=== PATIENT | female | born 1980 | race Caucasian/White ===

== ENCOUNTER 2017-01-02 17:30 | Emergency (ER) | payer BC, OTHER ==
[2017-01-02] MEDS ORDERED: methylPREDNISolone SOD SUCCI 125 MG/2 ML VIAL IM STA (18:21)
--- NOTE | 2017-01-02 18:23 | ED ---
Skin/Abscess/FB HPI - General Chief complaint: Skin/Abscess/Foreign Body Stated complaint: HANDS PEELING, ITCHING, BLISTERS Time Seen by Provider: 01/02/17 18:09 Source: patient Mode of arrival: ambulatory Limitations: no limitations - History of Present Illness Initial comments: 36-year-old female presents with bilateral skin rash the last 3 weeks on her bilateral hands. Patient states her skin is dry cracked scaly and painful. Patient states it's itchy as well. Patient states is just getting worse she denies any change of products. 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 No discharge. complaint: rash Location: L hand, R hand - Related Data Home Medications Medication Instructions Recorded Confirmed DULoxetine HCL [Cymbalta] 20 mg PO DAILY 12/29/15 12/29/15 Previous Rx's Medication Instructions Recorded Amoxicillin/Potassium Clav 1 each PO Q12HR #20 tab 12/29/15 [Augmentin 875-125 Tablet] Hydrocortisone Cream 1 applic TOPICAL BID #15 cream..g. 01/02/17 [Hydrocortisone 2.5% Cream] methylPREDNISolone [Medrol] 4 mg PO DIRECTED #1 tab.ds.pk 01/02/17 Allergies Allergy/AdvReac Type Severity Reaction Status Date / Time No Known Allergies Allergy Verified 01/02/17 17:43 Review of Systems ROS Statement: Those systems with pertinent positive or pertinent negative responses have been documented in the HPI. ROS Other: All systems not noted in ROS Statement are negative. Constitutional: Denies: fever Skin: Reports: rash (Bilateral hands) Past Medical History Past Medical History: No Reported History History of Any Multi-Drug Resistant Organisms: None Reported Past Surgical History: Orthopedic Surgery Additional Past Surgical History / Comment(s): 4 bilateral knee surgeries Past Psychological History: Anxiety Smoking Status: Current every day smoker Past Alcohol Use History: Occasional Past Drug Use History: None Reported General Exam Limitations: no limitations General appearance: alert, in no apparent distress Neurological exam: Present: alert, oriented X3, CN II-XII intact Psychiatric exam: Present: normal affect, normal mood Skin exam: Present: warm, dry, normal color. Absent: intact (Dry scaly excoriated area to bilateral hands throughout), rash Course Vital Signs 01/02/17 17:41 Temperature 98.1 F Pulse Rate 93 Respiratory 20 Rate Blood Pressure 133/86 O2 Sat by Pulse 99 Oximetry Medical Decision Making - Medical Decision Making Patient to take prescribed medications as directed follow-up with dermatology for further eval and treatment. Disposition Clinical Impression: Contact dermatitis, Eczema Disposition: HOME SELF-CARE Condition: Good Instructions: Contact Dermatitis (ED) Prescriptions: Hydrocortisone Cream [Hydrocortisone 2.5% Cream] 1 applic TOPICAL BID #15 cream..g. methylPREDNISolone [Medrol] 4 mg PO DIRECTED #1 tab.ds.pk Referrals: Valentine Weaver MD [Primary Care Provider] - 1-2 days Time of Disposition: 18:23
[2017-01-02 18:55] VITALS: BP 136/80; PULSE 90; RESP 18; TEMP 98
== END 2017-01-02 18:40 | disposition home or self-care (01) ==
LOC: EC 17:30
DX: L25.9 Unspecified contact dermatitis, unspecified cause (principal); F41.9 Anxiety disorder, unspecified; F17.200 Nicotine dependence, unspecified, uncomplicated; Z79.899 Other long term (current) drug therapy
CPT/HCPCS: 99282; 96372; J2930

== ENCOUNTER → 2017-12-29 | Outpatient (CLI) | payer BC | END | disposition home or self-care (01) | LOC: LABWHC1 14:16 | PROVIDERS: ATTEND Obstetrics & Gynecology | DX: Z34.80 Encounter for supervision of other normal pregnancy, unspecified trimester (principal) | CPT/HCPCS: 36415; 84702 ==

== ENCOUNTER 2018-01-02 20:21 | Emergency (ER) | payer BC ==
--- NOTE | 2018-01-02 22:40 | ED ---
Female Urogenital HPI - General Chief complaint: Urogenital Stated complaint: 4 weeks /bleeding Time Seen by Provider: 01/02/18 22:10 Source: patient Mode of arrival: ambulatory Limitations: no limitations - History of Present Illness Initial comments: This patient is a 37-year-old woman who presents to be evaluated for vaginal spotting. The patient relates that she believes she is approximately 4 weeks based on last period. She did have a positive test. She plans to see Dr. Solorzano but has not yet. The patient states the symptoms started around 3 AM after having sexual intercourse. She states that the spotting has been intermittent but has stopped now. She has not had any abdominal or pelvic pain. She does not have any symptoms suggesting anemia area. Obstetric history is notable for 1 previous with a full-term live births. MD Complaint: vaginal bleeding Onset/Timin -: hour(s) Improves with: none Worsens with: intercourse Patient : Yes Number of weeks : 4 - Related Data Sexually active: Yes : 2 Para: 1 A: 0 Home Medications Medication Instructions Recorded Confirmed No Known Home Medications 01/02/18 01/02/18 Allergies Allergy/AdvReac Type Severity Reaction Status Date / Time No Known Allergies Allergy Verified 01/02/18 22:25 Review of Systems ROS Statement: Those systems with pertinent positive or pertinent negative responses have been documented in the HPI. ROS Other: All systems not noted in ROS Statement are negative. Constitutional: Denies: fever, chills Respiratory: Denies: cough, dyspnea Cardiovascular: Denies: chest pain, palpitations, edema Gastrointestinal: Denies: abdominal pain, vomiting, diarrhea Genitourinary: Reports: as per HPI. Denies: dysuria, frequency, hematuria, discharge Musculoskeletal: Denies: back pain Skin: Denies: rash Neurological: Denies: headache, weakness, numbness Past Medical History Past Medical History: No Reported History History of Any Multi-Drug Resistant Organisms: None Reported Past Surgical History: Orthopedic Surgery Additional Past Surgical History / Comment(s): 4 bilateral knee surgeries Past Psychological History: Anxiety Smoking Status: Current every day smoker Past Alcohol Use History: Occasional Past Drug Use History: None Reported General Exam Limitations: no limitations General appearance: alert, in no apparent distress Head exam: Present: atraumatic, normocephalic Eye exam: Present: normal appearance. Absent: scleral icterus, conjunctival injection ENT exam: Present: normal oropharynx Neck exam: Present: normal inspection Respiratory exam: Present: normal lung sounds bilaterally. Absent: respiratory distress, wheezes, rales, rhonchi, stridor Cardiovascular Exam: Present: regular rate, normal rhythm, normal heart sounds. Absent: systolic murmur, diastolic murmur, rubs, gallop GI/Abdominal exam: Present: soft. Absent: distended, tenderness, guarding, rebound, rigid, mass Extremities exam: Present: normal inspection, normal capillary refill. Absent: pedal edema, calf tenderness Back exam: Present: normal inspection. Absent: CVA tenderness (R), CVA tenderness (L) Neurological exam: Present: alert Skin exam: Present: warm, dry, intact, normal color. Absent: rash Course Vital Signs 01/02/18 01/02/18 20:25 23:39 Temperature 99.2 F Pulse Rate 108 H 67 Respiratory 20 18 Rate Blood Pressure 127/84 112/57 O2 Sat by Pulse 98 98 Oximetry Medical Decision Making - Lab Data Lab Results 01/02/18 01/02/18 01/02/18 Range/Units 22:30 22:30 23:59 HCG, Quant 05579.0 mIU/mL Blood Type O Positive Blood Type Confirm O Positive Blood Type Recheck CABO Indicated Disposition Clinical Impression: First trimester bleeding Disposition: HOME SELF-CARE Condition: Good Instructions: First Trimester Vaginal Bleed (ED) Is patient prescribed a controlled substance at d/c from ED?: No Referrals: Valentine Weaver MD [Primary Care Provider] - 1-2 days Koby Solorzano DO [Doctor of Osteopathic Medicine] - 1-2 days
[2018-01-02 23:40] VITALS: RESP 18
--- NOTE | 2018-01-03 00:23 | US ---
EXAMINATION TYPE: Transabdominal DATE OF EXAM: 08/30/17 COMPARISON: NONE CLINICAL HISTORY: spotting. Spotting EXAM PERFORMED: Transabdominal (TA) EXAM MEASUREMENTS: GESTATIONAL AGE / DATING Physician Established: Not yet established Dates by LMP: LMP unknown Dates by First Scan: No previous this is first scan Dates by Current Scan for: (6 weeks/1 days) EDC: 08/28/2018 MATERNAL ANATOMY Uterus: 10.2 x 3.8 x 4.2 cm Right Ovary: 3.5 x 2.0 x 2.6 cm Post CDS / Adnexa: wnl Presence of free fluid: no Presence of corpus luteal cyst: yes right Presence of subchorionic bleed: no GESTATION / SURVEY CRL: 0.49 cm (6 weeks/1 days) Yolk Sac (normal less than 6mm): 3mm Heart Rate: 115 bpm Rhythm: Normal IUP: Viable IUP Beta HcG (if available): 37753.0 Viable IUP 6w 1d RAJINDER 08/28/2018 HR 115 BPM IMPRESSION: The ultrasound gestational age is 6 weeks 1 day. No complicating process seen.
[2018-01-03 00:44] VITALS: BP 147/85; PULSE 87; TEMP 97.8
== END 2018-01-03 00:54 | disposition home or self-care (01) ==
LOC: EC 20:21
DX: O20.9 Hemorrhage in early pregnancy, unspecified (principal); O99.331 Smoking (tobacco) complicating pregnancy, first trimester; F17.200 Nicotine dependence, unspecified, uncomplicated; Z3A.01 Less than 8 weeks gestation of pregnancy
CPT/HCPCS: 36415; 76801; 84702; 86900; 86901; 99284

== ENCOUNTER 2018-02-10 15:35 | Emergency (ER) | payer BC ==
--- NOTE | 2018-02-10 15:51 | ED ---
Female Urogenital HPI - General Chief complaint: Vaginal Bleeding Stated complaint: & cramping Time Seen by Provider: 02/10/18 15:47 Source: patient Mode of arrival: ambulatory Limitations: no limitations - History of Present Illness Initial comments: This a 37-year-old female who denies past medical history presenting for chief complaint of vaginal bleeding and lower abdominal cramping since 9 AM this morning. Patient is 12 weeks . Patient states that this morning she began vaginal bleeding around 9 AM she states that is light and not heavy, she states she has had mild abdominal cramping that began last night. The abdominal cramping comes and goes and is in the lower pelvis and feels identical to period cramping, its diffuse and not localized to one side, no RLQ pain. Pt states cramping is 6/10 at its worse without radiation. Pt denies fever , diarrhea, constipation, nausea, vomiting, right lower quadrant pain, LE edema , chest pain, palpatations, shortness of breath. Remainder ROS (-). Pt follows Dr. Chaitanya pfeiffer OBGYN, who she has been evaluated within the last week, last appointment was Tuesday. heart tones were present at this appointment. Pt is O+, I confirmed this upon chart review. Upon arrival pt HR elevated at 115bpm remainder of VS within acceptable limits. - Related Data Home Medications Medication Instructions Recorded Confirmed Acetaminophen Tab [Tylenol Tab] 325 - 650 mg PO Q4H PRN 02/10/18 02/10/18 Pedi Multivit No.25/Folic Acid 600 mcg PO DAILY 02/10/18 02/10/18 [Flintstones Multivit Chew Tab] Allergies Allergy/AdvReac Type Severity Reaction Status Date / Time No Known Allergies Allergy Verified 02/10/18 16:11 Review of Systems ROS Statement: Those systems with pertinent positive or pertinent negative responses have been documented in the HPI. ROS Other: All systems not noted in ROS Statement are negative. Past Medical History Past Medical History: No Reported History History of Any Multi-Drug Resistant Organisms: None Reported Past Surgical History: Orthopedic Surgery Additional Past Surgical History / Comment(s): 4 bilateral knee surgeries Past Psychological History: Anxiety Smoking Status: Current some day smoker Past Alcohol Use History: None Reported Past Drug Use History: None Reported General Exam - General Exam Comments Initial Comments: General: The patient is awake and alert, in no distress, and does not appear acutely ill. Eye: Pupils are equal, round and reactive to light, extra-ocular movements are intact. No nystagmus. There is normal conjunctiva bilaterally. No signs of icterus. Ears, nose, mouth and throat: There are moist mucous membranes and no oral lesions. Neck: The neck is supple, there is no tenderness or JVD. Cardiovascular: There is a regular rate and rhythm. No murmur, rub or gallop is appreciated. Respiratory: Lungs are clear to auscultation, respirations are non-labored, breath sounds are equal. No wheezes, stridor, rales, or rhonchi. Gastrointestinal: Soft, non-distended, abdomen without masses or organomegaly noted. There is tenderness to palpation of the lower pelvic region of abdomen to palpation. No quadrant pain. There is no rebound or guarding present. No CVA tenderness. Bowel sounds are unremarkable. Musculoskeletal: Normal ROM, no tenderness. Strength 5/5. Sensation intact. Pulses equal bilaterally 2+. Neurological: A&O x 3. CN II-XII intact, There are no obvious motor or sensory deficits. Coordination appears grossly intact. Speech is normal. Skin: Skin is warm and dry and no rashes or lesions are noted. Psychiatric: Cooperative, appropriate mood & affect, normal judgment. Gynecological: external genitalia- labia, clitoris, urethral orifice & itroitus all WNL with no evidence of lesions, masses rashes, or erythema. Cervical os appears closed. Inspection of the cervix and vagina- no bulging with straining, pink, lubricated vaginal mucosa- no evidence of lacerations. No lesions on cervix or discharge coming from cervical os. Blood without clots in the vaginal vault. No odor present upon examination. Bimanual- the uterus is palpable, midline, without palpable masses, adnexa not palpable, no noted masses nor tender to palpation. No fissures or hemorrhoid upon inspection of anus. Limitations: no limitations Course Vital Signs 02/10/18 15:41 Temperature 98.6 F Pulse Rate 115 H Respiratory 16 Rate Blood Pressure 126/91 O2 Sat by Pulse 98 Oximetry Medical Decision Making - Medical Decision Making VS stable, HgB WNL. Pt O+ upon chart review. U/S revealed 12wk 5d viable IUP HR 175bpm, placenta hetergenous-significance not determined. Adenxa WNL, no free fluid. Labs reviewed. Case discussed with Dr. Mcgarry at this time we feel pt has 1st trimester vaginal bleeding etiology unclear. No ectopic on U/S or laceration on PE. At this time we feel pt is stable for d/c with OBGYN f/u. Pt agrees with plan. Pt denies questions at this time. Pt may take tylenol for cramping as needed. Pt d/c in stable condition. - Lab Data Result diagrams: 02/10/18 16:04 Lab Results 02/10/18 Range/Units 16:04 WBC 13.9 H (3.8-10.6) k/uL RBC 4.67 (3.80-5.40) m/uL Hgb 13.8 (11.4-16.0) gm/dL Hct 41.7 (34.0-46.0) % MCV 89.3 (80.0-100.0) fL MCH 29.6 (25.0-35.0) pg MCHC 33.2 (31.0-37.0) g/dL RDW 13.1 (11.5-15.5) % Plt Count 283 (150-450) k/uL Neutrophils % 83 % Lymphocytes % 13 % Monocytes % 3 % Eosinophils % 1 % Basophils % 0 % Neutrophils # 11.5 H (1.3-7.7) k/uL Lymphocytes # 1.8 (1.0-4.8) k/uL Monocytes # 0.4 (0-1.0) k/uL Eosinophils # 0.1 (0-0.7) k/uL Basophils # 0.0 (0-0.2) k/uL Disposition Clinical Impression: Vaginal bleeding before 22 weeks gestation Disposition: HOME SELF-CARE Condition: Good Instructions: First Trimester Vaginal Bleed (ED) Additional Instructions: Please use tylenol as direct for pain medication as discussed. Please follow- up with Dr. Solorzano in the next week. Please return to emergency room if the symptoms increase or worsen or for any other concerns, as discussed. Is patient prescribed a controlled substance at d/c from ED?: No Referrals: Valentine Weaver MD [Primary Care Provider] - 1-2 days Koby Solorzano DO [Doctor of Osteopathic Medicine] - 1-2 days Time of Disposition: 17:07
[2018-02-10 16:22] LABS: Basophils % (A) 0 %; Eosinophils # (A) 0.1 k/uL (0-0.7); Eosinophils % (A) 1 %; HCT 41.7 % (34.0-46.0); HGB 13.8 gm/dL (11.4-16.0); Lymphocytes # (A) 1.8 k/uL (1.0-4.8); Lymphocytes % (A) 13 %; MCH 29.6 pg (25.0-35.0); MCHC 33.2 g/dL (31.0-37.0); MCV 89.3 fL (80.0-100.0); Mean Platelet Volume 6.7; Monocytes # (A) 0.4 k/uL (0-1.0); Monocytes % (A) 3 %; Neutrophils # (A) 11.5 k/uL (1.3-7.7); Neutrophils % (A) 83 %; Platelet Count 283 k/uL (150-450); RBC 4.67 m/uL (3.80-5.40); RDW 13.1 % (11.5-15.5); WBC 13.9 k/uL (3.8-10.6)
--- NOTE | 2018-02-10 16:47 | US ---
EXAMINATION TYPE: Transabdominal DATE OF EXAM: 08/30/17 COMPARISON: US CLINICAL HISTORY: vaginal bleeding 3 mo . cramping EXAM PERFORMED: Transabdominal (TA) EXAM MEASUREMENTS: GESTATIONAL AGE / DATING Physician Established: (11 weeks/4 days) EDC: 08/28/2018 Dates by LMP: LMP unknown Dates by First Scan: (11 weeks/4 days) EDC: 08/28/2018 Dates by Current Scan for: (12 weeks/5 days) EDC: 08/20/2018 MATERNAL ANATOMY Uterus: 13.2 x 8.4 x 9.9 cm Right Ovary: 4.6 x 2.1 x 2.4 cm Left Ovary: not identified Post CDS / Adnexa: wnl Presence of free fluid: none GESTATION / SURVEY CRL: 6.3 cm (12 weeks/5 days) Yolk Sac (normal less than 6mm): not identified Heart Rate: 175 bpm Rhythm: Normal IUP: Viable IUP Date of LMP: unknown Viable IUP. Abnormal appearance to placenta for early IUP, appears diffusely heterogeneous. IMPRESSION: Ultrasound gestational age is 12 weeks 5 days. Placenta is heterogeneous of uncertain significance.
[2018-02-10 17:12] VITALS: BP 123/63; PULSE 76; RESP 18; TEMP 99.1
[2018-02-10 17:16] LABS: Appearance,Urine Clear (Clear); Bilirubin,Urine Negative (Negative); Blood,Urine Large (Negative); Color,Urine Light Yellow; Glucose,Urine (UA) Negative (Negative); Ketones,Urine Negative (Negative); Leukocyte Esterase,Urine Negative (Negative); Mucus,Urine Rare /hpf; Nitrite,Urine Negative (Negative); Protein,Urine Negative (Negative); RBC,Urine <1 /hpf (0-5); Specific Gravity,Urine 1.007 (1.001-1.035); Squamous Epithelial Cell,Urine <1 /hpf (0-4); Urobilinogen,Urine <2.0 mg/dL (<2.0); WBC,Urine 1 /hpf (0-5)
== END 2018-02-10 17:21 | disposition home or self-care (01) ==
LOC: EC 15:35
DX: O20.9 Hemorrhage in early pregnancy, unspecified (principal); O26.891 Other specified pregnancy related conditions, first trimester; R10.2 Pelvic and perineal pain; O99.331 Smoking (tobacco) complicating pregnancy, first trimester; F17.200 Nicotine dependence, unspecified, uncomplicated; Z3A.12 12 weeks gestation of pregnancy
CPT/HCPCS: 36415; 76801; 81001; 84702; 85025; 99284

== ENCOUNTER 2018-02-18 17:16 | Inpatient (IN) | payer BC ==
[2018-02-18 17:58] LABS: Basophils % (A) 0 %; Eosinophils # (A) 0.1 k/uL (0-0.7); Eosinophils % (A) 1 %; HCT 39.8 % (34.0-46.0); HGB 13.1 gm/dL (11.4-16.0); Lymphocytes # (A) 2.2 k/uL (1.0-4.8); Lymphocytes % (A) 11 %; MCH 29.6 pg (25.0-35.0); MCHC 32.8 g/dL (31.0-37.0); MCV 90.1 fL (80.0-100.0); Mean Platelet Volume 6.9; Monocytes # (A) 0.6 k/uL (0-1.0); Monocytes % (A) 3 %; Neutrophils # (A) 17.3 k/uL (1.3-7.7); Neutrophils % (A) 85 %; Platelet Count 325 k/uL (150-450); RBC 4.42 m/uL (3.80-5.40); RDW 12.7 % (11.5-15.5); WBC 20.4 k/uL (3.8-10.6)
--- NOTE | 2018-02-18 18:35 | US ---
EXAMINATION TYPE: Transabdominal DATE OF EXAM: 08/30/17 COMPARISON: NONE CLINICAL HISTORY: pain. EXAM PERFORMED: Transabdominal (TA) EXAM MEASUREMENTS: Physician Established: (12 weeks/5 days) EDC: 08/28/2018 Dates by LMP: LMP unknown Dates by First Scan: (12 weeks/5 days) EDC: 08/28/2018 Dates by Current Scan for: No IUP seen at this time Uterus: Anteverted; 12.0 x 8.9 x 11.0 cm Endometrium: Heterogeneous with mobile debris; 6.8 cm Right Ovary: Cystic area noted measuring approximately 1.3 x 1.3 x 1.2 cm; 3.0 x 2.2 x 2.3 cm Left Ovary: Wnl; 3.3 x 1.7 x 2.4 cm Post CDS / Adnexa: Traces free fluid seen rt posterior cul de sac Presence of free fluid: Traces free fluid seen rt posterior cul de sac Presence of corpus luteal cyst: ?cystic area in rt ovary measuring approximately 1.3 x 1.3 x 1.2 cm IMPRESSION: No evidence of intrauterine . Large amount of mixed echogenic mobile debris within the endom etrial canal. With reported history of previously normal 12 week gestation, demise and hemorrha ge is favored. Serial ultrasounds and correlation with beta hCG are recommended. Retained products of conception and gestational trophoblastic disease should also be considered
[2018-02-18] MEDS ORDERED: HYDROcodone/APAP 10-325MG 1 EACH TAB PO ONE (19:01)
--- NOTE | 2018-02-18 19:25 | ED ---
Female Urogenital HPI - General Chief complaint: Vaginal Bleeding Stated complaint: Bleeding/Cramping (12wks preg) Time Seen by Provider: 02/18/18 17:24 Source: patient Mode of arrival: ambulatory Limitations: no limitations - History of Present Illness Initial comments: This a 37-year-old female , 12 weeks presenting today for chief complaint of increased vaginal bleeding. Patient states that she has had vaginal bleeding since her last visit of the where she presented to the emergency department for the same complaint. Patient states that she has been spotting since that visit. She did follow up with her [employer] Dr. Solorzano Tuesday weren't ultrasound was obtained revealing an viable intrauterine . However given the length of time of bleeding he stated that with possible unlikely. Patient states that she has spotted since that appointment, denies any heavy bleeding. However today she began to heavily bleeding for about 3 hours soaking through multiple pads. She states that it began to slow down about an hour prior to arrival and she is now mostly spotting. She still experiencing the increasing abdominal cramping similar in characteritis that has been ongoing for the past week, however much stronger today. this is lower pelvic pain. Feels like period cramping, but worse. Patient states she's been taking Tylenol for pain management patient denies any fever, chills, severe abdominal pain, nausea or vomiting. Patient denies passing anything that resembled a fetus, however she states that she has not looked the toilet. Upon arrival patient heart rate elevated at 125. Remainder of vital signs stable. - Related Data Home Medications Medication Instructions Recorded Confirmed Acetaminophen Tab [Tylenol Tab] 325 - 650 mg PO Q4H PRN 02/10/18 02/18/18 Pedi Multivit No.25/Folic Acid 600 mcg PO DAILY 02/10/18 02/18/18 [Flintstones Multivit Chew Tab] Allergies Allergy/AdvReac Type Severity Reaction Status Date / Time No Known Allergies Allergy Verified 02/18/18 17:21 Review of Systems ROS Statement: Those systems with pertinent positive or pertinent negative responses have been documented in the HPI. ROS Other: All systems not noted in ROS Statement are negative. Constitutional: Denies: fever, chills, night sweats ENT: Denies: ear pain, throat pain Respiratory: Denies: cough, dyspnea, wheezes, hemoptysis, stridor Cardiovascular: Denies: chest pain, palpitations, dyspnea on exertion, orthopnea Endocrine: Denies: fatigue, heat or cold intolerance Gastrointestinal: Reports: abdominal pain. Denies: nausea, vomiting, diarrhea, constipation, hematemesis, melena Genitourinary: Reports: as per HPI, other (Vaginal bleeding). Denies: urgency, dysuria Musculoskeletal: Denies: back pain Neurological: Denies: headache, weakness, numbness, paresthesias, confusion, abnormal gait, vertigo Past Medical History Past Medical History: No Reported History History of Any Multi-Drug Resistant Organisms: None Reported Past Surgical History: Orthopedic Surgery Additional Past Surgical History / Comment(s): 4 bilateral knee surgeries Past Psychological History: Anxiety Smoking Status: Current some day smoker Past Alcohol Use History: None Reported Past Drug Use History: None Reported - Past Family History Mother Family Medical History: No Reported History General Exam - General Exam Comments Initial Comments: General: The patient is awake and alert, in no distress, and does not appear acutely ill. Eye: Pupils are equal, round and reactive to light, extra-ocular movements are intact. No nystagmus. There is normal conjunctiva bilaterally. No signs of icterus. Ears, nose, mouth and throat: There are moist mucous membranes and no oral lesions. Neck: The neck is supple, there is no tenderness or JVD. Cardiovascular: There is a regular rate and rhythm. No murmur, rub or gallop is appreciated. Respiratory: Lungs are clear to auscultation, respirations are non-labored, breath sounds are equal. No wheezes, stridor, rales, or rhonchi. Gastrointestinal: Soft, non-distended, non-tender abdomen without masses or organomegaly noted. There is pain to palpation of the lower pelvic region. There is no rebound or guarding present. No CVA tenderness. Bowel sounds are unremarkable. Musculoskeletal: Normal ROM, no tenderness. Strength 5/5. Sensation intact. Pulses equal bilaterally 2+. Neurological: A&O x 3. CN II-XII intact, There are no obvious motor or sensory deficits. Coordination appears grossly intact. Speech is normal. Skin: Skin is warm and dry and no rashes or lesions are noted. Psychiatric: Cooperative, appropriate mood & affect, normal judgment. Limitations: no limitations External exam: Present: normal external exam. Absent: erythema, swelling, lesions Speculum exam: Present: vaginal bleeding (clots in vault, no hemorrhaging/ lacerations), tissue (tissue visualized in open cervical os). Absent: erythema , vaginal discharge, cervical discharge, foreign body By manual exam: Present: normal by manual exam, uterine enlargement (consistent with ), uterine tenderness (mild uterine tenderness). Absent: cervical motion tenderness, adnexal tenderness, adnexal mass Expanded Female exam: Present: tissue present in vagina Speculum exam: Present: cervical OS open, vaginal bleeding Course Vital Signs 02/18/18 02/18/18 02/18/18 17:19 19:53 21:26 Temperature 98.2 F 98.5 F Pulse Rate 120 H 88 88 Respiratory 18 18 18 Rate Blood Pressure 115/70 126/67 145/73 O2 Sat by Pulse 98 97 98 Oximetry Medical Decision Making - Medical Decision Making Pt O+, confirmed with chart review. No Rhogam adminsitered. HgB/Hct WNL. Ultrasound revealed No evidence of intrauterine . There are large amounts of mixed echogenic mobile degrees within the endometrial canal. demise and hemorrhage is favored. Pelvic exam revealed no evidence of hemorrhaging, there is blood in the vaginal vault no evidence of fetus however it there is products in the cervical os that is open. (-) Chandelier signs, no evidence of discharge or foul odor. Dr. Anderson was paged and I spoke with her. There is tenderness to patient over the uterus, however this is not feel rigid or out of proportion. I had concern for retained proximal of conception given with blood cell count of 20 with a left shift. I discussed these findings with Dr Anderson, she states that pt is most likely actively miscarrying and the white count could be reactive, however she would like admission for monitoring with CBC in the morning, prophylactic antibiotics ceftriaxone, and admission to OB floor. No additional order were given at this time. Pt transferred to floor in hemodynamically stable condition after discussion of U/S findings and plan. Pt was agreeable with plan. pt given standing order for morphine 1mg q4h for severe pain. All findings and case discussed with Dr. Sánchez prior to admission. - Lab Data Result diagrams: 02/18/18 17:41 Lab Results 02/18/18 02/18/18 Range/Units 17:41 17:41 WBC 20.4 H (3.8-10.6) k/uL RBC 4.42 (3.80-5.40) m/uL Hgb 13.1 (11.4-16.0) gm/dL Hct 39.8 (34.0-46.0) % MCV 90.1 (80.0-100.0) fL MCH 29.6 (25.0-35.0) pg MCHC 32.8 (31.0-37.0) g/dL RDW 12.7 (11.5-15.5) % Plt Count 325 (150-450) k/uL Neutrophils % 85 % Lymphocytes % 11 % Monocytes % 3 % Eosinophils % 1 % Basophils % 0 % Neutrophils # 17.3 H (1.3-7.7) k/uL Lymphocytes # 2.2 (1.0-4.8) k/uL Monocytes # 0.6 (0-1.0) k/uL Eosinophils # 0.1 (0-0.7) k/uL Basophils # 0.0 (0-0.2) k/uL HCG, Quant 892642.0 mIU/mL Disposition Clinical Impression: Spontaneous , Vaginal bleeding before 22 weeks gestation Disposition: ADMITTED IP TO THIS [facility] Condition: Stable Is patient prescribed a controlled substance at d/c from ED?: No Time of Disposition: 20:21 Decision to Admit Reason: Admit from EC Decision Date: 02/18/18 Decision Time: 20:21
[2018-02-18] MEDS ORDERED: SODIUM CHLORIDE 0.9% 1,000 ML IV SCH (20:15)
[2018-02-18] MEDS ORDERED: NALOXONE 0.4 MG/ML 1 ML VIAL IV PRN (20:15)
[2018-02-18] MEDS ORDERED: ACETAMINOPHEN TAB 325 MG TAB PO PRN (20:15)
[2018-02-18] MEDS ORDERED: ONDANSETRON 4 MG/2 ML VIAL IVP PRN (20:15)
[2018-02-18 22:35] VITALS: BMI 24.7
[2018-02-18] MEDS: IBUPROFEN 400 MG TAB PO PRN (23:23)
--- NOTE | 2018-02-19 01:03 | P.HPOB ---
History of Present Illness H&P Date: 02/19/18 Chief Complaint: Vaginal bleeding This is a 37-year-old female 2 para 1 who was approximately 12 weeks gestation and began bleeding heavily today. She has been bleeding off-and-on for the last week but it became much heavier today with a gush of fluid and a lot of blood clots. She states her bleeding has slowed significantly and she is not sure if she passed the fetus or not. She is still cramping quite significantly. She has been using Tylenol through the day for cramping. On admission to ER, her white count was elevated to 20,000 and therefore she is admitted for observation and antibiotics. Her blood type is O+. Obstetrical history: . History of 1 vaginal delivery that was complicated by a shoulder dystocia. Review of Systems Constitutional: Denies chills, Denies fever Eyes: denies blurred vision, denies pain Ears, nose, mouth and throat: Denies headache, Denies sore throat Cardiovascular: Denies chest pain, Denies shortness of breath Gastrointestinal: Reports abdominal pain Genitourinary: Reports abnormal vaginal bleeding, Reports pelvic pain, Reports Integumentary: Denies pruritus, Denies rash Neurological: Denies numbness, Denies weakness Past Medical History Past Medical History: No Reported History History of Any Multi-Drug Resistant Organisms: None Reported Past Surgical History: Orthopedic Surgery Additional Past Surgical History / Comment(s): 4 bilateral knee surgeries Past Anesthesia/Blood Transfusion Reactions: No Reported Reaction Past Psychological History: Anxiety Smoking Status: Current some day smoker Past Alcohol Use History: None Reported Past Drug Use History: None Reported - Past Family History Mother Family Medical History: No Reported History Medications and Allergies Home Medications Medication Instructions Recorded Confirmed Type Acetaminophen Tab [Tylenol Tab] 325 - 650 mg PO Q4H PRN 02/10/18 02/18/18 History Pedi Multivit No.25/Folic Acid 600 mcg PO DAILY 02/10/18 02/18/18 History [Flintstones Multivit Chew Tab] Allergies Allergy/AdvReac Type Severity Reaction Status Date / Time No Known Allergies Allergy Verified 02/18/18 17:21 Exam Osteopathic Statement: *. No significant issues noted on an osteopathic structural exam other than those noted in the History and Physical/Consult. Vital Signs Temp Pulse Pulse Resp BP BP Pulse Ox 02/18/18 22:17 98.3 F 86 15 121/72 100 02/18/18 21:26 98.5 F 88 18 145/73 98 02/18/18 19:53 88 18 126/67 97 02/18/18 17:19 98.2 F 120 H 18 115/70 98 Intake and Output 02/18/18 02/18/18 02/19/18 14:59 22:59 06:59 Other: Weight 61.235 kg HEENT: Within normal limits Heart: Regular rate and rhythm Lungs: Clear to auscultation bilaterally Abdomen: Soft but tender suprapubically. Speculum exam: There does appear to be slightly open os with a piece of umbilical cord hanging out the os. No active bleeding is noted and a small clot is removed. Pelvic exam: Uterus is slightly enlarged and mildly tender. Os was not open enough to place a finger through the os. Extremities: Negative Homans Results Result Diagrams: 02/18/18 17:41 Abnormal Lab Results - Last 24 Hours (Table) 02/18/18 Range/Units 17:41 WBC 20.4 H (3.8-10.6) k/uL Neutrophils # 17.3 H (1.3-7.7) k/uL Assessment and Plan (1) Incomplete Current Visit: Yes Status: Acute Code(s): O03.4 - INCOMPLETE SPONTANEOUS WITHOUT COMPLICATION SNOMED Code(s): 750283991 Plan: Admission for IV antibiotics. I have discussed dilation and curettage in detail with the patient. We will proceed with dilation and curettage to remove any further placental tissue. I have discussed the risks, benefits, and alternative therapies for the above- mentioned procedure and for both sedation/anesthesia as well as necessary blood products administration, if indicated, as they pertain to this patient. The patient has indicated her understanding and acceptance of the risks and procedures discussed.
[2018-02-19] MEDS ORDERED: KETOROLAC 30 MG/ML 1 ML VIAL ONE (01:21)
[2018-02-19] MEDS ORDERED: LIDOCAINE 1% INJ 10MG/ML (20 ML MDV) ONE (01:21)
[2018-02-19] MEDS ORDERED: DEXAMETHASONE SOD PHOS (MDV) 100 MG/10 ML VIAL ONE (01:21)
[2018-02-19] MEDS ORDERED: PROPOFOL 10 MG/ML 20 ML VIAL IV ONE (01:21)
[2018-02-19] MEDS ORDERED: ONDANSETRON 4 MG/2 ML VIAL ONE (01:21)
[2018-02-19] MEDS ORDERED: fentaNYL (PF) 50 MCG/ML 2 ML AMP ONE (01:21)
[2018-02-19] MEDS ORDERED: MIDAZOLAM 2 MG/2 ML VIAL ONE (01:21)
--- NOTE | 2018-02-19 01:55 | P.OP ---
Date of Procedure: 02/19/18 Preoperative Diagnosis: Incomplete Postoperative Diagnosis: Same Procedure(s) Performed: Suction dilation and curettage Anesthesia: YUDITH Surgeon: Vinita Anderson Estimated Blood Loss (ml): 100 Pathology: other (Products of conception) Condition: stable Disposition: floor Indications for Procedure: This is a 37-year-old female 2 para 1 at approximately 12 week gestation that came in through ER with complaints of heavy bleeding today. In ER, ultrasound was performed that showed no intrauterine but probable debris within the uterus. Her bleeding had slowed down significantly however she was still continuing to cramp. A speculum exam was performed and there was noted to be what appeared to be an umbilical cord hanging from the cervical os. At this point the decision was made to proceed with suction dilation and curettage to remove any further contents. I have discussed the risks, benefits, and alternative therapies for the above- mentioned procedure and for both sedation/anesthesia as well as necessary blood products administration, if indicated, as they pertain to this patient. The patient has indicated her understanding and acceptance of the risks and procedures discussed. Operative Findings: A large amount of products of conception were obtained. Description of Procedure: The patient was taken to the operating room where she was placed in the dorsal lithotomy position after general anesthesia was given. She is prepped and draped in the normal sterile fashion. Her bladder was drained with a catheter. Examination was performed under anesthesia. The cervical os was noted to be open fingertip with some cord noted within the os. Uterus was slightly enlarged at approximately 12 weeks size. A weighted speculum was placed in the patient's vagina and a right angle retractor was used to visualize the anterior lip of the cervix. The anterior lip of the cervix is grasped with a Allis clamp. The cervix is gently dilated with Amc dilators to the maximum dilation. A ring forcep was gently introduced and a large amount of placental type tissue was obtained. Next a 12 mm curved suction curette was placed into the uterine cavity and suction curetting was performed with a very large amount of tissue obtained. Once no further tissue was obtained a large curette was placed one further time with no further tissue obtained. At this point minimal bleeding was noted. The Allis clamp was removed from the anterior lip of the cervix. All instruments are removed from the vagina. Bimanual exam performed and uterus is noted to be firm and much smaller. All sponge counts are correct. The patient is then taken to recovery room in stable condition.
[2018-02-19] MEDS: MORPHINE SULFATE 2 MG/ML SYRINGE IV PRN ×2 (03:27→08:44)
[2018-02-19 04:55] VITALS: RESP 16
[2018-02-19] MEDS: IBUPROFEN 400 MG TAB PO PRN (06:15)
[2018-02-19 08:44] VITALS: TEMP 98.4
[2018-02-19 12:03] LABS: Basophils % (A) 0 %; Eosinophils % (A) 0 %; HCT 33.3 % (34.0-46.0); HGB 10.7 gm/dL (11.4-16.0); Lymphocytes # (A) 0.9 k/uL (1.0-4.8); Lymphocytes % (A) 7 %; MCH 29.4 pg (25.0-35.0); MCHC 32.2 g/dL (31.0-37.0); MCV 91.3 fL (80.0-100.0); Mean Platelet Volume 6.8; Monocytes # (A) 0.2 k/uL (0-1.0); Monocytes % (A) 2 %; Neutrophils # (A) 12.3 k/uL (1.3-7.7); Neutrophils % (A) 91 %; Platelet Count 280 k/uL (150-450); RBC 3.65 m/uL (3.80-5.40); RDW 12.8 % (11.5-15.5); WBC 13.4 k/uL (3.8-10.6)
--- NOTE | 2018-02-19 12:03 | P.DS ---
Providers Date of admission: 02/18/18 20:56 Expected date of discharge: 02/19/18 Attending physician: Vinita Anderson Primary care physician: Valentine Weaver - Discharge Diagnosis(es) (1) Incomplete Current Visit: Yes Status: Acute Hospital Course: This is a 37-year-old female 2 para 1 who presented with heavy vaginal bleeding at approximately 12 weeks gestation. Ultrasound showed no intrauterine but some debris within the endometrium. She did undergo a suction dilation and curettage early this morning. She was also given IV antibiotics secondary to white count of 20,000. Her bleeding is minimal. She is still having some cramping. Her vital signs are stable. She is afebrile. Abdomen is soft with fundus minimally tender. Rosa-pad shows very scant bleeding. Impression is status post dilation and curettage postoperative day # 0. Plan is to discharge home later today after her CBC results are back. She will be given ibuprofen and Keflex. She is advised to follow up with Dr. Solorzano in the office this week. Routine postoperative instructions are given. She is advised to call the office if she has any further questions or concerns prior to her postoperative appointment. Procedures: Suction dilation and curettage on 02/19/2018 Patient Condition at Discharge: Stable Plan - Discharge Summary New Discharge Prescriptions: New Cephalexin [Keflex] 500 mg PO Q6HR #24 cap No Action Acetaminophen Tab [Tylenol Tab] 325 - 650 mg PO Q4H PRN PRN Reason: Pain Or Fever > 100.5 Pedi Multivit No.25/Folic Acid [Flintstones Multivit Chew Tab] 600 mcg PO DAILY Discharge Medication List Acetaminophen Tab [Tylenol Tab] 325 - 650 mg PO Q4H PRN 02/10/18 [History] Pedi Multivit No.25/Folic Acid [Flintstones Multivit Chew Tab] 600 mcg PO DAILY 02/10/18 [History] Cephalexin [Keflex] 500 mg PO Q6HR #24 cap 02/19/18 [Rx] Follow up Appointment(s)/Referral(s): Valentine Weaver MD [Primary Care Provider] - 1-2 days Koby Solorzano DO [Family Provider] - 1 Week Activity/Diet/Wound Care/Special Instructions: Activity as tolerated. Diet as tolerated. May shower, but no tub baths for at least 1 week. No intercourse until seen by Dr. Solorzano. Discharge Disposition: HOME SELF-CARE
[2018-02-19 13:03] VITALS: BP 105/58; PULSE 60
== END 2018-02-19 13:20 | disposition home or self-care (01) | DRG 770 ==
LOC: EC 17:16 → 4FBP 20:56
PROVIDERS: ADMIT Obstetrics & Gynecology; ATTEND Obstetrics & Gynecology
PROC: 10D17ZZ Extraction of Products of Conception, Retained, Via Natural or Artificial Opening (ICD-10-PCS; principal; 2018-02-19 01:53)
DX: O03.4 Incomplete spontaneous abortion without complication (principal); O99.344 Other mental disorders complicating childbirth; F41.9 Anxiety disorder, unspecified; O99.334 Smoking (tobacco) complicating childbirth; F17.210 Nicotine dependence, cigarettes, uncomplicated
CPT/HCPCS: 36415; 76801; 84702; 85025; 87040; 88305; 93975; 96365; 99285

== ENCOUNTER 2022-05-15 11:06 | Emergency (ER) | payer OTHER ==
[2022-05-15] MEDS ORDERED: ASPIRIN 81 MG PO STA (11:08)
[2022-05-15 11:17] VITALS: RESP 16; TEMP 98
[2022-05-15] MEDS ORDERED: SODIUM CHLORIDE 0.9% 1,000 ML IV STA (11:20)
[2022-05-15 11:38] LABS: Basophils # (A) 0.1 k/uL (0-0.2); Basophils % (A) 1 %; Eosinophils % (A) 1 %; HCT 44.5 % (34.0-46.0); HGB 15.6 gm/dL (11.4-16.0); Lymphocytes # (A) 2.3 k/uL (1.0-4.8); Lymphocytes % (A) 25 %; MCH 30.7 pg (25.0-35.0); MCV 87.7 fL (80.0-100.0); Mean Platelet Volume 8.1; Monocytes # (A) 0.5 k/uL (0-1.0); Monocytes % (A) 5 %; Neutrophils % (A) 67 %; Platelet Count 275 k/uL (150-450); RBC 5.07 m/uL (3.80-5.40); RDW 13.5 % (11.5-15.5)
[2022-05-15 11:53] LABS: Partial Thromboplastin Time 26.3 sec (22.0-30.0); Prothrombin Time 10.9 sec (9.0-12.0)
[2022-05-15] MEDS ORDERED: METOCLOPRAMIDE 5 MG/ML 2 ML VIAL IVP STA (11:57)
[2022-05-15] MEDS ORDERED: KETOROLAC 15 MG/ML 1 ML VIAL IVP STA (11:58)
--- NOTE | 2022-05-15 11:58 | ED ---
Chest Pain HPI - General Chief Complaint: Chest Pain Stated Complaint: Chest Pain Time Seen by Provider: 05/15/22 11:07 Source: patient Mode of arrival: EMS Limitations: no limitations - History of Present Illness Initial Comments: Patient is a 42-year-old female who presents to the emergency department with a chief complaint of chest pain. Symptoms started 2 days ago. Describes it as an intermittent sharp pain in the middle of her chest which radiates to her left breast and back. Episodes last a couple seconds to a couple minutes. The episodes are associated with shortness of breath and mild dizziness. Patient also reports intermittent nausea with a couple episodes of vomiting. Patient was diagnosed with Covid one week ago. She does admit to a nonproductive cough. She is currently on paxlovid and prednisone. Patient does not have history of cardiac disease. Family history of cardiac disease includes her mother who of congestive heart failure. Patient is currently a smoker, 10 year pack history. She denies alcohol use. - Related Data Home Medications Medication Instructions Recorded Confirmed Acetaminophen Tab [Tylenol Tab] 325 - 650 mg PO Q4H PRN 02/10/18 02/18/18 Pedi Multivit No.25/Folic Acid 600 mcg PO DAILY 02/10/18 02/18/18 [Flintstones Multivit Chew Tab] Previous Rx's Medication Instructions Recorded Cephalexin [Keflex] 500 mg PO Q6HR #24 cap 02/19/18 Ibuprofen [Motrin] 800 mg PO Q8HR PRN #30 tab 05/15/22 Metoclopramide [Reglan] 10 mg PO TID PRN #15 tab 05/15/22 Allergies Allergy/AdvReac Type Severity Reaction Status Date / Time No Known Allergies Allergy Verified 02/18/18 17:21 Review of Systems ROS Statement: Those systems with pertinent positive or pertinent negative responses have been documented in the HPI. ROS Other: All systems not noted in ROS Statement are negative. EKG Findings - EKG Comments: EKG Findings:: EKG taken at 11:19, interpreted by me. Sinus rhythm, right axis deviation, no ST segment or T-wave abnormality. Ventricular rate 87. W[place] interval 146. QRS duration 82. QTc 427 Past Medical History Past Medical History: No Reported History History of Any Multi-Drug Resistant Organisms: None Reported Past Surgical History: Orthopedic Surgery Additional Past Surgical History / Comment(s): 4 bilateral knee surgeries Past Anesthesia/Blood Transfusion Reactions: No Reported Reaction Past Psychological History: Anxiety Past Alcohol Use History: None Reported Past Drug Use History: None Reported - Past Family History Mother Family Medical History: No Reported History General Exam Limitations: no limitations Head exam: Present: atraumatic, normocephalic, normal inspection Respiratory exam: Present: normal lung sounds bilaterally, chest wall tenderness. Absent: respiratory distress, wheezes, rales, rhonchi, stridor Cardiovascular Exam: Present: regular rate, normal rhythm, normal heart sounds. Absent: systolic murmur, diastolic murmur, rubs, gallop, clicks Back exam: Present: normal inspection. Absent: paraspinal tenderness, vertebral tenderness Neurological exam: Present: alert, oriented X3, CN II-XII intact Psychiatric exam: Present: normal affect, anxious. Absent: normal mood Skin exam: Present: warm, dry, intact, normal color. Absent: rash Course Vital Signs 05/15/22 05/15/22 05/15/22 11:11 11:25 12:19 Temperature 98 F Pulse Rate 92 76 76 Respiratory 16 16 16 Rate Blood Pressure 129/82 129/82 141/80 O2 Sat by Pulse 99 99 98 Oximetry 05/15/22 13:45 Temperature Pulse Rate 75 Respiratory 16 Rate Blood Pressure 130/68 O2 Sat by Pulse 98 Oximetry Chest Pain MDM - MDM This is a 42-year-old female presenting with atypical chest pain. EKG obtained and interpreted by me which shows sinus rhythm with right axis deviation, no ST segment or T-wave abnormalities. Laboratory studies obtained. Troponin and d-dimer are within normal limits. COVID-19 is detected, as ex pected. Chest x-ray obtained and interpreted by me which shows subtle scattered opacities which may represent an atypical pneumonia. Patient given Decadron, Toradol, Reglan. This is a well-appearing patient with atypical chest pain, reproducible with palpation, stable vital signs, and mild pneumonia on chest x-ray. Symptoms are likely related to covid pneumonia. Patient already on Paxlovid and prednisone. She'll be discharged with reglan and motrin. Strict return parameters discussed. Dr. Walker is my attending. Disposition Clinical Impression: COVID-19, Chest pain, Shortness of breath, Pneumonia, Dizziness Disposition: HOME SELF-CARE Condition: Good Instructions (If sedation given, give patient instructions): Coronavirus Disease 2019 (COVID-19), Chest Pain (ED) Additional Instructions: Take medication as directed. Take prednisone and Paxlovid. Return to the emergency department if you experience new, concerning, or worsening symptoms. Prescriptions: Ibuprofen [Motrin] 800 mg PO Q8HR PRN #30 tab PRN Reason: Pain Metoclopramide [Reglan] 10 mg PO TID PRN #15 tab PRN Reason: Nausea Is patient prescribed a controlled substance at d/c from ED?: No Referrals: Valentine Weaver MD [Primary Care Provider] - 1-2 days
[2022-05-15 11:59] LABS: Albumin 4.1 g/dL (3.5-5.0); Calcium 8.6 mg/dL (8.4-10.2); Total Bilirubin 0.3 mg/dL (0.2-1.3); Total Protein 6.7 g/dL (6.3-8.2)
--- NOTE | 2022-05-15 12:39 | XR ---
EXAMINATION TYPE: XR chest 2V DATE OF EXAM: 05/15/2022 12:14 PM COMPARISON: None TECHNIQUE: XR chest 2V Frontal and lateral views of the chest. CLINICAL INDICATION:Female, 42 years old with history of Chest Pain; FINDINGS: Lungs/Pleura: Scattered subtle reticular and hazy opacities. No evidence of pneumothorax, focal conso lidation or pleural effusion. Pulmonary vascularity: Unremarkable. Heart/mediastinum: Cardiomediastinal silhouette is unremarkable. Musculoskeletal: No acute osseous pathology. IMPRESSION: Subtle scattered opacities which may represent an atypical pneumonia.
[2022-05-15] MEDS ORDERED: DEXAMETHASONE SOD PHOSPHATE 10 MG/ML 1 ML VIAL IVP STA (13:04)
[2022-05-15 13:46] VITALS: BP 130/68; PULSE 75
== END 2022-05-15 13:46 | disposition home or self-care (01) ==
LOC: EC 11:06
DX: U09.9 Post COVID-19 condition, unspecified (principal); J18.9 Pneumonia, unspecified organism; F41.9 Anxiety disorder, unspecified
CPT/HCPCS: 36415; 93005; 85379; 80053; 83735; 84484; 85025; 85610; 85730; 87636; 71046; 99285; 96374; 96375 ×2; 96361 ×2; J1100; J2765; J1885

== ENCOUNTER 2022-05-26 13:12 | Inpatient (IN) | payer MEDICAID, OTHER ==
--- NOTE | 2022-05-26 15:11 | ED ---
Psych HPI - General Chief Complaint: Psychiatric Symptoms Stated Complaint: mental health Time Seen by Provider: 05/26/22 14:59 Source: patient Mode of arrival: ambulatory - History of Present Illness Initial Comments: This patient is a 42-year-old woman who presents with complaint that she is having worsening of depressed mood and having recurrent suicidal thoughts. Patient states that she had seen her counselor and also her primary physician. She states that her antidepressant was changed 5 days ago but doesn't seem to be doing too much at the moment. Patient's counselor recommended that she be seen about possibility of inpatient treatment. MD Complaint: suicidal ideation, feels depressed Onset/Timin -: week(s) Associated Psychiatric Symptoms: depression, suicidal ideation History of same: Yes Quality: getting worse Improves With: none Worsens With: none Associated Symptoms: denies other symptoms - Related Data Home Medications Medication Instructions Recorded Confirmed Citalopram Hydrobromide [CeleXA] 10 mg PO DAILY 05/26/22 05/26/22 Levothyroxine Sodium 100 mcg PO DAILY 05/26/22 05/26/22 Liothyronine Sodium [Cytomel] 10 mcg PO DAILY 05/26/22 05/26/22 Metoclopramide [Reglan] 10 mg PO TID PRN 05/26/22 05/26/22 Montelukast [Singulair] 10 mg PO DAILY PRN 05/26/22 05/26/22 clonazePAM [KlonoPIN] 0.5 mg PO BID PRN 05/26/22 05/26/22 Allergies Allergy/AdvReac Type Severity Reaction Status Date / Time desvenlafaxine [From Pristiq] Allergy Rash/Hives Verified 05/27/22 11:46 Review of Systems ROS Statement: Those systems with pertinent positive or pertinent negative responses have been documented in the HPI. ROS Other: All systems not noted in ROS Statement are negative. Constitutional: Denies: fever, chills Respiratory: Denies: cough, dyspnea Cardiovascular: Denies: chest pain, palpitations Gastrointestinal: Denies: abdominal pain, vomiting, diarrhea Musculoskeletal: Denies: back pain Neurological: Denies: headache Psychiatric: Reports: depression, suicidal thoughts. Denies: auditory hallucina tions, visual hallucinations, homicidal thoughts Past Medical History Past Medical History: No Reported History History of Any Multi-Drug Resistant Organisms: None Reported Past Surgical History: Orthopedic Surgery Additional Past Surgical History / Comment(s): 4 bilateral knee surgeries Past Anesthesia/Blood Transfusion Reactions: No Reported Reaction Past Psychological History: Anxiety, Depression Past Alcohol Use History: None Reported Past Drug Use History: None Reported - Past Family History Mother Family Medical History: No Reported History General Exam Limitations: no limitations General appearance: alert, in no apparent distress Head exam: Present: atraumatic, normocephalic Eye exam: Present: normal appearance. Absent: scleral icterus, conjunctival injection Respiratory exam: Present: normal lung sounds bilaterally. Absent: respiratory distress, wheezes, rales, rhonchi, stridor Cardiovascular Exam: Present: regular rate, normal rhythm, normal heart sounds. Absent: systolic murmur, diastolic murmur, rubs, gallop GI/Abdominal exam: Present: soft. Absent: distended, tenderness, guarding, rebound, rigid, mass Extremities exam: Present: normal inspection, normal capillary refill. Absent: pedal edema, calf tenderness Back exam: Present: normal inspection. Absent: CVA tenderness (R), CVA tenderness (L) Neurological exam: Present: alert, oriented X3 Psychiatric exam: Present: depressed, anxious, suicidal ideation. Absent: agitated, flat affect, manic, homicidal ideation Skin exam: Present: warm, dry, intact, normal color. Absent: rash Course Vital Signs 05/26/22 13:39 Temperature 97 F L Pulse Rate 110 H Respiratory 20 Rate Blood Pressure 152/94 O2 Sat by Pulse 98 Oximetry Medical Decision Making - Lab Data Result diagrams: 05/27/22 07:27 05/27/22 07:27 Lab Results 05/26/22 Range/Units 17:00 Coronavirus (PCR) Detected A (Not Detectd) Disposition Clinical Impression: Suicidal ideation, Mood disorder Disposition: ADMITTED IP TO THIS [facility] Condition: Fair Is patient prescribed a controlled substance at d/c from ED?: No
[2022-05-26] MEDS ORDERED: HALOPERIDOL LACTATE 5 MG/ML 1 ML VIAL IM PRN (18:56)
[2022-05-26] MEDS ORDERED: MAGNESIUM HYDROXIDE 2,400 MG/10 ML CUP PO PRN (18:56)
[2022-05-26] MEDS ORDERED: MAG HYDROX/AL HYDROX/SIMETH 30 ML CUP PO PRN (18:56)
[2022-05-26] MEDS ORDERED: haloperidoL 1 MG TAB PO PRN (19:02)
[2022-05-26] MEDS: ACETAMINOPHEN TAB 325 MG TAB PO PRN (22:44)
[2022-05-26] MEDS: clonazePAM 0.5 MG TAB PO PRN (22:46)
[2022-05-26] MEDS ORDERED: ALBUTEROL INHALER 60 PUFF/8 GM INHALER (MHU) INHALATION PRN (23:38)
[2022-05-26] MEDS ORDERED: MONTELUKAST 10 MG TAB PO PRN (23:38)
--- NOTE | 2022-05-26 23:44 | P.MDCNMH ---
History of Present Illness H&P Date: 05/26/22 Chief Complaint: medical evaluation 42 year old female with hypertension, hypothyroid patient coming in for evaluation due to overwhelming anxiety and suicidal ideation . she reports recent pneumonia, about 3 weeks ago or which she was treated with antibiotics, but she has a lingering pleuritic chest pain when takes a deep breath or laying down. she denies any fever, cough, nausea vomiting, or abd pain limited blood work is unremarkable Review of Systems Pertinent positives as noted in HPI. All other systems were reviewed and are negative Past Medical History Past Medical History: No Reported History History of Any Multi-Drug Resistant Organisms: None Reported Past Surgical History: Orthopedic Surgery Additional Past Surgical History / Comment(s): 4 bilateral knee surgeries Past Anesthesia/Blood Transfusion Reactions: No Reported Reaction Past Psychological History: Anxiety, Depression Smoking Status: Current every day smoker Past Alcohol Use History: None Reported Past Drug Use History: None Reported - Past Family History Mother Family Medical History: No Reported History Medications and Allergies Home Medications Medication Instructions Recorded Confirmed Type Citalopram Hydrobromide [CeleXA] 10 mg PO DAILY 05/26/22 05/26/22 History Levothyroxine Sodium 100 mcg PO DAILY 05/26/22 05/26/22 History Liothyronine Sodium [Cytomel] 10 mcg PO DAILY 05/26/22 05/26/22 History Metoclopramide [Reglan] 10 mg PO TID PRN 05/26/22 05/26/22 History Montelukast [Singulair] 10 mg PO DAILY PRN 05/26/22 05/26/22 History clonazePAM [KlonoPIN] 0.5 mg PO BID PRN 05/26/22 05/26/22 History Allergies Allergy/AdvReac Type Severity Reaction Status Date / Time No Known Allergies Allergy Verified 05/26/22 17:39 Physical Exam Vitals: Vital Signs Temp Pulse Pulse Resp BP BP Pulse Ox 05/26/22 19:41 97.8 F 105 H 17 155/84 98 05/26/22 13:39 97 F L 110 H 20 152/94 98 Intake and Output 05/26/22 05/26/22 05/27/22 14:59 22:59 06:59 Other: Weight 68.039 kg 67.67 kg Constitutional: No acute distress, conversant Eyes: Anicteric sclerae, moist conjunctiva, Pupils equal round reactive to light ENMT: NC/AT Oropharynx clear, no erythema, or exudates Neck: Supple, no masses, or JVD No carotid bruits No thyromegaly Lungs: scattered end expiratory rhonchi Clear to percussion Normal respiratory effort, no accessory muscle use Cardiovascular: Heart regular in rate and rhythm, No murmurs, gallops, or rubs No peripheral edema Abdominal: Soft Nontender, no guarding, rebound or rigidity Abdomen moving with respiration Normoactive bowel sounds Skin: Normal temperature, tone, texture, turgor Extremities: No digital cyanosis No clubbing Pedal pulses intact and symmetrical Radial pulses intact and symmetrical No calf tenderness Psychiatric: Alert and oriented to person, place and time Neuro Muscles Strength 5/5 in all 4 extremities Sensation to light touch grossly present throughout Cranial nerves II-XII grossly intact Lymphatics: no palpable cervical or supraclavicular lymph nodes Cranial Nerve Examination - Cranial Nerves Cranial Nerve II- Optic: Intact Cranial Nerve III- Oculomotor: Intact Cranial Nerve IV- Trochlear: Intact Cranial Nerve V- Trigeminal: Intact Cranial Nerve - Abducens: Intact Cranial Nerve VII- Facial: Intact Cranial Nerve VIII- Auditory: Intact Cranial Nerve IX- Glossopharyngeal: Intact Cranial Nerve X- Vagus: Intact Cranial Nerve XI- Accessory: Intact Cranial Nerve XII- Hypoglossal: Intact Results Labs: Abnormal Lab Results - Last 24 Hours (Table) 05/26/22 Range/Units 17:00 Coronavirus (PCR) Detected A (Not Detectd) Assessment and Plan Assessment: pleuritic chest pain check CXR in AM hypertension , untreated initiate on amlodipine 5 mg daily monitor vital signs hypothyroid TSH at goal resume levothyroxine anxiety , suicidal ideation management per psych tobacco smoking counseled to quit smoking nicotine replacement therapy offered thank you for this consultation
[2022-05-27] MEDS ORDERED: LEVOTHYROXINE 100 MCG TAB PO SCH (06:30)
[2022-05-27 08:23] LABS: Basophils # (A) 0.1 k/uL (0-0.2); Basophils % (A) 1 %; Eosinophils # (A) 0.1 k/uL (0-0.7); Eosinophils % (A) 1 %; HCT 42.4 % (34.0-46.0); HGB 14.2 gm/dL (11.4-16.0); Lymphocytes # (A) 2.5 k/uL (1.0-4.8); Lymphocytes % (A) 28 %; MCH 30.1 pg (25.0-35.0); MCHC 33.6 g/dL (31.0-37.0); MCV 89.7 fL (80.0-100.0); Mean Platelet Volume 8.3; Monocytes # (A) 0.5 k/uL (0-1.0); Monocytes % (A) 6 %; Neutrophils # (A) 5.8 k/uL (1.3-7.7); Neutrophils % (A) 64 %; Platelet Count 256 k/uL (150-450); RBC 4.73 m/uL (3.80-5.40); RDW 13.1 % (11.5-15.5); WBC 9.2 k/uL (3.8-10.6)
[2022-05-27] MEDS: LIOTHYRONINE SODIUM 5 MCG TAB PO SCH (08:32)
[2022-05-27] MEDS: NICOTINE 14MG/24HR PATCH TRANSDERM SCH (08:35)
[2022-05-27] MEDS: amLODIPine 5 MG TAB PO SCH (08:36)
[2022-05-27 08:49] LABS: ALT 17 U/L (4-34); AST 16 U/L (14-36); African American GFR (CKD) >90 (>60 ml/min/1.73 sqM); Albumin 4.2 g/dL (3.5-5.0); Alkaline Phosphatase 63 U/L (38-126); Anion Gap 7 mmol/L; Blood Urea Nitrogen 9 mg/dL (7-17); Calcium 8.6 mg/dL (8.4-10.2); Carbon Dioxide 25 mmol/L (22-30); Chloride 106 mmol/L (98-107); Glucose 96 mg/dL (74-99); Non-African American GFR(CKD) 90 (>60 ml/min/1.73 sqM); Potassium 4.1 mmol/L (3.5-5.1); Sodium 138 mmol/L (137-145); Total Bilirubin 0.9 mg/dL (0.2-1.3); Total Protein 6.9 g/dL (6.3-8.2)
--- NOTE | 2022-05-27 09:42 | XR ---
EXAMINATION TYPE: XR chest 1V DATE OF EXAM: 05/27/2022 COMPARISON: 05/15/2022 INDICATION: Pleuritic chest pain TECHNIQUE: Single frontal view of the chest is obtained. FINDINGS: The heart size is normal. The pulmonary vasculature is normal. The lungs are clear. No pneumothorax is evident. Ribs as visualized appear intact. IMPRESSION: 1. No acute pulmonary process.
[2022-05-27] MEDS ORDERED: SERTRALINE 50 MG TAB PO STA (12:08)
[2022-05-27] MEDS ORDERED: QUEtiapine 25 MG TAB PO PRN (12:08)
[2022-05-27] MEDS: ACETAMINOPHEN TAB 325 MG TAB PO PRN (12:34)
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
[2022-05-27] MEDS: clonazePAM 0.5 MG TAB PO PRN (14:44)
[2022-05-27 15:55] LABS: Appearance,Urine Turbid (Clear); Bacteria,Urine Rare /hpf; Bilirubin,Urine Negative (Negative); Blood,Urine Moderate (Negative); Budding Yeast,Urine Occasional /hpf; Color,Urine Yellow; Glucose,Urine (UA) Negative (Negative); Ketones,Urine Trace (Negative); Leukocyte Esterase,Urine Large (Negative); Mucus,Urine Many /hpf; Nitrite,Urine Negative (Negative); PH, Urine 6.5 (5.0-8.0); Protein,Urine 1+ (Negative); RBC,Urine 34 /hpf (0-5); Specific Gravity,Urine 1.032 (1.001-1.035); Squamous Epithelial Cell,Urine 93 /hpf (0-4)
[2022-05-27 16:12] LABS: Amphetamine Screen,Urine Not Detected (NotDetected); Barbiturate Screen,Urine Not Detected (NotDetected); Benzodiazepines Screen,Urine Detected (NotDetected); Cocaine Screen,Urine Not Detected (NotDetected); Methadone Screen, Urine Not Detected (NotDetected); Opiate Screen,Urine Not Detected (NotDetected); Oxycodone Screen, Urine Not Detected (NotDetected); Phencyclidine Screen,Urine Not Detected (NotDetected); Tricyclic Antidepressant,Urine Not Detected (NotDetected); Urn Cannabinoid Scrn Not Detected (NotDetected)
[2022-05-27] MEDS: cloNIDine HCL 0.1 MG TAB PO SCH (21:14)
[2022-05-28] MEDS: LEVOTHYROXINE 112 MCG TAB PO SCH (06:07)
[2022-05-28] MEDS: LIOTHYRONINE SODIUM 5 MCG TAB PO SCH (06:08)
[2022-05-28] MEDS: cloNIDine HCL 0.1 MG TAB PO SCH ×2 (08:38→20:53)
[2022-05-28] MEDS: NICOTINE 14MG/24HR PATCH TRANSDERM SCH (08:38)
[2022-05-28] MEDS: amLODIPine 5 MG TAB PO SCH (08:38)
[2022-05-28] MEDS ORDERED: SERTRALINE 100 MG TAB PO SCH (09:00)
--- NOTE | 2022-05-28 11:52 | P.PN ---
Progress Note - Text Progress Note Date: 05/28/22 Interval History: Patient was seen attending the group and was directable and agreeable to speak with health underwriter in the office. The patient reports she continues to feel hopeless and frustrated she is not feeling better. She continues to endorse suicidal ideation. She reports no homicidal ideation. She reports no paranoia or other delusions. She continues to be dysphoric and tearful. She reports she slept poorly last night. She continues to experience depersonalization/derealization symptoms. She reports they continue to bother her especially during the morning and at bedtime.. At this time patient denies any suicidal or homical ideations, intent or plan. Patient denies any auditory, visual hallucinations and denies any paranoia or delusions. Patient denies any side effects from the medications and has been compliant with meds. Mental Status Exam: General Appearance: Patient appears to be stated age is alert, directable, and cooperative. Behavior: Patient is calmly seated without any agitated behavior. Speech: Patient's speech is fluent and nonpressured. Mood/Affect: Mood is depressed. Affect is tearful and sad. Suicidality/Homicidality: Patient endorses suicidal ideation. She denies homicidal ideation. Perceptions: Patient denies any visual hallucinations and denies any auditory hallucinations Though content/process: No delusional thought content. Dysphoric thought process. Memory and concentration: AOX3, grossly intact for the purposes of this session Judgment and insight: Improving mildly Vital Signs Temp 98.2 F 05/28/22 06:18 Pulse 93 05/28/22 06:18 Resp 14 05/28/22 06:18 BP 108/64 05/28/22 06:18 Pulse Ox 98 05/26/22 19:41 FiO2 Laboratory Results - Last 24 Hours 05/27/22 05/27/22 15:30 15:30 Urine Color Yellow Urine Appearance Turbid H Urine pH 6.5 Ur Specific [place] 1.032 Urine Protein 1+ H Urine Glucose (UA) Negative Urine Ketones Trace H Urine Blood Moderate H Urine Nitrite Negative Urine Bilirubin Negative Urine Urobilinogen 3.0 Ur Leukocyte Esterase Large H Urine RBC 34 H Ur Squamous Epith Cells 93 H Urine Bacteria Rare H Urine Mucus Many H Urine Yeast (Budding) Occasional H Urine HCG, Qual Not Detected Urine Opiates Screen Not Detected Ur Oxycodone Screen Not Detected Urine Methadone Screen Not Detected Ur Propoxyphene Screen Not Detected Ur Barbiturates Screen Not Detected U Tricyclic Antidepress Not Detected Ur Phencyclidine Scrn Not Detected Ur Amphetamines Screen Not Detected U Methamphetamines Scrn Not Detected U Benzodiazepines Scrn Detected H Urine Cocaine Screen Not Detected U Marijuana (THC) Screen Not Detected Assessment Major depressive disorder, severe Posttraumatic stress disorder Depersonalization/derealization Tobacco use disorder Plan: -Patient continues to meet criteria for inpatient psychiatric admission for symptom stabilization and safety. Patient has signed adult voluntary form and medication consent and was placed in patient's chart. -Medications: Clonidine 0.1 mg by mouth twice a day for PTSD Increase zoloft to 125 by mouth daily for PTSD/depression Increase seroquel to 100 mg by mouth at bedtime for mood augmentation/insomnia/severe anxiety -When necessary Ativan and Haldol for agitation/aggression. -NRT - nicotine patch -SW on board for discharge planning. Encouraged the patient to participate in milieu.
[2022-05-28] MEDS: ACETAMINOPHEN TAB 325 MG TAB PO PRN (13:05)
[2022-05-28] MEDS: clonazePAM 0.5 MG TAB PO PRN ×2 (15:02→20:56)
[2022-05-28] MEDS: SULFAMETHOX-TMP 800-160MG 1 EACH TAB PO SCH (20:56)
[2022-05-28] MEDS: QUEtiapine 100 MG TAB PO SCH (20:58)
[2022-05-29] MEDS: LEVOTHYROXINE 112 MCG TAB PO SCH (06:30)
[2022-05-29] MEDS: LIOTHYRONINE SODIUM 5 MCG TAB PO SCH ×2 (06:37→08:27)
[2022-05-29] MEDS: NICOTINE 14MG/24HR PATCH TRANSDERM SCH (08:26)
[2022-05-29] MEDS: SERTRALINE 50 MG TAB PO SCH (08:28)
[2022-05-29] MEDS: SULFAMETHOX-TMP 800-160MG 1 EACH TAB PO SCH ×2 (08:28→20:15)
[2022-05-29] MEDS: cloNIDine HCL 0.1 MG TAB PO SCH ×2 (08:29→20:16)
[2022-05-29] MEDS: amLODIPine 5 MG TAB PO SCH (08:30)
--- NOTE | 2022-05-29 12:02 | P.PN ---
Subjective Progress Note Date: 05/29/22 Principal diagnosis: IMPRESSIONS: Major depressive disorder, severe Posttraumatic stress disorder Depersonalization/derealization Tobacco use disorder The patient was seen lying in her room at noon curled up in a position and a dark room. She refused to get up and come talk to me saying she did not feel well. By which she meant dizzy. She was aware of her medications including Zoloft to being at 120 5 in the morning and that she was on some sort of medicine to help with PTSD at night but did not take last night. She says when she stands up fast she feels dizzy. MENTAL STATUS EXAM: General Appearance: Patient appears to be stated age is alert, directable, and attempts to cooperate. Patient appears to have slightly disheveled hygiene and grooming. Behavior: Patient is seated without any agitated behavior. Patient is tearful throughout the interview. Speech: Patient's speech is fluent and nonpressured. Soft in volume but spontaneous. Mood/Affect: Patient reports their mood is depressed and anxious, affect is congruent and tearful Suicidality/Homicidality: Patient denies having any homicidal ideation intent or plan. Patient does endorse suicidal ideation. Perceptions: Patient denies any visual hallucinations and denies any auditory hallucinations Though content/process: Patient is dysphoric. Thought process is rigid and concrete. Memory and concentration: AOX3, grossly intact for the purposes of this session. Can spell "WORLD" backwards Judgment and insight: Fair Assessment: She definitely is not doing well and needs a supportive environment in which to adjust medications I strongly encouraged her to try to go to some groups despite her dizziness. PLAN: No change in medication at this time I think she has to adjust to the medicines although is hard to tell how many of her, "symptoms" are from the medicine and how many of them are just a way to avoid participating in the program -Patient is admitted under voluntary status to [facility] for stabilization of psychiatric symptoms and safety. Patient signed adult voluntary form and medication consent and is placed in patient's chart. -Medications : Will start patient on Clonidine 0.1 mg by mouth twice a day for PTSD Zoloft 125 mg by mouth daily for PTSD/depression Seroquel 75 mg by mouth at bedtime when necessary for mood augmentati on/insomnia/severe anxiety -Klonopin and Haldol PRN for agitation/aggression -Patient was counselled on substance abuse and desired to cut back on use -Patient was informed of the risks, benefits and side effects of the medication and patient verbally consented to taking the medications. Patient signed med consent form and was placed in chart. -Internal Medicine consult to perform medical evaluation and physical. -NRT - nicotine patch -SW on board for discharge planning. Encourage patient to participate in groups to work on coping skills. 05/27/22 13:38 Objective - Vital Signs Vital signs: Vital Signs Temp 97.6 F 05/29/22 06:31 Pulse 77 05/29/22 06:31 Resp 16 05/29/22 06:31 BP 130/55 05/29/22 06:31 Pulse Ox 98 05/29/22 06:31 FiO2 - Labs CBC & Chem 7: 05/27/22 07:27 05/27/22 07:27
[2022-05-29] MEDS: clonazePAM 0.5 MG TAB PO PRN (13:26)
[2022-05-29] MEDS: QUEtiapine 100 MG TAB PO SCH (20:15)
[2022-05-30] MEDS: LIOTHYRONINE SODIUM 5 MCG TAB PO SCH (06:30)
[2022-05-30] MEDS: LEVOTHYROXINE 112 MCG TAB PO SCH (06:30)
[2022-05-30] MEDS: amLODIPine 5 MG TAB PO SCH (08:31)
[2022-05-30] MEDS: NICOTINE 14MG/24HR PATCH TRANSDERM SCH (08:31)
[2022-05-30] MEDS: cloNIDine HCL 0.1 MG TAB PO SCH ×2 (08:32→20:33)
[2022-05-30] MEDS: SULFAMETHOX-TMP 800-160MG 1 EACH TAB PO SCH ×2 (08:32→20:31)
[2022-05-30] MEDS: SERTRALINE 50 MG TAB PO SCH (08:32)
--- NOTE | 2022-05-30 10:45 | P.PN ---
Subjective Progress Note Date: 05/30/22 Principal diagnosis: IMPRESSIONS: Major depressive disorder, severe Posttraumatic stress disorder Depersonalization/derealization Tobacco use disorder Objective: The patient was up and all and was willing to come and talk to me. She moves slowly has a flat affect decreased eye contact but is oriented to person place time and circumstance and was cooperative her responses were slow and soft MENTAL STATUS EXAM: General Appearance: Patient appears to be stated age is alert, directable, and attempts to cooperate. Patient appears to have slightly disheveled hygiene and grooming. Behavior: Patient is seated without any agitated behavior. Speech: Patient's speech is fluent and nonpressured. Soft in volume but spontaneous. Mood/Affect: Patient reports their mood is depressed and anxious, affect is congruent and tearful she is focused on the dizziness. She was seen by medical doctor looked in her ears and said that her tubes were probably blocked and that she would need to see an ENT doctor. However there does not seem to be in note on the chart. Basically the patient seems to feel that unless the dizziness is taking care of it is hard for her to address any other issues. Suicidality/Homicidality: Patient denies having any homicidal ideation intent or plan. She says she is not feeling suicidal but she is not feeling hopeful either. Perceptions: Patient denies any visual hallucinations and denies any auditory hallucinations Though content/process: Patient is dysphoric. Thought process is rigid and con crete. Memory and concentration: AOX3, grossly intact for the purposes of this session. Can spell "WORLD" backwards Judgment and insight: Fair Subjective: She reviewed that in the past she has tried Cymbalta up to 90 mg and that seemed to work for a long time and then quit working. At that time Lexapro was added to the Cymbalta and that did not go well. She has also been tried on Celexa. She is currently on Zoloft at 125 mg. She has never taken Wellbutrin. She said that she was able to sleep last night still has low energy still feels dizzy decrease appetite. Denies any psychotic symptoms. She said that the Seroquel 100 hit her too hard and she didn't like that. Assessment: She definitely is not doing well and needs a supportive environment in which to adjust medications I strongly encouraged her to try to go to some groups despite her dizziness and she is trying hard at that today. She has very low physical energy and a lot of trouble with concentration. I thinks that the combination serotonin norepinephrine help of the [place] was good but since she did not change the behaviors that burned her out it eventually quit I think that she needs to have help with norepinephrine and dopamine and would do well adding Wellbutrin. However for now she is very anxious and needs to take things specifically for anxiety and when that is doing better consider adding the Wellbutrin. I educated her as to what that contributes to long-term and overall function. She acknowledged that she does have trouble with focus and organization motivation and enjoyment. PLAN: No change in medication at this time I think she has to adjust to the medicines although is hard to tell how many of her, "symptoms" are from the medicine and how many of them are just a way to avoid participating in the program For patient compliance and comfort it would be hartman to follow through on the ENT suggestion and see if something can be done about plugged tubes. -Patient is admitted under voluntary status to [facility] for stabilization of psychiatric symptoms and safety. Patient signed adult voluntary form and medication consent and is placed in patient's chart. -Medications : Clonidine 0.1 mg by mouth twice a day for PTSD Zoloft 125 mg by mouth daily for PTSD/depression Seroquel I'm going to decrease this to 25 mg by mouth at bedtime when necessary for mood augmentation/insomnia/severe anxiety -Klonopin and Haldol PRN for agitation/aggression -Patient was counselled on substance abuse and desired to cut back on use -Patient was informed of the risks, benefits and side effects of the medication and patient verbally consented to taking the medications. Patient signed med consent form and was placed in chart. -Internal Medicine consult to perform medical evaluation and physical. -NRT - nicotine patch -SW on board for discharge planning. Encourage patient to participate in groups to work on coping skills. 05/27/22 13:38 Objective - Vital Signs Vital signs: Vital Signs Temp 97.6 F 05/29/22 06:31 Pulse 101 H 05/30/22 08:31 Resp 16 05/29/22 06:31 BP 127/73 05/30/22 08:31 Pulse Ox 98 05/29/22 06:31 FiO2 - Labs CBC & Chem 7: 05/27/22 07:27 05/27/22 07:27
[2022-05-30] MEDS: clonazePAM 0.5 MG TAB PO PRN (13:22)
[2022-05-30] MEDS ORDERED: QUEtiapine 25 MG TAB PO SCH (21:00)
[2022-05-31] MEDS: LEVOTHYROXINE 112 MCG TAB PO SCH (06:29)
[2022-05-31] MEDS: LIOTHYRONINE SODIUM 5 MCG TAB PO SCH (06:29)
[2022-05-31] MEDS: amLODIPine 5 MG TAB PO SCH (08:40)
[2022-05-31] MEDS: SERTRALINE 50 MG TAB PO SCH (08:40)
[2022-05-31] MEDS: NICOTINE 14MG/24HR PATCH TRANSDERM SCH (08:40)
[2022-05-31] MEDS: SULFAMETHOX-TMP 800-160MG 1 EACH TAB PO SCH ×2 (08:41→21:55)
[2022-05-31] MEDS: cloNIDine HCL 0.1 MG TAB PO SCH ×2 (08:41→21:02)
[2022-05-31] MEDS: clonazePAM 0.5 MG TAB PO PRN ×2 (08:42→13:50)
--- NOTE | 2022-05-31 11:34 | P.PN ---
Progress Note - Text Progress Note Date: 05/31/22 Interval History: Patient was seen attending the group and was directable and agreeable to speak with magazine writer in the office. The patient reports that she continues to feel hopeless, helpeless and suicidal. Over the weekened she reports minimal improvement and intolerance of her seroquel. Her medication was tapered by the covering physician. During the interview, the patient began using her rubber bands around her wrist in order to ground herself after experiencing an episode of depersonalization. The episode subsided in 3-4 minutes. The patient is open to titration and adjustment of medications. She was informed to be aware that drowsiness is a side effect that subsides overtime. She reports no auditory or visual hallucinations. She denies any paranoia or other delusions. She reports difficulty with sleep despite staff noting 7 hours of sleep. She denies issues with appetite. Mental Status Exam: General Appearance: Patient appears to be stated age is alert, directable, and cooperative. Behavior: Patient is calmly seated without any agitated behavior. Speech: Patient's speech is fluent and nonpressured. Mood/Affect: Mood is depressed. Affect is tearful and sad. Suicidality/Homicidality: Patient endorses suicidal ideation. She denies homicidal ideation. Perceptions: Patient denies any visual hallucinations and denies any auditory hallucinations Though content/process: No delusional thought content. Dysphoric thought process. Memory and concentration: AOX3, grossly intact for the purposes of this session Judgment and insight: Improving mildly Vital Signs Temp 98.3 F 05/31/22 06:21 Pulse 88 05/31/22 06:21 Resp 14 05/31/22 06:21 BP 131/71 05/31/22 06:21 Pulse Ox 98 05/29/22 06:31 FiO2 Assessment Major depressive disorder, severe Posttraumatic stress disorder Depersonalization/derealization Tobacco use disorder Plan: -Patient continues to meet criteria for inpatient psychiatric admission for symptom stabilization and safety. Patient has signed adult voluntary form and medication consent and was placed in patient's chart. -Medications: Clonidine 0.1 mg by mouth twice a day for PTSD Discontinue Zoloft. Start Doxepin 50 mg at bedtime for depression/anxiety/PTSD Increase seroquel to 50 mg by mouth at bedtime for mood augmentation/insomnia/severe anxiety Increase Klonopin to 0.25 mg TID PRN for anxiety. -When necessary Ativan and Haldol for agitation/aggression. -NRT - nicotine patch -SW on board for discharge planning. Encouraged the patient to participate in milieu.
[2022-05-31] MEDS: ACETAMINOPHEN TAB 325 MG TAB PO PRN (20:06)
[2022-05-31] MEDS ORDERED: DOXEPIN 25 MG CAP PO SCH (21:00)
[2022-05-31] MEDS: QUEtiapine 50 MG TAB PO SCH (21:04)
[2022-06-01] MEDS: LEVOTHYROXINE 112 MCG TAB PO SCH (06:25)
[2022-06-01] MEDS: amLODIPine 5 MG TAB PO SCH (08:21)
[2022-06-01] MEDS: cloNIDine HCL 0.1 MG TAB PO SCH ×2 (08:21→21:17)
[2022-06-01] MEDS: NICOTINE 14MG/24HR PATCH TRANSDERM SCH (08:21)
[2022-06-01] MEDS: LIOTHYRONINE SODIUM 5 MCG TAB PO SCH (08:22)
--- NOTE | 2022-06-01 11:22 | P.PN ---
Progress Note - Text Progress Note Date: 06/01/22 Interval History: Patient was seen attending the group and was directable and agreeable to speak with group underwriter in the office. Currently, the patient is endorsing mild improvement in regards to her mood and anxiety. She also reports that her symptoms of depersonalization/derealization has decreased in length and severity however continued to appear in the same frequency. She does report an overall improved sleep and appetite. She continues to endorse suicidal ideation however is not endorsing any plan or intention at this time. She reports no homicidal ideation. She denies any auditory or visual hallucinations. She reports no paranoia or other delusions. She has been adherent with her medications and is not endorsing any significant side effects at this time. Mental Status Exam: General Appearance: Patient appears to be stated age is alert, directable, and cooperative. Behavior: Patient is calmly seated without any agitated behavior. Speech: Patient's speech is fluent and nonpressured. Mood/Affect: Mood is "a little better." Affect is less tearful today. Suicidality/Homicidality: Patient endorses suicidal ideation. She denies homicidal ideation. Perceptions: Patient denies any visual hallucinations and denies any auditory hallucinations Though content/process: No delusional thought content. Less dysphoric. More future oriented. Memory and concentration: AOX3, grossly intact for the purposes of this session Judgment and insight: Improving mildly Vital Signs Temp 98.3 F 05/31/22 06:21 Pulse 102 H 06/01/22 08:23 Resp 18 06/01/22 06:50 BP 114/68 06/01/22 08:23 Pulse Ox 96 06/01/22 06:50 FiO2 Assessment Major depressive disorder, severe Posttraumatic stress disorder Depersonalization/derealization Tobacco use disorder Plan: -Patient continues to meet criteria for inpatient psychiatric admission for symptom stabilization and safety. Patient has signed adult voluntary form and medication consent and was placed in patient's chart. -Medications: Clonidine 0.1 mg by mouth twice a day for PTSD Increase Doxepin to 75 mg at bedtime for depression/anxiety/PTSD Continue Seroquel 50 mg by mouth at bedtime for mood augmentation/insomnia/severe anxiety Continue Klonopin 0.25 mg TID PRN for anxiety. -When necessary Ativan and Haldol for agitation/aggression. -NRT - nicotine patch -SW on board for discharge planning. Encouraged the patient to participate in milieu.
[2022-06-01] MEDS: clonazePAM 0.5 MG TAB PO PRN (12:37)
[2022-06-01] MEDS ORDERED: DOXEPIN 25 MG CAP PO SCH (21:00)
[2022-06-01] MEDS: QUEtiapine 50 MG TAB PO SCH (21:17)
[2022-06-02] MEDS: LIOTHYRONINE SODIUM 5 MCG TAB PO SCH (06:39)
[2022-06-02] MEDS: LEVOTHYROXINE 112 MCG TAB PO SCH (06:39)
[2022-06-02] MEDS: NICOTINE 14MG/24HR PATCH TRANSDERM SCH (08:23)
[2022-06-02] MEDS: amLODIPine 5 MG TAB PO SCH (08:24)
[2022-06-02] MEDS: cloNIDine HCL 0.1 MG TAB PO SCH (08:24)
[2022-06-02] MEDS ORDERED: clonazePAM 0.5 MG TAB PO STA (10:35)
--- NOTE | 2022-06-02 11:05 | P.PN ---
Progress Note - Text Progress Note Date: 06/02/22 Interval History: Patient was seen attending the group and was directable and agreeable to speak with insurance underwriter in the office. Currently the patient continues to endorse suicidal ideation with a plan to hang herself. She reports that she does not feel safe to return home out of fear that she would go forward with her plan. She states she cannot continue "feeling like this." She states this morning she has been feeling extremely anxious. She does however acknowledge improved sleep and appetite. She continues to report periods of depersonalization/derealization that are less intense than before. She continues to be tearful throughout the interview. She has been adherent with her medications. She reports the clonidine has made her feel more anxious. It was noted that patient has elevated pulse after clonidine adminstration. Mental Status Exam: General Appearance: Patient appears to be stated age is alert, directable, and cooperative. Behavior: Patient is calmly seated without any agitated behavior. Speech: Patient's speech is fluent and nonpressured. Mood/Affect: Mood is "very anxious today." Affect is teaful and nervous. Suicidality/Homicidality: Patient endorses suicidal ideation with plan. No homicidal ideation. Perceptions: Patient denies any visual hallucinations and denies any auditory hallucinations Though content/process: No delusional thought content. Dysphoric thought process. Memory and concentration: AOX3, grossly intact for the purposes of this session Judgment and insight: Improving mildly Vital Signs Temp 98.2 F 06/02/22 06:40 Pulse 101 H 06/02/22 10:30 Resp 14 06/02/22 06:40 BP 141/67 06/02/22 10:30 Pulse Ox 96 06/01/22 06:50 FiO2 Assessment Major depressive disorder, severe Posttraumatic stress disorder Depersonalization/derealization Tobacco use disorder Plan: -Patient continues to meet criteria for inpatient psychiatric admission for symptom stabilization and safety. Patient has signed adult voluntary form and medication consent and was placed in patient's chart. -Medications: Discontinue clonidine due to tachycardia/hypotension Increase Doxepin to 100 mg at bedtime for depression/anxiety/PTSD Continue Seroquel 50 mg by mouth at bedtime for mood augmentation/ insomnia/severe anxiety Schedule Klonopin 0.25 mg TID for anxiety. -When necessary Ativan and Haldol for agitation/aggression. -NRT - nicotine patch -SW on board for discharge planning. Encouraged the patient to participate in milieu.
[2022-06-02] MEDS: clonazePAM 0.5 MG TAB PO SCH ×2 (16:02→21:11)
[2022-06-02] MEDS: QUEtiapine 50 MG TAB PO SCH (21:11)
[2022-06-02] MEDS: DOXEPIN 25 MG CAP PO SCH (21:11)
[2022-06-03] MEDS: LIOTHYRONINE SODIUM 5 MCG TAB PO SCH (06:47)
[2022-06-03] MEDS: LEVOTHYROXINE 112 MCG TAB PO SCH (06:47)
[2022-06-03] MEDS: NICOTINE 14MG/24HR PATCH TRANSDERM SCH (08:53)
[2022-06-03] MEDS: amLODIPine 5 MG TAB PO SCH (08:53)
[2022-06-03] MEDS: clonazePAM 0.5 MG TAB PO SCH ×3 (08:53→21:29)
--- NOTE | 2022-06-03 12:13 | P.PN ---
Progress Note - Text Progress Note Date: 06/03/22 Interval History: Patient was seen during always talking to another patient. Patient was agreea ble to speak around in the office. Patient is having a depressed affect. She continues to endorse depression and anxiety. She claims that she has been tried on several different antidepressants however was willing to try Trintellix after discussion of multiple different antidepressants. She continues to state that she has a difficult time with sleep and was agreeable to have her Seroquel incre ased. She claims that she is still feeling hopeless. She claims that her appetite is fair at this time. She continues to report periods of depersonalization/derealization that are less intense than before. She was not tearful today. She has been adherent with her medications. Patient was endorsing suicidal thoughts, no plan, no homicidal ideations. Denies any visual or auditory hallucinations. Mental Status Exam: General Appearance: Patient appears to be stated age is alert, directable, and cooperative. Behavior: Patient is calmly seated without any agitated behavior. Speech: Patient's speech is fluent and nonpressured. Soft tone. Mood/Affect: Mood is "anxious today." Affect is not teaful and constricted. Suicidality/Homicidality: Patient endorses suicidal ideation with plan. No homicidal ideation. Perceptions: Patient denies any visual hallucinations and denies any auditory hallucinations Though content/process: No delusional thought content. Dysphoric thought process. Memory and concentration: AOX3, grossly intact for the purposes of this session Judgment and insight: Improving mildly Assessment: Major depressive disorder, severe Posttraumatic stress disorder Depersonalization/derealization Tobacco use disorder Plan: -Patient continues to meet criteria for inpatient psychiatric admission for symptom stabilization and safety. Patient has signed adult voluntary form and medication consent and was placed in patient's chart. -Medications: Doxepin 100 mg at bedtime for depression/anxiety/PTSD, added trintellix 20 mg daily for mood/anxiety, increase Seroquel 75 mg by mouth at bedtime for mood augmentation/insomnia/severe anxiety continue Schedule Klonopin 0.25 mg TID for anxiety. -When necessary Ativan and Haldol for agitation/aggression. -NRT - nicotine patch -SW on board for discharge planning. Encouraged the patient to participate in milieu.
[2022-06-03] MEDS: VORTIOXETINE HYDROBROMIDE 20 MG TABLET PO SCH (12:54)
[2022-06-03] MEDS ORDERED: MINERAL OIL-WHITE PETROLATUM 120 GM JAR TOPICAL PRN (17:34)
[2022-06-03] MEDS ORDERED: HYDROCORTISONE 1% CREAM 30 GM TUBE TOPICAL PRN (17:37)
[2022-06-03] MEDS: DOXEPIN 25 MG CAP PO SCH (21:28)
[2022-06-03] MEDS: QUEtiapine 25 MG TAB PO SCH (21:29)
[2022-06-04] MEDS: LEVOTHYROXINE 112 MCG TAB PO SCH (06:02)
[2022-06-04] MEDS: LIOTHYRONINE SODIUM 5 MCG TAB PO SCH (06:02)
[2022-06-04] MEDS: VORTIOXETINE HYDROBROMIDE 20 MG TABLET PO SCH (08:53)
[2022-06-04] MEDS: NICOTINE 14MG/24HR PATCH TRANSDERM SCH (08:53)
[2022-06-04] MEDS: clonazePAM 0.5 MG TAB PO SCH ×3 (08:54→21:10)
[2022-06-04] MEDS: amLODIPine 5 MG TAB PO SCH (08:55)
--- NOTE | 2022-06-04 17:23 | P.PN ---
Progress Note - Text Progress Note Date: 06/04/22 Interval History: Patient was seen relaxing in the lounge and was directable and agreeable to speak with contract technical writer in the office. She reports her mood is still a "rollercoaster" and feels "grawgy" since the addition of the Trintellix 20 mg daily. She reports her suicidal thoughts are "still there...not completely gone, but definitely less than what they were". She does not feel she is getting the results in her mood with the Trintellix/Doxepin. She denies any homicidal ideation, intent or plan. Patient denies any auditory, visual hallucinations and denies any paranoia or delusions. Patient has been compliant with meds. Mental Status Exam: General Appearance: Patient appears to be stated age, dressed in casual attire, fair hygiene. Behavior: Patient is calmly seated without any agitated behavior, appears withdrawn. Speech: Patient's speech is fluent and non-pressured, soft tone. Mood/Affect: Mood is "like a rollercoaster", affect is depressed and constricted. Suicidality/Homicidality: Patient endorses suicidal ideations, denies homicidal ideation intent or plan. Perceptions: Patient denies any visual hallucinations and denies any auditory hallucinations. Though content/process: There is no evidence of any delusional thought content and thought process is ruminative. Memory and concentration: AOX3, grossly intact for the purposes of this session Judgment and insight: Improving mildly Assessment Major depressive disorder, recurrent, severe Posttraumatic stress disorder Depersonalization/derealization Tobacco use disorder Plan: -Patient continues to meet criteria for inpatient psychiatric admission for symptom stabilization and safety. -Medications: Discontinue Trintellix. Discontinue Doxepin. Start Remeron 15 mg QHS for sleep/depression. Start Effexor XR 75 mg daily in the morning for depression/anxiety/PTSD. Continue Seroquel 75 mg QHS for mood/sleep. -When necessary Ativan and Haldol for agitation/aggression. -NRT - nicotine patch -SW on board for discharge planning. Encouraged the patient to participate in milieu.
[2022-06-04] MEDS: QUEtiapine 25 MG TAB PO SCH (21:12)
[2022-06-04] MEDS: MIRTAZAPINE 15 MG TAB PO SCH (21:12)
[2022-06-05] MEDS: LEVOTHYROXINE 112 MCG TAB PO SCH (05:38)
[2022-06-05] MEDS: LIOTHYRONINE SODIUM 5 MCG TAB PO SCH (05:38)
[2022-06-05] MEDS: VENLAFAXINE HCL ER 75 MG CAP PO SCH (08:29)
[2022-06-05] MEDS: amLODIPine 5 MG TAB PO SCH (08:29)
[2022-06-05] MEDS: NICOTINE 14MG/24HR PATCH TRANSDERM SCH (08:29)
[2022-06-05] MEDS: clonazePAM 0.5 MG TAB PO SCH ×3 (08:33→21:37)
[2022-06-05] MEDS ORDERED: VORTIOXETINE HYDROBROMIDE 20 MG TABLET PO SCH (09:00)
[2022-06-05 14:43] LABS: HCT 41.4 % (34.0-46.0); HGB 13.9 gm/dL (11.4-16.0); MCH 30.8 pg (25.0-35.0); MCHC 33.5 g/dL (31.0-37.0); MCV 91.8 fL (80.0-100.0); Mean Platelet Volume 8.3; Platelet Count 237 k/uL (150-450); RBC 4.51 m/uL (3.80-5.40); RDW 12.8 % (11.5-15.5); WBC 9.3 k/uL (3.8-10.6)
[2022-06-05 15:01] LABS: Albumin 4.3 g/dL (3.5-5.0); Calcium 8.7 mg/dL (8.4-10.2); Potassium 4.1 mmol/L (3.5-5.1); Total Bilirubin 0.3 mg/dL (0.2-1.3)
--- NOTE | 2022-06-05 20:13 | P.PN ---
Progress Note - Text Progress Note Date: 06/05/22 Interval History: Patient was seen isolating to her room. She reports depressed mood and is tearful during assessment. She reports suicidal ideations today with thoughts of slitting her wrists. She reports poor sleep last night due to racing thoughts. She reports a few life stressors including her son moving to [place] and limited contact with him, her mother in 2019, and a miscarriage a couple years ago. She denies any homicidal ideation, intent or plan. Patient denies any auditory, visual hallucinations and denies any paranoia or delusions. Patient has been compliant with meds and denies side effects. Mental Status Exam: General Appearance: Patient appears to be stated age, dressed in casual attire, fair hygiene. Behavior: Patient is calmly seated without any agitated behavior, appears withdrawn. Speech: Patient's speech is fluent and non-pressured, soft tone. Mood/Affect: Mood is depressed, affect is depressed and constricted, tearful. Suicidality/Homicidality: Patient endorses suicidal ideations, denies homicidal ideation intent or plan. Perceptions: Patient denies any visual hallucinations and denies any auditory hallucinations. Though content/process: There is no evidence of any delusional thought content and thought process is ruminative. Memory and concentration: AOX3, grossly intact for the purposes of this session Judgment and insight: Improving mildly Assessment Major depressive disorder, recurrent, severe Posttraumatic stress disorder Depersonalization/derealization Tobacco use disorder Plan: -Patient continues to meet criteria for inpatient psychiatric admission for symptom stabilization and safety. -Medications: Continue Remeron 15 mg QHS for sleep/depression. Continue Effexor XR 75 mg daily in the morning for depression/anxiety/PTSD for today and tomorrow, with plan to increase dose on Tuesday. Increase Seroquel to 100 mg QHS for mood/sleep. -When necessary Ativan and Haldol for agitation/aggression. -NRT - nicotine patch -SW on board for discharge planning. Encouraged the patient to participate in milieu.
[2022-06-05] MEDS: MIRTAZAPINE 15 MG TAB PO SCH (21:37)
[2022-06-05] MEDS: QUEtiapine 100 MG TAB PO SCH (21:37)
[2022-06-06] MEDS: LIOTHYRONINE SODIUM 5 MCG TAB PO SCH (06:45)
[2022-06-06] MEDS: LEVOTHYROXINE 112 MCG TAB PO SCH (06:45)
[2022-06-06] MEDS: VENLAFAXINE HCL ER 75 MG CAP PO SCH (08:33)
[2022-06-06] MEDS: NICOTINE 14MG/24HR PATCH TRANSDERM SCH (08:33)
[2022-06-06] MEDS: clonazePAM 0.5 MG TAB PO SCH ×3 (08:34→21:12)
[2022-06-06] MEDS: amLODIPine 5 MG TAB PO SCH (08:36)
--- NOTE | 2022-06-06 17:14 | P.PN ---
Subjective Progress Note Date: 06/06/22 This is a late note entry. Patient was seen and examined on 06/05/2021. Patient reports abdominal pain has been ongoing for the past few days. Pain is right upper quadrant radiating to the back. She reports no nausea and vomiting. Pain is not aggravated with meals. She denies any fever or chills. Patient states that she was diagnosed with UTI on admission and completed a course of antibiotics. She denies any dysuria or changes in bowel habits. General: non toxic, no distress, appears at stated age Derm: warm, dry Head: atraumatic, normocephalic, symmetric Eyes: EOMI, no lid lag, anicteric sclera Mouth: no lip lesion, mucus membranes moist Cardiovascular: S1S2 reg, no murmur Lungs: CTA bilateral, no rhonchi, no rales , no accessory muscle use Abdominal: soft, tenderness to palpation in the right upper quadrant without rebound, no guarding, no appreciable organomegaly Ext: no gross muscle atrophy, no edema, no contractures Neuro: no focal neuro deficits Psych: Alert, oriented, appropriate affect #Abdominal pain CBC is within normal limits. Liver function is within normal limits. Possible cholelithiasis. Obtain gallbladder ultrasound. #Acute kidney injury Creatinine 1.23. Likely due to dehydration. Patient encourage hydration by mouth. #Elevated TSH Would recommend free T4. #Abnormal urinalysis Patient states that she completed a course of antibiotics but did not notice this in the [facility]. She does not have any symptoms at this time. No indications for antibiotics. Objective - Vital Signs Vital signs: Vital Signs Temp 97.5 F L 06/06/22 08:00 Pulse 92 06/06/22 08:00 Resp 16 06/06/22 08:00 BP 116/53 06/06/22 08:00 Pulse Ox 96 06/06/22 08:00 FiO2 Intake & Output 06/05/22 06/06/22 06/06/22 18:59 06:59 18:59 Weight 70 kg - Labs CBC & Chem 7: 06/05/22 14:22 06/05/22 14:22
[2022-06-06] MEDS: QUEtiapine 100 MG TAB PO SCH (21:12)
[2022-06-06] MEDS: MIRTAZAPINE 15 MG TAB PO SCH (21:12)
--- NOTE | 2022-06-06 23:01 | P.PN ---
Progress Note - Text Progress Note Date: 06/06/22 Interval History: Patient was seen talking on the phone and was agreeable to speaking with this copywriter when call ended. She reports depressed mood and high anxiety today, has depressed affect, however she is not tearful on assessment today. She reports no suicidal ideations so far today however appears withdrawn and isolative. She reports somewhat improved sleep last night. She denies any homicidal ideation, intent or plan. Patient denies any auditory, visual hallucinations and denies any paranoia or delusions. Patient has been compliant with meds and denies side effects. Mental Status Exam: General Appearance: Patient appears to be stated age, dressed in casual attire, fair hygiene. Behavior: Patient is calm, attempts to cooperate, but is withdrawn. Speech: Patient's speech is fluent and non-pressured, soft tone. Mood/Affect: Mood is depressed, affect is depressed and constricted. Suicidality/Homicidality: Patient denies suicidal ideations, denies homicidal ideation intent or plan. Perceptions: Patient denies any visual hallucinations and denies any auditory hallucinations. Though content/process: There is no evidence of any delusional thought content and thought process is ruminative. Memory and concentration: AOX3, grossly intact for the purposes of this session Judgment and insight: Improving mildly Assessment Major depressive disorder, recurrent, severe Posttraumatic stress disorder Depersonalization/derealization Tobacco use disorder Plan: -Patient continues to meet criteria for inpatient psychiatric admission for symptom stabilization and safety. -Medications: Continue Remeron 15 mg QHS for sleep/depression. Increase Effexor XR to 112.5 mg daily in the morning for depression/anxiety/PTSD starting tomorrow morning. Continue Seroquel 100 mg QHS for mood/sleep. -When necessary Ativan and Haldol for agitation/aggression. -NRT - nicotine patch -SW on board for discharge planning. Encouraged the patient to participate in milieu.
[2022-06-07] MEDS: LIOTHYRONINE SODIUM 5 MCG TAB PO SCH (06:20)
[2022-06-07] MEDS: LEVOTHYROXINE 112 MCG TAB PO SCH (06:20)
--- NOTE | 2022-06-07 08:10 | US ---
EXAMINATION TYPE: US gallbladder DATE OF EXAM: 06/07/2022 COMPARISON: NONE CLINICAL HISTORY: RUQ pain. pain TECHNIQUE: Multiple sonographic images of the right upper quadrant are obtained. FINDINGS: EXAM MEASUREMENTS: Liver Length: 15.1 cm Gallbladder Wall: .3 cm CBD: .4 cm Right Kidney: 9.0 x 4.0 x 4.1 cm MAINTENANCE TEAM LEADER NOTES: Pancreas: wnl Liver: wnl Gallbladder: No stones seen Evidence for sonographic Suarez's sign: No CBD: wnl Right Kidney: wnl Visualized pancreas shows no worrisome mass or ductal dilatation. No aneurysm in the abdominal aorta. IVC seen near the hepatic dome. Visualized liver shows no worrisome mass or ductal dilatation. No sh adowing mobile gallstones. No surrounding fluid or wall thickening. No right-sided hydronephrosis. IMPRESSION: No gallstones or ultrasound evidence for acute cholecystitis.
[2022-06-07] MEDS: VENLAFAXINE HCL ER 37.5 MG CAP PO SCH (08:45)
[2022-06-07] MEDS: NICOTINE 14MG/24HR PATCH TRANSDERM SCH (08:45)
[2022-06-07] MEDS: clonazePAM 0.5 MG TAB PO SCH ×3 (08:45→21:11)
[2022-06-07] MEDS: amLODIPine 5 MG TAB PO SCH (08:45)
[2022-06-07] MEDS ORDERED: PROPRANOLOL 10 MG TAB PO PRN (11:40)
[2022-06-07] MEDS ORDERED: PROPRANOLOL 10 MG TAB PO SCH (11:45)
--- NOTE | 2022-06-07 11:45 | P.PN ---
Progress Note - Text Progress Note Date: 06/07/22 Interval History: Patient was seen isolating to her room and laying in bed and was agreeable to speaking with this marine underwriter. She reports depressed mood and high anxiety again today, has depressed affect, becomes tearful on assessment again today, endorses hopelessness. She suicidal ideation with plan to slit wrists. She endorses high anxiety and panic attacks with heart pounding, racing thoughts, shortness of breath, feeling outside of her body. She reports fragmented sleep again last night but also reports feeling tired again this morning. She denies any homicidal ideation, intent or plan. Patient denies any auditory, visual hallucinations and denies any paranoia or delusions. Patient has been compliant with meds and denies side effects. Mental Status Exam: General Appearance: Patient appears to be stated age, dressed in casual attire, fair hygiene, laying in bed with covers on. Behavior: Patient is calm, attempts to cooperate, is withdrawn, isolative, poor eye contact, and tearful. Speech: Patient's speech is fluent and non-pressured, soft tone. Mood/Affect: Mood is depressed and "out of it", affect is depressed and constricted. Suicidality/Homicidality: Patient endorses suicidal ideations with plan to slit wrists, denies homicidal ideation intent or plan. Perceptions: Patient denies any visual hallucinations and denies any auditory hallucinations. Though content/process: There is no evidence of any delusional thought content and thought process is ruminative. Memory and concentration: AOX3, grossly intact for the purposes of this session Judgment and insight: Improving mildly Assessment Major depressive disorder, recurrent, severe Posttraumatic stress disorder Generalized anxiety disorder with panic attacks Depersonalization/derealization Tobacco use disorder Plan: -Patient continues to meet criteria for inpatient psychiatric admission for symptom stabilization and safety. -Medications: Continue Remeron 15 mg QHS for sleep/depression. Continue Effexor XR 112.5 mg daily in the morning for depression/anxiety/PTSD. Decrease Seroquel to 50 mg QHS for mood/sleep to minimize oversedation. Start Propranolol 10 mg TID PRN for anxiety/panic attacks. -When necessary Ativan and Haldol for agitation/aggression. -NRT - nicotine patch -SW on board for discharge planning. Encouraged the patient to participate in milieu.
[2022-06-07 12:06] VITALS: BMI 28.2
[2022-06-07] MEDS: QUEtiapine 50 MG TAB PO SCH (21:11)
[2022-06-07] MEDS: MIRTAZAPINE 15 MG TAB PO SCH (21:11)
[2022-06-08] MEDS: LEVOTHYROXINE 112 MCG TAB PO SCH (06:30)
[2022-06-08] MEDS: LIOTHYRONINE SODIUM 5 MCG TAB PO SCH (06:30)
[2022-06-08] MEDS: NICOTINE 14MG/24HR PATCH TRANSDERM SCH (08:27)
[2022-06-08] MEDS: VENLAFAXINE HCL ER 37.5 MG CAP PO SCH (08:27)
[2022-06-08] MEDS: clonazePAM 0.5 MG TAB PO SCH ×2 (08:28→15:40)
[2022-06-08] MEDS: amLODIPine 5 MG TAB PO SCH (08:30)
--- NOTE | 2022-06-08 10:32 | P.PN ---
Progress Note - Text Progress Note Date: 06/08/22 Interval History: Patient was seen resting in bed and was agreeable to speak with the loan underwriter in her room. Currently, the patient is not reporting any homicidal ideation however she continues to endorse suicidal ideation with no reported intention or plan. Of note, the patient does have a superficial cut on her right wrist I will self-induced by scratching. The patient admits that she was the one to scratch herself on her right wrist. She denies that this was any suicide attem pt. She continues to report that she has episodes of depersonalization/derealization. She states that the Effexor has been causing her worsening anxiety and would like to be back on doxepin. She reports that she has been having difficulty with sleep. She continues to report elevated anxiety and dysphoria. She expresses that nothing seems to be getting better. She denies any auditory or visual hallucinations. She reports no paranoia or delusions. Mental Status Exam: General Appearance: Patient appears to be stated age is alert, directable, and cooperative. Behavior: Patient is calmly seated without any agitated behavior. Speech: Patient's speech is fluent and nonpressured. Mood/Affect: Mood is "not good." Affect is teaful and nervous. Suicidality/Homicidality: Patient endorses suicidal ideation with no plan. No homicidal ideation. Perceptions: Patient denies any visual hallucinations and denies any auditory hallucinations Though content/process: No delusional thought content. Dysphoric thought process. Memory and concentration: AOX3, grossly intact for the purposes of this session Judgment and insight: Improving mildly Vital Signs Temp 97.5 F L 06/08/22 06:59 Pulse 71 06/08/22 06:59 Resp 16 06/08/22 06:59 BP 125/63 06/08/22 06:59 Pulse Ox 95 06/08/22 06:59 FiO2 Intake & Output 06/07/22 06/08/22 06/08/22 18:59 06:59 18:59 Weight 70 kg Assessment Major depressive disorder, severe Posttraumatic stress disorder Depersonalization/derealization Tobacco use disorder Plan: -Patient continues to meet criteria for inpatient psychiatric admission for symptom stabilization and safety. Patient has signed adult voluntary form and medication consent and was placed in patient's chart. -Medications: Restart Doxepin 100 mg at bedtime for depression/anxiety/PTSD Seroquel 50 mg by mouth at bedtime for mood augmentation/insomnia/severe anxiety Remeron 7.5 mg by mouth at bedtime for depression/insomnia. Klonopin 0.25 mg TID for anxiety. Propranolol 10 mg by mouth 3 times a day when necessary for anxiety -When necessary Ativan and Haldol for agitation/aggression. -NRT - nicotine patch -SW on board for discharge planning. Encouraged the patient to participate in milieu.
[2022-06-08] MEDS ORDERED: DOXEPIN 25 MG CAP PO SCH (21:00)
[2022-06-08] MEDS: QUEtiapine 50 MG TAB PO SCH (21:08)
[2022-06-08] MEDS: MIRTAZAPINE 15 MG TAB PO SCH (21:09)
[2022-06-09] MEDS: clonazePAM 0.5 MG TAB PO SCH ×4 (01:32→21:06)
[2022-06-09] MEDS: LIOTHYRONINE SODIUM 5 MCG TAB PO SCH (06:11)
[2022-06-09] MEDS: LEVOTHYROXINE 112 MCG TAB PO SCH (06:11)
[2022-06-09] MEDS: NICOTINE 14MG/24HR PATCH TRANSDERM SCH (08:26)
[2022-06-09] MEDS: amLODIPine 5 MG TAB PO SCH (08:27)
--- NOTE | 2022-06-09 11:33 | P.PN ---
Progress Note - Text Progress Note Date: 06/09/22 Interval History: Patient was seen resting in bed and was agreeable to speak with the specification writer in the office. Currently, the patient reports that she is feeling significantly better. She is currently not endorsing any homicidal ideation. She reports suicidal ideation however is denying any intention or plan. She continues to report elevated anxiety however states that things are slightly better. She reports that she was able to sleep through the night. She does also report an i mproved appetite. Her main issue is feelings of sedation however she was informed that the medication can be sedating and over time, she will be able to tolerate the medication. She is not reporting any auditory or visual hallucinations. She denies any paranoia or other delusions. She does report continued episodes of depersonalization/derealization however states that they only last for approximately 10 minutes. She does note that she has not cried during this interview. Mental Status Exam: General Appearance: Patient appears to be stated age is alert, directable, and cooperative. Behavior: Patient is calmly seated without any agitated behavior. Speech: Patient's speech is fluent and nonpressured. Mood/Affect: Mood is "a little better" Affect is constricted and however more euthymic. Suicidality/Homicidality: Patient endorses suicidal ideation with no plan or intention. No homicidal ideation. Perceptions: Patient denies any visual hallucinations and denies any auditory hallucinations Though content/process: No delusional thought content. More future and goal oriented. Memory and concentration: AOX3, grossly intact for the purposes of this session Judgment and insight: Improving mildly Vital Signs Temp 97.7 F 06/09/22 06:32 Pulse 99 06/09/22 08:29 Resp 14 06/09/22 06:32 BP 126/57 06/09/22 08:29 Pulse Ox 95 06/08/22 06:59 FiO2 Assessment Major depressive disorder, severe Posttraumatic stress disorder Depersonalization/derealization Tobacco use disorder Plan: -Patient continues to meet criteria for inpatient psychiatric admission for symptom stabilization and safety. Patient has signed adult voluntary form and medication consent and was placed in patient's chart. -Medications: Increase doxepin to 125 mg at bedtime for depression/anxiety/PTSD Seroquel 50 mg by mouth at bedtime for mood augmentation/insomnia/severe anxiety Remeron 7.5 mg by mouth at bedtime for depression/insomnia. Klonopin 0.25 mg TID for anxiety. Propranolol 10 mg by mouth 3 times a day when necessary for anxiety -When necessary Ativan and Haldol for agitation/aggression. -NRT - nicotine patch -SW on board for discharge planning. Encouraged the patient to participate in milieu.
[2022-06-09] MEDS: MIRTAZAPINE 15 MG TAB PO SCH (21:06)
[2022-06-09] MEDS: DOXEPIN 25 MG CAP PO SCH (21:07)
[2022-06-09] MEDS: QUEtiapine 50 MG TAB PO SCH (21:18)
[2022-06-10] MEDS: LIOTHYRONINE SODIUM 5 MCG TAB PO SCH (06:31)
[2022-06-10] MEDS: LEVOTHYROXINE 112 MCG TAB PO SCH (06:31)
[2022-06-10] MEDS: clonazePAM 0.5 MG TAB PO SCH ×3 (08:21→21:21)
[2022-06-10] MEDS: amLODIPine 5 MG TAB PO SCH (08:21)
[2022-06-10] MEDS: NICOTINE 14MG/24HR PATCH TRANSDERM SCH (08:21)
--- NOTE | 2022-06-10 14:18 | P.PN ---
Progress Note - Text Progress Note Date: 06/10/22 Interval History: Patient was seen resting in bed and was agreeable to speak with the report writer in the office. Currently, the patient reports that she is feeling "a little off today." However, the patient reports that overall she feels better compared to when she first came into the psychiatric unit. She continues to endorse chronic suicidal ideation however is denying any intention or plan. She does express that she is feeling comfortable in returning home. She is future and goal oriented. She reports that she is sleeping well and eating well. She denies any auditory or visual hallucinations. She denies any paranoia or other delusions. She has been adherent with her medication and is not endorsing any significant side effects. Discharge tomorrow. Mental Status Exam: General Appearance: Patient appears to be stated age is alert, directable, and cooperative. Behavior: Patient is calmly seated without any agitated behavior. Speech: Patient's speech is fluent and nonpressured. Mood/Affect: Mood is "a little off today" Affect is constricted. Suicidality/Homicidality: Patient endorses suicidal ideation with no plan or intention. No homicidal ideation. Perceptions: Patient denies any visual hallucinations and denies any auditory hallucinations Though content/process: No delusional thought content. More future and goal oriented. Memory and concentration: AOX3, grossly intact for the purposes of this session Judgment and insight: Improving mildly Vital Signs Temp 98.1 F 06/10/22 06:28 Pulse 72 06/10/22 06:28 Resp 14 06/10/22 06:28 BP 100/56 06/10/22 06:28 Pulse Ox 98 06/10/22 06:28 FiO2 Assessment Major depressive disorder, severe Posttraumatic stress disorder Depersonalization/derealization Tobacco use disorder Plan: -Patient continues to meet criteria for inpatient psychiatric admission for symptom stabilization and safety. Patient has signed adult voluntary form and medication consent and was placed in patient's chart. -Medications: Continue doxepin 125 mg at bedtime for depression/anxiety/PTSD Seroquel 50 mg by mouth at bedtime for mood augmentation/insomnia/severe anxiety Remeron 7.5 mg by mouth at bedtime for depression/insomnia. Klonopin 0.25 mg TID for anxiety. Propranolol 10 mg by mouth 3 times a day when necessary for anxiety -When necessary Ativan and Haldol for agitation/aggression. -NRT - nicotine patch -SW on board for discharge planning. Encouraged the patient to participate in milieu.
[2022-06-10] MEDS: QUEtiapine 50 MG TAB PO SCH (21:21)
[2022-06-10] MEDS: MIRTAZAPINE 15 MG TAB PO SCH (21:22)
[2022-06-10] MEDS: DOXEPIN 25 MG CAP PO SCH (21:54)
[2022-06-11] MEDS: LEVOTHYROXINE 112 MCG TAB PO SCH (06:35)
[2022-06-11] MEDS: LIOTHYRONINE SODIUM 5 MCG TAB PO SCH (06:35)
[2022-06-11 07:09] VITALS: BP 112/68; PULSE 99; RESP 16; TEMP 97.4
[2022-06-11] MEDS: clonazePAM 0.5 MG TAB PO SCH (08:43)
[2022-06-11] MEDS: NICOTINE 14MG/24HR PATCH TRANSDERM SCH (08:43)
[2022-06-11] MEDS: amLODIPine 5 MG TAB PO SCH (08:44)
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
== END 2022-06-11 12:15 | disposition home or self-care (01) | DRG 885 ==
LOC: EC 13:12 → 3MHU 18:21
PROVIDERS: ADMIT Psychiatry & Neurology Psychiatry; ATTEND Psychiatry & Neurology Psychiatry
DX: F33.2 Major depressive disorder, recurrent severe without psychotic features (principal); N39.0 Urinary tract infection, site not specified; R45.851 Suicidal ideations; F17.210 Nicotine dependence, cigarettes, uncomplicated; F41.0 Panic disorder [episodic paroxysmal anxiety]; F41.1 Generalized anxiety disorder; F43.10 Post-traumatic stress disorder, unspecified; F48.1 Depersonalization-derealization syndrome; G47.00 Insomnia, unspecified; E07.9 Disorder of thyroid, unspecified; E86.0 Dehydration; Z62.810 Personal history of physical and sexual abuse in childhood; Z63.72 Alcoholism and drug addiction in family; Z79.890 Hormone replacement therapy; Z79.899 Other long term (current) drug therapy; Z91.410 Personal history of adult physical and sexual abuse; Z20.822 Contact with and (suspected) exposure to COVID-19
CPT/HCPCS: 71045; 76705; 80053; 80306; 81001; 81025; 82075; 83036; 84443; 85025; 85027; 87635; 99285

== ENCOUNTER 2022-08-06 14:53 | Inpatient (IN) | payer MEDICAID, OTHER ==
--- NOTE | 2022-08-06 15:29 | ED ---
General Adult HPI - General Chief complaint: Psychiatric Symptoms Stated complaint: Mental Health Time Seen by Provider: 08/06/22 15:02 Source: patient Mode of arrival: ambulatory Limitations: no limitations - History of Present Illness Initial comments: Dictation was produced using [employer] dictation software. please excuse any grammatical, word or spelling errors. Chief Complaint: 42-year-old female presents emergency Department with suicidal ideation History of Present Illness: Patient is a 42-year-old female presents emergency department for suicidal ideation. Patient states she wants to slit her wrists. Patient refused to go into detail as to why she feels suicidal. She said it's combination of financial, personal and relationship stressors. Patient has been in the emergency department for similar issues in the past. Denies any visual or auditory hallucinations. Denies any medical complaints The ROS documented in this emergency department record has been reviewed and confirmed by me. Those systems with pertinent positive or negative responses have been documented in the HPI. All other systems are other negative and/or noncontributory. PHYSICAL EXAM: General Impression: Alert and oriented x3, not in acute distress HEENT: Normocephalic atraumatic, extra-ocular movements intact, pupils equal and reactive to light bilaterally, mucous membranes moist. Cardiovascular: Heart regular rate and rhythm Chest: Able to complete full sentences, no retractions, no tachypnea Musculoskeletal: no peripheral edema Motor: no focal deficits noted Neurological: CN II-XII grossly intact, no focal motor or sensory deficits noted Skin: Intact with no visualized rashes Psych: Normal affect and mood ED course: 42-year-old female presents to the emergency department for suicidal ideation. Vital signs upon arrival are within acceptable limits. Physical examination is benign. Patient medically cleared for EPS evaluation. Nursing notes and chart review was performed Was pt. sent in by a medical professional or institution (, PA, TAXATION ACCOUNTANT, urgent care, hospital, or fci...) When possible be specific @ -No Did you speak to anyone other than the patient for history (EMS, parent, family, police, friend...)? What history was obtained from this source @ -No Did you review nursing and triage notes (agree or disagree)? Why? @ -I reviewed and agree with nursing and triage notes Were old charts reviewed (outside hosp., previous admission, EMS record, old EKG, old radiological studies, urgent care reports/EKG's, fci records)? Report findings @ -No old charts were reviewed Differential Diagnosis (chest pain, altered mental status, abdominal pain women, abdominal pain men, vaginal bleeding, musculoskeletal, weakness, fever, dyspnea, syncope, headache, dizziness, GI bleed, back pain, seizure, CVA, palpatations, mental health)? @ -not applicable EKG interpreted by me (3pts min.). @ -None done X-rays interpreted by me (1pt min.). @ -None done CT interpreted by me (1pt min.). @ -None done U/S interpreted by me (1pt. min.). @ -None done What testing was considered but not performed or refused? (CT, X-rays, U/S, labs)? Why? @ -None What meds were considered but not given or refused? Why? @ -None Did you discuss the management of the patient with other professionals (professionals i.e. , PA, TAXATION ACCOUNTANT, lab, RT, psych nurse, foster care social worker, nuclear reactor technician, teacher, assistant chief nursing officer, porter sample case)? Give summary @ -EPS nurse Was smoking cessation discussed for >3mins.? @ -No Was critical care preformed (if so, how long)? @ -No Were there social determinants of health that impacted care today? How? (Homelessness, low income, unemployed, alcoholism, drug addiction, transportation, low edu. Level, literacy, decrease access to med. care, shelter, re hab)? @ -No Was there de-escalation of care discussed even if they declined (Discuss DNR or withdrawal of care, Hospice)? DNR status @ -No What co-morbidities impacted this encounter? (DM, HTN, Smoking, COPD, CAD, Cancer, CVA, ARF, Chemo, Hep., AIDS, mental health diagnosis, sleep apnea, morbid obesity)? @ -None Was patient admitted / discharged? Hospital course, mention meds given and route, prescriptions, significant lab abnormalities, going to OR and other pertinent info. @ -42-year-old female presents for psychiatric complaints. Patient medically cleared. Evaluated By EPS. Patient be admitted to inpatient psychiatric unit. Undiagnosed new problem with uncertain prognosis? @ -No Drug Therapy requiring intensive monitoring for toxicity (Heparin, Nitro, Insulin, Cardizem)? @ -No Were any procedures done? @ -No Diagnosis/symptom? Acute, or Chronic, or Acute on Chronic? Uncomplicated (without systemic symptoms) or Complicated (systemic symptoms)? @ -1. Suicidal ideation Side effects of treatment? @ -No Exacerbation, Progression, or Severe Exacerbation? @ -No Poses a threat to life or bodily function? How? (Chest pain, [place], GA, pneumonia, PE, COPD, DKA, ARF, appy, cholecystitis, CVA, Diverticulitis, Homicidal, Suicidal, threat to staff... and all critical care pts) @ -yes - Related Data Home Medications Medication Instructions Recorded Confirmed Montelukast [Singulair] 10 mg PO DAILY PRN 05/26/22 08/06/22 Doxepin HCl [SINEquan] 100 mg PO HS 08/06/22 08/06/22 Doxepin [SINEquan] 25 mg PO HS 08/06/22 08/06/22 Levothyroxine Sodium [Synthroid] 100 mcg PO DAILY 08/06/22 08/06/22 Liothyronine Sodium [Cytomel] 10 mcg PO DAILY 08/06/22 08/06/22 Previous Rx's Medication Instructions Recorded Mirtazapine [Remeron] 7.5 mg PO HS 30 Days tab 06/11/22 QUEtiapine [SEROquel] 50 mg PO HS 30 Days tab 06/11/22 clonazePAM [KlonoPIN] 0.25 mg PO TID 30 Days tab 06/11/22 Allergies Allergy/AdvReac Type Severity Reaction Status Date / Time desvenlafaxine [From Pristiq] Allergy Rash/Hives Verified 08/06/22 15:54 Review of Systems ROS Statement: Those systems with pertinent positive or pertinent negative responses have been documented in the HPI. ROS Other: All systems not noted in ROS Statement are negative. Past Medical History Past Medical History: No Reported History History of Any Multi-Drug Resistant Organisms: None Reported Past Surgical History: Orthopedic Surgery Additional Past Surgical History / Comment(s): 4 bilateral knee surgeries Past Anesthesia/Blood Transfusion Reactions: No Reported Reaction Past Psychological History: Anxiety, Depression Smoking Status: Current every day smoker Past Alcohol Use History: None Reported Past Drug Use History: None Reported - Past Family History Mother Family Medical History: No Reported History General Exam Limitations: no limitations Course Vital Signs 08/06/22 08/06/22 14:54 18:45 Temperature 97.4 F L Pulse Rate 111 H 80 Respiratory 18 17 Rate Blood Pressure 157/115 126/93 O2 Sat by Pulse 99 99 Oximetry Medical Decision Making - Lab Data Lab Results 08/06/22 Range/Units 18:45 Coronavirus (PCR) Not Detected (Not Detectd) Disposition Clinical Impression: Suicidal ideations Disposition: ADMITTED IP TO THIS HOSP Condition: Fair Referrals: Valentine Weaver MD [Primary Care Provider] - 1-2 days Decision Time: 19:35
[2022-08-06] MEDS ORDERED: clonazePAM 0.5 MG TAB PO STA (19:10)
[2022-08-06] MEDS ORDERED: MAGNESIUM HYDROXIDE 2,400 MG/10 ML CUP PO PRN (19:36)
[2022-08-06] MEDS ORDERED: LORazepam 1 MG TAB PO PRN (19:36)
[2022-08-06] MEDS ORDERED: ACETAMINOPHEN TAB 325 MG TAB PO PRN (19:36)
[2022-08-06] MEDS ORDERED: MAG HYDROX/AL HYDROX/SIMETH 30 ML CUP PO PRN (19:36)
[2022-08-06] MEDS ORDERED: HALOPERIDOL LACTATE 5 MG/ML 1 ML VIAL IM PRN (19:36)
[2022-08-06] MEDS ORDERED: LORazepam 2 MG/ML INJ IM PRN (19:41)
[2022-08-06] MEDS ORDERED: DOXEPIN 25 MG CAP PO SCH ×2 (21:00)
[2022-08-06] MEDS: clonazePAM 0.5 MG TAB PO SCH (21:51)
[2022-08-06] MEDS: QUEtiapine 50 MG TAB PO SCH (21:51)
[2022-08-06] MEDS: MIRTAZAPINE 15 MG TAB PO SCH (21:51)
[2022-08-06] MEDS ORDERED: haloperidoL 5 MG TAB PO SCH (22:00)
--- NOTE | 2022-08-07 00:22 | P.CONS ---
History of Present Illness - Reason for Consult Consult date: 08/07/22 - History of Present Illness The patient is a 42-year-old female with a PMH of Graves' disease status post thyroidectomy, anxiety, depression who presents to the emergency room with complaints of depression and suicidal ideation. The patient reports that she has multiple stressors in her life which are causing her to feel this way. She reports smoking 1 pack of cigarettes daily. She denied alcohol or substance use. Denied any additional physical complaints at the time of interview. She denied experiencing chest discomfort, shortness of breath, fever, chills, cough, nausea, vomiting, abdominal pain, diarrhea. Review of systems: Pertinent positives and negatives as discussed in HPI, a complete review of systems was performed and all other systems are negative. Physical examination: General: non toxic, no distress, appears at stated age, overweight Derm: no unusual rashes/lesions, no unusual ecchymoses, warm, dry Head: atraumatic, normocephalic, symmetric Eyes: EOMI, no lid lag, anicteric sclera ENT: Nose and ears atraumatic, no thrush, no pharyngeal erythema Neck: trachea midline, supple Mouth: no lip lesion, mucus membranes moist Cardiovascular: S1S2 reg, no murmur, no edema Lungs: CTA bilateral, no rhonchi, no rales , no accessory muscle use Abdominal: soft, nontender to palpation, no guarding Ext: no gross muscle atrophy, no contractures, Neuro: No gross focal neuro deficits noted Psych: Alert, oriented, appropriate affect Assessment: Hypothyroidism Depression and suicidal ideation Tobacco abuse Imaging: None performed Data Review: Vital signs shortly prior to evaluation were BP 140/91, pulse 107, respiratory rate 16, and temperature 98.5F. Coronavirus PCR testing in the emergency room was negative. Plan: Continue with home Synthroid 100 g by mouth daily and liothyrronine 10 g by mouth daily Advised patient on importance of tobacco cessation Defer management of depression and suicidal ideation to primary psychiatry service Thank you for allowing us to participate in the care of this patient. We will follow peripherally. Do not hesitate to contact us with questions. Someone can be reached from the [facility] hospitalist group at all hours of the day at [phone]. Past Medical History Past Medical History: No Reported History History of Any Multi-Drug Resistant Organisms: None Reported Past Surgical History: Orthopedic Surgery Additional Past Surgical History / Comment(s): 4 bilateral knee surgeries Past Anesthesia/Blood Transfusion Reactions: No Reported Reaction Past Psychological History: Anxiety, Depression Smoking Status: Current every day smoker Past Alcohol Use History: None Reported Past Drug Use History: None Reported - Past Family History Mother Family Medical History: Hyperlipidemia Medications and Allergies Home Medications Medication Instructions Recorded Confirmed Type Montelukast [Singulair] 10 mg PO DAILY PRN 05/26/22 08/06/22 History Mirtazapine [Remeron] 7.5 mg PO HS 30 Days tab 06/11/22 08/06/22 Rx QUEtiapine [SEROquel] 50 mg PO HS 30 Days tab 06/11/22 08/06/22 Rx clonazePAM [KlonoPIN] 0.25 mg PO TID 30 Days tab 06/11/22 08/06/22 Rx Doxepin HCl [SINEquan] 100 mg PO HS 08/06/22 08/06/22 History Doxepin [SINEquan] 25 mg PO HS 08/06/22 08/06/22 History Levothyroxine Sodium [Synthroid] 100 mcg PO DAILY 08/06/22 08/06/22 History Liothyronine Sodium [Cytomel] 10 mcg PO DAILY 08/06/22 08/06/22 History Allergies Allergy/AdvReac Type Severity Reaction Status Date / Time desvenlafaxine [From Pristiq] Allergy Rash/Hives Verified 08/06/22 20:49 Physical Exam Vitals: Vital Signs Temp Pulse Pulse Resp BP BP Pulse Ox 08/06/22 20:20 98.5 F 107 H 16 140/91 08/06/22 18:45 80 17 126/93 99 08/06/22 14:54 97.4 F L 111 H 18 157/115 99 Intake and Output 08/06/22 08/06/22 08/07/22 14:59 22:59 06:59 Other: Weight 68.039 kg 68.039 kg
[2022-08-07] MEDS: LEVOTHYROXINE 100 MCG TAB PO SCH (06:26)
[2022-08-07] MEDS: LIOTHYRONINE SODIUM 5 MCG TAB PO SCH (06:26)
[2022-08-07 07:03] LABS: Basophils # (A) 0.1 k/uL (0-0.2); Basophils % (A) 1 %; Eosinophils # (A) 0.2 k/uL (0-0.7); Eosinophils % (A) 2 %; HGB 14.7 gm/dL (11.4-16.0); Lymphocytes % (A) 32 %; MCH 29.6 pg (25.0-35.0); MCHC 32.7 g/dL (31.0-37.0); MCV 90.5 fL (80.0-100.0); Mean Platelet Volume 7.4; Monocytes # (A) 0.5 k/uL (0-1.0); Monocytes % (A) 5 %; Neutrophils # (A) 5.4 k/uL (1.3-7.7); Neutrophils % (A) 59 %; Platelet Count 348 k/uL (150-450); RBC 4.97 m/uL (3.80-5.40); RDW 13.3 % (11.5-15.5); WBC 9.2 k/uL (3.8-10.6)
[2022-08-07 07:18] LABS: ALT 19 U/L (4-34); AST 20 U/L (14-36); African American GFR (CKD) 79 (>60 ml/min/1.73 sqM); Albumin 4.4 g/dL (3.5-5.0); Alkaline Phosphatase 75 U/L (38-126); Anion Gap 8 mmol/L; Blood Urea Nitrogen 13 mg/dL (7-17); Calcium 9.3 mg/dL (8.4-10.2); Carbon Dioxide 29 mmol/L (22-30); Chloride 103 mmol/L (98-107); Glucose 95 mg/dL (74-99); Non-African American GFR(CKD) 68 (>60 ml/min/1.73 sqM); Potassium 4.4 mmol/L (3.5-5.1); Sodium 140 mmol/L (137-145); Total Bilirubin 0.5 mg/dL (0.2-1.3); Total Protein 7.2 g/dL (6.3-8.2)
[2022-08-07] MEDS: NICOTINE 14MG/24HR PATCH TRANSDERM SCH (09:11)
[2022-08-07] MEDS: clonazePAM 0.5 MG TAB PO SCH ×3 (09:11→21:58)
[2022-08-07 12:31] LABS: Chol/HDL Ratio 6.51 Ratio; LDL Cholesterol,Calculated 222.8 mg/dL (0.0-131.0)
[2022-08-07] MEDS: MONTELUKAST 10 MG TAB PO PRN (16:33)
[2022-08-07] MEDS: MIRTAZAPINE 15 MG TAB PO SCH (21:59)
[2022-08-07] MEDS: DULoxetine HCL 30 MG CAPSULE.DR PO SCH (21:59)
[2022-08-07] MEDS: QUEtiapine 50 MG TAB PO SCH (21:59)
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
[2022-08-08] MEDS: LIOTHYRONINE SODIUM 5 MCG TAB PO SCH (06:14)
[2022-08-08] MEDS: LEVOTHYROXINE 100 MCG TAB PO SCH (06:14)
[2022-08-08] MEDS: DULoxetine HCL 30 MG CAPSULE.DR PO SCH ×2 (09:07→21:15)
[2022-08-08] MEDS: clonazePAM 0.5 MG TAB PO SCH ×3 (09:07→21:16)
[2022-08-08] MEDS: NICOTINE 14MG/24HR PATCH TRANSDERM SCH ×2 (09:07→14:33)
[2022-08-08] MEDS: MIRTAZAPINE 15 MG TAB PO SCH (21:15)
[2022-08-08] MEDS: QUEtiapine 50 MG TAB PO SCH (21:15)
--- NOTE | 2022-08-09 01:19 | P.PN ---
Progress Note - Text Progress Note Date: 08/08/22 Interval history: Patient was directable and agreeable to speak with process description writer. She reports depressed mood and reports feeling tired today, appears withdrawn, speaks with soft tone. She also reports feeling dizzy which she has had occasionally prior to starting the Cymbalta. At this time patient denies any suicidal or homicidal ideation, intent or plan. Denies any auditory or visual hallucinations. Patient denies any side effects from the medications and has been compliant with meds. Mental status exam: General Appearance: Patient appears to be stated age is alert, directable, and cooperative. Behavior: No agitated behavior. Patient is calm and directable Speech: Patient's speech is fluent and non-pressured. Mood/Affect: Mood is improving mildly, affect is depressed and constricted. Suicidality/Homicidality: Patient denies having any suicidal or homicidal ideat ion intent or plan. Perceptions: Patient denies any auditory or visual hallucinations. Though content/process: There is no evidence of any delusional thought content and thought process is linear and goal-directed. Memory and concentration: AOX3, grossly intact for the purposes of this session Judgment and insight: improving mildly Assessment/Plan: Continue with current diagnosis. Patient continues to meet criteria for inpatient psychiatric admission for symptom stabilization and safety. Cymbalta increased to 30 mg BID today for depression/anxiety. Continue Seroquel 50 mg QHS for mood/sleep. Continue Remeron 15 mg QHS for sleep/depression. Continue klonopin 0.25 mg TID for anxiety. Monitor for medication compliance and for any psychotropic medication side effects. Will continue to monitor ongoing response to treatment. Encouraged participation in milieu.
[2022-08-09] MEDS: LIOTHYRONINE SODIUM 5 MCG TAB PO SCH (06:36)
[2022-08-09] MEDS: LEVOTHYROXINE 100 MCG TAB PO SCH (06:36)
[2022-08-09] MEDS: clonazePAM 0.5 MG TAB PO SCH (08:48)
[2022-08-09] MEDS: DULoxetine HCL 30 MG CAPSULE.DR PO SCH (08:48)
[2022-08-09] MEDS: NICOTINE 14MG/24HR PATCH TRANSDERM SCH (08:48)
[2022-08-09] MEDS: MONTELUKAST 10 MG TAB PO PRN (08:51)
[2022-08-09] MEDS: ARIPiprazole 5 MG TAB PO SCH (14:36)
--- NOTE | 2022-08-09 19:06 | P.PN ---
Progress Note - Text Progress Note Date: 08/09/22 Interval history: Patient was directable and agreeable to speak with global technical writer. She reports depressed mood still today and is tearful on assessment. She reports suicidal ideation today with plan to cut her wrists. Denies any auditory or visual hallucinations. Patient has been compliant with meds. She reports feeling dizzy when moving from laying to sitting to standing, we discussed this is likely from the Seroquel and she agrees to change medications. She does feel like she is making progress since admission. Mental status exam: General Appearance: Patient appears to be stated age is alert, directable, and cooperative. Behavior: No agitated behavior. Patient is calm and directable Speech: Patient's speech is fluent and non-pressured. Mood/Affect: Mood is depressed, affect is depressed and tearful. Suicidality/Homicidality: Patient denies having any suicidal or homicidal ideation intent or plan. Perceptions: Patient denies any auditory or visual hallucinations. Though content/process: There is no evidence of any delusional thought content and thought process is linear and goal-directed. Memory and concentration: AOX3, grossly intact for the purposes of this session Judgment and insight: improving mildly Assessment/Plan: Continue with current diagnosis. Patient continues to meet criteria for inpatient psychiatric admission for symptom stabilization and safety. Increase Cymbalta to 60 mg daily in the morning and 30 mg QHS for depression/anxiety starting tomorrow AM. Discontinue Seroquel 50 mg QHS for mood/sleep in favor of starting Abilify. Start Abilify 2.5 mg daily for antidepressant augmentation. Continue Remeron 7.5 mg QHS for sleep/depression. Decrease Klonopin 0.25 mg BID PRN for anxiety. Monitor for medication compliance and for any psychotropic medication side effects. Will continue to monitor ongoing response to treatment. Encouraged participation in milieu.
[2022-08-09] MEDS: MIRTAZAPINE 15 MG TAB PO SCH (20:42)
[2022-08-09] MEDS: clonazePAM 0.5 MG TAB PO PRN (20:43)
[2022-08-09] MEDS ORDERED: DULoxetine HCL 30 MG CAPSULE.DR PO SCH (21:00)
[2022-08-09] MEDS ORDERED: clonazePAM 0.5 MG TAB PO SCH (21:00)
[2022-08-10] MEDS: LIOTHYRONINE SODIUM 5 MCG TAB PO SCH (06:22)
[2022-08-10] MEDS: LEVOTHYROXINE 100 MCG TAB PO SCH (06:22)
[2022-08-10] MEDS: NICOTINE 14MG/24HR PATCH TRANSDERM SCH (08:24)
[2022-08-10] MEDS: MONTELUKAST 10 MG TAB PO PRN (08:25)
[2022-08-10] MEDS: clonazePAM 0.5 MG TAB PO PRN (08:25)
[2022-08-10] MEDS ORDERED: DULoxetine HCL 30 MG CAPSULE.DR PO SCH (09:00)
--- NOTE | 2022-08-10 10:23 | P.PN ---
Progress Note - Text Progress Note Date: 08/10/22 Interval History: Patient was seen attending group and was directable and agreeable to speak with chart writer in the office. Currently, the patient continues to endorse elevated anxiety and suicidal ideation. She reports that she has had significant difficulty with nighttime panic episodes since transitioning from doxepin and seroquel to abilify and cymbalta. She reports that she has been attending and working on therapy prior to admission but for 1 week she felt that the symptoms were too overwhelming which resulted in her having a plan to cut her wrists which was mitigated by her sister. She also identifies the passing of a family friend as a potential trigger for her recent decline. She reports no auditory or visual hallucinations. She reports no paranoia or other delusions. She continues to endorse episodes of depersonalization but does report this has decreased in severity. She denies any issues regarding her appetite. She reports no medical issues or concerns. Mental Status Exam: General Appearance: Patient appears to be stated age is alert, directable, and cooperative. Behavior: Patient is calmly seated without any agitated behavior. Speech: Patient's speech is fluent and nonpressured. Mood/Affect: Mood is "very anxious," affect is constricted Suicidality/Homicidality: Patient endorses suicidal ideation. She denies any homicidal ideation. Perceptions: Patient denies any visual hallucinations and denies any auditory hallucinations Though content/process: There is no evidence of any delusional thought content and thought process is linear and goal-directed. Memory and concentration: AOX3, grossly intact for the purposes of this session Judgment and insight: Improving mildly Vital Signs Temp 98.0 F 08/10/22 06:00 Pulse 85 08/10/22 06:00 Resp 17 08/10/22 06:00 BP 134/63 08/10/22 06:00 Pulse Ox 96 08/10/22 06:00 FiO2 Laboratory Results WBC 9.2 k/uL (3.8-10.6) 08/07/22 06:21 RBC 4.97 m/uL (3.80-5.40) 08/07/22 06:21 Hgb 14.7 gm/dL (11.4-16.0) 08/07/22 06:21 Hct 45.0 % (34.0-46.0) 08/07/22 06:21 MCV 90.5 fL (80.0-100.0) 08/07/22 06:21 MCH 29.6 pg (25.0-35.0) 08/07/22 06:21 MCHC 32.7 g/dL (31.0-37.0) 08/07/22 06:21 RDW 13.3 % (11.5-15.5) 08/07/22 06:21 Plt Count 348 k/uL (150-450) 08/07/22 06:21 MPV 7.4 08/07/22 06:21 Neutrophils % 59 % 08/07/22 06:21 Lymphocytes % 32 % 08/07/22 06:21 Monocytes % 5 % 08/07/22 06:21 Eosinophils % 2 % 08/07/22 06:21 Basophils % 1 % 08/07/22 06:21 Neutrophils # 5.4 k/uL (1.3-7.7) 08/07/22 06:21 Lymphocytes # 3.0 k/uL (1.0-4.8) 08/07/22 06:21 Monocytes # 0.5 k/uL (0-1.0) 08/07/22 06:21 Eosinophils # 0.2 k/uL (0-0.7) 08/07/22 06:21 Basophils # 0.1 k/uL (0-0.2) 08/07/22 06:21 Sodium 140 mmol/L (137-145) 08/07/22 06:21 Potassium 4.4 mmol/L (3.5-5.1) 08/07/22 06:21 Chloride 103 mmol/L (98-107) 08/07/22 06:21 Carbon Dioxide 29 mmol/L (22-30) 08/07/22 06:21 Anion Gap 8 mmol/L 08/07/22 06:21 BUN 13 mg/dL (7-17) 08/07/22 06:21 Creatinine 1.03 mg/dL (0.52-1.04) 08/07/22 06:21 Est GFR (CKD-EPI)AfAm 79 (>60 ml/min/1.73 sqM) 08/07/22 06:21 Est GFR (CKD-EPI)NonAf 68 (>60 ml/min/1.73 sqM) 08/07/22 06:21 Glucose 95 mg/dL (74-99) 08/07/22 06:[address] Glu mg/dL 109 08/07/22 06:21 Hemoglobin A1c 5.4 % (0.0-6.0) 08/07/22 06:21 Calcium 9.3 mg/dL (8.4-10.2) 08/07/22 06:21 Total Bilirubin 0.5 mg/dL (0.2-1.3) 08/07/22 06:21 AST 20 U/L (14-36) 08/07/22 06:21 ALT 19 U/L (4-34) 08/07/22 06:21 Alkaline Phosphatase 75 U/L (38-126) 08/07/22 06:21 Total Protein 7.2 g/dL (6.3-8.2) 08/07/22 06:21 Albumin 4.4 g/dL (3.5-5.0) 08/07/22 06:21 Triglycerides 147.00 mg/dL (0.00-149.00) 08/07/22 06:21 Cholesterol 298.00 mg/dL (0.00-200.00) H 08/07/22 06:21 LDL Cholesterol, Calc 222.8 mg/dL (0.0-131.0) H 08/07/22 06:21 VLDL Cholesterol, Calc 29.40 mg/dL (5.00-40.00) 08/07/22 06:21 HDL Cholesterol 45.80 mg/dL (40.00-60.00) 08/07/22 06:21 Cholesterol/HDL Ratio 6.51 Ratio 08/07/22 06:21 TSH 5.340 mIU/L (0.465-4.680) H 08/07/22 06:21 Coronavirus (PCR) Not Detected (Not Detectd) 08/06/22 18:45 Assessment Major depressive disorder, recurrent, severe Posttraumatic stress disorder Depersonalization/derealization by history Tobacco use disorder Plan: -Patient continues to meet criteria for inpatient psychiatric admission for symptom stabilization and safety. Patient has signed adult voluntary form and medication consent and was placed in patient's chart. -Medications: Increase Cymbalta to 60 mg twice daily for depression/anxiety Discontinue Abilify and restart Seroquel 50 mg at bedtime for augmentation/insomnia Continue Remeron 7.5 mg QHS for sleep/depression. Continue Klonopin 0.25 mg BID PRN for anxiety. -When necessary Ativan and Haldol for agitation/aggression. -NRT - nicotine patch -SW on board for discharge planning. Encouraged the patient to participate in milieu.
[2022-08-10] MEDS: ARIPiprazole 5 MG TAB PO SCH (11:39)
[2022-08-10] MEDS: QUEtiapine 50 MG TAB PO SCH (21:17)
[2022-08-10] MEDS: DULoxetine HCL 60 MG CAPSULE.DR PO SCH (21:17)
[2022-08-10] MEDS: MIRTAZAPINE 15 MG TAB PO SCH (21:17)
[2022-08-11] MEDS: LIOTHYRONINE SODIUM 5 MCG TAB PO SCH (06:11)
[2022-08-11] MEDS: LEVOTHYROXINE 100 MCG TAB PO SCH (06:11)
[2022-08-11] MEDS: DULoxetine HCL 60 MG CAPSULE.DR PO SCH ×2 (08:18→21:13)
[2022-08-11] MEDS: NICOTINE 14MG/24HR PATCH TRANSDERM SCH (08:18)
[2022-08-11] MEDS: clonazePAM 0.5 MG TAB PO PRN ×2 (08:19→21:13)
--- NOTE | 2022-08-11 11:10 | P.PN ---
Progress Note - Text Progress Note Date: 08/11/22 Interval History: Patient was seen attending group and was directable and agreeable to speak with telegraphic typewriter operator chief in her room. Currently the patient is reporting suicidal ideation. She states that her anxiety is mildly improving but she was experiencing "terrible" derealization symptoms yesterday. She does report depression. She states she feels excessive guilt due to the burden she feels she has been causing her . She reports improved sleep last night and less nighttime panic. She is adherent with her medications and is not reporting any side effects. She denies any auditory or visual hallucinations. She reports no paranoia or other delusions. Mental Status Exam: General Appearance: Patient appears to be stated age is alert, directable, and cooperative. Behavior: Patient is calmly seated without any agitated behavior. Speech: Patient's speech is fluent and nonpressured. Mood/Affect: Mood is "nervous and depressed," affect is constricted Suicidality/Homicidality: Patient endorses suicidal ideation. She denies any homicidal ideation. Perceptions: Patient denies any visual hallucinations and denies any auditory hallucinations Though content/process: Dysphoric. Memory and concentration: AOX3, grossly intact for the purposes of this session Judgment and insight: Improving mildly Vital Signs Temp 98.4 F 08/11/22 06:25 Pulse 80 08/11/22 06:25 Resp 18 08/11/22 06:25 BP 141/66 08/11/22 06:25 Pulse Ox 98 08/11/22 06:25 FiO2 Assessment Major depressive disorder, recurrent, severe Posttraumatic stress disorder Depersonalization/derealization by history Tobacco use disorder Plan: -Patient continues to meet criteria for inpatient psychiatric admission for symptom stabilization and safety. Patient has signed adult voluntary form and medication consent and was placed in patient's chart. -Medications: Continue Cymbalta 60 mg twice daily for depression/anxiety Seroquel 50 mg at bedtime for augmentation/insomnia Increase Remeron to 15 mg QHS for sleep/depression. Continue Klonopin 0.25 mg BID PRN for anxiety. -When necessary Ativan and Haldol for agitation/aggression. -NRT - nicotine patch -SW on board for discharge planning. Encouraged the patient to participate in milieu.
[2022-08-11] MEDS: MONTELUKAST 10 MG TAB PO PRN (13:23)
[2022-08-11] MEDS ORDERED: MIRTAZAPINE 15 MG TAB PO SCH (21:00)
[2022-08-11] MEDS: QUEtiapine 50 MG TAB PO SCH (21:13)
[2022-08-12] MEDS: LEVOTHYROXINE 100 MCG TAB PO SCH (06:38)
[2022-08-12] MEDS: LIOTHYRONINE SODIUM 5 MCG TAB PO SCH (06:38)
[2022-08-12] MEDS: NICOTINE 14MG/24HR PATCH TRANSDERM SCH (08:21)
[2022-08-12] MEDS: MONTELUKAST 10 MG TAB PO PRN (08:21)
[2022-08-12] MEDS: DULoxetine HCL 60 MG CAPSULE.DR PO SCH ×2 (08:21→21:35)
[2022-08-12] MEDS ORDERED: LITHIUM CARBONATE 300 MG CAP PO STA (09:35)
--- NOTE | 2022-08-12 10:26 | P.PN ---
Progress Note - Text Progress Note Date: 08/12/22 Interval History: Patient was seen in the common room and was agreeable to speak with the newspaper writer in the office. The patient continues to endorse suicidal ideation and continues to report concern for her safety if she was to return home. She states she has been thinking about how she is mad at herself for not feeling better yet. She reports continuing to feel like a burden to others, especially her boyfriend. She reports no homicidal ideation. She reports no auditory or visual hallu cinations. She reports no paranoia or other delusions. She continues to report elevated anxiety and episodes of panic and derealization. She has been adherent with her medications and reports no side effects. Mental Status Exam: General Appearance: Patient appears to be stated age is alert, directable, and cooperative. Behavior: Patient is calmly seated without any agitated behavior. Crying. Speech: Patient's speech is fluent and nonpressured. Mood/Affect: Mood is "I don't know why I am not better," affect is tearful Suicidality/Homicidality: Patient endorses suicidal ideation. She denies any homicidal ideation. Perceptions: Patient denies any visual hallucinations and denies any auditory hallucinations Though content/process: Dysphoric. Memory and concentration: AOX3, grossly intact for the purposes of this session Judgment and insight: Fair Vital Signs Temp 97.6 F 08/12/22 06:41 Pulse 78 08/12/22 06:41 Resp 16 08/12/22 06:41 BP 111/62 08/12/22 06:41 Pulse Ox 98 08/12/22 06:41 FiO2 Assessment Major depressive disorder, recurrent, severe Posttraumatic stress disorder Depersonalization/derealization by history Tobacco use disorder Plan: -Patient continues to meet criteria for inpatient psychiatric admission for symptom stabilization and safety. Patient has signed adult voluntary form and medication consent and was placed in patient's chart. -Medications: Continue Cymbalta 60 mg twice daily for depression/anxiety Seroquel 50 mg at bedtime for augmentation/insomnia Discontinue Remeron, Start [place] 300 mg twice daily Continue Klonopin 0.25 mg BID PRN for anxiety. -T3, T4 ordered -When necessary Ativan and Haldol for agitation/aggression. -NRT - nicotine patch -SW on board for discharge planning. Encouraged the patient to participate in milieu.
[2022-08-12 11:58] LABS: Appearance,Urine Clear (Clear); Bilirubin,Urine Negative (Negative); Blood,Urine Trace (Negative); Color,Urine Colorless; Glucose,Urine (UA) Negative (Negative); Ketones,Urine Negative (Negative); Leukocyte Esterase,Urine Negative (Negative); Nitrite,Urine Negative (Negative); Protein,Urine Negative (Negative); RBC,Urine <1 /hpf (0-5); Specific Gravity,Urine 1.002 (1.001-1.035); Squamous Epithelial Cell,Urine 2 /hpf (0-4); Urobilinogen,Urine <2.0 mg/dL (<2.0)
[2022-08-12 12:21] LABS: Amphetamine Screen,Urine Not Detected (NotDetected); Barbiturate Screen,Urine Not Detected (NotDetected); Benzodiazepines Screen,Urine Not Detected (NotDetected); Cocaine Screen,Urine Not Detected (NotDetected); Methadone Screen, Urine Not Detected (NotDetected); Opiate Screen,Urine Not Detected (NotDetected); Oxycodone Screen, Urine Not Detected (NotDetected); Phencyclidine Screen,Urine Not Detected (NotDetected); Tricyclic Antidepressant,Urine Not Detected (NotDetected); Urn Cannabinoid Scrn Not Detected (NotDetected)
[2022-08-12 12:47] LABS: T4, Free (Free Thyroxine) 1.2 ng/dL (0.78-2.19)
[2022-08-12] MEDS: clonazePAM 0.5 MG TAB PO PRN (18:16)
[2022-08-12] MEDS: LITHIUM CARBONATE 300 MG CAP PO SCH (21:35)
[2022-08-12] MEDS: QUEtiapine 50 MG TAB PO SCH (21:35)
[2022-08-13] MEDS: LIOTHYRONINE SODIUM 5 MCG TAB PO SCH (06:32)
[2022-08-13] MEDS: LEVOTHYROXINE 100 MCG TAB PO SCH (06:33)
[2022-08-13] MEDS: NICOTINE 14MG/24HR PATCH TRANSDERM SCH (08:11)
[2022-08-13] MEDS: LITHIUM CARBONATE 300 MG CAP PO SCH ×2 (08:11→21:30)
[2022-08-13] MEDS: DULoxetine HCL 60 MG CAPSULE.DR PO SCH ×2 (08:11→21:30)
[2022-08-13] MEDS: clonazePAM 0.5 MG TAB PO PRN ×2 (08:12→19:08)
--- NOTE | 2022-08-13 11:15 | P.PN ---
Progress Note - Text Progress Note Date: 08/13/22 Interval History: Patient was seen in the common room and was agreeable to speak with the flex o writer operator in the office. The patient continues to endorse suicidal ideation and continues to report concern for her safety if she was to return home. She reports that due to severity of her depersonalization/derealization symptoms, she often has thoughts of wanting to escape these feelings by cutting her wrists. She continues to remain primarily isolative to herself however was encouraged to go to groups. She is not endorsing any homicidal ideation. She reports no auditory or visual hallucinations. She denies any paranoia or other delusions. She reports feeling "groggy" in regards to medication side effects. Mental Status Exam: General Appearance: Patient appears to be stated age is alert, directable, and cooperative. Behavior: Patient is calmly seated without any agitated behavior. Eye contact is appropriate. Speech: Patient's speech is fluent and nonpressured. Mood/Affect: Mood is "just groggy," affect is constricted Suicidality/Homicidality: Patient endorses suicidal ideation. She denies any homicidal ideation. Perceptions: Patient denies any visual hallucinations and denies any auditory hallucinations Though content/process: Dysphoric. Memory and concentration: AOX3, grossly intact for the purposes of this session Judgment and insight: Fair Assessment Major depressive disorder, recurrent, severe Posttraumatic stress disorder Depersonalization/derealization by history Tobacco use disorder Plan: -Patient continues to meet criteria for inpatient psychiatric admission for symptom stabilization and safety. Patient has signed adult voluntary form and medication consent and was placed in patient's chart. -Medications: Continue Cymbalta 60 mg twice daily for depression/anxiety Continue Seroquel 50 mg at bedtime for augmentation/insomnia Continue [place] 300 mg twice daily. Consider titration to 450 at bedtime. Continue Klonopin 0.25 mg BID PRN for anxiety. -T3, T4 within normal limit -When necessary Ativan and Haldol for agitation/aggression. -NRT - nicotine patch -SW on board for discharge planning. Encouraged the patient to participate in milieu.
[2022-08-13] MEDS: MONTELUKAST 10 MG TAB PO PRN (15:01)
[2022-08-13] MEDS: QUEtiapine 50 MG TAB PO SCH (21:30)
[2022-08-14] MEDS: LIOTHYRONINE SODIUM 5 MCG TAB PO SCH (06:33)
[2022-08-14] MEDS: LEVOTHYROXINE 100 MCG TAB PO SCH (06:34)
[2022-08-14] MEDS: NICOTINE 14MG/24HR PATCH TRANSDERM SCH (08:29)
[2022-08-14] MEDS: LITHIUM CARBONATE 300 MG CAP PO SCH ×2 (08:30→21:49)
[2022-08-14] MEDS: DULoxetine HCL 60 MG CAPSULE.DR PO SCH ×2 (08:30→21:49)
--- NOTE | 2022-08-14 13:05 | P.PN ---
Progress Note - Text Progress Note Date: 08/14/22 Interval History: Patient was seen in the bedside this AM. Patient reports increased anxiety to day and asks if it might be related to her thyroid. Discussed the thyroid disease. She says that she has also been feeling more tired and has not been participating in groups. Patient reports feeling depressed but denies suicidal ideation. She continues to remain primarily isolative to herself however was encouraged to go to groups. She is not endorsing any homicidal ideation. She reports no auditory or visual hallucinations. She denies any paranoia or other delusions. She reports feeling "groggy" in regards to medication side effects. Mental Status Exam: General Appearance: Patient appears to be stated age is alert, directable, and cooperative. Behavior: Patient is calmly seated without any agitated behavior. Eye contact is appropriate. No tremor on exam Speech: Patient's speech is fluent and nonpressured. Mood/Affect: Mood is "groggy," affect is constricted Suicidality/Homicidality: Patient endorses suicidal ideation. She denies any homicidal ideation. Perceptions: Patient denies any visual hallucinations and denies any auditory hallucinations Though content/process: Dysphoric. Memory and concentration: AOX3, grossly intact for the purposes of this session Judgment and insight: Fair Assessment Major depressive disorder, recurrent, severe Posttraumatic stress disorder Depersonalization/derealization by history Tobacco use disorder Subclinical hypothyroidism Plan: -Patient continues to meet criteria for inpatient psychiatric admission for symptom stabilization and safety. Patient has signed adult voluntary form and medication consent and was placed in patient's chart. -Medications: Continue Cymbalta 60 mg twice daily for depression/anxiety Continue Seroquel 50 mg at bedtime for augmentation/insomnia Continue [place] 300 mg twice daily. Consider titration to 450 at bedtime. Continue Klonopin 0.25 mg BID PRN for anxiety. -When necessary Ativan and Haldol for agitation/aggression. -NRT - nicotine patch -SW on board for discharge planning. Encouraged the patient to participate in milieu.
[2022-08-14] MEDS: clonazePAM 0.5 MG TAB PO PRN (13:14)
[2022-08-14] MEDS: MONTELUKAST 10 MG TAB PO PRN (13:15)
[2022-08-14] MEDS: QUEtiapine 50 MG TAB PO SCH (21:49)
[2022-08-15] MEDS: LEVOTHYROXINE 100 MCG TAB PO SCH (06:56)
[2022-08-15] MEDS: LIOTHYRONINE SODIUM 5 MCG TAB PO SCH (06:56)
[2022-08-15] MEDS: DULoxetine HCL 60 MG CAPSULE.DR PO SCH ×2 (08:21→21:14)
[2022-08-15] MEDS: LITHIUM CARBONATE 300 MG CAP PO SCH ×2 (08:21→21:14)
[2022-08-15] MEDS: NICOTINE 14MG/24HR PATCH TRANSDERM SCH (08:21)
[2022-08-15] MEDS: clonazePAM 0.5 MG TAB PO PRN ×2 (08:22→18:54)
--- NOTE | 2022-08-15 13:03 | P.PN ---
Progress Note - Text Progress Note Date: 08/15/22 Interval History: Patient was seen in the interview room this morning. She continues to report having high anxiety. She states that she has anxiety attack that wakes her up at night. She endorses racing thoughts during the daytime but especially worse in the mornings. Due to the level of anxiety, patient reports having suicidal ideation with plan to slit her wrist. When asked about the racing thoughts she may be having, patient reports that she is having concerns about "why am I this way ". She also reports having depersonalization episodes over the day yesterday that are triggered by this anxiety. She appears to be interacting more with others on the unit and was encouraged to attend groups. She is not endorsing any homicidal ideation. She reports no auditory or visual hallucinations. She denies any paranoia or other delusions. She reports having "sweaty hands" in regards to medication side effects but denies side effects otherwise. Mental Status Exam: General Appearance: Patient appears to be stated age is alert, directable, and cooperative. Behavior: Patient is calmly seated without any agitated behavior. Eye contact is appropriate. No tremor on exam Speech: Patient's speech is fluent and nonpressured. Mood/Affect: Mood is "anxious," affect is constricted Suicidality/Homicidality: Patient endorses suicidal ideation. She denies any homicidal ideation. Perceptions: Patient denies any visual hallucinations and denies any auditory hallucinations Though content/process: Dysphoric. Memory and concentration: AOX3, grossly intact for the purposes of this session Judgment and insight: Fair Assessment Major depressive disorder, recurrent, severe Posttraumatic stress disorder Depersonalization/derealization by history Tobacco use disorder Subclinical hypothyroidism Plan: -Patient continues to meet criteria for inpatient psychiatric admission for sym ptom stabilization and safety. Patient has signed adult voluntary form and medication consent and was placed in patient's chart. -Medications: Restart Remeron 15 mg qHS with plan to increase as tolerated Continue Cymbalta 60 mg twice daily for depression/anxiety Continue Seroquel 50 mg at bedtime for augmentation/insomnia Continue [place] 300 mg twice daily for suicidality/augmentation. Continue Klonopin 0.25 mg BID PRN for anxiety. -When necessary Ativan and Haldol for agitation/aggression. -NRT - nicotine patch -SW on board for discharge planning. Encouraged the patient to participate in milieu.
[2022-08-15] MEDS ORDERED: MIRTAZAPINE 15 MG TAB PO SCH (21:00)
[2022-08-15] MEDS: QUEtiapine 50 MG TAB PO SCH (21:14)
[2022-08-16] MEDS: LEVOTHYROXINE 100 MCG TAB PO SCH (06:18)
[2022-08-16] MEDS: LIOTHYRONINE SODIUM 5 MCG TAB PO SCH (06:18)
[2022-08-16 06:24] VITALS: BP 119/60; PULSE 77; RESP 16; TEMP 97.7
[2022-08-16] MEDS: NICOTINE 14MG/24HR PATCH TRANSDERM SCH (08:23)
[2022-08-16] MEDS: DULoxetine HCL 60 MG CAPSULE.DR PO SCH (08:23)
[2022-08-16] MEDS: LITHIUM CARBONATE 300 MG CAP PO SCH (08:23)
[2022-08-16] MEDS: clonazePAM 0.5 MG TAB PO PRN (10:30)
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
== END 2022-08-16 13:29 | disposition home or self-care (01) | DRG 751 ==
LOC: EC 14:53 → 3MHU 19:35
PROVIDERS: ADMIT Psychiatry & Neurology Psychiatry; ATTEND Psychiatry & Neurology Psychiatry
DX: F33.2 Major depressive disorder, recurrent severe without psychotic features (principal); E89.0 Postprocedural hypothyroidism; F17.210 Nicotine dependence, cigarettes, uncomplicated; F41.1 Generalized anxiety disorder; F43.10 Post-traumatic stress disorder, unspecified; F48.1 Depersonalization-derealization syndrome; G47.00 Insomnia, unspecified; I25.10 Atherosclerotic heart disease of native coronary artery without angina pectoris; Z71.89 Other specified counseling; Z91.51 Personal history of suicidal behavior; Z28.21 Immunization not carried out because of patient refusal; Z88.7 Allergy status to serum and vaccine; Z62.810 Personal history of physical and sexual abuse in childhood; Z79.890 Hormone replacement therapy; Z79.899 Other long term (current) drug therapy
CPT/HCPCS: 80053; 80061; 80306; 81001; 81025; 82075; 83036; 84439; 84443; 84481; 85025; 87635; 99285

== ENCOUNTER 2023-05-25 02:31 | Inpatient (IN) | payer OTHER ==
[2023-05-25] MEDS ORDERED: MIDAZOLAM 1 MG/ML 5 ML VIAL IV STA (02:38)
[2023-05-25] MEDS ORDERED: ROCURONIUM 10 MG/ML (5 ML VIAL) IV ONE (02:39)
--- NOTE | 2023-05-25 02:49 | ED ---
CPR HPI - General Chief Complaint: Cardiac Arrest/CPR Stated Complaint: Cardiac Arrest Source: patient, EMS Mode of arrival: EMS Limitations: no limitations - History of Present Illness Initial Comments: Mecca is a 43yo female with no known cardiac history was brought to the ER via EMS after CPR. History was provided by EMS. Patient's significant her provided history to EMS. He stated that the patient had been complaining of epigastric pain and nausea as well as some mild chest pain throughout the day. She had no episodes of nonbloody nonbilious emesis. She didn't want to come the hospital he went to bed and around 2:02 AM he woke to her shaking in bed and was unresponsive. 911 was called purchasing and claims supervisor got the page and lived across the street from her so ran over and initiated CPR within 2 minutes of the 911 call. That cash surrender calculator provided compression only CPR for what he estimates was 3-4 minutes before additional team showed up patient was defibrillated once regained pulses. EMS arrived on scene for transport, patient maintained her pulse throughout transport, she was clamped down and they were unable to obtain ET tube but did place an OPA and blow-by oxygen she maintained her oxygen saturations. Patient did become hypotensive in route was given push dose epinephrine 20 mg and immediately prior to arrival patient did have some vomiting. - Related Data Home Medications Medication Instructions Recorded Confirmed Montelukast [Singulair] 10 mg PO DAILY PRN 05/26/22 08/06/22 Levothyroxine Sodium [Synthroid] 100 mcg PO DAILY 08/06/22 08/06/22 Liothyronine Sodium [Cytomel] 10 mcg PO DAILY 08/06/22 08/06/22 Previous Rx's Medication Instructions Recorded DULoxetine HCL [Cymbalta] 60 mg PO BID 15 Days #30 cap 08/16/22 [place] Carbonate 300 mg PO BID 15 Days #30 cap 08/16/22 Mirtazapine [Remeron] 15 mg PO HS 15 Days #15 tab 08/16/22 QUEtiapine [SEROquel] 50 mg PO HS 15 Days #15 tab 08/16/22 clonazePAM [KlonoPIN] 0.5 mg PO BID PRN 15 Days #30 tab 08/16/22 Allergies Allergy/AdvReac Type Severity Reaction Status Date / Time desvenlafaxine [From Pristiq] Allergy Rash/Hives Verified 08/06/22 20:49 Review of Systems ROS Statement: Those systems with pertinent positive or pertinent negative responses have been documented in the HPI. ROS Other: All systems not noted in ROS Statement are negative. Past Medical History Past Medical History: No Reported History History of Any Multi-Drug Resistant Organisms: None Reported Past Surgical History: Orthopedic Surgery Additional Past Surgical History / Comment(s): 4 bilateral knee surgeries Past Anesthesia/Blood Transfusion Reactions: No Reported Reaction Past Psychological History: Anxiety, Depression Smoking Status: Current every day smoker Past Alcohol Use History: None Reported Past Drug Use History: None Reported - Past Family History Mother Family Medical History: Hyperlipidemia General Exam Limitations: no limitations General appearance: obtunded, in distress Head exam: Present: atraumatic, normocephalic Eye exam: Present: PERRL ENT exam: Present: mucous membranes moist Respiratory exam: Present: decreased breath sounds Cardiovascular Exam: Present: tachycardia GI/Abdominal exam: Present: soft, distended, other (Bedside ultrasound reveals no free fluid and no evidence of ) External exam: Present: normal external exam Extremities exam: Present: normal inspection Neurological exam: Present: other (Patient withdraws to pain, has gag reflex and is moaning GCS 7 E(1) V(2) M(4)) Skin exam: Present: warm, dry Course Vital Signs 05/25/23 05/25/23 05/25/23 02:33 02:38 02:50 Temperature 96.7 F L Pulse Rate 133 H Respiratory 20 Rate Blood Pressure 113/85 O2 Sat by Pulse 92 L Oximetry Fraction of 100 100 Inspired Oxygen (FIO2) Procedures - Intubation Sedative: Versed Paralytic: Rocuronium Laryngoscope: Karol Size: 4 Assist Device Used: fiber optic device ET Tube Size: 7.5 ET Tube Uncuffed: No Tube Secured Depth (cm): 23 Tube Secured Location: lips Tube Placement Confirmation: visualized tube passing through cords, no breath sounds over epigastrium Patient Tolerated Procedure: well Intubation Complications: none Medical Decision Making - Medical Decision Making Was pt. sent in by a medical professional or institution (, PA, DISTRIBUTION SUPERVISOR, urgent care, hospital, or retirement...) When possible be specific @ -No Did you speak to anyone other than the patient for history (EMS, parent, family, police, friend...)? What history was obtained from this source @ -EMS Did you review nursing and triage notes (agree or disagree)? Why? @ -I reviewed and agree with nursing and triage notes Were old charts reviewed (outside hosp., previous admission, EMS record, old EKG, old radiological studies, urgent care reports/EKG's, retirement records)? Report findings @ -Previous notes and PMH were reviewed Differential Diagnosis (chest pain, altered mental status, abdominal pain women, abdominal pain men, vaginal bleeding, weakness, fever, dyspnea, syncope, headache, dizziness, GI bleed, back pain, seizure, CVA, palpatations, mental health)? @ -Differential Chest Pain: Stable Angina, Unstable Angina, STEMI, NSTEMI Aortic Dissection, Pneumothorax, Musculoskeletal, Esophageal Spasm GERD, Cholecystitis, Pancreatitis, Zoster, this is not meant to be an all-inclusive list. EKG interpreted by me (3pts min.). @ -As above X-rays interpreted by me (1pt min.). @ -ET tube is deep, no pneumothorax and no widened mediastinum CT interpreted by me (1pt min.). @ No acute process in the brain, no dissection no PE U/S interpreted by me (1pt. min.). @ Ultrasound with no free fluid in the abdomen, no evidence of What testing was considered but not performed or refused? (CT, X-rays, U/S, labs)? Why? @ -None What meds were considered but not given or refused? Why? @ Heparin was held prior to imaging and patient was taken from CT suite to Pipe Straightener Did you discuss the management of the patient with other professionals (caitlin griffin iloraine Alvarez, PA, DISTRIBUTION SUPERVISOR, lab, RT, psych nurse, psychologist social, fruit worker, teacher, probation officer, rn case management)? Give summary @ Dr Fowler mobile equipment servicer Was smoking cessation discussed for >3mins.? @ -No Was critical care preformed (if so, how long)? @ Yes, 43min Were there social determinants of health that impacted care today? How? (Homelessness, low income, unemployed, alcoholism, drug addiction, transportation, low edu. Level, literacy, decrease access to med. care, care home, rehab)? @ -No Was there de-escalation of care discussed even if they declined (Discuss DNR or withdrawal of care, Hospice)? DNR status @ -No What co-morbidities impacted this encounter? (DM, HTN, Smoking, COPD, CAD, Cancer, CVA, ARF, Chemo, Hep., AIDS, mental health diagnosis, sleep apnea, morbid obesity)? @ Smoking, Obesity Was patient admitted / discharged? Hospital course, mention meds given and route, prescriptions, significant lab abnormalities, going to OR and other pertinent info. @ Admit EKG was evaluated and is a STEMI, these results were discussed with mobile equipment servicer however given that the patient is currently unresponsive would like reassessment of the patient before activating blood bank laboratory professional She was seen and evaluated immediately upon arrival to the emergency department, patient is minimally responsive she is moaning she is moving her extremities her pupils are reactive she has a gag reflex Cardiology was updated that the patient is minimally responsive but not unresponsive agrees with plan to activate blood bank laboratory professional patient have a brain CT and CTA prior to Pipe Straightener CXR with ET tube deep - was pulled back 2cm I reviewed the patient's brain CT and CTA in real time I see no acute process in the brain, no large PE and no aortic dissection Patient was taken from CT scanner to Pipe Straightener 3 Undiagnosed new problem with uncertain prognosis? @ -Yes Drug Therapy requiring intensive monitoring for toxicity (Heparin, Nitro, Insulin, Cardizem)? @ -Yes Heparin Were any procedures done? @ -No Diagnosis/symptom? @ STEMI Acute, or Chronic, or Acute on Chronic? @ Acute Uncomplicated (without systemic symptoms) or Complicated (systemic symptoms)? @ -Complicated Side effects of treatment? @ -No Exacerbation, Progression, or Severe Exacerbation? @ -No Poses a threat to life or bodily function? How? (Chest pain, [place], CA, pneumonia, PE, COPD, DKA, ARF, appy, cholecystitis, CVA, Diverticulitis, Homicidal, Suicidal, threat to staff... and all critical care pts) @ Yes - Lab Data Result diagrams: 05/25/23 02:38 05/25/23 02:48 Lab Results 05/25/23 05/25/23 05/25/23 Range/Units 02:38 02:48 02:48 WBC 22.6 H (3.8-10.6) k/uL RBC 4.17 (3.80-5.40) m/uL Hgb 12.2 (11.4-16.0) gm/dL Hct 38.9 (34.0-46.0) % MCV 93.5 (80.0-100.0) fL MCH 29.3 (25.0-35.0) pg MCHC 31.3 (31.0-37.0) g/dL RDW 14.3 (11.5-15.5) % Plt Count 395 (150-450) k/uL MPV 8.2 Neutrophils % 66 % Lymphocytes % 28 % Monocytes % 3 % Eosinophils % 1 % Basophils % 1 % Neutrophils # 15.0 H (1.3-7.7) k/uL Lymphocytes # 6.4 H (1.0-4.8) k/uL Monocytes # 0.6 (0-1.0) k/uL Eosinophils # 0.2 (0-0.7) k/uL Basophils # 0.1 (0-0.2) k/uL Hypochromasia Moderate PT 10.7 (10.0-12.5) sec INR 1.0 (<1.2) APTT 24.9 (22.0-30.0) sec Sodium 137 (137-145) mmol/L Potassium 3.5 (3.5-5.1) mmol/L Chloride 109 H (98-107) mmol/L Carbon Dioxide 10 L (22-30) mmol/L Anion Gap 18 mmol/L BUN 15 (7-17) mg/dL Creatinine 1.35 H (0.52-1.04) mg/dL Est GFR (CKD-EPI)AfAm 57 (>60 ml/min/1.73 sqM) Est GFR (CKD-EPI)NonAf 49 (>60 ml/min/1.73 sqM) Glucose 315 H (74-99) mg/dL Calcium 7.5 L (8.4-10.2) mg/dL Magnesium 2.0 (1.6-2.3) mg/dL Total Bilirubin 0.3 (0.2-1.3) mg/dL AST 136 H (14-36) U/L ALT 75 H (4-34) U/L Alkaline Phosphatase 79 (38-126) U/L Troponin I (0.000-0.034) ng/mL NT-Pro-B Natriuret Pep 315 pg/mL Total Protein 6.0 L (6.3-8.2) g/dL Albumin 3.4 L (3.5-5.0) g/dL 05/25/23 Range/Units 02:48 WBC (3.8-10.6) k/uL RBC (3.80-5.40) m/uL Hgb (11.4-16.0) gm/dL Hct (34.0-46.0) % MCV (80.0-100.0) fL MCH (25.0-35.0) pg MCHC (31.0-37.0) g/dL RDW (11.5-15.5) % Plt Count (150-450) k/uL MPV Neutrophils % % Lymphocytes % % Monocytes % % Eosinophils % % Basophils % % Neutrophils # (1.3-7.7) k/uL Lymphocytes # (1.0-4.8) k/uL Monocytes # (0-1.0) k/uL Eosinophils # (0-0.7) k/uL Basophils # (0-0.2) k/uL Hypochromasia PT (10.0-12.5) sec INR (<1.2) APTT (22.0-30.0) sec Sodium (137-145) mmol/L Potassium (3.5-5.1) mmol/L Chloride (98-107) mmol/L Carbon Dioxide (22-30) mmol/L Anion Gap mmol/L BUN (7-17) mg/dL Creatinine (0.52-1.04) mg/dL Est GFR (CKD-EPI)AfAm (>60 ml/min/1.73 sqM) Est GFR (CKD-EPI)NonAf (>60 ml/min/1.73 sqM) Glucose (74-99) mg/dL Calcium (8.4-10.2) mg/dL Magnesium (1.6-2.3) mg/dL Total Bilirubin (0.2-1.3) mg/dL AST (14-36) U/L ALT (4-34) U/L Alkaline Phosphatase (38-126) U/L Troponin I 0.145 H* (0.000-0.034) ng/mL NT-Pro-B Natriuret Pep pg/mL Total Protein (6.3-8.2) g/dL Albumin (3.5-5.0) g/dL - EKG Data -: EKG Interpreted by Me EKG Comments: Possible EKG interpreted by me, prehospital EKG obtained at 2:18 AM, rate is 129 rhythm is regular, narrow complex with no definitive P waves, there are more acute ST elevations in V2 through V5 concerning for STEMI Critical Care Time Critical Care Time: Yes Total Critical Care Time: 43 Disposition Clinical Impression: STEMI (ST elevation myocardial infarction) Disposition: ADMITTED IP TO THIS HOSP Condition: Critical Is patient prescribed a controlled substance at d/c from ED?: No
[2023-05-25 03:06] LABS: ALT 75 U/L (4-34); African American GFR (CKD) 57 (>60 ml/min/1.73 sqM); Albumin 3.4 g/dL (3.5-5.0); Anion Gap 18 mmol/L; Blood Urea Nitrogen 15 mg/dL (7-17); Calcium 7.5 mg/dL (8.4-10.2); Carbon Dioxide 10 mmol/L (22-30); Chloride 109 mmol/L (98-107); Glucose 315 mg/dL (74-99); Non-African American GFR(CKD) 49 (>60 ml/min/1.73 sqM); Sodium 137 mmol/L (137-145); Total Bilirubin 0.3 mg/dL (0.2-1.3)
[2023-05-25 03:09] LABS: AST 136 U/L (14-36); Alkaline Phosphatase 79 U/L (38-126); Potassium 3.5 mmol/L (3.5-5.1)
[2023-05-25 03:14] LABS: NT-Pro-B-Type Natriuretic Pept 315 pg/mL
[2023-05-25 03:14] LABS: Basophils # (A) 0.1 k/uL (0-0.2); Basophils % (A) 1 %; Eosinophils # (A) 0.2 k/uL (0-0.7); Eosinophils % (A) 1 %; HCT 38.9 % (34.0-46.0); HGB 12.2 gm/dL (11.4-16.0); Hypochromasia Moderate; Lymphocytes # (A) 6.4 k/uL (1.0-4.8); Lymphocytes % (A) 28 %; MCH 29.3 pg (25.0-35.0); MCHC 31.3 g/dL (31.0-37.0); MCV 93.5 fL (80.0-100.0); Mean Platelet Volume 8.2; Monocytes # (A) 0.6 k/uL (0-1.0); Monocytes % (A) 3 %; Neutrophils % (A) 66 %; Platelet Count 395 k/uL (150-450); RBC 4.17 m/uL (3.80-5.40); RDW 14.3 % (11.5-15.5); WBC 22.6 k/uL (3.8-10.6)
--- NOTE | 2023-05-25 03:14 | XR ---
EXAM: XR Chest, 1 View CLINICAL HISTORY: ITS.REASON XR Reason: chest pain intubation TECHNIQUE: Frontal view of the chest. COMPARISON: No relevant prior studies available. FINDINGS: Lungs: Diffuse patchy airspace opacities noted throughout the lungs with coexisting prominent interstitial markings. There is relative sparing of the juxtapleural regions. Pleural space: No pleural effusion or pneumothorax. Heart: The cardiac silhouette is within normal limits. Mediastinum: The mediastinal contours are thought to be unremarkable, accounting for limitations with adjacent airspace disease. Bones/joints: Unremarkable. No acute fracture. Tubes, lines and devices: The endotracheal tube is noted in the proximal right mainstem bronchus. Nasogastric tube tip cannot be seen but is below the diaphragm. IMPRESSION: 1. The endotracheal tube is noted in the proximal right mainstem bronchus. Recommend retraction a proximally 3 cm, if not already performed. 2. Diffuse patchy airspace opacities noted throughout the lungs with coexisting prominent interstitial markings. There is relative sparing of the juxtapleural regions. Differential consideration includes florid pulmonary edema or bilateral pneumonia. <MYCVCSECTION> Communications: 05/25/23 03:35 Verify Receipt Verified receipt with JALYN Tran, given to Dr. Pfeiffer on 05/25 03:35 (-05:00)
[2023-05-25] MEDS ORDERED: VERAPAMIL 2.5 MG/ML 2 ML AMP ONE (03:16)
[2023-05-25] MEDS ORDERED: LIDOCAINE 1% INJ 10MG/ML (20 ML MDV) ONE (03:17)
[2023-05-25 03:20] LABS: Partial Thromboplastin Time 24.9 sec (22.0-30.0); Prothrombin Time 10.7 sec (10.0-12.5)
[2023-05-25] MEDS ORDERED: IV FLUID CONTINUATION 1,000 ML IV ONE (03:20)
--- NOTE | 2023-05-25 03:23 | P.CRDCN ---
History of Present Illness Consult date: 05/25/23 History of present illness: HISTORY OF PRESENTING ILLNESS 43-year-old female with no known past medical history. History is very limited as patient was received in an obtunded state. Apparently patient was having substernal chest heaviness all throughout the day today around 2 AM patient was noticed to have a witnessed cardiac arrest. For this EMS was activated. One of the EMS staff was just a neighbors on the patient and was able to reach the scene in 2 minutes. Patient was immediately started on CPR within 2 minutes and there was a return of spontaneous circulation with about 5 minutes of CPR and ACLS. Patient received 1 round of epi and 1 shock. ECG post shock shows ST elevations in leads V2 to V4 with Q waves in anteroseptal leads. The ECG in the ER shows atrial fibrillation with ST elevations in V2 to V4 with Q waves in anteroseptal leads. A CT head was done which did not show any acute intracranial process or any evidence of ventricular bleeding. A CT chest with contrast was performed there was no evidence of aortic dissection or any evidence of massive/submassive PE. REVIEW OF SYSTEMS Could not be obtained as patient is obtunded. PHYSICAL EXAMINATION Head: Normocephalic. Eyes: Sclerae nonicteric. Pupils are reactive to light Neck: Brisk carotid upstroke, no jugular venous distention. Lungs: Intubated, currently Ambu bag respi support, crackles audible in bilateral lower lung cruz Heart: Irregular pulse, S1-S2, no S3, no murmur or rub. Abdomen: Soft nontender, positive bowel sounds no organomegaly. Extremities: No edema, intact distal pulses. Neuro: Alert, oritented, no focal deficits ASSESSMENT Acute anterior MA Cardio pulmonary arrest, suspect due to ventricular fibrillation. Atrial fibrillation post ROSC PLAN plan for emergent cardiac catheterization. echocardiogram Urine drug screen further recs to follow Past Medical History Past Medical History: No Reported History History of Any Multi-Drug Resistant Organisms: None Reported Past Surgical History: Orthopedic Surgery Additional Past Surgical History / Comment(s): 4 bilateral knee surgeries Past Anesthesia/Blood Transfusion Reactions: No Reported Reaction Past Psychological History: Anxiety, Depression Smoking Status: Current every day smoker Past Alcohol Use History: None Reported Past Drug Use History: None Reported - Past Family History Mother Family Medical History: Hyperlipidemia Medications and Allergies Home Medications Medication Instructions Recorded Confirmed Type Montelukast [Singulair] 10 mg PO DAILY PRN 05/26/22 08/06/22 History Levothyroxine Sodium [Synthroid] 100 mcg PO DAILY 08/06/22 08/06/22 History Liothyronine Sodium [Cytomel] 10 mcg PO DAILY 08/06/22 08/06/22 History DULoxetine HCL [Cymbalta] 60 mg PO BID 15 Days #30 cap 08/16/22 Rx [place] Carbonate 300 mg PO BID 15 Days #30 cap 08/16/22 Rx Mirtazapine [Remeron] 15 mg PO HS 15 Days #15 tab 08/16/22 Rx QUEtiapine [SEROquel] 50 mg PO HS 15 Days #15 tab 08/16/22 Rx clonazePAM [KlonoPIN] 0.5 mg PO BID PRN 15 Days #30 tab 08/16/22 Rx Allergies Allergy/AdvReac Type Severity Reaction Status Date / Time desvenlafaxine [From Pristiq] Allergy Rash/Hives Verified 08/06/22 20:49 Physical Exam Vitals: Vital Signs Temp Pulse Resp BP Pulse Ox FiO2 05/25/23 02:50 100 05/25/23 02:38 100 05/25/23 02:33 96.7 F L 133 H 20 113/85 92 L Intake and Output 05/24/23 05/24/23 05/25/23 14:59 22:59 06:59 Other: Weight 103 kg Results 05/25/23 02:48 Cardiac Enzymes 05/25/23 Range/Units 02:48 AST 136 H (14-36) U/L Comprehensive Metabolic Panel 05/25/23 Range/Units 02:48 Sodium 137 (137-145) mmol/L Potassium 3.5 (3.5-5.1) mmol/L Chloride 109 H (98-107) mmol/L Carbon Dioxide 10 L (22-30) mmol/L BUN 15 (7-17) mg/dL Creatinine 1.35 H (0.52-1.04) mg/dL Glucose 315 H (74-99) mg/dL Calcium 7.5 L (8.4-10.2) mg/dL AST 136 H (14-36) U/L ALT 75 H (4-34) U/L Alkaline Phosphatase 79 (38-126) U/L Total Protein 6.0 L (6.3-8.2) g/dL Albumin 3.4 L (3.5-5.0) g/dL Intake and Output 05/24/23 05/24/23 05/25/23 14:59 22:59 06:59 Other: Weight 103 kg Patient Weight 05/25/23 06:59 Weight 103 kg 05/25/23 02:48
--- NOTE | 2023-05-25 03:23 | CT ---
EXAM: CT Head Without Intravenous Contrast CLINICAL HISTORY: unresponsive TECHNIQUE: Axial computed tomography images of the head/brain without intravenous contrast. CTDI is 49.2 mGy and DLP is 1138.4 mGy-cm. This CT exam was performed using one or more of the following dose reduction techniques: automated exposure control, adjustment of the mA and/or kV according to patient size, and/or use of iterative reconstruction technique. COMPARISON: No relevant prior studies available. FINDINGS: Brain: Unremarkable. No hemorrhage. No significant white matter disease. No edema. Ventricles: Unremarkable. No ventriculomegaly. Bones/joints: Unremarkable. No acute fracture. Soft tissues: Unremarkable. Sinuses: Unremarkable as visualized. No acute sinusitis. Mastoid air cells: Unremarkable as visualized. No mastoid effusion. Tubes, lines and devices: Incidental endotracheal tube in the oropharynx. IMPRESSION: No acute intracranial process identified.
[2023-05-25] MEDS ORDERED: NALOXONE 0.4 MG/ML 1 ML VIAL IV PRN (03:24)
[2023-05-25] MEDS ORDERED: ASPIRIN 325 MG TAB OG-TUBE ONE (03:25)
[2023-05-25] MEDS: HEPARIN SODIUM 1,000 UN/ML (10ML VL) IV ONE ×3 (03:25→05:31)
[2023-05-25] MEDS ORDERED: ASPIRIN 325 MG TAB ONE (03:28)
[2023-05-25] MEDS ORDERED: HEPARIN SODIUM 1,000 UN/ML (10ML VL) ONE (03:28)
[2023-05-25] MEDS ORDERED: LIDOCAINE 1% INJ 10MG/ML (20 ML MDV) SQ ONE (03:30)
[2023-05-25] MEDS ORDERED: PRASUGREL 10 MG TAB ONE (03:53)
[2023-05-25] MEDS ORDERED: PRASUGREL 10 MG TAB OG-TUBE ONE (04:00)
[2023-05-25] MEDS: MIDAZOLAM 2 MG/2 ML VIAL IVP ONE ×2 (04:03→04:13)
--- NOTE | 2023-05-25 04:11 | P.CARDCATH ---
Date of Procedure: 05/25/23 Description of Procedure: DIAGNOSTIC CORONARY ANGIOGRAPHY and LEFT HEART CATH REPORT PROCEDURES PERFORMED: Left heart catheterization Selective coronary angiography Moderate conscious sedation 20 mins Right common femoral access INDICATION: 43-year-old female but a cardiac arrest at 1:45 AM. She was noticed to have ventricular fibrillation. Post-Rosc her ECG showed atrial fibrillation with ST elevations in leads V2 to V4 along with Q waves. CT head negative for any acute intracranial process of intracranial bleed, CT chest with contrast negative for any major aortic dissection on any major pulmonary embolism. Patient arrived to ER at 1:50 AM. Cardiology was notified at 1:44 AM. CONSENT: I have discussed the risks, benefits and alternative therapies for the above-mentioned procedure, sedation/analgesia and necessary blood product administration (if indicated, as they pertain to this patient). The patient has indicated understanding and acceptance of the risks and procedures discussed. Sedation: Patient's ECG, heart rate, blood pressure, pulse oximetry was monitored throughout the duration of procedure under the direct supervision. Patient was sedated with propofol. She was intubated when she arrived to the Visual Basic .Net Developer and was placed o vent support.. Total duration of 20 minutes. PROCEDURE:After the risks, benefits and alternatives of the above mentioned procedure explained in detail with the patient, informed consent was obtained. Patient was taken to the catheterization lab and prepped and draped in usual sterile fashion. Ultrasound was used to identify the right common femoral artery. 1% lidocaine was infiltrated over the right common femoral artery. Using ultrasound arterial access was obtained using micropuncture needle. A 6-Pashto sheath was placed in the right radial artery using modified Seldinger technique. J tipped wire was advanced under fluoroscopic guidance. Over the wire JL4 diagnostic catheter was advanced. Wire was removed, catheter was flushed and manipulated under fluoroscopy to selectively engaged the left coronary ostium. Left coronary angioplasty was performed in different angiographic projections. This catheter was exchanged for a JR4 diagnostic catheter over the wire. The catheter was flushed and manipulated to cross the aortic valve. LV pressures were obtained. Pullback was performed across aortic valve and catheter was manipulated to selectively engage the right coronary ostium under fluoroscopic guidance. Right coronary angiography was performed in different angiographic projections. Catheter was removed over the wire. Femoral sheath was flushed. After careful review of cardiac imaging and it was noticed that mid LAD was 100% occluded and was a culprit lesion. Decision was made to proceed with emergent revascularization. HEMODYNAMICS: Aortic Pressure: 170/98 mmHg. LV pressure: 172/47 mmHg. LVEDP 29 mmHg. SELECTIVE CORONARY ARTERIOGRAPHY: LEFT MAIN: The left main is a large caliber vessel which bifurcates into the LAD and circumflex. Left main appears angiographically normal. LEFT ANTERIOR DESCENDING CORONARY ARTERY: LAD is a large caliber vessel. Proximal LAD appears angiographically normal. It gives rise to small diagonal 1 and diagonal 2 branch. Just after giving diagonal 2 branch that is 100% occlusion at the bifurcation site with LATHA 0 flow. This is the culprit lesion. There are faint collaterals from PDA filling distal LAD retrogradely. LEFT CIRCUMFLEX CORONARY ARTERY: It is nondominant vessel. at 6 his labs caliber vessel. Proximal LCx is angiographically normal. It gives rise to a medium-sized OM 2 branch which appears angiographically normal. After giving OM1 branch, mid LCx appears angiographically normal. Just before bifurcation of OM2, there is 80% stenosis, LATHA 3 flow. OM2 is medium size, long vessel. RIGHT CORONARY ARTERY: Dominant vessel. The right coronary artery is a large caliber vessel. Prox RCA is angiographically normal. Mid RCA has mild luminal irregularities. Distal RCA has mild luminal irregularities. It gives rise to small PL branch and small PDA. Proximal PDA has 60% tubular stenosis, mid PDA has 80% stenosis, LATHA 3 flow. IMPRESSION: 100% mid LAD stenosis, LATHA 0 Flow. Culprit lesion. Faint RCA to LAD collaterals 80% Distal mid LCx stenosis, LATHA 3 flow 80% PDA disease, small vessel PLAN: Intervention of mid LAD. Thank you for letting [facility] cardiology team to get involved in this patient's care. Please feel free to contact our office in case of any specific questions. Malcolm Fowler MD
--- NOTE | 2023-05-25 04:16 | CT ---
EXAM: CT Angiography Chest With Intravenous Contrast CLINICAL HISTORY: Chest pain TECHNIQUE: Axial computed tomographic angiography images of the chest with intravenous contrast. CTDI is 57.78 mGy and DLP is 1611.9 mGy-cm. This CT exam was performed using one or more of the following dose reduction techniques: automated exposure control, adjustment of the mA and/or kV according to patient size, and/or use of iterative reconstruction technique. MIP reconstructed images were created and reviewed. COMPARISON: No relevant prior studies available. FINDINGS: Pulmonary arteries: Accounting for limitations with respiratory artifact, there is no definite evidence for pulmonary embolism. Aorta: No acute findings. No thoracic aortic aneurysm. Lungs: Scattered patchy airspace opacities in the posterior upper lobes and more prominently in the lower lobes with air bronchograms. Pleural space: There is a left pneumothorax noted anteriorly, estimated at 10-15%. No pleural effusions. No right pneumothorax. Heart: Unremarkable. No cardiomegaly. No significant pericardial effusion. Bones/joints: No acute fracture. No dislocation. Soft tissues: Unremarkable. Lymph nodes: Unremarkable. No enlarged lymph nodes. Tubes, lines and devices: The endotracheal tube remains at the proximal right mainstem bronchus. The nasogastric tube traverses the mediastinum and terminates in the mid to distal body of the stomach. IMPRESSION: 1. There is a left pneumothorax noted anteriorly, estimated at 10-15%. 2. Accounting for limitations with respiratory artifact, there is no definite evidence for pulmonary embolism. 3. The endotracheal tube remains at the proximal right mainstem bronchus. Recommend retraction. 4. Scattered patchy airspace opacities in the posterior upper lobes and more prominently in the lower lobes with air bronchograms. Differential consideration includes pneumonia or aspiration. <MYCVCSECTION> Communications: 05/25/23 04:21 Call Doctor Regarding Pneumothorax, called Dr. Pfeiffer on 05/25 04:21 (-05:00)
[2023-05-25] MEDS ORDERED: IOPAMIDOL-370 100ML BTL INJ ONE ×3 (04:22→05:31)
[2023-05-25] MEDS ORDERED: RX INFO: IV CONTRAST WAS GIVEN 1 EACH MISC MISCELLANE PRN (05:37)
[2023-05-25] MEDS ORDERED: ZOLPIDEM 5 MG TAB PO PRN (05:37)
[2023-05-25] MEDS ORDERED: ATROPINE SULFATE 0.1 MG/ML 10ML SYRINGE IV PRN (05:37)
[2023-05-25] MEDS ORDERED: MAG HYDROX/AL HYDROX/SIMETH 30 ML CUP PO PRN (05:37)
--- NOTE | 2023-05-25 06:02 | P.CARDCATH ---
Date of Procedure: 05/25/23 Description of Procedure: PERCUTANEOUS TRANSLUMINAL CORONARY ANGIOPLASTY CLINICAL INFORMATION: The patient is a 43 year old female who presented with a cardiac arrest, is found to have ST elevation anteriorly. She underwent computed tomography scan of the head and the chest that showed no evidence of bleed or dissection. There was evidence of pneumothorax. She underwent cardiac catheterization by Dr Fowler was found to have an occluded proximal LAD at the takeoff of the first septal reconsignment clerk. The patient was intubated and sedated.. Recommendations were made regarding angioplasty and stenting. No family was available at the time of starting the procedure. PROCEDURE: A 6 Guamanian EBU 3.75 guiding catheter was introduced into the system. After cannulating the left main, a 0.014 BMW J-wire was advanced across the lesion and positioned distally with the help of a fine cross microcatheter. The fine cross microcatheter was removed. Following that a 2.5 x 12 mm Treck balloon was advanced and inflated at 8 atmosphere. At that time images showed recanalization of the LAD but there was slow flow in the circumflex and evidence to suggest dissection in the left main. Another 0.014 BMW J-wire was advanced into the left circumflex and the 2.5 x 12 mm balloon was advanced into the left circumflex and inflations at 8 samy were done. Subsequently a 3.0 x 28 mm Xience jasmin point stent was deployed in the mid left circumflex and then another one 3.0 x 28 mm Xience cardiac point was deployed to the proximal segment into the bifurcation. Subsequently the 2.5 x 12 mm balloon was used to inflate into the left main a 12 samy. Subsequently the left circumflex wire was withdrawn and reintroduced into the left circumflex. A 3.0 x 12 mm NC Treck was advanced into the left circumflex and inflations were done at 10 samy at the ostium. Subsequently kissing balloon into the LAD, left main and the left circumflex was done. After removing the balloons a 3.5 x 38 mm Xience jasmin point was positioned into the left main from the ostium to the LAD and deployed at 16 samy. After removing the balloon the left circumflex wire was removed and a 4.0X8 mm NC Treck was positioned in the left main and one inflation at 10 samy was done. Subsequently the wire was reintroduced into the left circumflex. A volcano washoe eye IVUS catheter was advanced and images were obtained. Following that is 3.25 x 15 mm NC Treck balloon was advanced and multiple inflations into the LAD and left circumflex were done. Subsequently kissing balloon inflation was done into the LAD and left circumflex into the left main. After removing the balloon repeat IVUS was performed. Subsequently a 4.5X8 mm NC Treck was pos itioned in the left main and one inflation at 8 samy was done. After the last inflation, after appropriate wait, the balloon and the guidewire were withdrawn back into the guiding catheter. Images were obtained and repeated. Those images reveal stable successful stenting. At that point, the guiding catheter, the balloon, and guidewire were removed. After removing the catheter sheath was up sized to a 12 and subsequently 14- Guamanian sheath. Subsequently a peak to was advanced into the left ventricle. The wire was exchanged to an Impella wire. After removing the pigtail the Impella catheter was advanced into the left ventricle with good position and documentation. The sheath was sutured in place. The patient had an episode of ventricular tachycardia requiring cardioversion. She was hemodynamically stable. The patient was returned to the room in stable condition. Of note, the patient received 9000 units of heparin as well as Effient. His ACT was followed. She was hemodynamically stable with no arrhythmia and good urinary output RESULTS: Successful stenting of the proximal LAD with reduction of stenosis from 100 % to less then 5 % with stenting of the left main and the left circumflex secondary to a dissection into the left main with IVUS imaging and placement of Impella catheter. RECOMMENDATIONS: The patient will continue on aspirin and Effient for 1 year in addition to aggressive coronary risks modifications, attempting to maintain an LDL below 70. An echocardiogram will be performed to evaluate the systolic function and depending on her hemodynamics the mechanical support will be weaned. The prognosis remains guarded. Evaluation of her pneumothorax would be done by the intensive care team The findings and recommendations were discussed with the patient and the family, they are in full understanding and agreement. Duration of sedation: 100 minutes
[2023-05-25 06:20] LABS: Glucose,Whole Blood 299 mg/dL (70-110)
[2023-05-25] MEDS: SODIUM BICARB (1 MEQ/ML) 12.5 ML in DEXTROSE 5% IN WATER 500 ML IV SCH ×4 (06:30→08:48)
[2023-05-25 06:46] LABS: ABG Base Excess -10.4 mmol/L; ABG HCO3 16 mmol/L (21-25); ABG Oxygen Saturation 95.2 % (94-97); ABG PCO2 31 mmHg (35-45); ABG PH 7.32 (7.35-7.45); ABG PO2 79 mmHg (83-108); ABG TCO2 17 mmol/L (19-24); Allen Test Performed? Yes
[2023-05-25] MEDS: HEPARIN SOD,PORK IN 0.45% NACL 25,000 UNIT in 0.45% NACL 1 250ML.BAG IV SCH (06:49)
[2023-05-25] MEDS: SODIUM CHLORIDE 0.9% 1,000 ML in EMPTY BAG 1 BAG IV SCH ×3 (07:08→22:51)
[2023-05-25] MEDS: PIPERACILLIN-TAZOBACTAM 3.375 GM in SODIUM CHLORIDE 0.9% 100 ML IVPB SCH ×3 (07:08→22:46)
--- NOTE | 2023-05-25 07:39 | XR ---
EXAMINATION TYPE: XR chest 1V portable DATE OF EXAM: 05/25/2023 6:19 AM CLINICAL INDICATION:Female, 43 years old with history of LVAD placement. Perform with HOB at 0 degree s.; [facility] COMPARISON: Chest radiographs from same day TECHNIQUE: XR chest 1V portable Frontal view of the chest. FINDINGS: Lungs/Pleura: Multifocal airspace opacities. No evidence of pneumothorax or pleural effusion. Pulmonary vascularity: Unremarkable. Heart/mediastinum: Cardiomediastinal silhouette is unremarkable. Musculoskeletal: No acute osseous pathology. Other findings: None Lines/Tubes: * Endotracheal tube with distal tip 3.8 cm above the alisha. * Nasogastric tube with its distal tip and side-port projecting under the diaphragm. * Left ventricular assist device with bleed terminating near the aortic arch and in the left ventric le. IMPRESSION: 1. Left ventricular assist device with lead terminating projecting over the left ventricle and aorti c arch ascending thoracic aorta. 2. Improved positioning of the right endotracheal tube now in appropriate position. 3. Nasogastric tube in appropriate position. 4. Multifocal airspace opacities.
--- NOTE | 2023-05-25 07:52 | P.CNPUL ---
History of Present Illness Consult date: 05/25/23 Requesting physician: Dena Pfeiffer Reason for consult: other (ICU management) Chief complaint: Out of hospital cardiac arrest History of present illness: I am seeing this patient in new consultation today 05/25/2023 in the intensive care unit following an out of hospital cardiac arrest. Patient is a 43-year-old white female with no known cardiac history. She is on multiple psychiatric medications at home. Patient is currently intubated on mechanical ventilator and unable to provide any information. Apparently, the patient was complaining of epigastric pain and nausea throughout the day yesterday. Earlier this morning the patient's significant other woke up to her shaking in bed and unresponsive. CPR was initiated by a neighbor who is apparently a chinchilla machine operator, and patient was defibrillated once EMS arrived. On arrival to emergency room, patient was intubated by the ER physician. She was unresponsive, she had copious emesis, and likely aspirated. ECG showed ST elevation and Q waves in the anterior-septal leads, and a code STEMI was initiated. Patient was taken to [facility] where she received successful stenting of the proximal LAD, stenting of the left main and left circumflex secondary to dissection in the left main. Patient subsequently had an Impella catheter placed. She was transferred to the intensive care unit in critical condition. Chest CTA done in the emergency room showed a small 10-15% left sided pneumothorax. No large central pulmonary embolism was visualized. The ET tube was within the right mainstem bronchus. There was scattered patchy airspace opacities in the posterior upper lobes and more prominently in the lower lobes with air bronchograms. Likely consistent with aspiration/aspiration pneumonia. Patient currently intubated on mechanical ventilator. Current ventilator settings are assist control, respiratory rate 20, tidal volume 450, FiO2 100%, and PEEP of 8. ABGs done on the settings show a pH of 7.32, pCO2 of 31, pO2 of 79. Repeat chest x-ray does not show any enlargement of the left sided pneumothorax. The endotracheal tube is now approximately 3-4 cm above the alisha. There are diffuse bilateral multifocal infiltrates. CBC demonstrates leukocytosis with a WBC count of 22.6, hemoglobin 12.2, hematocrit 38.9, platelets 395. BMP a sodium of 137, potassium 3.5, chloride 109, serum bicarb 10, BUN 15, creatinine 1.35, glucose 315. Troponins 0.145. NT proBNP 315. Patient is sedated and unresponsive on the mechanical ventilator. She is breathing above set rate. Does not follow commands. She is sedated on propofol at 30 mcg/kg/m. Brain CT on arrival did not show any acute intracranial hemorrha ge or mass effect. Blood pressure is stable. Not requiring vasopressors. She is tachycardic. Urine output is anuric. Impella is inserted through the right groin, set at P9. 3.9 L of flow. Baseline coags are unremarkable. Patient will be started on IV heparin per protocol. Patient's prognosis is guarded, and she is currently in critical condition. Review of Systems ROS unobtainable: due to endotracheal tube Past Medical History Past Medical History: No Reported History History of Any Multi-Drug Resistant Organisms: None Reported Past Surgical History: Orthopedic Surgery Additional Past Surgical History / Comment(s): 4 bilateral knee surgeries Past Anesthesia/Blood Transfusion Reactions: No Reported Reaction Past Psychological History: Anxiety, Depression Smoking Status: Current every day smoker Past Alcohol Use History: None Reported Past Drug Use History: None Reported - Past Family History Mother Family Medical History: Hyperlipidemia Medications and Allergies Home Medications Medication Instructions Recorded Confirmed Type Montelukast [Singulair] 10 mg PO DAILY PRN 05/26/22 08/06/22 History Levothyroxine Sodium [Synthroid] 100 mcg PO DAILY 08/06/22 08/06/22 History Liothyronine Sodium [Cytomel] 10 mcg PO DAILY 08/06/22 08/06/22 History DULoxetine HCL [Cymbalta] 60 mg PO BID 15 Days #30 cap 08/16/22 Rx [place]n Carbonate 300 mg PO BID 15 Days #30 cap 08/16/22 Rx Mirtazapine [Remeron] 15 mg PO HS 15 Days #15 tab 08/16/22 Rx QUEtiapine [SEROquel] 50 mg PO HS 15 Days #15 tab 08/16/22 Rx clonazePAM [KlonoPIN] 0.5 mg PO BID PRN 15 Days #30 tab 08/16/22 Rx Allergies Allergy/AdvReac Type Severity Reaction Status Date / Time desvenlafaxine [From Pristiq] Allergy Rash/Hives Verified 08/06/22 20:49 Physical Exam Vitals: Vital Signs Temp Pulse Resp BP Pulse Ox FiO2 05/25/23 06:16 100 05/25/23 02:53 138 H 112/85 05/25/23 02:50 100 05/25/23 02:48 121 H 102/67 05/25/23 02:38 100 05/25/23 02:33 96.7 F L 133 H 20 113/85 92 L Intake and Output 05/24/23 05/25/23 05/25/23 22:59 06:59 14:59 Intake Total 354.376 Output Total 1100 Balance -745.624 Intake: IV 350 Intake, IV Titration 4.376 Amount propofoL 1,000 mg In 4.376 Empty Bag 1 bag @ 15 MCG/ KG/MIN 9.27 mls/hr IV . [id number] [facility] Rx#:[id number] Output: Urine 1100 Other: Weight 103 kg GENERAL EXAM: Sedated and unresponsive, intubated on mechanical ventilator, breathing above the set rate HEAD: Normocephalic and atraumatic EYES: Normal reaction of pupils, equal size. NOSE: Clear with pink turbinates. THROAT: No erythema or exudates. NECK: No masses, no JVD. CHEST: No chest wall deformity. LUNGS: Equal air entry with diffuse rhonchi heard throughout. Intubated to the mechanical ventilator. Blood-tinged sputum. CVS: S1 and S2 normal with no audible murmur, regular rhythm. No extra heart sounds ABDOMEN: No hepatosplenomegaly, active bowel sounds, no guarding or rigidity. SPINE: No scoliosis or deformity SKIN: No rashes CENTRAL NERVOUS SYSTEM: Sedated and unresponsive, extremities are flaccid EXTREMITIES: There is no peripheral edema, clubbing, or cyanosis. Peripheral pulses are weak but intact. Results - Laboratory Findings CBC and BMP: 05/25/23 02:38 05/25/23 02:48 ABG ABG pH 7.32 (7.35-7.45) L 05/25/23 06:44 ABG pCO2 31 mmHg (35-45) L 05/25/23 06:44 ABG pO2 79 mmHg (83-108) L 05/25/23 06:44 ABG O2 Saturation 95.2 % (94-97) 05/25/23 06:44 PT/INR, D-dimer PT 10.7 sec (10.0-12.5) 12/27/23 02:48 INR 1.0 (<1.2) 05/25/23 02:48 Abnormal lab findings: Abnormal Labs 05/25/23 05/25/23 05/25/23 02:38 02:48 02:48 WBC 22.6 H Neutrophils # 15.0 H Lymphocytes # 6.4 H ABG pH ABG pCO2 ABG pO2 ABG HCO3 ABG Total CO2 Chloride 109 H Carbon Dioxide 10 L Creatinine 1.35 H Glucose 315 H POC Glucose (mg/dL) Calcium 7.5 L AST 136 H ALT 75 H Troponin I 0.145 H* Total Protein 6.0 L Albumin 3.4 L 05/25/23 05/25/23 06:19 06:44 WBC Neutrophils # Lymphocytes # ABG pH 7.32 L ABG pCO2 31 L ABG pO2 79 L ABG HCO3 16 L ABG Total CO2 17 L Chloride Carbon Dioxide Creatinine Glucose POC Glucose (mg/dL) 299 H Calcium AST ALT Troponin I Total Protein Albumin - Diagnostic Findings Chest x-ray: image reviewed CT scan - chest: image reviewed Assessment and Plan Assessment: Out of hospital cardiac arrest, downtime is unknown. ST elevation OK, patient did receive successful stenting of the proximal LAD with stenting of the left main and left circumflex secondary to dissection of the left main. Suspected aspiration pneumonia, patient was intubated for airway protection. Chest x-ray demonstrates diffuse multifocal infiltrates. Small left-sided pneumothorax estimated at 10-15%, likely secondary to CPR, no need for chest tube at this time Metabolic anion gap acidosis, secondary to cardiac arrest and hypoperfusion Acute kidney injury, secondary to hypoperfusion and acute tubular necrosis Mild transaminitis, secondary to hypoperfusion Leukocytosis Hypothyroidism History of depression/anxiety/PTSD Plan: Patient's medications, labs, imaging were reviewed. Endotracheal tube was withdrawn, and now the endotracheal tube is approximately 3-4 cm above the alisha. Continue current ventilator settings. Wean FiO2 as tolerated. Propofol for sedation. On arrival to the emergency room, the patient reportedly had emesis in her mouth. She likely aspirated. Chest x-ray shows diffuse multifocal infiltrates, will cover the patient on Zosyn. Repeat chest x-ray did not show any enlargement of the patient's small left-sided pneumothorax, no need for chest tube at this time. This was discussed with Dr. Abraham. In Impella device was inserted, currently set at P9. Heparin per protocol will be started per cardiology. Echocardiogram is pending. Patient's condition is currently critical, prognosis is guarded. Patient will be monitored in the intensive care unit. I have personally seen and examined the patient, performed the documentation and the assessment and plan as written. Number of minutes spent on the visit:20 Time with Patient: Greater than 30
[2023-05-25] MEDS ORDERED: DEXTROSE 50% SYRINGE 50 ML IVP PRN ×3 (08:18→08:51)
[2023-05-25 08:29] LABS: African American GFR (CKD) 60 (>60 ml/min/1.73 sqM); Anion Gap 19 mmol/L; Blood Urea Nitrogen 16 mg/dL (7-17); Calcium 8.2 mg/dL (8.4-10.2); Carbon Dioxide 12 mmol/L (22-30); Chloride 108 mmol/L (98-107); Glucose 227 mg/dL (74-99); Non-African American GFR(CKD) 52 (>60 ml/min/1.73 sqM); Sodium 139 mmol/L (137-145)
[2023-05-25 08:35] LABS: Basophils # (A) 0.1 k/uL (0-0.2); Basophils % (A) 0 %; Eosinophils % (A) 0 %; HCT 44.3 % (34.0-46.0); HGB 14.3 gm/dL (11.4-16.0); Hypochromasia Slight; Lymphocytes # (A) 1.1 k/uL (1.0-4.8); Lymphocytes % (A) 4 %; MCH 29.8 pg (25.0-35.0); MCHC 32.3 g/dL (31.0-37.0); MCV 92.2 fL (80.0-100.0); Monocytes # (A) 0.7 k/uL (0-1.0); Monocytes % (A) 2 %; Neutrophils % (A) 94 %; Platelet Count 383 k/uL (150-450); RBC 4.81 m/uL (3.80-5.40); RDW 14.4 % (11.5-15.5); WBC 29.9 k/uL (3.8-10.6)
[2023-05-25 08:40] LABS: Magnesium 2.3 mg/dL (1.6-2.3); Potassium 4.6 mmol/L (3.5-5.1)
--- NOTE | 2023-05-25 08:44 | P.CNPUL ---
History of Present Illness Consult date: 05/25/23 History of present illness: *Live* [facility] [address], [place] [address] Pulmonology - Consult Note Patient Name: Mecca Tam Date of : 84 Patient Status: Inpatient Attending Provider: Laure Padgett Date: 05/25/23 07:08 Initialization Date: 05/25/23 07:08 History of Present Illness Consult date: 05/25/23 Requesting physician: Dena Pfeiffer Reason for consult: other (ICU management) Chief complaint: Out of hospital cardiac arrest History of present illness: I am seeing this patient in new consultation today 05/25/2023 in the intensive care unit following an out of hospital cardiac arrest. Patient is a 43-year-old white female with no known cardiac history. She is on multiple psychiatric medications at home. Patient is currently intubated on mechanical ventilator and unable to provide any information. Apparently, the patient was complaining of epigastric pain and nausea throughout the day yesterday. Earlier this morning the patient's significant other woke up to her shaking in bed and unresponsive. CPR was initiated by a neighbor who is apparently a nutrition representative, and patient was defibrillated once EMS arrived. On arrival to emergency room, patient was intubated by the ER physician. She was unresponsive, she had copious emesis, and likely aspirated. ECG showed ST elevation and Q waves in the anterior-septal leads, and a code STEMI was initiated. 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 Patient subsequently had an Impella catheter placed. She was transferred to the intensive care unit in critical condition. Chest CTA done in the emergency room showed a small 10-15% left sided pneumotho rax. No large central pulmonary embolism was visualized. The ET tube was within the right mainstem bronchus. There was scattered patchy airspace opacities in the posterior upper lobes and more prominently in the lower lobes with air bronchograms. Likely consistent with aspiration/aspiration pneumonia. Patient currently intubated on mechanical ventilator. Current ventilator settings are assist control, respiratory rate 20, tidal volume 450, FiO2 100%, and PEEP of 8. ABGs done on the settings show a pH of 7.32, pCO2 of 31, pO2 of 79. Repeat chest x-ray does not show any enlargement of the left sided pneumothorax. The endotracheal tube is now approximately 3-4 cm above the alisha. There are diffuse bilateral multifocal infiltrates. CBC demonstrates leukocytosis with a WBC count of 22.6, hemoglobin 12.2, hematocrit 38.9, platelets 395. BMP a sodium of 137, potassium 3.5, chloride 109, serum bicarb 10, BUN 15, creatinine 1.35, glucose 315. Troponins 0.145. NT proBNP 315. Patient is sedated and unresponsive on the mechanical ventilator. She is breathing above set rate. Does not follow commands. She is sedated on propofol at 30 mcg/kg/m. Brain CT on arrival did not show any acute intracranial hemorrhage or mass effect. Blood pressure is stable. Not requiring vasopres sors. She is tachycardic. Urine output is anuric. Impella is inserted through the right groin, set at P9. 3.9 L of flow. Baseline coags are unremarkable. Patient will be started on IV heparin per protocol. Patient's prognosis is guarded, and she is currently in critical condition. There was a concern for an underlying pneumothorax. I reviewed the chest x-ray the chest x-ray showing diffuse but the pulmonary infiltrates. This is consistent with acute cardiogenic pulmonary edema it underlying aspiration cannot be completely excluded. I reviewed the CAT scan of the chest, there may be a very tiny left anterior pneumothorax not clearly seen on today's chest x- ray. This will be monitored very closely. The patient is currently intubated on a mechanical ventilator. The patient is on propofol which is running at 35 mcg/kg/m. She is adequately sedated and suggest a mechanical ventilator. She is covered with antibiotics and she is currently on IV Zosyn. She is on no pressors at this point in time. Cardiac rhythm is sinus tachycardia. Review of Systems ROS unobtainable: due to endotracheal tube Past Medical History Past Medical History: No Reported History History of Any Multi-Drug Resistant Organisms: None Reported Past Surgical History: Orthopedic Surgery Additional Past Surgical History / Comment(s): 4 bilateral knee surgeries Past Anesthesia/Blood Transfusion Reactions: No Reported Reaction Past Psychological History: Anxiety, Depression Smoking Status: Current every day smoker Past Alcohol Use History: None Reported Past Drug Use History: None Reported - Past Family History Mother Family Medical History: Hyperlipidemia Medications and Allergies Home Medications Medication Instructions Recorded Confirmed Type Montelukast [Singulair] 10 mg PO DAILY PRN 05/26/22 08/06/22 History Levothyroxine Sodium [Synthroid] 100 mcg PO DAILY 08/06/22 08/06/22 History Liothyronine Sodium [Cytomel] 10 mcg PO DAILY 08/06/22 08/06/22 History DULoxetine HCL [Cymbalta] 60 mg PO BID 15 Days #30 cap 08/16/22 Rx [place] Carbonate 300 mg PO BID 15 Days #30 cap 08/16/22 Rx Mirtazapine [Remeron] 15 mg PO HS 15 Days #15 tab 08/16/22 Rx QUEtiapine [SEROquel] 50 mg PO HS 15 Days #15 tab 08/16/22 Rx clonazePAM [KlonoPIN] 0.5 mg PO BID PRN 15 Days #30 tab 08/16/22 Rx Allergies Allergy/AdvReac Type Severity Reaction Status Date / Time desvenlafaxine [From Pristiq] Allergy Rash/Hives Verified 08/06/22 20:49 Physical Exam Vitals: Vital Signs Temp Pulse Resp BP Pulse Ox FiO2 05/25/23 06:16 100 05/25/23 02:53 138 H 112/85 05/25/23 02:50 100 05/25/23 02:48 121 H 102/67 05/25/23 02:38 100 05/25/23 02:33 96.7 F L 133 H 20 113/85 92 L Intake and Output 05/24/23 05/25/23 05/25/23 22:59 06:59 14:59 Intake Total 354.376 Output Total 1100 Balance -745.624 Intake: IV 350 Intake, IV Titration 4.376 Amount propofoL 1,000 mg In 4.376 Empty Bag 1 bag @ 15 MCG/ KG/MIN 9.27 mls/hr IV . [id number] [facility] Rx#:[id number] Output: Urine 1100 Other: Weight 103 kg GENERAL EXAM: Sedated and unresponsive, intubated on mechanical ventilator, breathing above the set rate HEAD: Normocephalic and atraumatic EYES: Normal reaction of pupils, equal size. NOSE: Clear with pink turbinates. THROAT: No erythema or exudates. NECK: No masses, no JVD. CHEST: No chest wall deformity. LUNGS: Equal air entry with diffuse rhonchi heard throughout. Intubated to the mechanical ventilator. Blood-tinged sputum. CVS: S1 and S2 normal with no audible murmur, regular rhythm. No extra heart sounds ABDOMEN: No hepatosplenomegaly, active bowel sounds, no guarding or rigidity. SPINE: No scoliosis or deformity SKIN: No rashes CENTRAL NERVOUS SYSTEM: Sedated and unresponsive, extremities are flaccid, pupils are round 5 mm in size and reactive to light. The patient has spontaneous breathing above the mechanical ventilator. Sensorimotor functions cannot be assessed. No clonus. No Babinski. EXTREMITIES: There is no peripheral edema, clubbing, or cyanosis. Peripheral pulses are weak but intact. Pulses are diminished Results - Laboratory Findings CBC and BMP: 05/25/23 02:38 05/25/23 02:48 ABG ABG pH 7.32 (7.35-7.45) L 05/25/23 06:44 ABG pCO2 31 mmHg (35-45) L 05/25/23 06:44 ABG pO2 79 mmHg (83-108) L 05/25/23 06:44 ABG O2 Saturation 95.2 % (94-97) 05/25/23 06:44 PT/INR, D-dimer PT 10.7 sec (10.0-12.5) 05/25/23 02:48 INR 1.0 (<1.2) 05/25/23 02:48 Abnormal lab findings: Abnormal Labs 05/25/23 05/25/23 05/25/23 02:38 02:48 02:48 WBC 22.6 H Neutrophils # 15.0 H Lymphocytes # 6.4 H ABG pH ABG pCO2 ABG pO2 ABG HCO3 ABG Total CO2 Chloride 109 H Carbon Dioxide 10 L Creatinine 1.35 H Glucose 315 H POC Glucose (mg/dL) Calcium 7.5 L AST 136 H ALT 75 H Troponin I 0.145 H* Total Protein 6.0 L Albumin 3.4 L 05/25/23 05/25/23 06:19 06:44 WBC Neutrophils # Lymphocytes # ABG pH 7.32 L ABG pCO2 31 L ABG pO2 79 L ABG HCO3 16 L ABG Total CO2 17 L Chloride Carbon Dioxide Creatinine Glucose POC Glucose (mg/dL) 299 H Calcium AST ALT Troponin I Total Protein Albumin - Diagnostic Findings Chest x-ray: image reviewed CT scan - chest: image reviewed Assessment and Plan Assessment: Out of hospital cardiac arrest, downtime is unknown. The patient had a likely metastatic atrial fibrillation/tachycardia the patient was defibrillated on the scene, CPR was continued and the patient was intubated in the emergency department. Cardiac arrest secondary to acute ST segment elevation myocardial infarction. The patient underwent emergent cardiac catheterization stenting complicated by a dissection of the left main. And the patient underwent further stenting of the left main and left circumflex secondary to this dissection. Impella was also inserted to maintain hemodynamics, P9 support with a flow of 3.9 L/m. Acute ST elevation [place], patient did receive successful stenting of the proximal LAD with stenting of the left main and left circumflex secondary to dissection of the left main. Diffuse bilateral pulmonary infiltrates, likely pulmonary edema although superimposed pneumonia/aspiration cannot be completely ruled out. Based on the CAT scan findings, the patient has consolidation lung bases and in addition to that there is a component of pulmonary edema. Acute hypoxic respiratory failure, currently intubated on mechanical ventilator secondary to above Small left-sided pneumothorax estimated at 10-15%, likely secondary to CPR, no need for chest tube at this time, this is likely related to CPR. No evidence of any tension or hemodynamic compromise related to the pneumothorax Metabolic anion gap acidosis, secondary to cardiac arrest and hypoperfusion Acute kidney injury, secondary to hypoperfusion and acute tubular necrosis Mild transaminitis, secondary to hypoperfusion Leukocytosis Hypothyroidism History of depression/anxiety/PTSD Plan: Continue ventilator support Continue hemodynamic support and the Impela will be kept in place for today, left ventricle end-diastolic pressure is 24 Keep the patient sedated on propofol Continue empiric antibiotic coverage with IV Zosyn Obtain sputum Gram stain and culture Obtain blood cultures Monitor renal function. The patient is oriented assist in acute kidney injury with a creatinine of 1.3 Chief tighter blood sugar control and the patient will be started on insulin sliding scale coverage Continue aspirin Continue Effient Initiate metoprolol Continue IV heparin Continue bicarb infusion at the rate of 100 mL an hour Monitor electrolytes, LDH Monitor urine output, watch hematuria Monitor mental status, suspect hypoxic encephalopathy post cardiac arrest Monitor left-sided pneumothorax, no need for chest tube insertion at this point in time Condition is critical and we'll continue to follow make further recommendations based on her progress, echocardiogram is also to follow Past Medical History Past Medical History: No Reported History History of Any Multi-Drug Resistant Organisms: None Reported Past Surgical History: Orthopedic Surgery Additional Past Surgical History / Comment(s): 4 bilateral knee surgeries Past Anesthesia/Blood Transfusion Reactions: No Reported Reaction Past Psychological History: Anxiety, Depression Smoking Status: Current every day smoker Past Alcohol Use History: None Reported Past Drug Use History: None Reported - Past Family History Mother Family Medical History: Hyperlipidemia Medications and Allergies Home Medications Medication Instructions Recorded Confirmed Type Montelukast [Singulair] 10 mg PO DAILY PRN 05/26/22 08/06/22 History Levothyroxine Sodium [Synthroid] 100 mcg PO DAILY 08/06/22 08/06/22 History Liothyronine Sodium [Cytomel] 10 mcg PO DAILY 08/06/22 08/06/22 History DULoxetine HCL [Cymbalta] 60 mg PO BID 15 Days #30 cap 08/16/22 Rx [place] Carbonate 300 mg PO BID 15 Days #30 cap 08/16/22 Rx Mirtazapine [Remeron] 15 mg PO HS 15 Days #15 tab 08/16/22 Rx QUEtiapine [SEROquel] 50 mg PO HS 15 Days #15 tab 08/16/22 Rx clonazePAM [KlonoPIN] 0.5 mg PO BID PRN 15 Days #30 tab 08/16/22 Rx Allergies Allergy/AdvReac Type Severity Reaction Status Date / Time desvenlafaxine [From Pristiq] Allergy Rash/Hives Verified 08/06/22 20:49 Physical Exam Vitals: Vital Signs Temp Pulse Resp BP Pulse Ox FiO2 05/25/23 07:58 100 05/25/23 07:00 87 25 H 86/66 100 100 05/25/23 06:16 100 05/25/23 06:10 96.7 F L 102 H 32 H 87 L 100 05/25/23 02:53 138 H 112/85 05/25/23 02:50 100 05/25/23 02:48 121 H 102/67 05/25/23 02:38 100 05/25/23 02:33 96.7 F L 133 H 20 113/85 92 L Intake and Output 05/24/23 05/25/23 05/25/23 22:59 06:59 14:59 Intake Total 530.921 75 Output Total 1525 Balance -994.079 75 Intake: IV 525 75 0.9 @ 75 75 75 Piperacillin-Tazobactam 3 100 .375 gm In Sodium Chloride 0.9% 100 ml @ 25 mls/hr IVPB Q8H [facility] Rx#: [id number] Intake, IV Titration 5.921 Amount propofoL 1,000 mg In 5.921 Empty Bag 1 bag @ 15 MCG/ KG/MIN 9.27 mls/hr IV . [id number] [facility] Rx#:[id number] Output: Gastric Drainage 300 Urine 1225 Other: Voiding Method Indwelling Catheter Weight 103 kg Results - Laboratory Findings CBC and BMP: 05/25/23 07:16 05/25/23 07:16 ABG ABG pH 7.32 (7.35-7.45) L 05/25/23 06:44 ABG pCO2 31 mmHg (35-45) L 05/25/23 06:44 ABG pO2 79 mmHg (83-108) L 05/25/23 06:44 ABG O2 Saturation 95.2 % (94-97) 05/25/23 06:44 PT/INR, D-dimer PT 10.7 sec (10.0-12.5) 05/25/23 02:48 INR 1.0 (<1.2) 05/25/23 02:48 Abnormal lab findings: Abnormal Labs 05/25/23 05/25/23 05/25/23 02:38 02:48 02:48 WBC 22.6 H Neutrophils # 15.0 H Lymphocytes # 6.4 H ABG pH ABG pCO2 ABG pO2 ABG HCO3 ABG Total CO2 Chloride 109 H Carbon Dioxide 10 L Creatinine 1.35 H Glucose 315 H POC Glucose (mg/dL) Calcium 7.5 L AST 136 H ALT 75 H Troponin I 0.145 H* Total Protein 6.0 L Albumin 3.4 L 05/25/23 05/25/23 06:19 06:44 WBC Neutrophils # Lymphocytes # ABG pH 7.32 L ABG pCO2 31 L ABG pO2 79 L ABG HCO3 16 L ABG Total CO2 17 L Chloride Carbon Dioxide Creatinine Glucose POC Glucose (mg/dL) 299 H Calcium AST ALT Troponin I Total Protein Albumin
[2023-05-25] MEDS: CHLORHEXIDINE GLUCONATE 15 ML CUP MUCOUS MEM SCH ×2 (08:48→20:40)
[2023-05-25] MEDS ORDERED: INSULIN REGULAR 100 UNIT in SODIUM CHLORIDE 0.9% 100 ML IV SCH (09:00)
[2023-05-25] MEDS ORDERED: ASPIRIN 81 MG PO SCH (09:00)
[2023-05-25] MEDS ORDERED: METOPROLOL TARTRATE 50 MG TAB PO SCH (09:00)
[2023-05-25 09:44] LABS: Glucose,Whole Blood 177 mg/dL (70-110)
[2023-05-25 09:47] LABS: Partial Thromboplastin Time 67.9 sec (22.0-30.0); Prothrombin Time 11.2 sec (10.0-12.5)
[2023-05-25 10:40] LABS: Glucose,Whole Blood 211 mg/dL (70-110)
[2023-05-25] MEDS: METOPROLOL TARTRATE 25 MG TAB PO SCH ×2 (10:59→20:40)
[2023-05-25 11:00] LABS: Glucose,Whole Blood 210 mg/dL (70-110)
[2023-05-25 11:58] LABS: Glucose,Whole Blood 256 mg/dL (70-110)
[2023-05-25] MEDS: DEXTROSE 5% IN WATER 1,000 ML with SODIUM BICARB (1 MEQ/ML) 150 ML IV SCH ×3 (11:59→21:07)
[2023-05-25] MEDS ORDERED: INSULIN ASPART (NovoLOG) 100 UNIT/ML VIAL SQ SCH (12:00)
[2023-05-25 12:28] LABS: HCT 38.5 % (34.0-46.0); HGB 12.8 gm/dL (11.4-16.0); MCH 30.1 pg (25.0-35.0); MCHC 33.2 g/dL (31.0-37.0); MCV 90.7 fL (80.0-100.0); Mean Platelet Volume 9.1; Platelet Count 292 k/uL (150-450); RBC 4.25 m/uL (3.80-5.40); RDW 14.5 % (11.5-15.5); WBC 28.9 k/uL (3.8-10.6)
--- NOTE | 2023-05-25 12:40 | CA ---
Transthoracic Echo Report Name: Mecca Tam Age: 43 Gender: F : 1980 Exam Date: 05/25/2023 09:05 Exam Location: [facility] Ht (in): 65 Wt (lb): 227 Ordering Physician: Adolfo Davis MD ([id number]) Attending/Referring Phys: Sand Mixer Operator Siddharth Swain Procedure CPT: Indications: Placement of Left Ventricular Assist Device Cardiac Hx: Technical Quality: Fair Contrast 1: Total Dose (mL): Contrast 2: Total Dose (mL): MEASUREMENTS (Male / Female) Normal Values FINDINGS Left Ventricle Right Ventricle Right Atrium Left Atrium Mitral Valve Aortic Valve Tricuspid Valve Pulmonic Valve Pericardium Aorta CONCLUSIONS Impella measures 3.5cm distal the AV. Initial measurments revealed placement at 4.8cm distal the AV at which time Dr. Davis retracted approximately 1.2cm. Limited views however left ventricular ejection fraction appears severely decreased proximally 25% Previewed by: Dr. Herve Gregory DO (Electronically Signed) Final Date: 25 May 2023 12:39
[2023-05-25 13:26] LABS: Glucose,Whole Blood 210 mg/dL (70-110)
[2023-05-25 13:54] LABS: Glucose,Whole Blood 196 mg/dL (70-110)
--- NOTE | 2023-05-25 14:11 | P.HPIM ---
History of Present Illness H&P Date: 05/25/23 Mecca Tam, is a 43-year-old female, who was found unresponsive at home, CPR was initiated by a neighbor who is a ic designer custom, EMS were called and patient was defibrillated and brought into emergency room, she was intubated in the emergency room, EKG revealed ST elevation and Q waves in anterior leads, patient was taken to the slab grinder, she underwent angioplasty and stenting to the proximal LAD, the left main and the left Sears conflicts, she was transferred to intensive care unit, and is currently intubated sedated maintained on mechanical ventilation, cardiology and pulmonary critical care are following. Patient has a known history of depression with anxiety disorder, history of post traumatic stress disorder, history of hypothyroidism and history of tobacco abuse. Past Medical History Past Medical History: No Reported History History of Any Multi-Drug Resistant Organisms: None Reported Past Surgical History: Orthopedic Surgery Additional Past Surgical History / Comment(s): 4 bilateral knee surgeries Past Anesthesia/Blood Transfusion Reactions: No Reported Reaction Past Psychological History: Anxiety, Depression Smoking Status: Current every day smoker Past Alcohol Use History: None Reported Past Drug Use History: None Reported - Past Family History Mother Family Medical History: Hyperlipidemia Medications and Allergies Home Medications Medication Instructions Recorded Confirmed Type Montelukast [Singulair] 10 mg PO DAILY PRN 05/26/22 08/06/22 History Levothyroxine Sodium [Synthroid] 100 mcg PO DAILY 08/06/22 08/06/22 History Liothyronine Sodium [Cytomel] 10 mcg PO DAILY 08/06/22 08/06/22 History DULoxetine HCL [Cymbalta] 60 mg PO BID 15 Days #30 cap 08/16/22 Rx [place] Carbonate 300 mg PO BID 15 Days #30 cap 08/16/22 Rx Mirtazapine [Remeron] 15 mg PO HS 15 Days #15 tab 08/16/22 Rx QUEtiapine [SEROquel] 50 mg PO HS 15 Days #15 tab 08/16/22 Rx clonazePAM [KlonoPIN] 0.5 mg PO BID PRN 15 Days #30 tab 08/16/22 Rx Allergies Allergy/AdvReac Type Severity Reaction Status Date / Time desvenlafaxine [From Pristiq] Allergy Rash/Hives Verified 08/06/22 20:49 Physical Exam Vitals: Vital Signs Temp Pulse Resp BP Pulse Ox FiO2 05/25/23 09:00 92 24 115/93 100 05/25/23 08:45 91 24 109/85 100 05/25/23 08:30 90 22 100/82 100 05/25/23 08:15 89 24 97/73 100 05/25/23 08:00 98.6 F 88 22 86/70 100 100 05/25/23 07:58 100 05/25/23 07:00 87 25 H 86/66 100 100 05/25/23 06:16 100 05/25/23 06:10 96.7 F L 102 H 32 H 87 L 100 05/25/23 02:53 138 H 112/85 05/25/23 02:50 100 05/25/23 02:48 121 H 102/67 05/25/23 02:38 100 05/25/23 02:33 96.7 F L 133 H 20 113/85 92 L Intake and Output 05/24/23 05/25/23 05/25/23 22:59 06:59 14:59 Intake Total 530.921 272.947 Output Total 1525 80 Balance -994.079 192.947 Intake: IV 525 225 0.9 @ 75 75 225 Piperacillin-Tazobactam 3 100 .375 gm In Sodium Chloride 0.9% 100 ml @ 25 mls/hr IVPB Q8H [facility] Rx#: [id number] Intake, IV Titration 5.921 47.947 Amount propofoL 1,000 mg In 5.921 47.947 Empty Bag 1 bag @ 15 MCG/ KG/MIN 9.27 mls/hr IV . [id number] [facility] Rx#:[id number] Output: Gastric Drainage 300 Urine 1225 80 Other: Voiding Method Indwelling Catheter Weight 103 kg In general patient is intubated sedated maintained on mechanical ventilation. HEENT head normocephalic and atraumatic Neck is supple no JVD no goiter no lymphadenopathy no carotid bruit Chest examination is clear to auscultation no crackles no wheezing Cardiac exam reveals regular heart sounds S1 and S2 no gallops no murmurs Abdomen is soft nontender no organomegaly with normal bowel sounds Extremity exam reveals no edema no cyanosis or clubbing Neurological examination reveals no gross focal deficits Results CBC & Chem 7: 05/25/23 07:16 05/25/23 07:16 Labs: Abnormal Lab Results - Last 24 Hours (Table) 05/25/23 05/25/23 05/25/23 Range/Units 02:38 02:48 02:48 WBC 22.6 H (3.8-10.6) k/uL Neutrophils # 15.0 H (1.3-7.7) k/uL Lymphocytes # 6.4 H (1.0-4.8) k/uL ABG pH (7.35-7.45) ABG pCO2 (35-45) mmHg ABG pO2 (83-108) mmHg ABG HCO3 (21-25) mmol/L ABG Total CO2 (19-24) mmol/L Chloride 109 H (98-107) mmol/L Carbon Dioxide 10 L (22-30) mmol/L Creatinine 1.35 H (0.52-1.04) mg/dL Glucose 315 H (74-99) mg/dL POC Glucose (mg/dL) (70-110) mg/dL Calcium 7.5 L (8.4-10.2) mg/dL AST 136 H (14-36) U/L ALT 75 H (4-34) U/L Troponin I 0.145 H* (0.000-0.034) ng/mL Total Protein 6.0 L (6.3-8.2) g/dL Albumin 3.4 L (3.5-5.0) g/dL 05/25/23 05/25/23 05/25/23 Range/Units 06:19 06:44 07:16 WBC (3.8-10.6) k/uL Neutrophils # (1.3-7.7) k/uL Lymphocytes # (1.0-4.8) k/uL ABG pH 7.32 L (7.35-7.45) ABG pCO2 31 L (35-45) mmHg ABG pO2 79 L (83-108) mmHg ABG HCO3 16 L (21-25) mmol/L ABG Total CO2 17 L (19-24) mmol/L Chloride 108 H (98-107) mmol/L Carbon Dioxide 12 L (22-30) mmol/L Creatinine 1.29 H (0.52-1.04) mg/dL Glucose 227 H (74-99) mg/dL POC Glucose (mg/dL) 299 H (70-110) mg/dL Calcium 8.2 L (8.4-10.2) mg/dL AST (14-36) U/L ALT (4-34) U/L Troponin I (0.000-0.034) ng/mL Total Protein (6.3-8.2) g/dL Albumin (3.5-5.0) g/dL 05/25/23 05/25/23 Range/Units 07:16 09:43 WBC 29.9 H (3.8-10.6) k/uL Neutrophils # (1.3-7.7) k/uL Lymphocytes # (1.0-4.8) k/uL ABG pH (7.35-7.45) ABG pCO2 (35-45) mmHg ABG pO2 (83-108) mmHg ABG HCO3 (21-25) mmol/L ABG Total CO2 (19-24) mmol/L Chloride (98-107) mmol/L Carbon Dioxide (22-30) mmol/L Creatinine (0.52-1.04) mg/dL Glucose (74-99) mg/dL POC Glucose (mg/dL) 177 H (70-110) mg/dL Calcium (8.4-10.2) mg/dL AST (14-36) U/L ALT (4-34) U/L Troponin I (0.000-0.034) ng/mL Total Protein (6.3-8.2) g/dL Albumin (3.5-5.0) g/dL Assessment and Plan Plan: Cardiac arrest at home Acute ST elevation myocardial infarction Acute hypoxic respiratory failure requiring intubation and mechanical ventilation Acute metabolic acidosis Acute kidney injury Leukocytosis with bilateral pulmonary infiltrates possible aspiration pneumonia Underlying history of depression with anxiety disorder Underlying history of posttraumatic stress disorder Underlying history of hypothyroidism Underlying history of tobacco abuse At this time patient is admitted to intensive care unit She is maintained on IV heparin She was started on IV Zosyn She is maintained on IV fluid Pulmonary critical care and cardiology consult following Infectious disease consultation requested Will follow closely
[2023-05-25 14:43] LABS: Partial Thromboplastin Time 38.3 sec (22.0-30.0)
[2023-05-25 15:04] LABS: Chol/HDL Ratio 8.11 Ratio; LDL Cholesterol,Calculated 166.3 mg/dL (0.0-131.0)
[2023-05-25] MEDS: HEPARIN SODIUM 1,000 UN/ML (10ML VL) IV PRN (15:14)
[2023-05-25 15:25] LABS: Glucose,Whole Blood 151 mg/dL (70-110)
[2023-05-25 15:58] LABS: Glucose,Whole Blood 133 mg/dL (70-110)
--- NOTE | 2023-05-25 16:27 | XR ---
EXAMINATION TYPE: XR chest 1V DATE OF EXAM: 05/25/2023 3:30 PM CLINICAL INDICATION:Female, 43 years old with history of line placement; [facility] COMPARISON: Chest radiographs from 05/25/2023. TECHNIQUE: XR chest 1V Frontal view of the chest. FINDINGS: Lungs/Pleura: Improved aeration the lungs with persistent multifocal airspace opacities. No evidence of pneumothorax or pleural effusion. Pulmonary vascularity: Unremarkable. Heart/mediastinum: Cardiomediastinal silhouette is unremarkable. Musculoskeletal: No acute osseous pathology. Other findings: None Lines/Tubes: * Endotracheal tube with distal tip 4.9 cm above the alisha. * Nasogastric tube with its distal tip and side-port projecting under the diaphragm. * Left ventricular assist device with bleed terminating near the aortic arch and in the left ventric le. * Left central venous catheter with distal tip at the cavoatrial junction. IMPRESSION: 1. Left central venous catheter in appropriate position. 2. Improved aeration of the lungs..
[2023-05-25 17:30] LABS: Glucose,Whole Blood 155 mg/dL (70-110)
--- NOTE | 2023-05-25 17:31 | P.PCN ---
Date of Procedure: 05/25/23 Preoperative Diagnosis: cariogenic shock Postoperative Diagnosis: cardiogenic shock Procedure(s) Performed: central line , arterial line Anesthesia: local Surgeon: Bella Abraham Estimated Blood Loss (ml): 0 Pathology: none sent Condition: critical Disposition: ICU Operative Findings: Indication: Hemodynamic monitoring/Intravenous access. A time-out was completed verifying correct patient, procedure, site, positioning, and implant(s) or special equipment if applicable. The patient was placed in a dependent position appropriate for central line placement based on the vein to be cannulated. The patients left chest was prepped and draped in sterile fashion. 1% Lidocaine was used to anesthetize the surrounding skin area. A triple lumen 9F Cordis catheter was introduced into the left subclavian vein using Seldinger technique. The catheter was threaded smoothly over the guide wire and appropriate blood return was obtained. Each lumen of the catheter was evacuated of air and flushed with sterile saline. The catheter was then sutured in place to the skin and a sterile dressing applied. Perfusion to the extremity distal to the point of catheter insertion was checked and found to be adequate. The patient tolerated the procedure well and there were no complications. Indication: Hemodynamic monitoring. A time-out was completed verifying correct patient, procedure, site, positioning, and implant(s) or special equipment if applicable. Allens test was performed to ensure adequate perfusion. The patients left radial was prepped and draped in sterile fashion. 1% Lidocaine was used to anesthetize the area. An 18G Arrow arterial line was introduced into the left radial. The catheter was threaded over the guide wire and the needle was removed with appropriate pulsatile blood return. Blood loss was minimal. The catheter was then sutured in place to the skin and a sterile dressing applied. Perfusion to the extremity distal to the point of catheter insertion was checked and found to be adequate. The patient tolerated the procedure well and there were no complications.
[2023-05-25 18:11] LABS: Glucose,Whole Blood 152 mg/dL (70-110)
[2023-05-25 18:47] LABS: Partial Thromboplastin Time 93.7 sec (22.0-30.0)
[2023-05-25 19:03] LABS: Glucose,Whole Blood 169 mg/dL (70-110)
[2023-05-25 20:03] LABS: Glucose,Whole Blood 171 mg/dL (70-110)
[2023-05-25] MEDS: ATORVASTATIN 80 MG TAB PO SCH (20:40)
[2023-05-25 21:04] LABS: Glucose,Whole Blood 153 mg/dL (70-110)
[2023-05-25 21:48] LABS: Glucose,Whole Blood 125 mg/dL (70-110)
--- NOTE | 2023-05-25 22:16 | P.CONS ---
History of Present Illness - Reason for Consult Consult date: 05/25/23 - History of Present Illness Patient is a 43-year-old female with a past medical history Significant for anxiety depression current everyday smoker patient was brought into the ER via EMS, apparently the patient was complaining of of epigastric pain nausea and did have some chest pain along with nonbloody emesis, early in the morning around 2 AM the patient was noticed to be shaking in the bed subsidy become unresponsive 9 1 was called patient was noticed to be in cardiac arrest did receive CPR defibrillation and the patient was brought into the hospital got intubated patient noticed to have acute KS in this patient who is status post cardiac cath with multiple stent placement afterwards the patient has been admitted to the ICU in critical condition patient on presentation to the hospital was afebrile has been running a low-grade fever of 99.6 degrees for night patient was tachycardic on presentation to the hospital she is requiring pressor support and is currently on 90% FiO2 to maintain her sats patient did have a white count of 28.9 with a left shift creatinine 1.29 lactic acid 4.8 liver enzymes mildly elevated patient was started on Zosyn infectious disease was consulted for further management patient did have a CT of the chest abdominal pelvis left pneumothorax no PE scattered patchy airspace opacity in the posterior upper lobes more prominent in the lower lobes with air bronchograms correlate for pneumonia or aspiration, most information has been obtained from the chart of the nursing staff as the patient is currently sedated on the vent and cannot provide any history Past Medical History Past Medical History: No Reported History History of Any Multi-Drug Resistant Organisms: None Reported Past Surgical History: Orthopedic Surgery Additional Past Surgical History / Comment(s): 4 bilateral knee surgeries Past Anesthesia/Blood Transfusion Reactions: No Reported Reaction Past Psychological History: Anxiety, Depression Smoking Status: Current every day smoker Past Alcohol Use History: None Reported Past Drug Use History: None Reported - Past Family History Mother Family Medical History: Hyperlipidemia Medications and Allergies Home Medications Medication Instructions Recorded Confirmed Type Montelukast [Singulair] 10 mg PO DAILY PRN 05/26/22 05/25/23 History Levothyroxine Sodium [Synthroid] 100 mcg PO DAILY 08/06/22 05/25/23 History Liothyronine Sodium [Cytomel] 10 mcg PO DAILY 08/06/22 05/25/23 History DULoxetine HCL [Cymbalta] 60 mg PO BID 15 Days #30 cap 08/16/22 05/25/23 Rx [place] Carbonate 300 mg PO BID 15 Days #30 cap 08/16/22 05/25/23 Rx Mirtazapine [Remeron] 15 mg PO HS 15 Days #15 tab 08/16/22 05/25/23 Rx hydrOXYzine HCL [Atarax] 50 mg PO BID 05/25/23 05/25/23 History Allergies Allergy/AdvReac Type Severity Reaction Status Date / Time desvenlafaxine [From Pristiq] Allergy Rash/Hives Verified 05/25/23 10:43 Physical Exam Vitals: Vital Signs Temp Pulse Resp BP Pulse Ox FiO2 05/25/23 11:33 100 05/25/23 11:16 100 05/25/23 11:00 92 29 H 143/78 99 05/25/23 10:45 93 31 H 99 05/25/23 10:30 93 29 H 99 05/25/23 10:15 92 28 H 128/72 99 05/25/23 10:00 90 27 H 121/89 99 05/25/23 09:45 89 26 H 112/58 99 05/25/23 09:30 89 24 107/89 99 05/25/23 09:15 91 21 112/96 99 05/25/23 09:00 92 24 115/93 100 05/25/23 08:45 91 24 109/85 100 05/25/23 08:30 90 22 100/82 100 05/25/23 08:15 89 24 97/73 100 05/25/23 08:00 98.6 F 88 22 86/70 100 100 05/25/23 07:58 100 05/25/23 07:00 87 25 H 86/66 100 100 05/25/23 06:16 100 05/25/23 06:10 96.7 F L 102 H 32 H 87 L 100 05/25/23 02:53 138 H 112/85 05/25/23 02:50 100 05/25/23 02:48 121 H 102/67 05/25/23 02:38 100 05/25/23 02:33 96.7 F L 133 H 20 113/85 92 L Intake and Output 05/24/23 05/25/23 05/25/23 22:59 06:59 14:59 Intake Total 530.921 422.947 Output Total 1525 140 Balance -994.079 282.947 Intake: IV 525 375 0.9 @ 75 75 375 Piperacillin-Tazobactam 3 100 .375 gm In Sodium Chloride 0.9% 100 ml @ 25 mls/hr IVPB Q8H [facility] Rx#: [id number] Intake, IV Titration 5.921 47.947 Amount propofoL 1,000 mg In 5.921 47.947 Empty Bag 1 bag @ 15 MCG/ KG/MIN 9.27 mls/hr IV . [id number] [facility] Rx#:[id number] Output: Gastric Drainage 300 Urine 1225 140 Other: Voiding Method Indwelling Catheter Weight 103 kg Results CBC & Chem 7: 05/26/23 05:45 05/26/23 11:30 Labs: Abnormal Lab Results - Last 24 Hours (Table) 05/25/23 05/25/23 05/25/23 Range/Units 02:38 02:48 02:48 WBC 22.6 H (3.8-10.6) k/uL Neutrophils # 15.0 H (1.3-7.7) k/uL Lymphocytes # 6.4 H (1.0-4.8) k/uL APTT (22.0-30.0) sec ABG pH (7.35-7.45) ABG pCO2 (35-45) mmHg ABG pO2 (83-108) mmHg ABG HCO3 (21-25) mmol/L ABG Total CO2 (19-24) mmol/L Chloride 109 H (98-107) mmol/L Carbon Dioxide 10 L (22-30) mmol/L Creatinine 1.35 H (0.52-1.04) mg/dL Glucose 315 H (74-99) mg/dL POC Glucose (mg/dL) (70-110) mg/dL Calcium 7.5 L (8.4-10.2) mg/dL AST 136 H (14-36) U/L ALT 75 H (4-34) U/L Troponin I 0.145 H* (0.000-0.034) ng/mL Total Protein 6.0 L (6.3-8.2) g/dL Albumin 3.4 L (3.5-5.0) g/dL 05/25/23 05/25/23 05/25/23 Range/Units 06:19 06:44 07:16 WBC (3.8-10.6) k/uL Neutrophils # (1.3-7.7) k/uL Lymphocytes # (1.0-4.8) k/uL APTT (22.0-30.0) sec ABG pH 7.32 L (7.35-7.45) ABG pCO2 31 L (35-45) mmHg ABG pO2 79 L (83-108) mmHg ABG HCO3 16 L (21-25) mmol/L ABG Total CO2 17 L (19-24) mmol/L Chloride 108 H (98-107) mmol/L Carbon Dioxide 12 L (22-30) mmol/L Creatinine 1.29 H (0.52-1.04) mg/dL Glucose 227 H (74-99) mg/dL POC Glucose (mg/dL) 299 H (70-110) mg/dL Calcium 8.2 L (8.4-10.2) mg/dL AST (14-36) U/L ALT (4-34) U/L Troponin I (0.000-0.034) ng/mL Total Protein (6.3-8.2) g/dL Albumin (3.5-5.0) g/dL 05/25/23 05/25/23 05/25/23 Range/Units 07:16 07:16 09:43 WBC 29.9 H (3.8-10.6) k/uL Neutrophils # 28.0 H (1.3-7.7) k/uL Lymphocytes # (1.0-4.8) k/uL APTT 67.9 H (22.0-30.0) sec ABG pH (7.35-7.45) ABG pCO2 (35-45) mmHg ABG pO2 (83-108) mmHg ABG HCO3 (21-25) mmol/L ABG Total CO2 (19-24) mmol/L Chloride (98-107) mmol/L Carbon Dioxide (22-30) mmol/L Creatinine (0.52-1.04) mg/dL Glucose (74-99) mg/dL POC Glucose (mg/dL) 177 H (70-110) mg/dL Calcium (8.4-10.2) mg/dL AST (14-36) U/L ALT (4-34) U/L Troponin I (0.000-0.034) ng/mL Total Protein (6.3-8.2) g/dL Albumin (3.5-5.0) g/dL 05/25/23 05/25/23 Range/Units 10:38 10:58 WBC (3.8-10.6) k/uL Neutrophils # (1.3-7.7) k/uL Lymphocytes # (1.0-4.8) k/uL APTT (22.0-30.0) sec ABG pH (7.35-7.45) ABG pCO2 (35-45) mmHg ABG pO2 (83-108) mmHg ABG HCO3 (21-25) mmol/L ABG Total CO2 (19-24) mmol/L Chloride (98-107) mmol/L Carbon Dioxide (22-30) mmol/L Creatinine (0.52-1.04) mg/dL Glucose (74-99) mg/dL POC Glucose (mg/dL) 211 H 210 H (70-110) mg/dL Calcium (8.4-10.2) mg/dL AST (14-36) U/L ALT (4-34) U/L Troponin I (0.000-0.034) ng/mL Total Protein (6.3-8.2) g/dL Albumin (3.5-5.0) g/dL Assessment and Plan Plan: 1-patient was in the hospital with outside hospital cardiac arrest requiring resuscitation subsequently brought to the hospital noticed to have KS s/p cardiac cath and for stent placement patient also have left-sided pneumothorax and evidence of pneumonia on the CT, likely secondary to aspiration etiology 2-sputum culture has been requested check a CRP and a procalcitonin 3-Zosyn 3.375 g every 8hr should provide adequate antibiotic coverage for underlying aspiration pneumonia which will be continued We will follow on clinical condition and cultures to further adjust medication if needed Thank you for this consultation we will follow the patient along with you Dictation was produced using [employer] dictation software. please excuse any grammatical, word or spelling errors. Time with Patient: Greater than 30
[2023-05-25 22:51] LABS: Glucose,Whole Blood 128 mg/dL (70-110)
[2023-05-26 00:09] LABS: Glucose,Whole Blood 141 mg/dL (70-110)
[2023-05-26 01:00] LABS: Glucose,Whole Blood 141 mg/dL (70-110)
[2023-05-26 02:09] LABS: Glucose,Whole Blood 122 mg/dL (70-110)
[2023-05-26 03:57] LABS: Glucose,Whole Blood 135 mg/dL (70-110)
[2023-05-26] MEDS: HEPARIN SOD,PORK IN 0.45% NACL 25,000 UNIT in 0.45% NACL 1 250ML.BAG IV SCH (05:27)
[2023-05-26 05:53] LABS: Glucose,Whole Blood 135 mg/dL (70-110)
[2023-05-26] MEDS: LEVOTHYROXINE 100 MCG TAB PO SCH (06:14)
[2023-05-26] MEDS: PIPERACILLIN-TAZOBACTAM 3.375 GM in SODIUM CHLORIDE 0.9% 100 ML IVPB SCH ×3 (06:14→22:41)
[2023-05-26] MEDS: SODIUM BICARB (1 MEQ/ML) 12.5 ML in DEXTROSE 5% IN WATER 500 ML IV SCH ×2 (06:14)
[2023-05-26 06:19] LABS: ABG Base Excess 2.5 mmol/L; ABG HCO3 26 mmol/L (21-25); ABG Oxygen Saturation 97.8 % (94-97); ABG PCO2 35 mmHg (35-45); ABG PH 7.48 (7.35-7.45); ABG PO2 90 mmHg (83-108); ABG TCO2 27 mmol/L (19-24); Allen Test Performed? Yes
[2023-05-26 06:28] LABS: Basophils % (A) 0 %; Eosinophils % (A) 0 %; HCT 26.9 % (34.0-46.0); Lymphocytes # (A) 3.2 k/uL (1.0-4.8); Lymphocytes % (A) 14 %; MCH 29.9 pg (25.0-35.0); MCHC 33.8 g/dL (31.0-37.0); MCV 88.5 fL (80.0-100.0); Mean Platelet Volume 8.3; Monocytes # (A) 0.6 k/uL (0-1.0); Monocytes % (A) 3 %; Neutrophils # (A) 18.9 k/uL (1.3-7.7); Neutrophils % (A) 82 %; Platelet Count 224 k/uL (150-450); RBC 3.04 m/uL (3.80-5.40); RDW 14.9 % (11.5-15.5); WBC 22.9 k/uL (3.8-10.6)
[2023-05-26 06:43] LABS: Partial Thromboplastin Time 40.1 sec (22.0-30.0)
[2023-05-26 06:52] LABS: HGB 9.1 gm/dL (11.4-16.0)
[2023-05-26] MEDS: HEPARIN SODIUM 1,000 UN/ML (10ML VL) IV PRN (06:52)
[2023-05-26 07:07] LABS: ALT 77 U/L (4-34); AST 343 U/L (14-36); African American GFR (CKD) 72 (>60 ml/min/1.73 sqM); Albumin 2.6 g/dL (3.5-5.0); Alkaline Phosphatase 65 U/L (38-126); Anion Gap 5 mmol/L; Blood Urea Nitrogen 18 mg/dL (7-17); C Reactive Protein 8.9 mg/dL (<1.0); Calcium 7.5 mg/dL (8.4-10.2); Carbon Dioxide 24 mmol/L (22-30); Chloride 106 mmol/L (98-107); Glucose 114 mg/dL (74-99); Non-African American GFR(CKD) 63 (>60 ml/min/1.73 sqM); Potassium 3.5 mmol/L (3.5-5.1); Sodium 135 mmol/L (137-145); Total Bilirubin 0.4 mg/dL (0.2-1.3); Total Protein 4.9 g/dL (6.3-8.2)
[2023-05-26 07:16] LABS: LDH 1963 U/L (120-246)
[2023-05-26] MEDS ORDERED: Potassium Replacement Protocol 1 EACH MISC MISCELLANE PRN (07:18)
[2023-05-26] MEDS: DEXTROSE 5% IN WATER 1,000 ML with SODIUM BICARB (1 MEQ/ML) 150 ML IV SCH (08:01)
[2023-05-26] MEDS: POTASSIUM BICARBONATE/CIT AC 20 MEQ TABLET.EFF NG-TUBE SCH ×2 (08:30→08:32)
[2023-05-26] MEDS: DAPAGLIFLOZIN PROPANEDIOL 10 MG TABLET PO SCH (08:30)
[2023-05-26] MEDS: SPIRONOLACTONE 25 MG TAB PO SCH (08:30)
[2023-05-26] MEDS: ASPIRIN 81 MG PO SCH (08:30)
[2023-05-26] MEDS: CHLORHEXIDINE GLUCONATE 15 ML CUP MUCOUS MEM SCH ×2 (08:30→21:00)
[2023-05-26] MEDS: METOPROLOL TARTRATE 25 MG TAB PO SCH ×2 (08:30→21:00)
[2023-05-26] MEDS: PRASUGREL 10 MG TAB PO SCH (08:32)
[2023-05-26 09:25] LABS: Glucose,Whole Blood 130 mg/dL (70-110)
--- NOTE | 2023-05-26 10:27 | P.PN ---
Subjective Progress Note Date: 05/26/23 I am seeing this patient in new consultation today 05/25/2023 in the intensive care unit following an out of hospital cardiac arrest. Patient is a 43-year-old white female with no known cardiac history. She is on multiple psychiatric medications at home. Patient is currently intubated on mechanical ventilator and unable to provide any information. Apparently, the patient was complaining of epigastric pain and nausea throughout the day yesterday. Earlier this morning the patient's significant other woke up to her shaking in bed and unresponsive. CPR was initiated by a neighbor who is apparently a [employer] technician, and patient was defibrillated once EMS arrived. On arrival to emergency room, patient was intubated by the ER physician. She was unresponsive, she had copious emesis, and likely aspirated. ECG showed ST elevation and Q waves in the anterior-septal leads, and a code STEMI was initiated. 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 Patient subsequently had an Impella catheter placed. She was transferred to the intensive care unit in critical condition. Chest CTA done in the emergency room showed a small 10-15% left sided pneumotho rax. No large central pulmonary embolism was visualized. The ET tube was within the right mainstem bronchus. There was scattered patchy airspace opacities in the posterior upper lobes and more prominently in the lower lobes with air bronchograms. Likely consistent with aspiration/aspiration pneumonia. Patient currently intubated on mechanical ventilator. Current ventilator settings are assist control, respiratory rate 20, tidal volume 450, FiO2 100%, and PEEP of 8. ABGs done on the settings show a pH of 7.32, pCO2 of 31, pO2 of 79. Repeat chest x-ray does not show any enlargement of the left sided pneumothorax. The endotracheal tube is now approximately 3-4 cm above the alisha. There are diffuse bilateral multifocal infiltrates. CBC demonstrates leukocytosis with a WBC count of 22.6, hemoglobin 12.2, hematocrit 38.9, platelets 395. BMP a sodium of 137, potassium 3.5, chloride 109, serum bicarb 10, BUN 15, creatinine 1.35, glucose 315. Troponins 0.145. NT proBNP 315. Patient is sedated and unresponsive on the mechanical ventilator. She is breathing above set rate. Does not follow commands. She is sedated on propofol at 30 mcg/kg/m. Brain CT on arrival did not show any acute intracranial hemorrhage or mass effect. Blood pressure is stable. Not requiring vasopres sors. She is tachycardic. Urine output is anuric. Impella is inserted through the right groin, set at P9. 3.9 L of flow. Baseline coags are unremarkable. Patient will be started on IV heparin per protocol. Patient's prognosis is guarded, and she is currently in critical condition. There was a concern for an underlying pneumothorax. I reviewed the chest x-ray the chest x-ray showing diffuse but the pulmonary infiltrates. This is consistent with acute cardiogenic pulmonary edema it underlying aspiration cannot be completely excluded. I reviewed the CAT scan of the chest, there may be a very tiny left anterior pneumothorax not clearly seen on today's chest x- ray. This will be monitored very closely. The patient is currently intubated on a mechanical ventilator. The patient is on propofol which is running at 35 mcg/kg/m. She is adequately sedated and suggest a mechanical ventilator. She is covered with antibiotics and she is currently on IV Zosyn. She is on no pressors at this point in time. Cardiac rhythm is sinus tachycardia. On today's evaluation of 05/26/2023, the patient is being seen for a follow-up. The patient remains intubated on a mechanical ventilator. This morning, she is on propofol running at 35 mcg/kg/m and she is calm and comfortable. She response to stimulation. She was also painful stimulation in all 4 extremities. At the same time, the patient remains on a mechanical ventilator on assist control mode at the rate of 20, tidal volume of 450, FiO2 of 50% and a PEEP of 5. The chest x-ray from this morning is showing evidence of diffuse bilateral pulmonary infiltrates consistent with pulmonary edema. The ET tube is in a good location. The patient also has a left sided subclavian triple-lumen catheter in place. No evidence of any significant pneumothorax. There is interval improvement in the pulmonary edema on today's chest x-ray compared to yesterday. The blood gas showed a pH of 7.48 with a pCO2 of 35 and pO2 of 90. In terms of hemodynamics, the patient is on no pressors. ImPela supports is still ongoing although she has been switched from P9 to PT for and currently she is on P2 support. The flow is at 1.8 L/m. The Augmentin blood pressure is 91/58. She is producing urine output and the fluid balance over the past 24 hours has been +3.4 L. Nevertheless, the patient is producing 100 mL an hour of urine output and she produced approximately 1.2 L of urine output for yesterday. Pulses are present lower extremities bilaterally. The patient is currently on a combination of aspirin and Effient. Aldactone was also added. The patient is receiving and panic antibiotic coverage with IV Zosyn. IV fluids are in the form of bicarb infusion at the rate of 100 mL an hour. This will be discontinued. BUN is at 80 with a creatinine of 1.1. Sodiums of 135, serum bicarb is at 24, the white cell count is 22.9 with a hemoglobin of 9.1 and a platelet count of 224. A limited echocardiogram was done yesterday and the patient was told to have a LV ejection fraction severely impaired estimated to be at around 25. She is also off the insulin drip. Blood sugars under better control for now. Objective - Vital Signs Vital signs: Vital Signs Temp 100 F H 05/26/23 08:00 Pulse 87 05/26/23 10:00 Resp 22 05/26/23 10:00 BP 98/70 05/26/23 10:00 Pulse Ox 97 05/26/23 10:00 FiO2 50 05/26/23 08:00 Intake & Output 05/25/23 05/26/23 05/26/23 18:59 06:59 18:59 Intake Total 2675.095 2006.856 606.112 Output Total 390 890 665 Balance 2285.095 1116.856 -58.888 Weight 103 kg 89.7 kg Intake: IV 2325 1600 525 Dextrose 5% in Water 1, 700 1200 400 000 ml @ 100 mls/hr IV . [id number] [facility] with Sodium Bicarb (1 Meq/ml) 150 ml Rx#:[id number] Piperacillin-Tazobactam 3 100 100 100 .375 gm In Sodium Chloride 0.9% 100 ml @ 25 mls/hr IVPB Q8H [facility] Rx#: [id number] carrier 1525 300 25 Intake, IV Titration 350.095 406.856 81.112 Amount Heparin Sod,Pork in 0.45% 128.057 119.845 NaCl 25,000 unit In 0.45 % NaCl 1 250ml.bag @ 9. 7087 UNITS/KG/HR 10 mls/ hr IV .Q24H [facility] Rx#: [id number] Insulin Regular 100 unit 16.913 12.027 In Sodium Chloride 0.9% 100 ml @ Titrate IV .Q0M [facility] Rx#:[id number] propofoL 1,000 mg In 205.125 274.984 81.112 Empty Bag 1 bag @ 15 MCG/ KG/MIN 9.27 mls/hr IV . [id number] [facility] Rx#:[id number] Output: Urine 390 890 665 Other: Voiding Method Indwelling Catheter Indwelling Catheter Indwelling Catheter ABP, PAP, CO, CI - Last Documented Arterial Blood Pressure 103/30 - Exam GENERAL EXAM: Sedated intubated on mechanical ventilator, orogastric and orotracheal tube are both in place HEAD: Normocephalic and atraumatic EYES: Normal reaction of pupils, equal size. NOSE: Clear with pink turbinates. THROAT: No erythema or exudates. NECK: No masses, no JVD. CHEST: No chest wall deformity. LUNGS: Lungs were clear to auscultation and percussion, and with normal diaphragmatic excursion. No wheezes or rales were noted. CVS: S1 and S2 normal with no audible murmur, regular rhythm. No extra heart sounds ABDOMEN: No hepatosplenomegaly, active bowel sounds, no guarding or rigidity. SPINE: No scoliosis or deformity SKIN: No rashes CENTRAL NERVOUS SYSTEM: Sedated and unresponsive, extremities are flaccid, pupils are round 5 mm in size and reactive to light. The patient has spontaneous breathing above the mechanical ventilator. Sensorimotor functions cannot be assessed. No clonus. No Babinski. The patient withdraws to painful stimulation all 4 extremities. She is quite active. Pupils are equal and reactive to light. Neurologic exam is unchanged. EXTREMITIES: There is no peripheral edema, clubbing, or cyanosis. Peripheral pulses are weak but intact. Pulses are diminished - Labs CBC & Chem 7: 05/26/23 05:45 05/26/23 05:45 Labs: Abnormal Lab Results - Last 24 Hours (Table) 12/27/23 12/27/23 12/27/23 Range/Units 02:48 07:16 07:16 WBC (3.8-10.6) k/uL RBC (3.80-5.40) m/uL Hgb (11.4-16.0) gm/dL Hct (34.0-46.0) % Neutrophils # 28.0 H (1.3-7.7) k/uL APTT (22.0-30.0) sec ABG pH (7.35-7.45) ABG HCO3 (21-25) mmol/L ABG Total CO2 (19-24) mmol/L ABG O2 Saturation (94-97) % Sodium (137-145) mmol/L BUN (7-17) mg/dL Creatinine (0.52-1.04) mg/dL Glucose (74-99) mg/dL POC Glucose (mg/dL) (70-110) mg/dL Plasma Lactic Acid Yoni 4.8 H* (0.7-2.0) mmol/L Calcium (8.4-10.2) mg/dL AST (14-36) U/L ALT (4-34) U/L Lactate Dehydrogenase (120-246) U/L C-Reactive Protein (<1.0) mg/dL Total Protein (6.3-8.2) g/dL Albumin (3.5-5.0) g/dL Triglycerides 225.00 H (0.00-149.00) mg/dL Cholesterol 241.00 H (0.00-200.00) mg/dL LDL Cholesterol, Calc 166.3 H (0.0-131.0) mg/dL VLDL Cholesterol, Calc 45.00 H (5.00-40.00) mg/dL HDL Cholesterol 29.70 L (40.00-60.00) mg/dL 05/25/23 05/25/23 05/25/23 Range/Units 10:38 10:58 11:28 WBC (3.8-10.6) k/uL RBC (3.80-5.40) m/uL Hgb (11.4-16.0) gm/dL Hct (34.0-46.0) % Neutrophils # (1.3-7.7) k/uL APTT (22.0-30.0) sec ABG pH (7.35-7.45) ABG HCO3 (21-25) mmol/L ABG Total CO2 (19-24) mmol/L ABG O2 Saturation (94-97) % Sodium (137-145) mmol/L BUN (7-17) mg/dL Creatinine (0.52-1.04) mg/dL Glucose (74-99) mg/dL POC Glucose (mg/dL) 211 H 210 H (70-110) mg/dL Plasma Lactic Acid Yoni (0.7-2.0) mmol/L Calcium (8.4-10.2) mg/dL AST (14-36) U/L ALT (4-34) U/L Lactate Dehydrogenase 2062 H (120-246) U/L C-Reactive Protein (<1.0) mg/dL Total Protein (6.3-8.2) g/dL Albumin (3.5-5.0) g/dL Triglycerides (0.00-149.00) mg/dL Cholesterol (0.00-200.00) mg/dL LDL Cholesterol, Calc (0.0-131.0) mg/dL VLDL Cholesterol, Calc (5.00-40.00) mg/dL HDL Cholesterol (40.00-60.00) mg/dL 05/25/23 05/25/23 05/25/23 Range/Units 11:46 11:47 11:56 WBC 28.9 H (3.8-10.6) k/uL RBC (3.80-5.40) m/uL Hgb (11.4-16.0) gm/dL Hct (34.0-46.0) % Neutrophils # (1.3-7.7) k/uL APTT 44.8 H (22.0-30.0) sec ABG pH (7.35-7.45) ABG HCO3 (21-25) mmol/L ABG Total CO2 (19-24) mmol/L ABG O2 Saturation (94-97) % Sodium (137-145) mmol/L BUN (7-17) mg/dL Creatinine (0.52-1.04) mg/dL Glucose (74-99) mg/dL POC Glucose (mg/dL) 256 H (70-110) mg/dL Plasma Lactic Acid Yoni (0.7-2.0) mmol/L Calcium (8.4-10.2) mg/dL AST (14-36) U/L ALT (4-34) U/L Lactate Dehydrogenase (120-246) U/L C-Reactive Protein (<1.0) mg/dL Total Protein (6.3-8.2) g/dL Albumin (3.5-5.0) g/dL Triglycerides (0.00-149.00) mg/dL Cholesterol (0.00-200.00) mg/dL LDL Cholesterol, Calc (0.0-131.0) mg/dL VLDL Cholesterol, Calc (5.00-40.00) mg/dL HDL Cholesterol (40.00-60.00) mg/dL 05/25/23 05/25/23 05/25/23 Range/Units 13:13 13:53 14:10 WBC (3.8-10.6) k/uL RBC (3.80-5.40) m/uL Hgb (11.4-16.0) gm/dL Hct (34.0-46.0) % Neutrophils # (1.3-7.7) k/uL APTT 38.3 H (22.0-30.0) sec ABG pH (7.35-7.45) ABG HCO3 (21-25) mmol/L ABG Total CO2 (19-24) mmol/L ABG O2 Saturation (94-97) % Sodium (137-145) mmol/L BUN (7-17) mg/dL Creatinine (0.52-1.04) mg/dL Glucose (74-99) mg/dL POC Glucose (mg/dL) 210 H 196 H (70-110) mg/dL Plasma Lactic Acid Yoni (0.7-2.0) mmol/L Calcium (8.4-10.2) mg/dL AST (14-36) U/L ALT (4-34) U/L Lactate Dehydrogenase (120-246) U/L C-Reactive Protein (<1.0) mg/dL Total Protein (6.3-8.2) g/dL Albumin (3.5-5.0) g/dL Triglycerides (0.00-149.00) mg/dL Cholesterol (0.00-200.00) mg/dL LDL Cholesterol, Calc (0.0-131.0) mg/dL VLDL Cholesterol, Calc (5.00-40.00) mg/dL HDL Cholesterol (40.00-60.00) mg/dL 05/25/23 05/25/23 05/25/23 Range/Units 14:10 15:13 15:57 WBC (3.8-10.6) k/uL RBC (3.80-5.40) m/uL Hgb (11.4-16.0) gm/dL Hct (34.0-46.0) % Neutrophils # (1.3-7.7) k/uL APTT (22.0-30.0) sec ABG pH (7.35-7.45) ABG HCO3 (21-25) mmol/L ABG Total CO2 (19-24) mmol/L ABG O2 Saturation (94-97) % Sodium (137-145) mmol/L BUN (7-17) mg/dL Creatinine (0.52-1.04) mg/dL Glucose (74-99) mg/dL POC Glucose (mg/dL) 151 H 133 H (70-110) mg/dL Plasma Lactic Acid Yoni (0.7-2.0) mmol/L Calcium (8.4-10.2) mg/dL AST (14-36) U/L ALT (4-34) U/L Lactate Dehydrogenase 2317 H (120-246) U/L C-Reactive Protein (<1.0) mg/dL Total Protein (6.3-8.2) g/dL Albumin (3.5-5.0) g/dL Triglycerides (0.00-149.00) mg/dL Cholesterol (0.00-200.00) mg/dL LDL Cholesterol, Calc (0.0-131.0) mg/dL VLDL Cholesterol, Calc (5.00-40.00) mg/dL HDL Cholesterol (40.00-60.00) mg/dL 05/25/23 05/25/23 05/25/23 Range/Units 17:19 17:37 17:37 WBC (3.8-10.6) k/uL RBC (3.80-5.40) m/uL Hgb (11.4-16.0) gm/dL Hct (34.0-46.0) % Neutrophils # (1.3-7.7) k/uL APTT 93.7 H (22.0-30.0) sec ABG pH (7.35-7.45) ABG HCO3 (21-25) mmol/L ABG Total CO2 (19-24) mmol/L ABG O2 Saturation (94-97) % Sodium (137-145) mmol/L BUN (7-17) mg/dL Creatinine (0.52-1.04) mg/dL Glucose (74-99) mg/dL POC Glucose (mg/dL) 155 H (70-110) mg/dL Plasma Lactic Acid Yoni (0.7-2.0) mmol/L Calcium (8.4-10.2) mg/dL AST (14-36) U/L ALT (4-34) U/L Lactate Dehydrogenase 2397 H (120-246) U/L C-Reactive Protein (<1.0) mg/dL Total Protein (6.3-8.2) g/dL Albumin (3.5-5.0) g/dL Triglycerides (0.00-149.00) mg/dL Cholesterol (0.00-200.00) mg/dL LDL Cholesterol, Calc (0.0-131.0) mg/dL VLDL Cholesterol, Calc (5.00-40.00) mg/dL HDL Cholesterol (40.00-60.00) mg/dL 05/25/23 05/25/23 05/25/23 Range/Units 17:37 18:09 19:01 WBC (3.8-10.6) k/uL RBC (3.80-5.40) m/uL Hgb (11.4-16.0) gm/dL Hct (34.0-46.0) % Neutrophils # (1.3-7.7) k/uL APTT (22.0-30.0) sec ABG pH (7.35-7.45) ABG HCO3 (21-25) mmol/L ABG Total CO2 (19-24) mmol/L ABG O2 Saturation (94-97) % Sodium (137-145) mmol/L BUN (7-17) mg/dL Creatinine (0.52-1.04) mg/dL Glucose (74-99) mg/dL POC Glucose (mg/dL) 152 H 169 H (70-110) mg/dL Plasma Lactic Acid Yoni 2.2 H* (0.7-2.0) mmol/L Calcium (8.4-10.2) mg/dL AST (14-36) U/L ALT (4-34) U/L Lactate Dehydrogenase (120-246) U/L C-Reactive Protein (<1.0) mg/dL Total Protein (6.3-8.2) g/dL Albumin (3.5-5.0) g/dL Triglycerides (0.00-149.00) mg/dL Cholesterol (0.00-200.00) mg/dL LDL Cholesterol, Calc (0.0-131.0) mg/dL VLDL Cholesterol, Calc (5.00-40.00) mg/dL HDL Cholesterol (40.00-60.00) mg/dL 05/25/23 05/25/23 05/25/23 Range/Units 20:02 21:02 21:45 WBC (3.8-10.6) k/uL RBC (3.80-5.40) m/uL Hgb (11.4-16.0) gm/dL Hct (34.0-46.0) % Neutrophils # (1.3-7.7) k/uL APTT 48.0 H (22.0-30.0) sec ABG pH (7.35-7.45) ABG HCO3 (21-25) mmol/L ABG Total CO2 (19-24) mmol/L ABG O2 Saturation (94-97) % Sodium (137-145) mmol/L BUN (7-17) mg/dL Creatinine (0.52-1.04) mg/dL Glucose (74-99) mg/dL POC Glucose (mg/dL) 171 H 153 H (70-110) mg/dL Plasma Lactic Acid Yoni (0.7-2.0) mmol/L Calcium (8.4-10.2) mg/dL AST (14-36) U/L ALT (4-34) U/L Lactate Dehydrogenase (120-246) U/L C-Reactive Protein (<1.0) mg/dL Total Protein (6.3-8.2) g/dL Albumin (3.5-5.0) g/dL Triglycerides (0.00-149.00) mg/dL Cholesterol (0.00-200.00) mg/dL LDL Cholesterol, Calc (0.0-131.0) mg/dL VLDL Cholesterol, Calc (5.00-40.00) mg/dL HDL Cholesterol (40.00-60.00) mg/dL 05/25/23 05/25/23 05/25/23 Range/Units 21:45 21:45 21:46 WBC (3.8-10.6) k/uL RBC (3.80-5.40) m/uL Hgb (11.4-16.0) gm/dL Hct (34.0-46.0) % Neutrophils # (1.3-7.7) k/uL APTT (22.0-30.0) sec ABG pH (7.35-7.45) ABG HCO3 (21-25) mmol/L ABG Total CO2 (19-24) mmol/L ABG O2 Saturation (94-97) % Sodium (137-145) mmol/L BUN (7-17) mg/dL Creatinine (0.52-1.04) mg/dL Glucose (74-99) mg/dL POC Glucose (mg/dL) 125 H (70-110) mg/dL Plasma Lactic Acid Yoni 2.3 H* (0.7-2.0) mmol/L Calcium (8.4-10.2) mg/dL AST (14-36) U/L ALT (4-34) U/L Lactate Dehydrogenase 2327 H (120-246) U/L C-Reactive Protein (<1.0) mg/dL Total Protein (6.3-8.2) g/dL Albumin (3.5-5.0) g/dL Triglycerides (0.00-149.00) mg/dL Cholesterol (0.00-200.00) mg/dL LDL Cholesterol, Calc (0.0-131.0) mg/dL VLDL Cholesterol, Calc (5.00-40.00) mg/dL HDL Cholesterol (40.00-60.00) mg/dL 05/25/23 05/26/23 05/26/23 Range/Units 22:50 00:08 00:59 WBC (3.8-10.6) k/uL RBC (3.80-5.40) m/uL Hgb (11.4-16.0) gm/dL Hct (34.0-46.0) % Neutrophils # (1.3-7.7) k/uL APTT (22.0-30.0) sec ABG pH (7.35-7.45) ABG HCO3 (21-25) mmol/L ABG Total CO2 (19-24) mmol/L ABG O2 Saturation (94-97) % Sodium (137-145) mmol/L BUN (7-17) mg/dL Creatinine (0.52-1.04) mg/dL Glucose (74-99) mg/dL POC Glucose (mg/dL) 128 H 141 H 141 H (70-110) mg/dL Plasma Lactic Acid Yoni (0.7-2.0) mmol/L Calcium (8.4-10.2) mg/dL AST (14-36) U/L ALT (4-34) U/L Lactate Dehydrogenase (120-246) U/L C-Reactive Protein (<1.0) mg/dL Total Protein (6.3-8.2) g/dL Albumin (3.5-5.0) g/dL Triglycerides (0.00-149.00) mg/dL Cholesterol (0.00-200.00) mg/dL LDL Cholesterol, Calc (0.0-131.0) mg/dL VLDL Cholesterol, Calc (5.00-40.00) mg/dL HDL Cholesterol (40.00-60.00) mg/dL 05/26/23 05/26/23 05/26/23 Range/Units 02:07 03:55 05:45 WBC 22.9 H (3.8-10.6) k/uL RBC 3.04 L (3.80-5.40) m/uL Hgb 9.1 L D (11.4-16.0) gm/dL Hct 26.9 L (34.0-46.0) % Neutrophils # 18.9 H (1.3-7.7) k/uL APTT (22.0-30.0) sec ABG pH (7.35-7.45) ABG HCO3 (21-25) mmol/L ABG Total CO2 (19-24) mmol/L ABG O2 Saturation (94-97) % Sodium (137-145) mmol/L BUN (7-17) mg/dL Creatinine (0.52-1.04) mg/dL Glucose (74-99) mg/dL POC Glucose (mg/dL) 122 H 135 H (70-110) mg/dL Plasma Lactic Acid Yoni (0.7-2.0) mmol/L Calcium (8.4-10.2) mg/dL AST (14-36) U/L ALT (4-34) U/L Lactate Dehydrogenase (120-246) U/L C-Reactive Protein (<1.0) mg/dL Total Protein (6.3-8.2) g/dL Albumin (3.5-5.0) g/dL Triglycerides (0.00-149.00) mg/dL Cholesterol (0.00-200.00) mg/dL LDL Cholesterol, Calc (0.0-131.0) mg/dL VLDL Cholesterol, Calc (5.00-40.00) mg/dL HDL Cholesterol (40.00-60.00) mg/dL 05/26/23 05/26/23 05/26/23 Range/Units 05:45 05:45 05:51 WBC (3.8-10.6) k/uL RBC (3.80-5.40) m/uL Hgb (11.4-16.0) gm/dL Hct (34.0-46.0) % Neutrophils # (1.3-7.7) k/uL APTT 40.1 H (22.0-30.0) sec ABG pH (7.35-7.45) ABG HCO3 (21-25) mmol/L ABG Total CO2 (19-24) mmol/L ABG O2 Saturation (94-97) % Sodium 135 L (137-145) mmol/L BUN 18 H (7-17) mg/dL Creatinine 1.10 H (0.52-1.04) mg/dL Glucose 114 H (74-99) mg/dL POC Glucose (mg/dL) 135 H (70-110) mg/dL Plasma Lactic Acid Yoni (0.7-2.0) mmol/L Calcium 7.5 L (8.4-10.2) mg/dL AST 343 H (14-36) U/L ALT 77 H (4-34) U/L Lactate Dehydrogenase 1963 H (120-246) U/L C-Reactive Protein 8.9 H (<1.0) mg/dL Total Protein 4.9 L (6.3-8.2) g/dL Albumin 2.6 L (3.5-5.0) g/dL Triglycerides (0.00-149.00) mg/dL Cholesterol (0.00-200.00) mg/dL LDL Cholesterol, Calc (0.0-131.0) mg/dL VLDL Cholesterol, Calc (5.00-40.00) mg/dL HDL Cholesterol (40.00-60.00) mg/dL 05/26/23 05/26/23 Range/Units 06:15 09:24 WBC (3.8-10.6) k/uL RBC (3.80-5.40) m/uL Hgb (11.4-16.0) gm/dL Hct (34.0-46.0) % Neutrophils # (1.3-7.7) k/uL APTT (22.0-30.0) sec ABG pH 7.48 H (7.35-7.45) ABG HCO3 26 H (21-25) mmol/L ABG Total CO2 27 H (19-24) mmol/L ABG O2 Saturation 97.8 H (94-97) % Sodium (137-145) mmol/L BUN (7-17) mg/dL Creatinine (0.52-1.04) mg/dL Glucose (74-99) mg/dL POC Glucose (mg/dL) 130 H (70-110) mg/dL Plasma Lactic Acid Yoni (0.7-2.0) mmol/L Calcium (8.4-10.2) mg/dL AST (14-36) U/L ALT (4-34) U/L Lactate Dehydrogenase (120-246) U/L C-Reactive Protein (<1.0) mg/dL Total Protein (6.3-8.2) g/dL Albumin (3.5-5.0) g/dL Triglycerides (0.00-149.00) mg/dL Cholesterol (0.00-200.00) mg/dL LDL Cholesterol, Calc (0.0-131.0) mg/dL VLDL Cholesterol, Calc (5.00-40.00) mg/dL HDL Cholesterol (40.00-60.00) mg/dL Microbiology - Last 24 Hours (Table) 05/25/23 06:51 Gram Stain - Preliminary Sputum Assessment and Plan Plan: Out of hospital cardiac arrest, downtime is unknown. The patient had a likely metastatic atrial fibrillation/tachycardia the patient was defibrillated on the scene, CPR was continued and the patient was intubated in the emergency depa rtment. Cardiac arrest secondary to acute ST segment elevation myocardial infarction. The patient underwent emergent cardiac catheterization stenting complicated by a dissection of the left main. And the patient underwent further stenting of the left main and left circumflex secondary to this dissection. Impella was also inserted to maintain hemodynamics, P9 support with a flow of 3.9 L/m. subsequently, based on hemodynamics, the patient was placed on P4 and currently she is on PT to support with a flow of 1.9 L/m. She is producing adequate amount of urine output. Acute ST elevation ND, patient did receive successful stenting of the proximal LAD with stenting of the left main and left circumflex secondary to dissection of the left main. Severe cardiomyopathy, likely ischemic with an ejection fraction of 20-25% Acute pulmonary edema with Diffuse bilateral pulmonary infiltrates, improved on today's evaluation and the chest x-ray findings are improved. Oxygenation is stable. Acute hypoxic respiratory failure, currently intubated on mechanical ventilator secondary to above, chest x-ray and blood gases are noted Small left-sided pneumothorax estimated at 10-15%, likely secondary to CPR, no need for chest tube at this time, this is likely related to CPR. No evidence of any tension or hemodynamic compromise related to the pneumothorax. Metabolic anion gap acidosis, recovered Acute kidney injury, secondary to hypoperfusion and acute tubular necrosis, recovered and the patient is producing adequate amount of urine output. Creatinine is improved Mild transaminitis, secondary to hypoperfusion Leukocytosis, improving Hypothyroidism History of depression/anxiety/PTSD Plan: Continue ventilator support The Impella will likely be removed today and this will be done in the cardiac Advertising In[employer] Keep the patient sedated on propofol Continue empiric antibiotic coverage with IV Zosyn Continue the bicarb infusion Discontinue the insulin drip Monitor renal function. The renal function is improving Continue aspirin Continue Effient Continue metoprolol Continue IV heparin Monitor urine output, watch hematuria , hematuria is recovered Monitor mental status, suspect hypoxic encephalopathy post cardiac arrest Monitor left-sided pneumothorax, no need for chest tube insertion at this point in time Condition is critical and we'll continue to follow make further recommendations based on her progress, and is a critical care evaluation that was done in more than 30 minutes
[2023-05-26] MEDS: SODIUM CHLORIDE 0.9% 1,000 ML in EMPTY BAG 1 BAG IV SCH ×2 (11:35→20:57)
[2023-05-26] MEDS: INSULIN ASPART (NovoLOG) 100 UNIT/ML VIAL SQ SCH ×3 (11:35→23:02)
[2023-05-26 11:36] LABS: Glucose,Whole Blood 116 mg/dL (70-110)
--- NOTE | 2023-05-26 12:01 | XR ---
EXAMINATION TYPE: XR chest 1V portable DATE OF EXAM: 05/26/2023 Comparison: 05/25/2023 Clinical History: 43-year-old female Tube placement Findings: ET and NG tubes are satisfactory. A left ventricular assist device is present. Heart size. Mild patch y interstitial densities shows slight improvement. No pleural effusion. Left subclavian CVC tip in th e upper right atrium. Impression: Left ventricular assist device in place. There is improving interstitial pulmonary edema. Some pulmon judi vascular congestion remains.
[2023-05-26 12:14] LABS: Partial Thromboplastin Time 47.2 sec (22.0-30.0)
[2023-05-26 12:26] LABS: Potassium 3.9 mmol/L (3.5-5.1)
[2023-05-26] MEDS ORDERED: LIDOCAINE 1% INJ 10MG/ML (20 ML MDV) ONE (14:22)
[2023-05-26] MEDS ORDERED: IV FLUID CONTINUATION 1,000 ML IV ONE (14:45)
[2023-05-26 15:03] LABS: Glucose,Whole Blood 100 mg/dL (70-110)
--- NOTE | 2023-05-26 17:28 | P.PN ---
Subjective Progress Note Date: 05/26/23 Principal diagnosis: Reason for follow-up is aspiration pneumonia Patient is a 43-year-old female with a past medical history Significant for anxiety depression current everyday smoker patient was brought into the ER via EMS, patient did have a cardiac arrest requiring resuscitation patient did have a evidence of MN s/p cardiac cath and four stent placement. On today's evaluation that is 05/26/2023 patient did have a low-grade fever this morning of 100 F patient is currently intubated on the vent FiO2 is down to 50% no significant purulent secretions through the ET patient noticed to have some abdominal distention however the patient is passing gas per the nursing staff. Patient white count down to 22.9, creatinine is 1.10. Objective - Vital Signs Vital signs: Vital Signs Temp 99.4 F 05/26/23 12:00 Pulse 93 05/26/23 13:00 Resp 20 05/26/23 13:00 BP 97/64 05/26/23 13:00 Pulse Ox 100 05/26/23 13:00 FiO2 50 05/26/23 12:05 Intake & Output 05/25/23 05/26/23 05/26/23 18:59 06:59 18:59 Intake Total 2675.095 2006.856 757.766 Output Total 660 937 5133 Balance 2285.095 1116.856 -347.234 Weight 103 kg 89.7 kg 89.7 kg Intake: IV 2325 1600 555 Dextrose 5% in Water 1, 700 1200 400 000 ml @ 100 mls/hr IV . [id number] [facility] with Sodium Bicarb (1 Meq/ml) 150 ml Rx#:[id number] Piperacillin-Tazobactam 3 100 100 100 .375 gm In Sodium Chloride 0.9% 100 ml @ 25 mls/hr IVPB Q8H [facility] Rx#: [id number] carrier 1525 300 55 Intake, IV Titration 350.095 406.856 202.766 Amount Heparin Sod,Pork in 0.45% 128.057 119.845 55.682 NaCl 25,000 unit In 0.45 % NaCl 1 250ml.bag @ 9. 7087 UNITS/KG/HR 10 mls/ hr IV .Q24H [facility] Rx#: [id number] Insulin Regular 100 unit 16.913 12.027 In Sodium Chloride 0.9% 100 ml @ Titrate IV .Q0M [facility] Rx#:[id number] propofoL 1,000 mg In 205.125 274.984 147.084 Empty Bag 1 bag @ 15 MCG/ KG/MIN 9.27 mls/hr IV . [id number] [facility] Rx#:[id number] Output: Urine 099 058 8047 Other: Voiding Method Indwelling Catheter Indwelling Catheter Indwelling Catheter ABP, PAP, CO, CI - Last Documented Arterial Blood Pressure 107/60 - Exam GENERAL DESCRIPTION: Middle-aged female intubated on the vent RESPIRATORY SYSTEM: Unlabored breathing , decreased breath sounds at bases HEART: S1 S2 regular rate and rhythm , ABDOMEN: Soft did have some distention EXTREMITIES: No edema feet - Labs CBC & Chem 7: 05/26/23 05:45 05/26/23 11:30 Labs: Abnormal Lab Results - Last 24 Hours (Table) 05/25/23 05/25/23 05/25/23 Range/Units 02:48 07:16 13:13 WBC (3.8-10.6) k/uL RBC (3.80-5.40) m/uL Hgb (11.4-16.0) gm/dL Hct (34.0-46.0) % Neutrophils # (1.3-7.7) k/uL APTT (22.0-30.0) sec ABG pH (7.35-7.45) ABG HCO3 (21-25) mmol/L ABG Total CO2 (19-24) mmol/L ABG O2 Saturation (94-97) % Sodium (137-145) mmol/L BUN (7-17) mg/dL Creatinine (0.52-1.04) mg/dL Glucose (74-99) mg/dL POC Glucose (mg/dL) 210 H (70-110) mg/dL Plasma Lactic Acid Yoni 4.8 H* (0.7-2.0) mmol/L Calcium (8.4-10.2) mg/dL AST (14-36) U/L ALT (4-34) U/L Lactate Dehydrogenase (120-246) U/L C-Reactive Protein (<1.0) mg/dL Total Protein (6.3-8.2) g/dL Albumin (3.5-5.0) g/dL Triglycerides 225.00 H (0.00-149.00) mg/dL Cholesterol 241.00 H (0.00-200.00) mg/dL LDL Cholesterol, Calc 166.3 H (0.0-131.0) mg/dL VLDL Cholesterol, Calc 45.00 H (5.00-40.00) mg/dL HDL Cholesterol 29.70 L (40.00-60.00) mg/dL 05/25/23 05/25/23 05/25/23 Range/Units 13:53 14:10 14:10 WBC (3.8-10.6) k/uL RBC (3.80-5.40) m/uL Hgb (11.4-16.0) gm/dL Hct (34.0-46.0) % Neutrophils # (1.3-7.7) k/uL APTT 38.3 H (22.0-30.0) sec ABG pH (7.35-7.45) ABG HCO3 (21-25) mmol/L ABG Total CO2 (19-24) mmol/L ABG O2 Saturation (94-97) % Sodium (137-145) mmol/L BUN (7-17) mg/dL Creatinine (0.52-1.04) mg/dL Glucose (74-99) mg/dL POC Glucose (mg/dL) 196 H (70-110) mg/dL Plasma Lactic Acid Yoni (0.7-2.0) mmol/L Calcium (8.4-10.2) mg/dL AST (14-36) U/L ALT (4-34) U/L Lactate Dehydrogenase 2317 H (120-246) U/L C-Reactive Protein (<1.0) mg/dL Total Protein (6.3-8.2) g/dL Albumin (3.5-5.0) g/dL Triglycerides (0.00-149.00) mg/dL Cholesterol (0.00-200.00) mg/dL LDL Cholesterol, Calc (0.0-131.0) mg/dL VLDL Cholesterol, Calc (5.00-40.00) mg/dL HDL Cholesterol (40.00-60.00) mg/dL 05/25/23 05/25/23 05/25/23 Range/Units 15:13 15:57 17:19 WBC (3.8-10.6) k/uL RBC (3.80-5.40) m/uL Hgb (11.4-16.0) gm/dL Hct (34.0-46.0) % Neutrophils # (1.3-7.7) k/uL APTT (22.0-30.0) sec ABG pH (7.35-7.45) ABG HCO3 (21-25) mmol/L ABG Total CO2 (19-24) mmol/L ABG O2 Saturation (94-97) % Sodium (137-145) mmol/L BUN (7-17) mg/dL Creatinine (0.52-1.04) mg/dL Glucose (74-99) mg/dL POC Glucose (mg/dL) 151 H 133 H 155 H (70-110) mg/dL Plasma Lactic Acid Yoni (0.7-2.0) mmol/L Calcium (8.4-10.2) mg/dL AST (14-36) U/L ALT (4-34) U/L Lactate Dehydrogenase (120-246) U/L C-Reactive Protein (<1.0) mg/dL Total Protein (6.3-8.2) g/dL Albumin (3.5-5.0) g/dL Triglycerides (0.00-149.00) mg/dL Cholesterol (0.00-200.00) mg/dL LDL Cholesterol, Calc (0.0-131.0) mg/dL VLDL Cholesterol, Calc (5.00-40.00) mg/dL HDL Cholesterol (40.00-60.00) mg/dL 05/25/23 05/25/23 05/25/23 Range/Units 17:37 17:37 17:37 WBC (3.8-10.6) k/uL RBC (3.80-5.40) m/uL Hgb (11.4-16.0) gm/dL Hct (34.0-46.0) % Neutrophils # (1.3-7.7) k/uL APTT 93.7 H (22.0-30.0) sec ABG pH (7.35-7.45) ABG HCO3 (21-25) mmol/L ABG Total CO2 (19-24) mmol/L ABG O2 Saturation (94-97) % Sodium (137-145) mmol/L BUN (7-17) mg/dL Creatinine (0.52-1.04) mg/dL Glucose (74-99) mg/dL POC Glucose (mg/dL) (70-110) mg/dL Plasma Lactic Acid Yoni 2.2 H* (0.7-2.0) mmol/L Calcium (8.4-10.2) mg/dL AST (14-36) U/L ALT (4-34) U/L Lactate Dehydrogenase 2397 H (120-246) U/L C-Reactive Protein (<1.0) mg/dL Total Protein (6.3-8.2) g/dL Albumin (3.5-5.0) g/dL Triglycerides (0.00-149.00) mg/dL Cholesterol (0.00-200.00) mg/dL LDL Cholesterol, Calc (0.0-131.0) mg/dL VLDL Cholesterol, Calc (5.00-40.00) mg/dL HDL Cholesterol (40.00-60.00) mg/dL 05/25/23 05/25/23 05/25/23 Range/Units 18:09 19:01 20:02 WBC (3.8-10.6) k/uL RBC (3.80-5.40) m/uL Hgb (11.4-16.0) gm/dL Hct (34.0-46.0) % Neutrophils # (1.3-7.7) k/uL APTT (22.0-30.0) sec ABG pH (7.35-7.45) ABG HCO3 (21-25) mmol/L ABG Total CO2 (19-24) mmol/L ABG O2 Saturation (94-97) % Sodium (137-145) mmol/L BUN (7-17) mg/dL Creatinine (0.52-1.04) mg/dL Glucose (74-99) mg/dL POC Glucose (mg/dL) 152 H 169 H 171 H (70-110) mg/dL Plasma Lactic Acid Yoni (0.7-2.0) mmol/L Calcium (8.4-10.2) mg/dL AST (14-36) U/L ALT (4-34) U/L Lactate Dehydrogenase (120-246) U/L C-Reactive Protein (<1.0) mg/dL Total Protein (6.3-8.2) g/dL Albumin (3.5-5.0) g/dL Triglycerides (0.00-149.00) mg/dL Cholesterol (0.00-200.00) mg/dL LDL Cholesterol, Calc (0.0-131.0) mg/dL VLDL Cholesterol, Calc (5.00-40.00) mg/dL HDL Cholesterol (40.00-60.00) mg/dL 05/25/23 05/25/23 05/25/23 Range/Units 21:02 21:45 21:45 WBC (3.8-10.6) k/uL RBC (3.80-5.40) m/uL Hgb (11.4-16.0) gm/dL Hct (34.0-46.0) % Neutrophils # (1.3-7.7) k/uL APTT 48.0 H (22.0-30.0) sec ABG pH (7.35-7.45) ABG HCO3 (21-25) mmol/L ABG Total CO2 (19-24) mmol/L ABG O2 Saturation (94-97) % Sodium (137-145) mmol/L BUN (7-17) mg/dL Creatinine (0.52-1.04) mg/dL Glucose (74-99) mg/dL POC Glucose (mg/dL) 153 H (70-110) mg/dL Plasma Lactic Acid Yoni (0.7-2.0) mmol/L Calcium (8.4-10.2) mg/dL AST (14-36) U/L ALT (4-34) U/L Lactate Dehydrogenase 2327 H (120-246) U/L C-Reactive Protein (<1.0) mg/dL Total Protein (6.3-8.2) g/dL Albumin (3.5-5.0) g/dL Triglycerides (0.00-149.00) mg/dL Cholesterol (0.00-200.00) mg/dL LDL Cholesterol, Calc (0.0-131.0) mg/dL VLDL Cholesterol, Calc (5.00-40.00) mg/dL HDL Cholesterol (40.00-60.00) mg/dL 05/25/23 05/25/23 05/25/23 Range/Units 21:45 21:46 22:50 WBC (3.8-10.6) k/uL RBC (3.80-5.40) m/uL Hgb (11.4-16.0) gm/dL Hct (34.0-46.0) % Neutrophils # (1.3-7.7) k/uL APTT (22.0-30.0) sec ABG pH (7.35-7.45) ABG HCO3 (21-25) mmol/L ABG Total CO2 (19-24) mmol/L ABG O2 Saturation (94-97) % Sodium (137-145) mmol/L BUN (7-17) mg/dL Creatinine (0.52-1.04) mg/dL Glucose (74-99) mg/dL POC Glucose (mg/dL) 125 H 128 H (70-110) mg/dL Plasma Lactic Acid Yoni 2.3 H* (0.7-2.0) mmol/L Calcium (8.4-10.2) mg/dL AST (14-36) U/L ALT (4-34) U/L Lactate Dehydrogenase (120-246) U/L C-Reactive Protein (<1.0) mg/dL Total Protein (6.3-8.2) g/dL Albumin (3.5-5.0) g/dL Triglycerides (0.00-149.00) mg/dL Cholesterol (0.00-200.00) mg/dL LDL Cholesterol, Calc (0.0-131.0) mg/dL VLDL Cholesterol, Calc (5.00-40.00) mg/dL HDL Cholesterol (40.00-60.00) mg/dL 05/26/23 05/26/23 05/26/23 Range/Units 00:08 00:59 02:07 WBC (3.8-10.6) k/uL RBC (3.80-5.40) m/uL Hgb (11.4-16.0) gm/dL Hct (34.0-46.0) % Neutrophils # (1.3-7.7) k/uL APTT (22.0-30.0) sec ABG pH (7.35-7.45) ABG HCO3 (21-25) mmol/L ABG Total CO2 (19-24) mmol/L ABG O2 Saturation (94-97) % Sodium (137-145) mmol/L BUN (7-17) mg/dL Creatinine (0.52-1.04) mg/dL Glucose (74-99) mg/dL POC Glucose (mg/dL) 141 H 141 H 122 H (70-110) mg/dL Plasma Lactic Acid Yoni (0.7-2.0) mmol/L Calcium (8.4-10.2) mg/dL AST (14-36) U/L ALT (4-34) U/L Lactate Dehydrogenase (120-246) U/L C-Reactive Protein (<1.0) mg/dL Total Protein (6.3-8.2) g/dL Albumin (3.5-5.0) g/dL Triglycerides (0.00-149.00) mg/dL Cholesterol (0.00-200.00) mg/dL LDL Cholesterol, Calc (0.0-131.0) mg/dL VLDL Cholesterol, Calc (5.00-40.00) mg/dL HDL Cholesterol (40.00-60.00) mg/dL 05/26/23 05/26/23 05/26/23 Range/Units 03:55 05:45 05:45 WBC 22.9 H (3.8-10.6) k/uL RBC 3.04 L (3.80-5.40) m/uL Hgb 9.1 L D (11.4-16.0) gm/dL Hct 26.9 L (34.0-46.0) % Neutrophils # 18.9 H (1.3-7.7) k/uL APTT (22.0-30.0) sec ABG pH (7.35-7.45) ABG HCO3 (21-25) mmol/L ABG Total CO2 (19-24) mmol/L ABG O2 Saturation (94-97) % Sodium 135 L (137-145) mmol/L BUN 18 H (7-17) mg/dL Creatinine 1.10 H (0.52-1.04) mg/dL Glucose 114 H (74-99) mg/dL POC Glucose (mg/dL) 135 H (70-110) mg/dL Plasma Lactic Acid Yoni (0.7-2.0) mmol/L Calcium 7.5 L (8.4-10.2) mg/dL AST 343 H (14-36) U/L ALT 77 H (4-34) U/L Lactate Dehydrogenase 1963 H (120-246) U/L C-Reactive Protein 8.9 H (<1.0) mg/dL Total Protein 4.9 L (6.3-8.2) g/dL Albumin 2.6 L (3.5-5.0) g/dL Triglycerides (0.00-149.00) mg/dL Cholesterol (0.00-200.00) mg/dL LDL Cholesterol, Calc (0.0-131.0) mg/dL VLDL Cholesterol, Calc (5.00-40.00) mg/dL HDL Cholesterol (40.00-60.00) mg/dL 05/26/23 05/26/23 05/26/23 Range/Units 05:45 05:51 06:15 WBC (3.8-10.6) k/uL RBC (3.80-5.40) m/uL Hgb (11.4-16.0) gm/dL Hct (34.0-46.0) % Neutrophils # (1.3-7.7) k/uL APTT 40.1 H (22.0-30.0) sec ABG pH 7.48 H (7.35-7.45) ABG HCO3 26 H (21-25) mmol/L ABG Total CO2 27 H (19-24) mmol/L ABG O2 Saturation 97.8 H (94-97) % Sodium (137-145) mmol/L BUN (7-17) mg/dL Creatinine (0.52-1.04) mg/dL Glucose (74-99) mg/dL POC Glucose (mg/dL) 135 H (70-110) mg/dL Plasma Lactic Acid Yoni (0.7-2.0) mmol/L Calcium (8.4-10.2) mg/dL AST (14-36) U/L ALT (4-34) U/L Lactate Dehydrogenase (120-246) U/L C-Reactive Protein (<1.0) mg/dL Total Protein (6.3-8.2) g/dL Albumin (3.5-5.0) g/dL Triglycerides (0.00-149.00) mg/dL Cholesterol (0.00-200.00) mg/dL LDL Cholesterol, Calc (0.0-131.0) mg/dL VLDL Cholesterol, Calc (5.00-40.00) mg/dL HDL Cholesterol (40.00-60.00) mg/dL 05/26/23 05/26/23 05/26/23 Range/Units 09:24 11:30 11:30 WBC (3.8-10.6) k/uL RBC (3.80-5.40) m/uL Hgb (11.4-16.0) gm/dL Hct (34.0-46.0) % Neutrophils # (1.3-7.7) k/uL APTT 47.2 H (22.0-30.0) sec ABG pH (7.35-7.45) ABG HCO3 (21-25) mmol/L ABG Total CO2 (19-24) mmol/L ABG O2 Saturation (94-97) % Sodium (137-145) mmol/L BUN (7-17) mg/dL Creatinine (0.52-1.04) mg/dL Glucose (74-99) mg/dL POC Glucose (mg/dL) 130 H (70-110) mg/dL Plasma Lactic Acid Yoni (0.7-2.0) mmol/L Calcium (8.4-10.2) mg/dL AST (14-36) U/L ALT (4-34) U/L Lactate Dehydrogenase 1820 H (120-246) U/L C-Reactive Protein (<1.0) mg/dL Total Protein (6.3-8.2) g/dL Albumin (3.5-5.0) g/dL Triglycerides (0.00-149.00) mg/dL Cholesterol (0.00-200.00) mg/dL LDL Cholesterol, Calc (0.0-131.0) mg/dL VLDL Cholesterol, Calc (5.00-40.00) mg/dL HDL Cholesterol (40.00-60.00) mg/dL 05/26/23 Range/Units 11:34 WBC (3.8-10.6) k/uL RBC (3.80-5.40) m/uL Hgb (11.4-16.0) gm/dL Hct (34.0-46.0) % Neutrophils # (1.3-7.7) k/uL APTT (22.0-30.0) sec ABG pH (7.35-7.45) ABG HCO3 (21-25) mmol/L ABG Total CO2 (19-24) mmol/L ABG O2 Saturation (94-97) % Sodium (137-145) mmol/L BUN (7-17) mg/dL Creatinine (0.52-1.04) mg/dL Glucose (74-99) mg/dL POC Glucose (mg/dL) 116 H (70-110) mg/dL Plasma Lactic Acid Yoni (0.7-2.0) mmol/L Calcium (8.4-10.2) mg/dL AST (14-36) U/L ALT (4-34) U/L Lactate Dehydrogenase (120-246) U/L C-Reactive Protein (<1.0) mg/dL Total Protein (6.3-8.2) g/dL Albumin (3.5-5.0) g/dL Triglycerides (0.00-149.00) mg/dL Cholesterol (0.00-200.00) mg/dL LDL Cholesterol, Calc (0.0-131.0) mg/dL VLDL Cholesterol, Calc (5.00-40.00) mg/dL HDL Cholesterol (40.00-60.00) mg/dL Microbiology - Last 24 Hours (Table) 05/25/23 06:51 Gram Stain - Preliminary Sputum Assessment and Plan (1) Aspiration pneumonia Current Visit: Yes Status: Acute Code(s): J69.0 - PNEUMONITIS DUE TO INHALATION OF FOOD AND VOMIT SNOMED Code(s): 147055145 (2) Leukocytosis Current Visit: Yes Status: Acute Code(s): D72.829 - ELEVATED WHITE BLOOD CELL COUNT, UNSPECIFIED SNOMED Code(s): 743905343 Plan: 1-patient was in the hospital with outside hospital cardiac arrest requiring resuscitation subsequently brought to the hospital noticed to have MN s/p cardiac cath and for stent placement patient also have left-sided pneumothorax and evidence of pneumonia on the CT, likely secondary to aspiration etiology 2sputum cultures currently pending waiting for inflammatory markers. 3patient to continue with the Zosyn while waiting for the culture to finalize and monitor clinical course closely Dictation was produced using [employer] dictation software. please excuse any grammatical, word or spelling errors.
[2023-05-26 18:08] LABS: Glucose,Whole Blood 117 mg/dL (70-110)
[2023-05-26] MEDS: ATORVASTATIN 80 MG TAB PO SCH (21:00)
[2023-05-26] MEDS: LITHIUM CARBONATE 300 MG CAP PO SCH (21:00)
[2023-05-26] MEDS: HYDROmorphone 0.5 MG/0.5 ML SYRINGE IVP PRN (21:30)
--- NOTE | 2023-05-26 22:01 | P.PN ---
Subjective Progress Note Date: 05/26/23 Mecca Tam, is a 43-year-old female, who was found unresponsive at home, CPR was initiated by a neighbor who is a technical internship, EMS were called and patient was defibrillated and brought into emergency room, she was intubated in the emergency room, EKG revealed ST elevation and Q waves in anterior leads, patient was taken to the labor contractor, she underwent angioplasty and stenting to the proximal LAD, the left main and the left [place] conflicts, she was transferred to intensive care unit, and is currently intubated sedated maintained on mechanical ventilation, cardiology and pulmonary critical care are following. Patient has a known history of depression with anxiety disorder, history of post traumatic stress disorder, history of hypothyroidism and history of tobacco abuse. 05/26/2023 Picked up coverage today from Dr. Padgett. Patient remains in the intensive care unit. Currently sedated with propofol and on the mechanical ventilator with FiO2 of 50% and PEEP of 5. Status post cardiac catheterization with stent placed to the proximal LAD, left circ, and placement of impella device with plans for removal of the impella today. Chest xray today shows left ventricular assist device in place, with improvement of interstitial pulmonary edema. Some pulmonary vascular congestion remains. Echocardiogram reveals an EF of 25%. Patient remains on dual antiplatelet therapy with aspirin and effient, lipitor, farxiga, lopressor, aldactone. [place] has been removed and lithium level pendi ng. Patient on empiric antibiotic coverage with IV zosyn. White blood cell count 22.9. BUN 18, creatinine 1.10. Lactic acid normalized to 2.0. LFTS stable, LDH improving 1820. Procalcitonin level elevated at 0.65. Influenza, covid, RSV are all negative. Has been taken off the insulin gtt with improvement in blood glucose. A1C was normal range of 5.5. Review of Systems Unable to complete review of systems patient is currently intubated and sedated in the ICU. All inpatient medications were reviewed and appropriate changes in these medications as dictated in the interval history and assessment and plan. PHYSICAL EXAMINATION: GENERAL: The patient is sedated, not in any acute distress. Well developed, well nourished. HEENT: Pupils are round and equally reacting to light. EOMI. No scleral icterus. No conjunctival pallor. Normocephalic, atraumatic. No pharyngeal erythema. No thyromegaly. CARDIOVASCULAR: S1 and S2 present. No murmurs, rubs, or gallops. PULMONARY: Chest is clear to auscultation, no wheezing or crackles. ABDOMEN: Soft, nontender, nondistended, normoactive bowel sounds. No palpable organomegaly. MUSCULOSKELETAL: No joint swelling or deformity. EXTREMITIES: No cyanosis, clubbing, or pedal edema. NEUROLOGICAL: Sedated SKIN: No rashes. Assessment and Plan -Cardiac arrest at home with unkown downtime patient was defibrillated by EMS on scene. -Acute ST elevation myocardial infarction status post stenting to the proximal LAD, left circ with dissection of the left main, stenting of the left main and placement of impella device patient continues on dual antiplatelet therapy at this time with aspirin and effient. Patient is continue on IV heparin. -Acute hypoxic respiratory failure requiring intubation and mechanical ventilation -Left sided pneumothorax likely from CPR which appears resolved on follow up chest xray -Acute metabolic acidosis improved -Acute kidney injury secondary to ATN/hypotension improved -Hyperglycemia off the insulin gtt with improvement in blood glucose. HgbA1C wnl at 5.5. -Leukocytosis with bilateral pulmonary infiltrates possible aspiration pneumonia remains on empiric antibiotic coverage with IV zosyn, procalcitonin level elevated at 0.65. ID following. -Underlying history of depression with anxiety disorder resumed on lithium with lithium levels pending. -Underlying history of posttraumatic stress disorder -Underlying history of hypothyroidism -Underlying history of tobacco abuse GI prophylaxis DVT prophylaxis Full Code The impression and plan of care has been dictated by Nalini Diaz, Nurse Practitioner as directed. Dr. Bianca MD I have performed a history and physical examination and medical decision making of this patient, discussed the same with the dictator, and agree with the dictators assessment and plan as written, documented as a scribe. Based on total visit time, I have performed more than 50% of this visit. Objective - Vital Signs Vital signs: Vital Signs Temp 100 F H 05/26/23 08:00 Pulse 91 05/26/23 09:00 Resp 20 05/26/23 09:00 BP 103/76 05/26/23 09:00 Pulse Ox 98 05/26/23 09:00 FiO2 50 05/26/23 08:00 Intake & Output 05/25/23 05/26/23 05/26/23 18:59 06:59 18:59 Intake Total 2675.095 2006.856 606.112 Output Total 390 890 440 Balance 2285.095 1116.856 166.112 Weight 103 kg 89.7 kg Intake: IV 2325 1600 525 Dextrose 5% in Water 1, 700 1200 300 000 ml @ 100 mls/hr IV . [id number] CONCEPCION with Sodium Bicarb (1 Meq/ml) 150 ml Rx#:[id number] Piperacillin-Tazobactam 3 100 100 200 .375 gm In Sodium Chloride 0.9% 100 ml @ 25 mls/hr IVPB Q8H [facility] Rx#: [id number] carrier 1525 300 25 Intake, IV Titration 350.095 406.856 81.112 Amount Heparin Sod,Pork in 0.45% 128.057 119.845 NaCl 25,000 unit In 0.45 % NaCl 1 250ml.bag @ 9. 7087 UNITS/KG/HR 10 mls/ hr IV .Q24H [facility] Rx#: [id number] Insulin Regular 100 unit 16.913 12.027 In Sodium Chloride 0.9% 100 ml @ Titrate IV .Q0M [facility] Rx#:[id number] propofoL 1,000 mg In 205.125 274.984 81.112 Empty Bag 1 bag @ 15 MCG/ KG/MIN 9.27 mls/hr IV . [id number] [facility] Rx#:[id number] Output: Urine 390 890 440 Other: Voiding Method Indwelling Catheter Indwelling Catheter Indwelling Catheter ABP, PAP, CO, CI - Last Documented Arterial Blood Pressure 109/57 - Labs CBC & Chem 7: 05/26/23 05:45 05/26/23 11:30 Labs: Abnormal Lab Results - Last 24 Hours (Table) 05/25/23 05/25/23 05/25/23 Range/Units 02:48 07:16 07:16 WBC (3.8-10.6) k/uL RBC (3.80-5.40) m/uL Hgb (11.4-16.0) gm/dL Hct (34.0-46.0) % Neutrophils # 28.0 H (1.3-7.7) k/uL APTT 67.9 H (22.0-30.0) sec ABG pH (7.35-7.45) ABG HCO3 (21-25) mmol/L ABG Total CO2 (19-24) mmol/L ABG O2 Saturation (94-97) % Sodium (137-145) mmol/L BUN (7-17) mg/dL Creatinine (0.52-1.04) mg/dL Glucose (74-99) mg/dL POC Glucose (mg/dL) (70-110) mg/dL Plasma Lactic Acid Yoni (0.7-2.0) mmol/L Calcium (8.4-10.2) mg/dL AST (14-36) U/L ALT (4-34) U/L Lactate Dehydrogenase (120-246) U/L C-Reactive Protein (<1.0) mg/dL Total Protein (6.3-8.2) g/dL Albumin (3.5-5.0) g/dL Triglycerides 225.00 H (0.00-149.00) mg/dL Cholesterol 241.00 H (0.00-200.00) mg/dL LDL Cholesterol, Calc 166.3 H (0.0-131.0) mg/dL VLDL Cholesterol, Calc 45.00 H (5.00-40.00) mg/dL HDL Cholesterol 29.70 L (40.00-60.00) mg/dL 05/25/23 05/25/23 05/25/23 Range/Units 07:16 09:43 10:38 WBC (3.8-10.6) k/uL RBC (3.80-5.40) m/uL Hgb (11.4-16.0) gm/dL Hct (34.0-46.0) % Neutrophils # (1.3-7.7) k/uL APTT (22.0-30.0) sec ABG pH (7.35-7.45) ABG HCO3 (21-25) mmol/L ABG Total CO2 (19-24) mmol/L ABG O2 Saturation (94-97) % Sodium (137-145) mmol/L BUN (7-17) mg/dL Creatinine (0.52-1.04) mg/dL Glucose (74-99) mg/dL POC Glucose (mg/dL) 177 H 211 H (70-110) mg/dL Plasma Lactic Acid Yoni 4.8 H* (0.7-2.0) mmol/L Calcium (8.4-10.2) mg/dL AST (14-36) U/L ALT (4-34) U/L Lactate Dehydrogenase (120-246) U/L C-Reactive Protein (<1.0) mg/dL Total Protein (6.3-8.2) g/dL Albumin (3.5-5.0) g/dL Triglycerides (0.00-149.00) mg/dL Cholesterol (0.00-200.00) mg/dL LDL Cholesterol, Calc (0.0-131.0) mg/dL VLDL Cholesterol, Calc (5.00-40.00) mg/dL HDL Cholesterol (40.00-60.00) mg/dL 05/25/23 05/25/23 05/25/23 Range/Units 10:58 11:28 11:46 WBC 28.9 H (3.8-10.6) k/uL RBC (3.80-5.40) m/uL Hgb (11.4-16.0) gm/dL Hct (34.0-46.0) % Neutrophils # (1.3-7.7) k/uL APTT (22.0-30.0) sec ABG pH (7.35-7.45) ABG HCO3 (21-25) mmol/L ABG Total CO2 (19-24) mmol/L ABG O2 Saturation (94-97) % Sodium (137-145) mmol/L BUN (7-17) mg/dL Creatinine (0.52-1.04) mg/dL Glucose (74-99) mg/dL POC Glucose (mg/dL) 210 H (70-110) mg/dL Plasma Lactic Acid Yoni (0.7-2.0) mmol/L Calcium (8.4-10.2) mg/dL AST (14-36) U/L ALT (4-34) U/L Lactate Dehydrogenase 2062 H (120-246) U/L C-Reactive Protein (<1.0) mg/dL Total Protein (6.3-8.2) g/dL Albumin (3.5-5.0) g/dL Triglycerides (0.00-149.00) mg/dL Cholesterol (0.00-200.00) mg/dL LDL Cholesterol, Calc (0.0-131.0) mg/dL VLDL Cholesterol, Calc (5.00-40.00) mg/dL HDL Cholesterol (40.00-60.00) mg/dL 05/25/23 05/25/23 05/25/23 Range/Units 11:47 11:56 13:13 WBC (3.8-10.6) k/uL RBC (3.80-5.40) m/uL Hgb (11.4-16.0) gm/dL Hct (34.0-46.0) % Neutrophils # (1.3-7.7) k/uL APTT 44.8 H (22.0-30.0) sec ABG pH (7.35-7.45) ABG HCO3 (21-25) mmol/L ABG Total CO2 (19-24) mmol/L ABG O2 Saturation (94-97) % Sodium (137-145) mmol/L BUN (7-17) mg/dL Creatinine (0.52-1.04) mg/dL Glucose (74-99) mg/dL POC Glucose (mg/dL) 256 H 210 H (70-110) mg/dL Plasma Lactic Acid Yoni (0.7-2.0) mmol/L Calcium (8.4-10.2) mg/dL AST (14-36) U/L ALT (4-34) U/L Lactate Dehydrogenase (120-246) U/L C-Reactive Protein (<1.0) mg/dL Total Protein (6.3-8.2) g/dL Albumin (3.5-5.0) g/dL Triglycerides (0.00-149.00) mg/dL Cholesterol (0.00-200.00) mg/dL LDL Cholesterol, Calc (0.0-131.0) mg/dL VLDL Cholesterol, Calc (5.00-40.00) mg/dL HDL Cholesterol (40.00-60.00) mg/dL 05/25/23 05/25/23 05/25/23 Range/Units 13:53 14:10 14:10 WBC (3.8-10.6) k/uL RBC (3.80-5.40) m/uL Hgb (11.4-16.0) gm/dL Hct (34.0-46.0) % Neutrophils # (1.3-7.7) k/uL APTT 38.3 H (22.0-30.0) sec ABG pH (7.35-7.45) ABG HCO3 (21-25) mmol/L ABG Total CO2 (19-24) mmol/L ABG O2 Saturation (94-97) % Sodium (137-145) mmol/L BUN (7-17) mg/dL Creatinine (0.52-1.04) mg/dL Glucose (74-99) mg/dL POC Glucose (mg/dL) 196 H (70-110) mg/dL Plasma Lactic Acid Yoni (0.7-2.0) mmol/L Calcium (8.4-10.2) mg/dL AST (14-36) U/L ALT (4-34) U/L Lactate Dehydrogenase 2317 H (120-246) U/L C-Reactive Protein (<1.0) mg/dL Total Protein (6.3-8.2) g/dL Albumin (3.5-5.0) g/dL Triglycerides (0.00-149.00) mg/dL Cholesterol (0.00-200.00) mg/dL LDL Cholesterol, Calc (0.0-131.0) mg/dL VLDL Cholesterol, Calc (5.00-40.00) mg/dL HDL Cholesterol (40.00-60.00) mg/dL 05/25/23 05/25/23 05/25/23 Range/Units 15:13 15:57 17:19 WBC (3.8-10.6) k/uL RBC (3.80-5.40) m/uL Hgb (11.4-16.0) gm/dL Hct (34.0-46.0) % Neutrophils # (1.3-7.7) k/uL APTT (22.0-30.0) sec ABG pH (7.35-7.45) ABG HCO3 (21-25) mmol/L ABG Total CO2 (19-24) mmol/L ABG O2 Saturation (94-97) % Sodium (137-145) mmol/L BUN (7-17) mg/dL Creatinine (0.52-1.04) mg/dL Glucose (74-99) mg/dL POC Glucose (mg/dL) 151 H 133 H 155 H (70-110) mg/dL Plasma Lactic Acid Yoni (0.7-2.0) mmol/L Calcium (8.4-10.2) mg/dL AST (14-36) U/L ALT (4-34) U/L Lactate Dehydrogenase (120-246) U/L C-Reactive Protein (<1.0) mg/dL Total Protein (6.3-8.2) g/dL Albumin (3.5-5.0) g/dL Triglycerides (0.00-149.00) mg/dL Cholesterol (0.00-200.00) mg/dL LDL Cholesterol, Calc (0.0-131.0) mg/dL VLDL Cholesterol, Calc (5.00-40.00) mg/dL HDL Cholesterol (40.00-60.00) mg/dL 05/25/23 05/25/23 05/25/23 Range/Units 17:37 17:37 17:37 WBC (3.8-10.6) k/uL RBC (3.80-5.40) m/uL Hgb (11.4-16.0) gm/dL Hct (34.0-46.0) % Neutrophils # (1.3-7.7) k/uL APTT 93.7 H (22.0-30.0) sec ABG pH (7.35-7.45) ABG HCO3 (21-25) mmol/L ABG Total CO2 (19-24) mmol/L ABG O2 Saturation (94-97) % Sodium (137-145) mmol/L BUN (7-17) mg/dL Creatinine (0.52-1.04) mg/dL Glucose (74-99) mg/dL POC Glucose (mg/dL) (70-110) mg/dL Plasma Lactic Acid Yoni 2.2 H* (0.7-2.0) mmol/L Calcium (8.4-10.2) mg/dL AST (14-36) U/L ALT (4-34) U/L Lactate Dehydrogenase 2397 H (120-246) U/L C-Reactive Protein (<1.0) mg/dL Total Protein (6.3-8.2) g/dL Albumin (3.5-5.0) g/dL Triglycerides (0.00-149.00) mg/dL Cholesterol (0.00-200.00) mg/dL LDL Cholesterol, Calc (0.0-131.0) mg/dL VLDL Cholesterol, Calc (5.00-40.00) mg/dL HDL Cholesterol (40.00-60.00) mg/dL 05/25/23 05/25/23 05/25/23 Range/Units 18:09 19:01 20:02 WBC (3.8-10.6) k/uL RBC (3.80-5.40) m/uL Hgb (11.4-16.0) gm/dL Hct (34.0-46.0) % Neutrophils # (1.3-7.7) k/uL APTT (22.0-30.0) sec ABG pH (7.35-7.45) ABG HCO3 (21-25) mmol/L ABG Total CO2 (19-24) mmol/L ABG O2 Saturation (94-97) % Sodium (137-145) mmol/L BUN (7-17) mg/dL Creatinine (0.52-1.04) mg/dL Glucose (74-99) mg/dL POC Glucose (mg/dL) 152 H 169 H 171 H (70-110) mg/dL Plasma Lactic Acid Yoni (0.7-2.0) mmol/L Calcium (8.4-10.2) mg/dL AST (14-36) U/L ALT (4-34) U/L Lactate Dehydrogenase (120-246) U/L C-Reactive Protein (<1.0) mg/dL Total Protein (6.3-8.2) g/dL Albumin (3.5-5.0) g/dL Triglycerides (0.00-149.00) mg/dL Cholesterol (0.00-200.00) mg/dL LDL Cholesterol, Calc (0.0-131.0) mg/dL VLDL Cholesterol, Calc (5.00-40.00) mg/dL HDL Cholesterol (40.00-60.00) mg/dL 05/25/23 05/25/23 05/25/23 Range/Units 21:02 21:45 21:45 WBC (3.8-10.6) k/uL RBC (3.80-5.40) m/uL Hgb (11.4-16.0) gm/dL Hct (34.0-46.0) % Neutrophils # (1.3-7.7) k/uL APTT 48.0 H (22.0-30.0) sec ABG pH (7.35-7.45) ABG HCO3 (21-25) mmol/L ABG Total CO2 (19-24) mmol/L ABG O2 Saturation (94-97) % Sodium (137-145) mmol/L BUN (7-17) mg/dL Creatinine (0.52-1.04) mg/dL Glucose (74-99) mg/dL POC Glucose (mg/dL) 153 H (70-110) mg/dL Plasma Lactic Acid Yoni (0.7-2.0) mmol/L Calcium (8.4-10.2) mg/dL AST (14-36) U/L ALT (4-34) U/L Lactate Dehydrogenase 2327 H (120-246) U/L C-Reactive Protein (<1.0) mg/dL Total Protein (6.3-8.2) g/dL Albumin (3.5-5.0) g/dL Triglycerides (0.00-149.00) mg/dL Cholesterol (0.00-200.00) mg/dL LDL Cholesterol, Calc (0.0-131.0) mg/dL VLDL Cholesterol, Calc (5.00-40.00) mg/dL HDL Cholesterol (40.00-60.00) mg/dL 05/25/23 05/25/23 05/25/23 Range/Units 21:45 21:46 22:50 WBC (3.8-10.6) k/uL RBC (3.80-5.40) m/uL Hgb (11.4-16.0) gm/dL Hct (34.0-46.0) % Neutrophils # (1.3-7.7) k/uL APTT (22.0-30.0) sec ABG pH (7.35-7.45) ABG HCO3 (21-25) mmol/L ABG Total CO2 (19-24) mmol/L ABG O2 Saturation (94-97) % Sodium (137-145) mmol/L BUN (7-17) mg/dL Creatinine (0.52-1.04) mg/dL Glucose (74-99) mg/dL POC Glucose (mg/dL) 125 H 128 H (70-110) mg/dL Plasma Lactic Acid Yoni 2.3 H* (0.7-2.0) mmol/L Calcium (8.4-10.2) mg/dL AST (14-36) U/L ALT (4-34) U/L Lactate Dehydrogenase (120-246) U/L C-Reactive Protein (<1.0) mg/dL Total Protein (6.3-8.2) g/dL Albumin (3.5-5.0) g/dL Triglycerides (0.00-149.00) mg/dL Cholesterol (0.00-200.00) mg/dL LDL Cholesterol, Calc (0.0-131.0) mg/dL VLDL Cholesterol, Calc (5.00-40.00) mg/dL HDL Cholesterol (40.00-60.00) mg/dL 05/26/23 05/26/23 05/26/23 Range/Units 00:08 00:59 02:07 WBC (3.8-10.6) k/uL RBC (3.80-5.40) m/uL Hgb (11.4-16.0) gm/dL Hct (34.0-46.0) % Neutrophils # (1.3-7.7) k/uL APTT (22.0-30.0) sec ABG pH (7.35-7.45) ABG HCO3 (21-25) mmol/L ABG Total CO2 (19-24) mmol/L ABG O2 Saturation (94-97) % Sodium (137-145) mmol/L BUN (7-17) mg/dL Creatinine (0.52-1.04) mg/dL Glucose (74-99) mg/dL POC Glucose (mg/dL) 141 H 141 H 122 H (70-110) mg/dL Plasma Lactic Acid Yoni (0.7-2.0) mmol/L Calcium (8.4-10.2) mg/dL AST (14-36) U/L ALT (4-34) U/L Lactate Dehydrogenase (120-246) U/L C-Reactive Protein (<1.0) mg/dL Total Protein (6.3-8.2) g/dL Albumin (3.5-5.0) g/dL Triglycerides (0.00-149.00) mg/dL Cholesterol (0.00-200.00) mg/dL LDL Cholesterol, Calc (0.0-131.0) mg/dL VLDL Cholesterol, Calc (5.00-40.00) mg/dL HDL Cholesterol (40.00-60.00) mg/dL 05/26/23 05/26/23 05/26/23 Range/Units 03:55 05:45 05:45 WBC 22.9 H (3.8-10.6) k/uL RBC 3.04 L (3.80-5.40) m/uL Hgb 9.1 L D (11.4-16.0) gm/dL Hct 26.9 L (34.0-46.0) % Neutrophils # 18.9 H (1.3-7.7) k/uL APTT (22.0-30.0) sec ABG pH (7.35-7.45) ABG HCO3 (21-25) mmol/L ABG Total CO2 (19-24) mmol/L ABG O2 Saturation (94-97) % Sodium 135 L (137-145) mmol/L BUN 18 H (7-17) mg/dL Creatinine 1.10 H (0.52-1.04) mg/dL Glucose 114 H (74-99) mg/dL POC Glucose (mg/dL) 135 H (70-110) mg/dL Plasma Lactic Acid Yoni (0.7-2.0) mmol/L Calcium 7.5 L (8.4-10.2) mg/dL AST 343 H (14-36) U/L ALT 77 H (4-34) U/L Lactate Dehydrogenase 1963 H (120-246) U/L C-Reactive Protein 8.9 H (<1.0) mg/dL Total Protein 4.9 L (6.3-8.2) g/dL Albumin 2.6 L (3.5-5.0) g/dL Triglycerides (0.00-149.00) mg/dL Cholesterol (0.00-200.00) mg/dL LDL Cholesterol, Calc (0.0-131.0) mg/dL VLDL Cholesterol, Calc (5.00-40.00) mg/dL HDL Cholesterol (40.00-60.00) mg/dL 05/26/23 05/26/23 05/26/23 Range/Units 05:45 05:51 06:15 WBC (3.8-10.6) k/uL RBC (3.80-5.40) m/uL Hgb (11.4-16.0) gm/dL Hct (34.0-46.0) % Neutrophils # (1.3-7.7) k/uL APTT 40.1 H (22.0-30.0) sec ABG pH 7.48 H (7.35-7.45) ABG HCO3 26 H (21-25) mmol/L ABG Total CO2 27 H (19-24) mmol/L ABG O2 Saturation 97.8 H (94-97) % Sodium (137-145) mmol/L BUN (7-17) mg/dL Creatinine (0.52-1.04) mg/dL Glucose (74-99) mg/dL POC Glucose (mg/dL) 135 H (70-110) mg/dL Plasma Lactic Acid Yoni (0.7-2.0) mmol/L Calcium (8.4-10.2) mg/dL AST (14-36) U/L ALT (4-34) U/L Lactate Dehydrogenase (120-246) U/L C-Reactive Protein (<1.0) mg/dL Total Protein (6.3-8.2) g/dL Albumin (3.5-5.0) g/dL Triglycerides (0.00-149.00) mg/dL Cholesterol (0.00-200.00) mg/dL LDL Cholesterol, Calc (0.0-131.0) mg/dL VLDL Cholesterol, Calc (5.00-40.00) mg/dL HDL Cholesterol (40.00-60.00) mg/dL 05/26/23 Range/Units 09:24 WBC (3.8-10.6) k/uL RBC (3.80-5.40) m/uL Hgb (11.4-16.0) gm/dL Hct (34.0-46.0) % Neutrophils # (1.3-7.7) k/uL APTT (22.0-30.0) sec ABG pH (7.35-7.45) ABG HCO3 (21-25) mmol/L ABG Total CO2 (19-24) mmol/L ABG O2 Saturation (94-97) % Sodium (137-145) mmol/L BUN (7-17) mg/dL Creatinine (0.52-1.04) mg/dL Glucose (74-99) mg/dL POC Glucose (mg/dL) 130 H (70-110) mg/dL Plasma Lactic Acid Yoni (0.7-2.0) mmol/L Calcium (8.4-10.2) mg/dL AST (14-36) U/L ALT (4-34) U/L Lactate Dehydrogenase (120-246) U/L C-Reactive Protein (<1.0) mg/dL Total Protein (6.3-8.2) g/dL Albumin (3.5-5.0) g/dL Triglycerides (0.00-149.00) mg/dL Cholesterol (0.00-200.00) mg/dL LDL Cholesterol, Calc (0.0-131.0) mg/dL VLDL Cholesterol, Calc (5.00-40.00) mg/dL HDL Cholesterol (40.00-60.00) mg/dL Microbiology - Last 24 Hours (Table) 05/25/23 06:51 Gram Stain - Preliminary Sputum Assessment and Plan Time with Patient: Less than 30
--- NOTE | 2023-05-26 22:13 | PN ---
PROGRESS NOTE HISTORY OF PRESENT ILLNESS: Mecca is a 43-year-old lady, who was admitted to hospital with cardiac arrest and anterior wall myocardial infarction. The cardiac catheterization revealed an occluded proximal LAD, for which she was stented. The patient is currently intubated on vent and has Impella device. This is going to be removed today. She is stable hemodynamically. PHYSICAL EXAMINATION: VITAL SIGNS: Heart rate is 80 beats per minute. Blood pressure is 106/57. Respiratory rate is 18. CHEST: Reveals good air entry bilaterally without any crackles or rhonchi. HEART: Reveals first and second heart sounds. No gallop. EXTREMITIES: Did not reveal any edema. LABORATORY DATA: Echocardiogram shows severe LV systolic dysfunction. Labs show a hemoglobin of 9.1, potassium is 3.5, creatinine is 1.1. ASSESSMENT: Acute anterior wall myocardial infarction, status post cath and angioplasty of left anterior descending, ischemic cardiomyopathy with severe LV dysfunction. PLAN: Impella device will be removed today. She will continue rest of her medications. MMODL / IJN: [id number] /
--- NOTE | 2023-05-26 22:24 | P.PCN ---
Description of Procedure: PROCEDURES PERFORMED: Removal of Impella INDICATION: Cardiogenic shock with previous Impella placement PROCEDURE: After the risks, benefits and alternatives of the above mentioned procedure explained in detail, informed consent was obtained. Patient was taken to the catheterization lab and prepped and draped in usual fashion. The Impella CP had the sheath removed previously. The Impella was turned down to P2 and taken out of the LV and then truned off. The side wire port was used to exchange the Impella for a 14Fr sheath. There was no preclose and therefore 2 0.035 wires were placed. A 8Fr sheath was placed in one wire and then a Perclose was placed on the other wire to allow for better shipyard painter of arteriotomy. Next, the 8Fr sheath was placed on the other wire and again a 2nd Perclose was placed on the other 0.035 wire. One of the Perclose sutures did not shipyard painter however with tightening the other suture, there was hemostasis achieved. A femstop was placed. The patient tolerated the procedure well. Patient was transported back to the post catheterization holding area in stable condition. FINAL IMPRESSION: 1. S/p removal of Impella from right femoral site PLAN: 1. Monitor femoral arteriotomy site closely
[2023-05-26 23:05] LABS: Glucose,Whole Blood 122 mg/dL (70-110)
[2023-05-27] MEDS: HYDROmorphone 0.5 MG/0.5 ML SYRINGE IVP PRN ×5 (03:09→23:04)
[2023-05-27 05:33] LABS: Glucose,Whole Blood 120 mg/dL (70-110)
[2023-05-27] MEDS: INSULIN ASPART (NovoLOG) 100 UNIT/ML VIAL SQ SCH ×4 (05:33→23:54)
[2023-05-27] MEDS: SODIUM CHLORIDE 0.9% 1,000 ML in EMPTY BAG 1 BAG IV SCH ×2 (05:33→18:48)
[2023-05-27 05:48] LABS: Basophils % (A) 0 %; Eosinophils # (A) 0.2 k/uL (0-0.7); Eosinophils % (A) 1 %; HCT 22.9 % (34.0-46.0); HGB 7.7 gm/dL (11.4-16.0); Lymphocytes # (A) 2.4 k/uL (1.0-4.8); Lymphocytes % (A) 15 %; MCH 30.1 pg (25.0-35.0); MCHC 33.8 g/dL (31.0-37.0); Mean Platelet Volume 8.5; Monocytes # (A) 0.5 k/uL (0-1.0); Monocytes % (A) 3 %; Neutrophils # (A) 13.1 k/uL (1.3-7.7); Neutrophils % (A) 81 %; Platelet Count 176 k/uL (150-450); RBC 2.57 m/uL (3.80-5.40); RDW 14.9 % (11.5-15.5); WBC 16.3 k/uL (3.8-10.6)
[2023-05-27 06:05] LABS: ALT 54 U/L (4-34); AST 122 U/L (14-36); African American GFR (CKD) 72 (>60 ml/min/1.73 sqM); Albumin 2.7 g/dL (3.5-5.0); Alkaline Phosphatase 67 U/L (38-126); Anion Gap 3 mmol/L; Blood Urea Nitrogen 15 mg/dL (7-17); Calcium 7.7 mg/dL (8.4-10.2); Carbon Dioxide 27 mmol/L (22-30); Chloride 108 mmol/L (98-107); Glucose 99 mg/dL (74-99); Non-African American GFR(CKD) 62 (>60 ml/min/1.73 sqM); Potassium 3.8 mmol/L (3.5-5.1); Sodium 138 mmol/L (137-145); Total Bilirubin 0.6 mg/dL (0.2-1.3); Total Protein 5.1 g/dL (6.3-8.2)
[2023-05-27] MEDS: PIPERACILLIN-TAZOBACTAM 3.375 GM in SODIUM CHLORIDE 0.9% 100 ML IVPB SCH ×3 (06:05→23:05)
[2023-05-27] MEDS: LEVOTHYROXINE 100 MCG TAB PO SCH (06:05)
[2023-05-27 06:26] LABS: ABG Base Excess 1.7 mmol/L; ABG HCO3 25 mmol/L (21-25); ABG Oxygen Saturation 99.2 % (94-97); ABG PCO2 32 mmHg (35-45); ABG PO2 116 mmHg (83-108); Allen Test Performed? Yes
[2023-05-27] MEDS ORDERED: POTASSIUM BICARBONATE/CIT AC 20 MEQ TABLET.EFF NG-TUBE SCH (08:00)
[2023-05-27] MEDS: ASPIRIN 81 MG PO SCH (08:04)
[2023-05-27] MEDS: SPIRONOLACTONE 25 MG TAB PO SCH (08:04)
[2023-05-27] MEDS: CHLORHEXIDINE GLUCONATE 15 ML CUP MUCOUS MEM SCH ×2 (08:15→22:42)
[2023-05-27] MEDS: LITHIUM CARBONATE 300 MG CAP PO SCH ×2 (08:16→21:55)
[2023-05-27] MEDS: DAPAGLIFLOZIN PROPANEDIOL 10 MG TABLET PO SCH (08:16)
[2023-05-27] MEDS: PRASUGREL 10 MG TAB PO SCH (08:17)
--- NOTE | 2023-05-27 09:31 | XR ---
EXAMINATION TYPE: XR chest 1V portable DATE OF EXAM: 05/27/2023 Comparison: 05/26/2023 Clinical History: 43-year-old female Tube placement Findings: ET tube tip at the medial clavicular heads. Left subclavian CVC tip upper right atrium. Heart borderl ine in size. Interstitial density shows slight improvement. Patchy opacity at the inferior lingula. R emoval of left ventricular assist device. NG tube courses below the diaphragm. No pleural effusion. Impression: Interval removal of left ventricular assist device. There is residual mild pulmonary vascular congest ion with some improvement in the previous interstitial edema. Some patchy opacity, probably patchy ed bear remains at the inferior lingular.
--- NOTE | 2023-05-27 11:08 | P.PN ---
Subjective Progress Note Date: 05/27/23 I am seeing this patient in new consultation today 05/25/2023 in the intensive care unit following an out of hospital cardiac arrest. Patient is a 43-year-old white female with no known cardiac history. She is on multiple psychiatric medications at home. Patient is currently intubated on mechanical ventilator and unable to provide any information. Apparently, the patient was complaining of epigastric pain and nausea throughout the day yesterday. Earlier this morning the patient's significant other woke up to her shaking in bed and unresponsive. CPR was initiated by a neighbor who is apparently a fruit rancher, and patient was defibrillated once EMS arrived. On arrival to emergency room, patient was intubated by the ER physician. She was unresponsive, she had copious emesis, and likely aspirated. ECG showed ST elevation and Q waves in the anterior-septal leads, and a code STEMI was initiated. Patient was taken to [facility] where she received successful stenting of the proximal LAD, stenting of the left main and left circumflex secondary to dissection in the left main. Patient subsequently had an Impella catheter placed. She was transferred to the intensive care unit in critical condition. Chest CTA done in the emergency room showed a small 10-15% left sided pneumotho rax. No large central pulmonary embolism was visualized. The ET tube was within the right mainstem bronchus. There was scattered patchy airspace opacities in the posterior upper lobes and more prominently in the lower lobes with air bronchograms. Likely consistent with aspiration/aspiration pneumonia. Patient currently intubated on mechanical ventilator. Current ventilator settings are assist control, respiratory rate 20, tidal volume 450, FiO2 100%, and PEEP of 8. ABGs done on the settings show a pH of 7.32, pCO2 of 31, pO2 of 79. Repeat chest x-ray does not show any enlargement of the left sided pneumothorax. The endotracheal tube is now approximately 3-4 cm above the alisha. There are diffuse bilateral multifocal infiltrates. CBC demonstrates leukocytosis with a WBC count of 22.6, hemoglobin 12.2, hematocrit 38.9, platelets 395. BMP a sodium of 137, potassium 3.5, chloride 109, serum bicarb 10, BUN 15, creatinine 1.35, glucose 315. Troponins 0.145. NT proBNP 315. Patient is sedated and unresponsive on the mechanical ventilator. She is breathing above set rate. Does not follow commands. She is sedated on propofol at 30 mcg/kg/m. Brain CT on arrival did not show any acute intracranial hemorrhage or mass effect. Blood pressure is stable. Not requiring vasopres sors. She is tachycardic. Urine output is anuric. Impella is inserted through the right groin, set at P9. 3.9 L of flow. Baseline coags are unremarkable. Patient will be started on IV heparin per protocol. Patient's prognosis is guarded, and she is currently in critical condition. There was a concern for an underlying pneumothorax. I reviewed the chest x-ray the chest x-ray showing diffuse but the pulmonary infiltrates. This is consistent with acute cardiogenic pulmonary edema it underlying aspiration cannot be completely excluded. I reviewed the CAT scan of the chest, there may be a very tiny left anterior pneumothorax not clearly seen on today's chest x- ray. This will be monitored very closely. The patient is currently intubated on a mechanical ventilator. The patient is on propofol which is running at 35 mcg/kg/m. She is adequately sedated and suggest a mechanical ventilator. She is covered with antibiotics and she is currently on IV Zosyn. She is on no pressors at this point in time. Cardiac rhythm is sinus tachycardia. On today's evaluation of 05/26/2023, the patient is being seen for a follow-up. The patient remains intubated on a mechanical ventilator. This morning, she is on propofol running at 35 mcg/kg/m and she is calm and comfortable. She response to stimulation. She was also painful stimulation in all 4 extremities. At the same time, the patient remains on a mechanical ventilator on assist control mode at the rate of 20, tidal volume of 450, FiO2 of 50% and a PEEP of 5. The chest x-ray from this morning is showing evidence of diffuse bilateral pulmonary infiltrates consistent with pulmonary edema. The ET tube is in a good location. The patient also has a left sided subclavian triple-lumen catheter in place. No evidence of any significant pneumothorax. There is interval improvement in the pulmonary edema on today's chest x-ray compared to yesterday. The blood gas showed a pH of 7.48 with a pCO2 of 35 and pO2 of 90. In terms of hemodynamics, the patient is on no pressors. ImPela supports is still ongoing although she has been switched from P9 to PT for and currently she is on P2 support. The flow is at 1.8 L/m. The Augmentin blood pressure is 91/58. She is producing urine output and the fluid balance over the past 24 hours has been +3.4 L. Nevertheless, the patient is producing 100 mL an hour of urine output and she produced approximately 1.2 L of urine output for yesterday. Pulses are present lower extremities bilaterally. The patient is currently on a combination of aspirin and Effient. Aldactone was also added. The patient is receiving and panic antibiotic coverage with IV Zosyn. IV fluids are in the form of bicarb infusion at the rate of 100 mL an hour. This will be discontinued. BUN is at 80 with a creatinine of 1.1. Sodiums of 135, serum bicarb is at 24, the white cell count is 22.9 with a hemoglobin of 9.1 and a platelet count of 224. A limited echocardiogram was done yesterday and the patient was told to have a LV ejection fraction severely impaired estimated to be at around 25. She is also off the insulin drip. Blood sugars under better control for now. On today's evaluation of 05/27/2023 pounds in the patient for a follow-up. The patient is doing well. The Impella was removed yesterday without any major difficulties. No evidence of any bleeding at the insertion site. The patient has such is hemodynamically stable. No pressors at this point in time. She is producing adequate amount of urine output. This morning, she is on propofol running at 30 microvascular kilogram per minute. She is on assist-control mode at a rate of 20, tidal volume of 450, FiO2 of 50% with a PEEP of 8. Blood gas show a pH of 7.5 with a pCO2 of 32 and pO2 of 116. The chest x-ray shows improvement of the previously described pulmonary edema. ET tube is in a good location. The patient is producing adequate amount of urine output. Her urine output was up to 100 mL an hour. The fluid Balance over the past 24 hours is - 1.1 L. The patient's echoes at 16.3, hemoglobin is at 7.7 which is essentially dropped since admission. No evidence of any acute bleeding at this point in time. BUN is at 15 with a creatinine of 1.1 and a sodium level is at 138. The patient is currently receiving a sedation holiday. Propofol discontinued and her readiness to wean will be evaluated. She remains on IV Zosyn. She remains on a combination of aspirin and Effient. She was also started on metoprolol 25 mg by mouth twice a day. She is not receiving any enteral feeding at this point in time. Objective - Vital Signs Vital signs: Vital Signs Temp 99.6 F 05/27/23 08:00 Pulse 91 05/27/23 10:30 Resp 20 05/27/23 10:30 BP 94/62 05/27/23 10:30 Pulse Ox 99 05/27/23 10:30 FiO2 50 05/27/23 10:10 Intake & Output 05/26/23 05/27/23 05/27/23 18:59 06:59 18:59 Intake Total 997.316 582.689 216.876 Output Total 1695 990 305 Balance -697.684 -407.311 -88.124 Weight 89.7 kg 91.2 kg Intake: IV 695 220 140 Dextrose 5% in Water 1, 400 000 ml @ 100 mls/hr IV . [id number] [facility] with Sodium Bicarb (1 Meq/ml) 150 ml Rx#:[id number] Piperacillin-Tazobactam 3 200 100 100 .375 gm In Sodium Chloride 0.9% 100 ml @ 25 mls/hr IVPB Q8H [facility] Rx#: [id number] carrier 85 120 40 Intake, IV Titration 302.316 362.689 76.876 Amount Heparin Sod,Pork in 0.45% 55.682 NaCl 25,000 unit In 0.45 % NaCl 1 250ml.bag @ 9. 7087 UNITS/KG/HR 10 mls/ hr IV .Q24H [facility] Rx#: [id number] propofoL 1,000 mg In 246.634 362.689 76.876 Empty Bag 1 bag @ 15 MCG/ KG/MIN 9.27 mls/hr IV . [id number] [facility] Rx#:[id number] Output: Urine 1695 990 305 Other: Voiding Method Indwelling Catheter Indwelling Catheter Indwelling Catheter ABP, PAP, CO, CI - Last Documented Arterial Blood Pressure 87/54 - Exam GENERAL EXAM: Sedated intubated on mechanical ventilator, orogastric and orotracheal tube are both in place HEAD: Normocephalic and atraumatic EYES: Normal reaction of pupils, equal size. NOSE: Clear with pink turbinates. THROAT: No erythema or exudates. NECK: No masses, no JVD. CHEST: No chest wall deformity. LUNGS: Lungs were clear to auscultation and percussion, and with normal diaphragmatic excursion. No wheezes or rales were noted. CVS: S1 and S2 normal with no audible murmur, regular rhythm. No extra heart sounds ABDOMEN: No hepatosplenomegaly, active bowel sounds, no guarding or rigidity. SPINE: No scoliosis or deformity SKIN: No rashes CENTRAL NERVOUS SYSTEM: Sedated and unresponsive, extremities are flaccid, pupils are round 5 mm in size and reactive to light. The patient has spontaneous breathing above the mechanical ventilator. Sensorimotor functions cannot be assessed. No clonus. No Babinski. The patient withdraws to painful stimulation all 4 extremities. She is quite active. Pupils are equal and reactive to light. Neurologic exam is unchanged. EXTREMITIES: There is no peripheral edema, clubbing, or cyanosis. Peripheral pulses are weak but intact. Pulses are diminished - Labs CBC & Chem 7: 05/27/23 05:23 05/27/23 05:23 Labs: Abnormal Lab Results - Last 24 Hours (Table) 05/26/23 05/26/23 05/26/23 Range/Units 05:45 11:30 11:30 WBC (3.8-10.6) k/uL RBC (3.80-5.40) m/uL Hgb (11.4-16.0) gm/dL Hct (34.0-46.0) % Neutrophils # (1.3-7.7) k/uL APTT 47.2 H (22.0-30.0) sec ABG pH (7.35-7.45) ABG pCO2 (35-45) mmHg ABG pO2 (83-108) mmHg ABG O2 Saturation (94-97) % Chloride (98-107) mmol/L Creatinine (0.52-1.04) mg/dL POC Glucose (mg/dL) (70-110) mg/dL Calcium (8.4-10.2) mg/dL AST (14-36) U/L ALT (4-34) U/L Lactate Dehydrogenase 1820 H (120-246) U/L Total Protein (6.3-8.2) g/dL Albumin (3.5-5.0) g/dL Procalcitonin 0.65 H (0.02-0.09) ng/mL 05/26/23 05/26/23 05/26/23 Range/Units 11:34 18:07 23:01 WBC (3.8-10.6) k/uL RBC (3.80-5.40) m/uL Hgb (11.4-16.0) gm/dL Hct (34.0-46.0) % Neutrophils # (1.3-7.7) k/uL APTT (22.0-30.0) sec ABG pH (7.35-7.45) ABG pCO2 (35-45) mmHg ABG pO2 (83-108) mmHg ABG O2 Saturation (94-97) % Chloride (98-107) mmol/L Creatinine (0.52-1.04) mg/dL POC Glucose (mg/dL) 116 H 117 H 122 H (70-110) mg/dL Calcium (8.4-10.2) mg/dL AST (14-36) U/L ALT (4-34) U/L Lactate Dehydrogenase (120-246) U/L Total Protein (6.3-8.2) g/dL Albumin (3.5-5.0) g/dL Procalcitonin (0.02-0.09) ng/mL 05/27/23 05/27/23 05/27/23 Range/Units 05:23 05:23 05:32 WBC 16.3 H (3.8-10.6) k/uL RBC 2.57 L (3.80-5.40) m/uL Hgb 7.7 L (11.4-16.0) gm/dL Hct 22.9 L (34.0-46.0) % Neutrophils # 13.1 H (1.3-7.7) k/uL APTT (22.0-30.0) sec ABG pH (7.35-7.45) ABG pCO2 (35-45) mmHg ABG pO2 (83-108) mmHg ABG O2 Saturation (94-97) % Chloride 108 H (98-107) mmol/L Creatinine 1.11 H (0.52-1.04) mg/dL POC Glucose (mg/dL) 120 H (70-110) mg/dL Calcium 7.7 L (8.4-10.2) mg/dL AST 122 H (14-36) U/L ALT 54 H (4-34) U/L Lactate Dehydrogenase (120-246) U/L Total Protein 5.1 L (6.3-8.2) g/dL Albumin 2.7 L (3.5-5.0) g/dL Procalcitonin (0.02-0.09) ng/mL 05/27/23 Range/Units 06:19 WBC (3.8-10.6) k/uL RBC (3.80-5.40) m/uL Hgb (11.4-16.0) gm/dL Hct (34.0-46.0) % Neutrophils # (1.3-7.7) k/uL APTT (22.0-30.0) sec ABG pH 7.50 H (7.35-7.45) ABG pCO2 32 L (35-45) mmHg ABG pO2 116 H (83-108) mmHg ABG O2 Saturation 99.2 H (94-97) % Chloride (98-107) mmol/L Creatinine (0.52-1.04) mg/dL POC Glucose (mg/dL) (70-110) mg/dL Calcium (8.4-10.2) mg/dL AST (14-36) U/L ALT (4-34) U/L Lactate Dehydrogenase (120-246) U/L Total Protein (6.3-8.2) g/dL Albumin (3.5-5.0) g/dL Procalcitonin (0.02-0.09) ng/mL Microbiology - Last 24 Hours (Table) 05/25/23 06:51 Gram Stain - Final Sputum Sputum Culture - Final 05/25/23 07:16 Blood Culture - Preliminary Blood 05/25/23 11:28 Blood Culture - Preliminary Blood Assessment and Plan Plan: Out of hospital cardiac arrest, downtime is unknown. The patient had a likely metastatic atrial fibrillation/tachycardia the patient was defibrillated on the scene, CPR was continued and the patient was intubated in the emergency department. Cardiac arrest secondary to acute ST segment elevation myocardial infarction. The patient underwent emergent cardiac catheterization stenting complicated by a dissection of the left main. And the patient underwent further stenting of the left main and left circumflex secondary to this dissection. Impella was also inserted and was subsequently removed on 05/26/2023 without any complication and the patient remains hemodynamically stable Acute ST elevation AR, patient did receive successful stenting of the proximal LAD with stenting of the left main and left circumflex secondary to dissection of the left main. Severe cardiomyopathy, likely ischemic with an ejection fraction of 20-25% Acute pulmonary edema with Diffuse bilateral pulmonary infiltrates, improved on today's evaluation and the chest x-ray findings are improved. Oxygenation is stable. The blood gas from today is showing a component of respiratory alkalosis Acute hypoxic respiratory failure, currently intubated on mechanical ventilator secondary to above, chest x-ray and blood gases are noted Small left-sided pneumothorax estimated at 10-15%, likely secondary to CPR, no need for chest tube at this time, this is likely related to CPR. No evidence of any tension or hemodynamic compromise related to the pneumothorax. Metabolic anion gap acidosis, recovered Acute anemia, likely blood loss anemia and this could be also related to intravascular hemolysis due to Impella. No evidence of any bleed in her right groin area. Acute kidney injury, secondary to hypoperfusion and acute tubular necrosis, recovered and the patient is producing adequate amount of urine output. C reatinine is improved Mild transaminitis, secondary to hypoperfusion Leukocytosis, improving Hypothyroidism History of depression/anxiety/PTSD Plan: Continue ventilator support Sedation holiday Assessment and status and the concern of possible anoxic encephalopathy. We'll check weaning parameters We'll give the patient spontaneous breathing trial if the mentation is adequate and the weaning parameters are adequate The Impella was removed yesterday No need for diuretics and the patient is producing adequate amount of urine output Continue empiric antibiotic coverage with IV Zosyn IV fluids at KVO Monitor the hemoglobin knowing that there was a hemoglobin drop down to 7.7. No evidence of any bleeding Monitor renal function. The renal function is improving Continue aspirin Continue Effient Continue metoprolol Continue IV heparin Monitor urine output, watch hematuria , hematuria is recovered Monitor mental status, suspect hypoxic encephalopathy post cardiac arrest Monitor left-sided pneumothorax, no need for chest tube insertion at this point in time Condition is critical and we'll continue to follow make further recommendations based on her progress, and is a critical care evaluation that was done in more than 30 minutes Time with Patient: Greater than 30
[2023-05-27] MEDS: METOPROLOL TARTRATE 25 MG TAB PO SCH ×2 (11:26→22:42)
[2023-05-27 12:01] LABS: Glucose,Whole Blood 128 mg/dL (70-110)
[2023-05-27 13:10] LABS: Glucose,Whole Blood 114 mg/dL (70-110)
[2023-05-27] MEDS ORDERED: ACETAMINOPHEN IV (For NPO) 1,000 MG in EMPTY BAG 1 BAG IVPB STA (13:42)
--- NOTE | 2023-05-27 13:53 | PN ---
PROGRESS NOTE SUBJECTIVE: This 43-year-old lady was admitted to hospital with acute myocardial infarction and cardiogenic shock, underwent cardiac catheterization, angioplasty of the LAD and had an Impella device placed. This was taken out yesterday. She is still intubated on vent and currently plans are to extubate her. MEDICATIONS: She is on, 1. Aspirin. 2. Lipitor. 3. Lopressor 25 b.i.d. 4. Effient. OBJECTIVE: GENERAL: The patient is intubated, sedated. VITAL SIGNS: Heart rate is 100 beats per minute, blood pressure is 103/65, respiratory rate 18. CHEST: Reveals diminished air entry at the bases. HEART: Reveals first and second heart sounds, no gallop. EXTREMITIES: Did not reveal any edema. LABORATORY DATA: Labs show a creatinine of 1.1, hemoglobin is 7.7. ASSESSMENT: 1. Status post cardiac arrest secondary to myocardial infarction. The patient is status post catheterization and angioplasty. 2. Ischemic cardiomyopathy with severe LV dysfunction. 3. Vent-requiring respiratory failure. PLAN: The patient will be weaned and extubated hopefully later today. Continue current medications. MMODL / IJN: [id number] /
[2023-05-27] MEDS: DEXMEDETOMIDINE/0.9% NACL(PMX) 400 MCG in EMPTY BAG 1 BAG IV SCH (13:55)
[2023-05-27] MEDS ORDERED: MONTELUKAST 10 MG TAB PO PRN (17:35)
--- NOTE | 2023-05-27 17:43 | P.PN ---
Subjective Progress Note Date: 05/27/23 Mecca Tam, is a 43-year-old female, who was found unresponsive at home, CPR was initiated by a neighbor who is a medical technician assistant, EMS were called and patient was defibrillated and brought into emergency room, she was intubated in the emergency room, EKG revealed ST elevation and Q waves in anterior leads, patient was taken to the lab director, she underwent angioplasty and stenting to the proximal LAD, the left main and the left Sears conflicts, she was transferred to intensive care unit, and is currently intubated sedated maintained on mechanical ventilation, cardiology and pulmonary critical care are following. Patient has a known history of depression with anxiety disorder, history of post traumatic stress disorder, history of hypothyroidism and history of tobacco abuse. 05/26/2023 Picked up coverage today from Dr. Padgett. Patient remains in the intensive care unit. Currently sedated with propofol and on the mechanical ventilator with FiO2 of 50% and PEEP of 5. Status post cardiac catheterization with stent placed to the proximal LAD, left circ, and placement of impella device with plans for removal of the impella today. Chest xray today shows left ventricular assist device in place, with improvement of interstitial pulmonary edema. Some pulmonary vascular congestion remains. Echocardiogram reveals an EF of 25%. Patient remains on dual antiplatelet therapy with aspirin and effient, lipitor, farxiga, lopressor, aldactone. Satilla has been removed and lithium level pendi ng. Patient on empiric antibiotic coverage with IV zosyn. White blood cell count 22.9. BUN 18, creatinine 1.10. Lactic acid normalized to 2.0. LFTS stable, LDH improving 1820. Procalcitonin level elevated at 0.65. Influenza, covid, RSV are all negative. Has been taken off the insulin gtt with improvement in blood glucose. A1C was normal range of 5.5. 05/27/2023 Patient is evaluated today in the intensive care unit. Patient had impella device removed last night. Has been extubated today and did require increased oxygen support currently evaluated on BiPAP. She is complaining of significant left sided chest pain. Receiving IV tylenol and has prn IV dilaudid. Remains on aspirin effient combination. Has been resumed on cymbalta and mirtazipine. Continues on IV zosyn empirically. Propofol off and patient now on IV precedex. Patients sputum culture is negative and blood culture remains negative at this time. Labs today showing white count 16.3, hemoglobin 7.7., sodium 138, potassium 3.8, BUN 15, creatinine 1.11, LFTs improving. chest xray today showing residual mild pulmonary vascular congestion with some improvement in the previous interstitial edema. Some patchy opacity probably patchy edema remains at the inferior lingular. Review of Systems Unable to complete review of systems currently on BiPAP support is complaining of left sided chest pain. All inpatient medications were reviewed and appropriate changes in these medications as dictated in the interval history and assessment and plan. PHYSICAL EXAMINATION: GENERAL: The patient is sedated, not in any acute distress. Extubated on BiPAP. Well developed, well nourished. HEENT: Pupils are round and equally reacting to light. EOMI. No scleral icterus. No conjunctival pallor. Normocephalic, atraumatic. No pharyngeal erythema. No thyromegaly. CARDIOVASCULAR: S1 and S2 present. No murmurs, rubs, or gallops. PULMONARY: Chest is clear to auscultation, no wheezing or crackles. ABDOMEN: Soft, nontender, nondistended, normoactive bowel sounds. No palpable organomegaly. MUSCULOSKELETAL: No joint swelling or deformity. EXTREMITIES: No cyanosis, clubbing, or pedal edema. NEUROLOGICAL: Awake alert no focal neurological deficits. SKIN: No rashes. Assessment and Plan -Cardiac arrest at home with unkown downtime patient was defibrillated by EMS on scene. -Acute ST elevation myocardial infarction status post stenting to the proximal LAD, left circ with dissection of the left main, stenting of the left main and placement of impella device patient continues on dual antiplatelet therapy at this time with aspirin and effient. IV heparin is discontinued and the impella device has been removed. -Acute hypoxic respiratory failure requiring intubation and mechanical ventilation s/p extubation 05/27/2023 requiring BiPAP currently. -Left sided pneumothorax likely from CPR which appears resolved on follow up chest xray -Acute metabolic acidosis improved -Acute kidney injury secondary to ATN/hypotension improved -Hyperglycemia off the insulin gtt with improvement in blood glucose. HgbA1C wnl at 5.5. -Leukocytosis with bilateral pulmonary infiltrates possible aspiration pneumonia remains on empiric antibiotic coverage with IV zosyn, procalcitonin level elevated at 0.65. ID following. -Underlying history of depression with anxiety disorder resumed on psychiatric mediations. -Underlying history of posttraumatic stress disorder -Underlying history of hypothyroidism Resumed on home medications will check TSH. -Underlying history of tobacco abuse GI prophylaxis DVT prophylaxis Full Code Patient remains in the intensive care unit post extubation. Continue current medications and supportive care. Repeat labs in the AM. PT/OT have been consulted. The impression and plan of care has been dictated by Nalini Diaz, Nurse Practitioner as directed. Dr. Bianca MD I have performed a history and physical examination and medical decision making of this patient, discussed the same with the dictator, and agree with the dictators assessment and plan as written, documented as a scribe. Based on total visit time, I have performed more than 50% of this visit. Objective - Vital Signs Vital signs: Vital Signs Temp 99.6 F 05/27/23 08:00 Pulse 92 05/27/23 08:00 Resp 20 05/27/23 08:00 BP 84/53 05/27/23 08:00 Pulse Ox 98 05/27/23 08:00 FiO2 50 05/27/23 08:00 Intake & Output 05/26/23 05/27/23 05/27/23 18:59 06:59 18:59 Intake Total 997.316 582.689 110 Output Total 1695 990 150 Balance -697.684 -407.311 -40 Weight 89.7 kg 91.2 kg Intake: IV 695 220 110 Dextrose 5% in Water 1, 400 000 ml @ 100 mls/hr IV . [id number] [facility] with Sodium Bicarb (1 Meq/ml) 150 ml Rx#:[id number] Piperacillin-Tazobactam 3 200 100 100 .375 gm In Sodium Chloride 0.9% 100 ml @ 25 mls/hr IVPB Q8H [facility] Rx#: [id number] carrier 85 120 10 Intake, IV Titration 302.316 362.689 Amount Heparin Sod,Pork in 0.45% 55.682 NaCl 25,000 unit In 0.45 % NaCl 1 250ml.bag @ 9. 7087 UNITS/KG/HR 10 mls/ hr IV .Q24H [facility] Rx#: [id number] propofoL 1,000 mg In 246.634 362.689 Empty Bag 1 bag @ 15 MCG/ KG/MIN 9.27 mls/hr IV . [id number] [facility] Rx#:[id number] Output: Urine 1695 990 150 Other: Voiding Method Indwelling Catheter Indwelling Catheter ABP, PAP, CO, CI - Last Documented Arterial Blood Pressure 87/54 - Labs CBC & Chem 7: 05/27/23 05:23 05/27/23 05:23 Labs: Abnormal Lab Results - Last 24 Hours (Table) 05/26/23 05/26/23 05/26/23 Range/Units 05:45 11:30 11:30 WBC (3.8-10.6) k/uL RBC (3.80-5.40) m/uL Hgb (11.4-16.0) gm/dL Hct (34.0-46.0) % Neutrophils # (1.3-7.7) k/uL APTT 47.2 H (22.0-30.0) sec ABG pH (7.35-7.45) ABG pCO2 (35-45) mmHg ABG pO2 (83-108) mmHg ABG O2 Saturation (94-97) % Chloride (98-107) mmol/L Creatinine (0.52-1.04) mg/dL POC Glucose (mg/dL) (70-110) mg/dL Calcium (8.4-10.2) mg/dL AST (14-36) U/L ALT (4-34) U/L Lactate Dehydrogenase 1820 H (120-246) U/L Total Protein (6.3-8.2) g/dL Albumin (3.5-5.0) g/dL Procalcitonin 0.65 H (0.02-0.09) ng/mL 05/26/23 05/26/23 05/26/23 Range/Units 11:34 18:07 23:01 WBC (3.8-10.6) k/uL RBC (3.80-5.40) m/uL Hgb (11.4-16.0) gm/dL Hct (34.0-46.0) % Neutrophils # (1.3-7.7) k/uL APTT (22.0-30.0) sec ABG pH (7.35-7.45) ABG pCO2 (35-45) mmHg ABG pO2 (83-108) mmHg ABG O2 Saturation (94-97) % Chloride (98-107) mmol/L Creatinine (0.52-1.04) mg/dL POC Glucose (mg/dL) 116 H 117 H 122 H (70-110) mg/dL Calcium (8.4-10.2) mg/dL AST (14-36) U/L ALT (4-34) U/L Lactate Dehydrogenase (120-246) U/L Total Protein (6.3-8.2) g/dL Albumin (3.5-5.0) g/dL Procalcitonin (0.02-0.09) ng/mL 05/27/23 05/27/23 05/27/23 Range/Units 05:23 05:23 05:32 WBC 16.3 H (3.8-10.6) k/uL RBC 2.57 L (3.80-5.40) m/uL Hgb 7.7 L (11.4-16.0) gm/dL Hct 22.9 L (34.0-46.0) % Neutrophils # 13.1 H (1.3-7.7) k/uL APTT (22.0-30.0) sec ABG pH (7.35-7.45) ABG pCO2 (35-45) mmHg ABG pO2 (83-108) mmHg ABG O2 Saturation (94-97) % Chloride 108 H (98-107) mmol/L Creatinine 1.11 H (0.52-1.04) mg/dL POC Glucose (mg/dL) 120 H (70-110) mg/dL Calcium 7.7 L (8.4-10.2) mg/dL AST 122 H (14-36) U/L ALT 54 H (4-34) U/L Lactate Dehydrogenase (120-246) U/L Total Protein 5.1 L (6.3-8.2) g/dL Albumin 2.7 L (3.5-5.0) g/dL Procalcitonin (0.02-0.09) ng/mL 05/27/23 Range/Units 06:19 WBC (3.8-10.6) k/uL RBC (3.80-5.40) m/uL Hgb (11.4-16.0) gm/dL Hct (34.0-46.0) % Neutrophils # (1.3-7.7) k/uL APTT (22.0-30.0) sec ABG pH 7.50 H (7.35-7.45) ABG pCO2 32 L (35-45) mmHg ABG pO2 116 H (83-108) mmHg ABG O2 Saturation 99.2 H (94-97) % Chloride (98-107) mmol/L Creatinine (0.52-1.04) mg/dL POC Glucose (mg/dL) (70-110) mg/dL Calcium (8.4-10.2) mg/dL AST (14-36) U/L ALT (4-34) U/L Lactate Dehydrogenase (120-246) U/L Total Protein (6.3-8.2) g/dL Albumin (3.5-5.0) g/dL Procalcitonin (0.02-0.09) ng/mL Microbiology - Last 24 Hours (Table) 05/25/23 06:51 Gram Stain - Final Sputum Sputum Culture - Final 05/25/23 07:16 Blood Culture - Preliminary Blood 05/25/23 11:28 Blood Culture - Preliminary Blood Assessment and Plan Time with Patient: Less than 30
[2023-05-27 18:19] LABS: Glucose,Whole Blood 114 mg/dL (70-110)
[2023-05-27 19:26] LABS: T4, Free (Free Thyroxine) 0.85 ng/dL (0.78-2.19)
[2023-05-27] MEDS: DULoxetine HCL 60 MG CAPSULE.DR PO SCH (21:13)
[2023-05-27] MEDS: MIRTAZAPINE 15 MG TAB PO SCH (21:13)
[2023-05-27] MEDS: ATORVASTATIN 80 MG TAB PO SCH (21:13)
[2023-05-27 23:53] LABS: Glucose,Whole Blood 102 mg/dL (70-110)
[2023-05-28] MEDS: HYDROmorphone 0.5 MG/0.5 ML SYRINGE IVP PRN ×6 (02:13→23:09)
[2023-05-28] MEDS: DEXMEDETOMIDINE/0.9% NACL(PMX) 400 MCG in EMPTY BAG 1 BAG IV SCH (05:15)
[2023-05-28 06:12] LABS: Glucose,Whole Blood 100 mg/dL (70-110)
[2023-05-28 06:16] LABS: Basophils % (A) 0 %; Eosinophils # (A) 0.2 k/uL (0-0.7); Eosinophils % (A) 1 %; HCT 22.8 % (34.0-46.0); HGB 7.4 gm/dL (11.4-16.0); Hypochromasia Slight; Lymphocytes # (A) 2.2 k/uL (1.0-4.8); Lymphocytes % (A) 16 %; MCH 29.5 pg (25.0-35.0); MCHC 32.3 g/dL (31.0-37.0); MCV 91.3 fL (80.0-100.0); Mean Platelet Volume 8.8; Monocytes # (A) 0.4 k/uL (0-1.0); Monocytes % (A) 3 %; Neutrophils # (A) 11.1 k/uL (1.3-7.7); Neutrophils % (A) 79 %; Platelet Count 194 k/uL (150-450); RBC 2.49 m/uL (3.80-5.40); RDW 14.9 % (11.5-15.5)
[2023-05-28] MEDS: INSULIN ASPART (NovoLOG) 100 UNIT/ML VIAL SQ SCH ×3 (06:16→18:03)
[2023-05-28] MEDS: PIPERACILLIN-TAZOBACTAM 3.375 GM in SODIUM CHLORIDE 0.9% 100 ML IVPB SCH ×2 (06:28→15:04)
[2023-05-28] MEDS: LEVOTHYROXINE 100 MCG TAB PO SCH (06:28)
[2023-05-28 06:32] LABS: ALT 47 U/L (4-34); AST 78 U/L (14-36); African American GFR (CKD) 75 (>60 ml/min/1.73 sqM); Albumin 3.2 g/dL (3.5-5.0); Alkaline Phosphatase 90 U/L (38-126); Anion Gap 11 mmol/L; Blood Urea Nitrogen 14 mg/dL (7-17); Calcium 8.2 mg/dL (8.4-10.2); Carbon Dioxide 19 mmol/L (22-30); Chloride 110 mmol/L (98-107); Glucose 90 mg/dL (74-99); Magnesium 2.3 mg/dL (1.6-2.3); Non-African American GFR(CKD) 65 (>60 ml/min/1.73 sqM); Sodium 140 mmol/L (137-145); Total Bilirubin 0.7 mg/dL (0.2-1.3); Total Protein 5.8 g/dL (6.3-8.2)
[2023-05-28 06:33] LABS: Potassium 3.8 mmol/L (3.5-5.1)
[2023-05-28] MEDS: SODIUM CHLORIDE 0.9% 1,000 ML in EMPTY BAG 1 BAG IV SCH ×3 (07:04→11:42)
--- NOTE | 2023-05-28 07:25 | XR ---
EXAM: XR chest 1V portable CLINICAL INDICATION:Female, 43 years old with history of assess lungs; [facility] COMPARISON: 05/27/2023 and before TECHNIQUE: Chest single view. FINDINGS: Lines/tubes/devices: EKG leads over the chest. Left subclavian central venous line with its tip over the upper right atrium. The ET tube and NG tube have been removed. Cardiomediastinum: Cardiac silhouette appears normal in size. Unremarkable mediastinal silhouette. Vasculature: Mild central congestion. Lungs/pleura: Lung volumes are slightly diminished. Interstitial opacities appear slightly increased. Slightly incr eased lingular opacity. Otherwise no confluent consolidation, sizable effusion, or pneumothorax. Bones/soft tissues: Bony thorax appears grossly intact as seen. Regional soft tissues appear unremarkable. IMPRESSION: Left subclavian central venous line in place. Mild central congestion. Slightly increased interstitial opacities likely edema. Slightly increased lingular opacity likely edema and atelectasis.
[2023-05-28] MEDS: SPIRONOLACTONE 25 MG TAB PO SCH (08:01)
[2023-05-28] MEDS: METOPROLOL TARTRATE 25 MG TAB PO SCH ×2 (08:01→20:05)
[2023-05-28] MEDS: LITHIUM CARBONATE 300 MG CAP PO SCH ×2 (08:01→20:05)
[2023-05-28] MEDS: DULoxetine HCL 60 MG CAPSULE.DR PO SCH ×2 (08:01→20:05)
[2023-05-28] MEDS: CHLORHEXIDINE GLUCONATE 15 ML CUP MUCOUS MEM SCH (08:01)
[2023-05-28] MEDS: ASPIRIN 81 MG PO SCH (08:01)
[2023-05-28] MEDS: PRASUGREL 10 MG TAB PO SCH (08:04)
[2023-05-28] MEDS: DAPAGLIFLOZIN PROPANEDIOL 10 MG TABLET PO SCH (08:04)
[2023-05-28] MEDS: LIOTHYRONINE SODIUM 5 MCG TAB PO SCH (08:05)
--- NOTE | 2023-05-28 09:44 | P.PN ---
Subjective Progress Note Date: 05/28/23 I am seeing this patient in new consultation today 05/25/2023 in the intensive care unit following an out of hospital cardiac arrest. Patient is a 43-year-old white female with no known cardiac history. She is on multiple psychiatric medications at home. Patient is currently intubated on mechanical ventilator and unable to provide any information. Apparently, the patient was complaining of epigastric pain and nausea throughout the day yesterday. Earlier this morning the patient's significant other woke up to her shaking in bed and unresponsive. CPR was initiated by a neighbor who is apparently a lead machinist, and patient was defibrillated once EMS arrived. On arrival to emergency room, patient was intubated by the ER physician. She was unresponsive, she had copious emesis, and likely aspirated. ECG showed ST elevation and Q waves in the anterior-septal leads, and a code STEMI was initiated. Patient was taken to [facility] where she received successful stenting of the proximal LAD, stenting of the left main and left circumflex secondary to dissection in the left main. Patient subsequently had an Impella catheter placed. She was transferred to the intensive care unit in critical condition. Chest CTA done in the emergency room showed a small 10-15% left sided pneumotho rax. No large central pulmonary embolism was visualized. The ET tube was within the right mainstem bronchus. There was scattered patchy airspace opacities in the posterior upper lobes and more prominently in the lower lobes with air bronchograms. Likely consistent with aspiration/aspiration pneumonia. Patient currently intubated on mechanical ventilator. Current ventilator settings are assist control, respiratory rate 20, tidal volume 450, FiO2 100%, and PEEP of 8. ABGs done on the settings show a pH of 7.32, pCO2 of 31, pO2 of 79. Repeat chest x-ray does not show any enlargement of the left sided pneumothorax. The endotracheal tube is now approximately 3-4 cm above the alisha. There are diffuse bilateral multifocal infiltrates. CBC demonstrates leukocytosis with a WBC count of 22.6, hemoglobin 12.2, hematocrit 38.9, platelets 395. BMP a sodium of 137, potassium 3.5, chloride 109, serum bicarb 10, BUN 15, creatinine 1.35, glucose 315. Troponins 0.145. NT proBNP 315. Patient is sedated and unresponsive on the mechanical ventilator. She is breathing above set rate. Does not follow commands. She is sedated on propofol at 30 mcg/kg/m. Brain CT on arrival did not show any acute intracranial hemorrhage or mass effect. Blood pressure is stable. Not requiring vasopres sors. She is tachycardic. Urine output is anuric. Impella is inserted through the right groin, set at P9. 3.9 L of flow. Baseline coags are unremarkable. Patient will be started on IV heparin per protocol. Patient's prognosis is guarded, and she is currently in critical condition. There was a concern for an underlying pneumothorax. I reviewed the chest x-ray the chest x-ray showing diffuse but the pulmonary infiltrates. This is consistent with acute cardiogenic pulmonary edema it underlying aspiration cannot be completely excluded. I reviewed the CAT scan of the chest, there may be a very tiny left anterior pneumothorax not clearly seen on today's chest x- ray. This will be monitored very closely. The patient is currently intubated on a mechanical ventilator. The patient is on propofol which is running at 35 mcg/kg/m. She is adequately sedated and suggest a mechanical ventilator. She is covered with antibiotics and she is currently on IV Zosyn. She is on no pressors at this point in time. Cardiac rhythm is sinus tachycardia. On today's evaluation of 05/26/2023, the patient is being seen for a follow-up. The patient remains intubated on a mechanical ventilator. This morning, she is on propofol running at 35 mcg/kg/m and she is calm and comfortable. She response to stimulation. She was also painful stimulation in all 4 extremities. At the same time, the patient remains on a mechanical ventilator on assist control mode at the rate of 20, tidal volume of 450, FiO2 of 50% and a PEEP of 5. The chest x-ray from this morning is showing evidence of diffuse bilateral pulmonary infiltrates consistent with pulmonary edema. The ET tube is in a good location. The patient also has a left sided subclavian triple-lumen catheter in place. No evidence of any significant pneumothorax. There is interval improvement in the pulmonary edema on today's chest x-ray compared to yesterday. The blood gas showed a pH of 7.48 with a pCO2 of 35 and pO2 of 90. In terms of hemodynamics, the patient is on no pressors. ImPela supports is still ongoing although she has been switched from P9 to PT for and currently she is on P2 support. The flow is at 1.8 L/m. The Augmentin blood pressure is 91/58. She is producing urine output and the fluid balance over the past 24 hours has been +3.4 L. Nevertheless, the patient is producing 100 mL an hour of urine output and she produced approximately 1.2 L of urine output for yesterday. Pulses are present lower extremities bilaterally. The patient is currently on a combination of aspirin and Effient. Aldactone was also added. The patient is receiving and panic antibiotic coverage with IV Zosyn. IV fluids are in the form of bicarb infusion at the rate of 100 mL an hour. This will be discontinued. BUN is at 80 with a creatinine of 1.1. Sodiums of 135, serum bicarb is at 24, the white cell count is 22.9 with a hemoglobin of 9.1 and a platelet count of 224. A limited echocardiogram was done yesterday and the patient was told to have a LV ejection fraction severely impaired estimated to be at around 25. She is also off the insulin drip. Blood sugars under better control for now. On today's evaluation of 05/27/2023 pounds in the patient for a follow-up. The patient is doing well. The Impella was removed yesterday without any major difficulties. No evidence of any bleeding at the insertion site. The patient has such is hemodynamically stable. No pressors at this point in time. She is producing adequate amount of urine output. This morning, she is on propofol running at 30 microvascular kilogram per minute. She is on assist-control mode at a rate of 20, tidal volume of 450, FiO2 of 50% with a PEEP of 8. Blood gas show a pH of 7.5 with a pCO2 of 32 and pO2 of 116. The chest x-ray shows improvement of the previously described pulmonary edema. ET tube is in a good location. The patient is producing adequate amount of urine output. Her urine output was up to 100 mL an hour. The fluid Balance over the past 24 hours is - 1.1 L. The patient's echoes at 16.3, hemoglobin is at 7.7 which is essentially dropped since admission. No evidence of any acute bleeding at this point in time. BUN is at 15 with a creatinine of 1.1 and a sodium level is at 138. The patient is currently receiving a sedation holiday. Propofol discontinued and her readiness to wean will be evaluated. She remains on IV Zosyn. She remains on a combination of aspirin and Effient. She was also started on metoprolol 25 mg by mouth twice a day. She is not receiving any enteral feeding at this point in time. On 05/28/2023, the patient is extubated. Note that the patient was able to wean off the mechanical ventilator and the patient was extubated to nasal cannula initially. Subsequently, she started having hypoxemia and she had to be placed on BiPAP throughout the day and she was also kept on BiPAP overnight. Also, we added Precedex to improve her anxiety level of agitation and Precedex is still running at 0.2 mcg/kg/h. This morning, she is calm and comfortable. She is communicating. She is alert and oriented 3. She has profound weakness in all 4 extremities. She is complaining of soreness in her chest which is probably related to CPR. No signs of any bleeding. Hemoglobin is at 7.4 and it has drifted slowly during the current hospitalization. The patient is currently on oxygen at 3 L. The chest x-ray showing some mild pulmonary congestion. She remains on IV Zosyn as a broad-spectrum antibiotic coverage for any potential aspiration pneumonia. Nevertheless, her acute pulmonary edema has improved considerably. Cardiac rhythm is sinus. She is on metoprolol 25 mg twice a day. She is also on aspirin. She is on Effient. She is also on Farxiga The puncture site in her right groin shows no evidence of any bleeding. She was also started on Aldactone at a dose of 25 mg by mouth daily. She is on high- dose statins. She is on thyroid hormone replacement. Objective - Vital Signs Vital signs: Vital Signs Temp 99.3 F 05/28/23 08:00 Pulse 99 05/28/23 09:00 Resp 24 05/28/23 09:00 BP 108/72 05/28/23 09:00 Pulse Ox 97 05/28/23 09:13 FiO2 40 05/28/23 04:00 Intake & Output 05/27/23 05/28/23 05/28/23 18:59 06:59 18:59 Intake Total 533.132 289.92 110 Output Total 1205 715 225 Balance -671.868 -425.08 -115 Weight 91.6 kg Intake: IV 320 220 110 Piperacillin-Tazobactam 3 200 100 100 .375 gm In Sodium Chloride 0.9% 100 ml @ 25 mls/hr IVPB Q8H [facility] Rx#: [id number] carrier 120 120 10 Intake, IV Titration 213.132 69.92 Amount ACETAMINOPHEN IV (For NPO 100 ) 1,000 mg In Empty Bag 1 bag @ 400 mls/hr IVPB ONCE [facility] Rx#:[id number] Dexmedetomidine/0.9% NaCl 69.92 (Pmx) 400 mcg In Empty Bag 1 bag @ 0.2 MCG/KG/HR 4.56 mls/hr IV .[id number] [facility] Rx#:[id number] propofoL 1,000 mg In 113.132 Empty Bag 1 bag @ 15 MCG/ KG/MIN 9.27 mls/hr IV . [id number] [facility] Rx#:[id number] Output: Urine 1205 715 225 Other: Voiding Method Indwelling Catheter Indwelling Catheter Indwelling Catheter ABP, PAP, CO, CI - Last Documented Arterial Blood Pressure 169/169 - Exam GENERAL EXAM: The patient is currently on oxygen at 3 L nasal cannula. Awake and alert and communicating, on low-dose Precedex HEAD: Normocephalic and atraumatic EYES: Normal reaction of pupils, equal size. NOSE: Clear with pink turbinates. THROAT: No erythema or exudates. NECK: No masses, no JVD. The patient has a left subclavian triple-lumen catheter in place CHEST: No chest wall deformity. LUNGS: Lungs were clear to auscultation and percussion, and with normal diaphragmatic excursion. No wheezes or rales were noted. CVS: S1 and S2 normal with no audible murmur, regular rhythm. No extra heart sounds ABDOMEN: No hepatosplenomegaly, active bowel sounds, no guarding or rigidity. SPINE: No scoliosis or deformity SKIN: No rashes CENTRAL NERVOUS SYSTEM: Profound motor weakness, alert and awake, no focal neurological deficits. EXTREMITIES: There is no peripheral edema, clubbing, or cyanosis. Peripheral pulses are weak but intact. Pulses are diminished - Labs CBC & Chem 7: 05/28/23 05:53 05/28/23 05:53 Labs: Abnormal Lab Results - Last 24 Hours (Table) 05/27/23 05/27/23 05/27/23 Range/Units 05:23 11:59 13:08 WBC (3.8-10.6) k/uL RBC (3.80-5.40) m/uL Hgb (11.4-16.0) gm/dL Hct (34.0-46.0) % Neutrophils # (1.3-7.7) k/uL Chloride (98-107) mmol/L Carbon Dioxide (22-30) mmol/L Creatinine (0.52-1.04) mg/dL POC Glucose (mg/dL) 128 H 114 H (70-110) mg/dL Calcium (8.4-10.2) mg/dL AST (14-36) U/L ALT (4-34) U/L Total Protein (6.3-8.2) g/dL Albumin (3.5-5.0) g/dL TSH 26.900 H (0.465-4.680) mIU/L 05/27/23 05/28/23 05/28/23 Range/Units 18:17 05:53 05:53 WBC 14.0 H (3.8-10.6) k/uL RBC 2.49 L (3.80-5.40) m/uL Hgb 7.4 L (11.4-16.0) gm/dL Hct 22.8 L (34.0-46.0) % Neutrophils # 11.1 H (1.3-7.7) k/uL Chloride 110 H (98-107) mmol/L Carbon Dioxide 19 L (22-30) mmol/L Creatinine 1.07 H (0.52-1.04) mg/dL POC Glucose (mg/dL) 114 H (70-110) mg/dL Calcium 8.2 L (8.4-10.2) mg/dL AST 78 H (14-36) U/L ALT 47 H (4-34) U/L Total Protein 5.8 L (6.3-8.2) g/dL Albumin 3.2 L (3.5-5.0) g/dL TSH (0.465-4.680) mIU/L Microbiology - Last 24 Hours (Table) 05/25/23 07:16 Blood Culture - Preliminary Blood 05/25/23 11:28 Blood Culture - Preliminary Blood 05/25/23 06:51 Gram Stain - Final Sputum Sputum Culture - Final Assessment and Plan Plan: Out of hospital cardiac arrest, downtime is unknown. The patient had a likely metastatic atrial fibrillation/tachycardia the patient was defibrillated on the scene, CPR was continued and the patient was intubated in the emergency department. Cardiac arrest secondary to acute ST segment elevation myocardial infarction. The patient underwent emergent cardiac catheterization stenting complicated by a dissection of the left main. And the patient underwent further stenting of the left main and left circumflex secondary to this dissection. Impella was also inserted and was subsequently removed on 05/26/2023 without any complication and the patient remains hemodynamically stable. The patient is awake and alert and communicating and she is having generalized motor weakness in all 4 extremities. Nevertheless, and neurologic exam is nonfocal Acute ST elevation [place], patient did receive successful stenting of the proximal LAD with stenting of the left main and left circumflex secondary to dissection of the left main. The Impella was removed without any complications Severe cardiomyopathy, likely ischemic with an ejection fraction of 20-25% Acute pulmonary edema with Diffuse bilateral pulmonary infiltrates, improved on today's evaluation and the chest x-ray findings are improved. Oxygenation is stable. Acute hypoxic respiratory failure, extubated to a BiPAP and currently she is on 3 L of oxygen by nasal cannula. Small left-sided pneumothorax estimated at 10-15%, likely secondary to CPR, no need for chest tube at this time, this is likely related to CPR. No evidence of any tension or hemodynamic compromise related to the pneumothorax. Metabolic anion gap acidosis, recovered Acute anemia, likely blood loss anemia and this could be also related to intravascular hemolysis due to Impella. No evidence of any bleed in her right groin area. Hemoglobin today is at 7.4 Acute kidney injury, secondary to hypoperfusion and acute tubular necrosis, recovered and the patient is producing adequate amount of urine output. Creatinine is improved Mild transaminitis, secondary to hypoperfusion Leukocytosis, improving, the white cell count is currently at 14 Hypothyroidism History of depression/anxiety/PTSD Plan: Wean off Precedex and discontinue Patient was taken off the BiPAP and the patient is currently on 3 L O2 nasal cannula The Impella was removed without any complications N producing adequate amount of urine output Continue empiric antibiotic coverage with IV Zosyn IV fluids at KVO Monitor the hemoglobin knowing that there was a hemoglobin drop down to 7.4. No evidence of any bleeding Monitor renal function. The renal function is improving Continue aspirin Continue Effient Continue metoprolol monitor blood pressure closely and the patient's blood pressure is soft. A nticipating improvement in the blood pressure once she is off the Precedex Continue Aldactone Increase mobility Provide diet Incentive spirometer Physical therapy Monitor left-sided pneumothorax, no need for chest tube insertion at this point in time Condition is critical and we'll continue to follow make further recommendations based on her progress, and is a critical care evaluation that was done in more than 30 minutes Time with Patient: Greater than 30
--- NOTE | 2023-05-28 09:59 | CA ---
Transthoracic Echo Report Name: Mecca Tam Age: 43 Gender: F : 1980 Exam Date: 05/28/2023 07:48 Exam Location: [facility] Ht (in): 65 Wt (lb): 201 Ordering Physician: Adolfo Davis MD ([id number]) Attending/Referring Phys: [facility] Architect Joann Rico RDCS Procedure CPT: Indications: EF Cardiac Hx: limited study Technical Quality: Fair Contrast 1: Definity Total Dose (mL): 2 Contrast 2: Total Dose (mL): MEASUREMENTS (Male / Female) Normal Values 2D ECHO RV Internal Dim ED PLAX 3.0 cm LV Diastolic Volume MOD BP 92.8 cm??? 67 - 155 / 56 - 104 cm??? LV Systolic Volume MOD BP 39.8 cm??? 22 - 58 / 19 - 49 cm??? LV Ejection Fraction MOD BP 57.1 % >= 55 % LV Cardiac Index MOD BP 2265.8 cm???/min???m??? LV Diastolic Volume MOD 4C 91.5 cm??? LV Systolic Volume MOD 4C 39.2 cm??? LV Ejection Fraction MOD 4C 57.2 % LV Cardiac Index MOD 4C 2238.7 cm???/min???m??? LV Diastolic Length 4C 7.4 cm LV Systolic Length 4C 7.1 cm LV Diastolic Volume MOD 2C 81.2 cm??? LV Systolic Volume MOD 2C 39.7 cm??? LV Ejection Fraction MOD 2C 51.2 % LV Cardiac Index MOD 2C 1778.8 cm???/min???m??? LV Diastolic Length 2C 8.6 cm LV Systolic Length 2C 7.8 cm DOPPLER AV Peak Velocity 157.3 cm/s AV Peak Gradient 9.9 mmHg AI Peak Velocity 388.0 cm/s AI Peak Gradient 60.2 mmHg AI Pressure Half Time 418.7 ms TR Peak Velocity 239.0 cm/s TR Peak Gradient 22.9 mmHg Right Ventricular Systolic Press 27.3 mmHg FINDINGS Left Ventricle Left ventricular ejection fraction is estimated at 50 %. Apical anterior hypokinesis, apical lateral hypokinesis, apical septum hypokinesis Right Ventricle Right ventricular systolic pressure within normal limits. Right Atrium Left Atrium Mitral Valve Structurally normal mitral valve. Trace to mild mitral regurgitation. Aortic Valve Trileaflet aortic valve. Mild aortic regurgitation. Tricuspid Valve Structurally normal tricuspid valve. Mild tricuspid regurgitation. Pulmonic Valve Pericardium No pericardial effusion. Aorta CONCLUSIONS Left ventricular ejection fraction 50% with apical hypokinesis RVSP 27 Mild aortic regurgitation Previewed by: Dr. Herve Gregory DO (Electronically Signed) Final Date: 28 May 2023 09:58
[2023-05-28] MEDS ORDERED: Potassium Replacement Protocol 1 EACH MISC MISCELLANE PRN (10:57)
[2023-05-28] MEDS ORDERED: POTASSIUM CHLORIDE ER 20 MEQ TAB.ER PO SCH (12:00)
--- NOTE | 2023-05-28 14:40 | P.PN ---
Subjective Progress Note Date: 05/27/23 Principal diagnosis: Reason for follow-up is aspiration pneumonia Patient is a 43-year-old female with a past medical history Significant for anxiety depression current everyday smoker patient was brought into the ER via EMS, patient did have a cardiac arrest requiring resuscitation patient did have a evidence of IN s/p cardiac cath and four stent placement. On today's evaluation that is 05/27/2023, patient did have resolution of her fever and is afebrile this morning, patient is on the vent with an FiO2 of 40% no significant purulent secretions through the ET vomiting diarrhea or any other changes reported by nursing staff. Patient white count is down to 16.3 creatinine is 1.11 blood and sputum cultures currently pending Objective - Vital Signs Vital signs: Vital Signs Temp 99.6 F 05/27/23 08:00 Pulse 105 H 05/27/23 13:00 Resp 21 05/27/23 13:00 BP 103/65 05/27/23 13:00 Pulse Ox 98 05/27/23 13:00 FiO2 80 05/27/23 12:21 Intake & Output 05/26/23 05/27/23 05/27/23 18:59 06:59 18:59 Intake Total 997.316 582.689 273.132 Output Total 1695 990 505 Balance -697.684 -407.311 -231.868 Weight 89.7 kg 91.2 kg Intake: IV 695 220 160 Dextrose 5% in Water 1, 400 000 ml @ 100 mls/hr IV . [id number] [facility] with Sodium Bicarb (1 Meq/ml) 150 ml Rx#:[id number] Piperacillin-Tazobactam 3 200 100 100 .375 gm In Sodium Chloride 0.9% 100 ml @ 25 mls/hr IVPB Q8H [facility] Rx#: [id number] carrier 85 120 60 Intake, IV Titration 302.316 362.689 113.132 Amount Heparin Sod,Pork in 0.45% 55.682 NaCl 25,000 unit In 0.45 % NaCl 1 250ml.bag @ 9. 7087 UNITS/KG/HR 10 mls/ hr IV .Q24H [facility] Rx#: [id number] propofoL 1,000 mg In 246.634 362.689 113.132 Empty Bag 1 bag @ 15 MCG/ KG/MIN 9.27 mls/hr IV . [id number] [facility] Rx#:[id number] Output: Urine 1695 990 505 Other: Voiding Method Indwelling Catheter Indwelling Catheter Indwelling Catheter ABP, PAP, CO, CI - Last Documented Arterial Blood Pressure 169/169 - Labs CBC & Chem 7: 05/28/23 05:53 05/28/23 05:53 Labs: Abnormal Lab Results - Last 24 Hours (Table) 05/26/23 05/26/23 05/26/23 Range/Units 05:45 18:07 23:01 WBC (3.8-10.6) k/uL RBC (3.80-5.40) m/uL Hgb (11.4-16.0) gm/dL Hct (34.0-46.0) % Neutrophils # (1.3-7.7) k/uL ABG pH (7.35-7.45) ABG pCO2 (35-45) mmHg ABG pO2 (83-108) mmHg ABG O2 Saturation (94-97) % Chloride (98-107) mmol/L Creatinine (0.52-1.04) mg/dL POC Glucose (mg/dL) 117 H 122 H (70-110) mg/dL Calcium (8.4-10.2) mg/dL AST (14-36) U/L ALT (4-34) U/L Total Protein (6.3-8.2) g/dL Albumin (3.5-5.0) g/dL Procalcitonin 0.65 H (0.02-0.09) ng/mL 05/27/23 05/27/23 05/27/23 Range/Units 05:23 05:23 05:32 WBC 16.3 H (3.8-10.6) k/uL RBC 2.57 L (3.80-5.40) m/uL Hgb 7.7 L (11.4-16.0) gm/dL Hct 22.9 L (34.0-46.0) % Neutrophils # 13.1 H (1.3-7.7) k/uL ABG pH (7.35-7.45) ABG pCO2 (35-45) mmHg ABG pO2 (83-108) mmHg ABG O2 Saturation (94-97) % Chloride 108 H (98-107) mmol/L Creatinine 1.11 H (0.52-1.04) mg/dL POC Glucose (mg/dL) 120 H (70-110) mg/dL Calcium 7.7 L (8.4-10.2) mg/dL AST 122 H (14-36) U/L ALT 54 H (4-34) U/L Total Protein 5.1 L (6.3-8.2) g/dL Albumin 2.7 L (3.5-5.0) g/dL Procalcitonin (0.02-0.09) ng/mL 05/27/23 05/27/23 Range/Units 06:19 11:59 WBC (3.8-10.6) k/uL RBC (3.80-5.40) m/uL Hgb (11.4-16.0) gm/dL Hct (34.0-46.0) % Neutrophils # (1.3-7.7) k/uL ABG pH 7.50 H (7.35-7.45) ABG pCO2 32 L (35-45) mmHg ABG pO2 116 H (83-108) mmHg ABG O2 Saturation 99.2 H (94-97) % Chloride (98-107) mmol/L Creatinine (0.52-1.04) mg/dL POC Glucose (mg/dL) 128 H (70-110) mg/dL Calcium (8.4-10.2) mg/dL AST (14-36) U/L ALT (4-34) U/L Total Protein (6.3-8.2) g/dL Albumin (3.5-5.0) g/dL Procalcitonin (0.02-0.09) ng/mL Microbiology - Last 24 Hours (Table) 05/25/23 06:51 Gram Stain - Final Sputum Sputum Culture - Final 05/25/23 07:16 Blood Culture - Preliminary Blood 05/25/23 11:28 Blood Culture - Preliminary Blood Assessment and Plan (1) Aspiration pneumonia Current Visit: Yes Status: Acute Code(s): J69.0 - PNEUMONITIS DUE TO INHALATION OF FOOD AND VOMIT SNOMED Code(s): 200766803 (2) Leukocytosis Current Visit: Yes Status: Acute Code(s): D72.829 - ELEVATED WHITE BLOOD CELL COUNT, UNSPECIFIED SNOMED Code(s): 459142341 Plan: 1-patient was in the hospital with outside hospital cardiac arrest requiring resuscitation subsequently brought to the hospital noticed to have IN s/p cardiac cath and for stent placement patient also have left-sided pneumothorax and evidence of pneumonia on the CT, likely secondary to aspiration etiology 2blood and sputum cultures are currently pending. 3patient did have resolution of the fever and white count is trending down continue with the Zosyn while waiting for the culture to finalize Dictation was produced using [employer] dictation software. please excuse any grammatical, word or spelling errors.
--- NOTE | 2023-05-28 14:43 | P.PN ---
Subjective Progress Note Date: 05/28/23 Principal diagnosis: Reason for follow-up is aspiration pneumonia Patient is a 43-year-old female with a past medical history Significant for anxiety depression current everyday smoker patient was brought into the ER via EMS, patient did have a cardiac arrest requiring resuscitation patient did have a evidence of HI s/p cardiac cath and four stent placement. Patient was extubated on 05/27/2023. On today's evaluation that is 05/28/2023, patient remains to be afebrile, the patient is breathing comfortably on 3 L nasal cannula oxygen has been complaining of chest pain did have a congested cough no vomiting or diarrhea has been reported by the nursing staff Patient white count is down to 14,000 creatinine is 1.11 blood and sputum cultures currently pending Objective - Vital Signs Vital signs: Vital Signs Temp 99.3 F 05/28/23 08:00 Pulse 98 05/28/23 11:00 Resp 20 05/28/23 11:00 BP 95/64 05/28/23 11:00 Pulse Ox 94 L 05/28/23 11:00 FiO2 40 05/28/23 04:00 Intake & Output 05/27/23 05/28/23 05/28/23 18:59 06:59 18:59 Intake Total 533.132 289.92 132.686 Output Total 1205 715 365 Balance -671.868 -425.08 -232.314 Weight 91.6 kg Intake: IV 320 220 110 Piperacillin-Tazobactam 3 200 100 100 .375 gm In Sodium Chloride 0.9% 100 ml @ 25 mls/hr IVPB Q8H [facility] Rx#: [id number] carrier 120 120 10 Intake, IV Titration 213.132 69.92 22.686 Amount ACETAMINOPHEN IV (For NPO 100 ) 1,000 mg In Empty Bag 1 bag @ 400 mls/hr IVPB ONCE [facility] Rx#:[id number] Dexmedetomidine/0.9% NaCl 69.92 22.686 (Pmx) 400 mcg In Empty Bag 1 bag @ 0.2 MCG/KG/HR 4.56 mls/hr IV .[id number] [facility] Rx#:[id number] propofoL 1,000 mg In 113.132 Empty Bag 1 bag @ 15 MCG/ KG/MIN 9.27 mls/hr IV . [id number] [facility] Rx#:[id number] Output: Urine 1205 715 365 Other: Voiding Method Indwelling Catheter Indwelling Catheter Indwelling Catheter ABP, PAP, CO, CI - Last Documented Arterial Blood Pressure 169/169 - Exam GENERAL DESCRIPTION: Middle-aged female Lying in bed in no distress RESPIRATORY SYSTEM: Unlabored breathing , decreased breath sounds at bases HEART: S1 S2 regular rate and rhythm , ABDOMEN: Soft did have some distention EXTREMITIES: No edema feet - Labs CBC & Chem 7: 05/28/23 05:53 05/28/23 05:53 Labs: Abnormal Lab Results - Last 24 Hours (Table) 05/27/23 05/27/23 05/27/23 Range/Units 05:23 11:59 13:08 WBC (3.8-10.6) k/uL RBC (3.80-5.40) m/uL Hgb (11.4-16.0) gm/dL Hct (34.0-46.0) % Neutrophils # (1.3-7.7) k/uL Chloride (98-107) mmol/L Carbon Dioxide (22-30) mmol/L Creatinine (0.52-1.04) mg/dL POC Glucose (mg/dL) 128 H 114 H (70-110) mg/dL Calcium (8.4-10.2) mg/dL AST (14-36) U/L ALT (4-34) U/L Total Protein (6.3-8.2) g/dL Albumin (3.5-5.0) g/dL TSH 26.900 H (0.465-4.680) mIU/L 05/27/23 05/28/23 05/28/23 Range/Units 18:17 05:53 05:53 WBC 14.0 H (3.8-10.6) k/uL RBC 2.49 L (3.80-5.40) m/uL Hgb 7.4 L (11.4-16.0) gm/dL Hct 22.8 L (34.0-46.0) % Neutrophils # 11.1 H (1.3-7.7) k/uL Chloride 110 H (98-107) mmol/L Carbon Dioxide 19 L (22-30) mmol/L Creatinine 1.07 H (0.52-1.04) mg/dL POC Glucose (mg/dL) 114 H (70-110) mg/dL Calcium 8.2 L (8.4-10.2) mg/dL AST 78 H (14-36) U/L ALT 47 H (4-34) U/L Total Protein 5.8 L (6.3-8.2) g/dL Albumin 3.2 L (3.5-5.0) g/dL TSH (0.465-4.680) mIU/L Microbiology - Last 24 Hours (Table) 05/25/23 07:16 Blood Culture - Preliminary Blood 05/25/23 11:28 Blood Culture - Preliminary Blood 05/25/23 06:51 Gram Stain - Final Sputum Sputum Culture - Final Assessment and Plan (1) Aspiration pneumonia Current Visit: Yes Status: Acute Code(s): J69.0 - PNEUMONITIS DUE TO INHALATION OF FOOD AND VOMIT SNOMED Code(s): 191756333 (2) Leukocytosis Current Visit: Yes Status: Acute Code(s): D72.829 - ELEVATED WHITE BLOOD CELL COUNT, UNSPECIFIED SNOMED Code(s): 644716693 Plan: 1-patient was in the hospital with outside hospital cardiac arrest requiring resuscitation subsequently brought to the hospital noticed to have HI s/p cardiac cath and for stent placement patient also have left-sided pneumothorax and evidence of pneumonia on the CT, likely secondary to aspiration etiology 2blood and sputum cultures are so far negative 3patient did have resolution of the fever and white count is trending down, the patient has been extubated, we will be able continue with the Zosyn while waiting for the culture to finalize Dictation was produced using [employer] dictation software. please excuse any grammatical, word or spelling errors.
[2023-05-28] MEDS: SODIUM CHLORIDE 0.9% 500 ML 500 ML IV SCH (16:02)
[2023-05-28] MEDS ORDERED: SENNOSIDES 8.6 MG TAB PO STA (17:00)
[2023-05-28] MEDS: HYDROcodone/APAP 5-325MG 1 EACH TAB PO PRN ×2 (17:09→21:46)
[2023-05-28] MEDS: ONDANSETRON 4 MG/2 ML VIAL IVP PRN (17:50)
--- NOTE | 2023-05-28 19:24 | P.PN ---
Subjective Progress Note Date: 05/28/23 Progress Note 05/28/23 Patient was extubated yesterday and has been doing well since. She compared to significant chest pain from her chest compressions she received prior to coming to the hospital. No swelling in the right femoral groin site. HISTORY OF PRESENTING ILLNESS 43-year-old female with no known past medical history. History is very limited as patient was received in an obtunded state. Apparently patient was having substernal chest heaviness all throughout the day today around 2 AM patient was noticed to have a witnessed cardiac arrest. For this EMS was activated. One of the EMS staff was just a neighbors on the patient and was able to reach the scene in 2 minutes. Patient was immediately started on CPR within 2 minutes and there was a return of spontaneous circulation with about 5 minutes of CPR and ACLS. Patient received 1 round of epi and 1 shock. ECG post shock shows ST elevations in leads V2 to V4 with Q waves in anteroseptal leads. The ECG in the ER shows atrial fibrillation with ST elevations in V2 to V4 with Q waves in anteroseptal leads. A CT head was done which did not show any acute intracranial process or any evidence of ventricular bleeding. A CT chest with contrast was performed there was no evidence of aortic dissection or any evidence of massive/submassive PE. PHYSICAL EXAMINATION Cardiac: S1 and S2 audible, no murmurs appreciated Respiratory: Mild crackles and rhonchi audible in bilateral lower lung cruz GI: Bowel sounds are present Lower extremity no significant swelling ASSESSMENT Acute anterior SD. Complicated cardiac catheterization. Spontaneous dissection involving the left main, requiring stenting on the left main and bifurcation stenting of LAD and LCx. Total stents received 4 Cardio pulmonary arrest, suspect due to ventricular fibrillation. Atrial fibrillation post ROSC. 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 Continue for now. Reevaluate the need for Aldactone his kidney function worsens Objective - Vital Signs Vital signs: Vital Signs Temp 98.4 F 05/28/23 16:00 Pulse 106 H 05/28/23 19:00 Resp 23 05/28/23 19:00 BP 112/78 05/28/23 19:00 Pulse Ox 95 05/28/23 19:00 FiO2 35 05/28/23 15:56 Intake & Output 05/28/23 05/28/23 05/29/23 06:59 18:59 06:59 Intake Total 289.92 132.686 Output Total 715 935 65 Balance -425.08 -802.314 -65 Weight 91.6 kg Intake: IV 220 110 Piperacillin-Tazobactam 3 100 100 .375 gm In Sodium Chloride 0.9% 100 ml @ 25 mls/hr IVPB Q8H [facility] Rx#: [id number] carrier 120 10 Intake, IV Titration 69.92 22.686 Amount Dexmedetomidine/0.9% NaCl 69.92 22.686 (Pmx) 400 mcg In Empty Bag 1 bag @ 0.2 MCG/KG/HR 4.56 mls/hr IV .[id number] [facility] Rx#:[id number] Output: Urine 715 935 65 Other: Voiding Method Indwelling Catheter Indwelling Catheter ABP, PAP, CO, CI - Last Documented Arterial Blood Pressure 169/169 - Labs CBC & Chem 7: 05/28/23 05:53 05/28/23 05:53 Labs: Abnormal Lab Results - Last 24 Hours (Table) 05/28/23 05/28/23 Range/Units 05:53 05:53 WBC 14.0 H (3.8-10.6) k/uL RBC 2.49 L (3.80-5.40) m/uL Hgb 7.4 L (11.4-16.0) gm/dL Hct 22.8 L (34.0-46.0) % Neutrophils # 11.1 H (1.3-7.7) k/uL Chloride 110 H (98-107) mmol/L Carbon Dioxide 19 L (22-30) mmol/L Creatinine 1.07 H (0.52-1.04) mg/dL Calcium 8.2 L (8.4-10.2) mg/dL AST 78 H (14-36) U/L ALT 47 H (4-34) U/L Total Protein 5.8 L (6.3-8.2) g/dL Albumin 3.2 L (3.5-5.0) g/dL Microbiology - Last 24 Hours (Table) 05/25/23 07:16 Blood Culture - Preliminary Blood 05/25/23 11:28 Blood Culture - Preliminary Blood
[2023-05-28] MEDS: ATORVASTATIN 80 MG TAB PO SCH (20:05)
[2023-05-28] MEDS: MIRTAZAPINE 15 MG TAB PO SCH (20:05)
--- NOTE | 2023-05-28 23:24 | P.PN ---
Subjective Progress Note Date: 05/28/23 Mecca Tam, is a 43-year-old female, who was found unresponsive at home, CPR was initiated by a neighbor who is a promotion specialist, EMS were called and patient was defibrillated and brought into emergency room, she was intubated in the emergency room, EKG revealed ST elevation and Q waves in anterior leads, patient was taken to the construction laborer, she underwent angioplasty and stenting to the proximal LAD, the left main and the left Sears conflicts, she was transferred to intensive care unit, and is currently intubated sedated maintained on mechanical ventilation, cardiology and pulmonary critical care are following. Patient has a known history of depression with anxiety disorder, history of post traumatic stress disorder, history of hypothyroidism and history of tobacco abuse. 05/26/2023 Picked up coverage today from Dr. Padgett. Patient remains in the intensive care unit. Currently sedated with propofol and on the mechanical ventilator with FiO2 of 50% and PEEP of 5. Status post cardiac catheterization with stent placed to the proximal LAD, left circ, and placement of impella device with plans for removal of the impella today. Chest xray today shows left ventricular assist device in place, with improvement of interstitial pulmonary edema. Some pulmonary vascular congestion remains. Echocardiogram reveals an EF of 25%. Patient remains on dual antiplatelet therapy with aspirin and effient, lipitor, farxiga, lopressor, aldactone. [place] has been removed and lithium level pend ing. Patient on empiric antibiotic coverage with IV zosyn. White blood cell count 22.9. BUN 18, creatinine 1.10. Lactic acid normalized to 2.0. LFTS stable, LDH improving 1820. Procalcitonin level elevated at 0.65. Influenza, covid, RSV are all negative. Has been taken off the insulin gtt with improvement in blood glucose. A1C was normal range of 5.5. 05/27/2023 Patient is evaluated today in the intensive care unit. Patient had impella device removed last night. Has been extubated today and did require increased oxygen support currently evaluated on BiPAP. She is complaining of significant l eft sided chest pain. Receiving IV tylenol and has prn IV dilaudid. Remains on aspirin effient combination. Has been resumed on cymbalta and mirtazipine. Continues on IV zosyn empirically. Propofol off and patient now on IV precedex. Patients sputum culture is negative and blood culture remains negative at this time. Labs today showing white count 16.3, hemoglobin 7.7., sodium 138, potassium 3.8, BUN 15, creatinine 1.11, LFTs improving. chest xray today showing residual mild pulmonary vascular congestion with some improvement in the previous interstitial edema. Some patchy opacity probably patchy edema remains at the inferior lingular. 05/28/2023 Patient is in the MICU. Awake alert and oriented. On room air saturating 96%. Still complains of chest soreness/pain and pressure likely due to chest compressions prior to coming to the hospital. No complaints of shortness of breath. No nausea vomiting abdominal pain or diarrhea. Laboratory showed WBC 14.0 hemoglobin 7.4 and platelets 194 Sodium 140 potassium 3.8 chloride 110 bicarb is 19 BUN 5 and creatinine 1.07 AST 78 ALT 47 alk phos 90 albumin 3.2. Patient is being continued on aspirin, statin, metoprolol, dapagliflozin, insulin sliding scale and levothyroxine and antibiotics, Zosyn. Patient is also on Aldactone 25 mg p.o. daily All inpatient medications were reviewed and appropriate changes in these medications as dictated in the interval history and assessment and plan. PHYSICAL EXAMINATION: GENERAL: The patient is sedated, not in any acute distress. Well developed, well nourished. HEENT: Pupils are round and equally reacting to light. EOMI. No scleral icterus. No conjunctival pallor. Normocephalic, atraumatic. No pharyngeal erythema. No thyromegaly. CARDIOVASCULAR: S1 and S2 present. No murmurs, rubs, or gallops. PULMONARY: Chest is clear to auscultation, no wheezing or crackles. ABDOMEN: Soft, nontender, nondistended, normoactive bowel sounds. No palpable organomegaly. MUSCULOSKELETAL: No joint swelling or deformity. EXTREMITIES: No cyanosis, clubbing, or pedal edema. NEUROLOGICAL: Awake alert no focal neurological deficits. SKIN: No rashes. Assessment and Plan -Cardiac arrest at home with unkown downtime patient was defibrillated by EMS on scene. -Acute ST elevation myocardial infarction status post stenting to the proximal LAD, left circ with dissection of the left main, stenting of the left main and placement of impella device patient continues on dual antiplatelet therapy at this time with aspirin and effient. IV heparin is discontinued and the impella device has been removed. -Acute hypoxic respiratory failure requiring intubation and mechanical ventilation s/p extubation 05/27/2023 requiring BiPAP. on RA currently. -Left sided pneumothorax likely from CPR which appears resolved on follow up chest xray -Acute metabolic acidosis improved -Acute kidney injury secondary to ATN/hypotension improved -Hyperglycemia off the insulin gtt with improvement in blood glucose. HgbA1C wnl at 5.5. -Leukocytosis with bilateral pulmonary infiltrates possible aspiration pneumonia remains on empiric antibiotic coverage with IV zosyn, procalcitonin level elevated at 0.65. ID following. -Underlying history of depression with anxiety disorder resumed on psychiatric mediations. -Underlying history of posttraumatic stress disorder -Underlying history of hypothyroidism Resumed on home medications will check TSH. -Underlying history of tobacco abuse GI prophylaxis DVT prophylaxis Full Code Objective - Vital Signs Vital signs: Vital Signs Temp 98.4 F 05/28/23 16:00 Pulse 110 H 05/28/23 16:00 Resp 20 05/28/23 16:00 BP 114/74 05/28/23 16:00 Pulse Ox 96 05/28/23 16:00 FiO2 35 05/28/23 15:56 Intake & Output 05/27/23 05/28/23 05/28/23 18:59 06:59 18:59 Intake Total 533.132 289.92 132.686 Output Total 1205 715 770 Balance -671.868 -425.08 -637.314 Weight 91.6 kg Intake: IV 320 220 110 Piperacillin-Tazobactam 3 200 100 100 .375 gm In Sodium Chloride 0.9% 100 ml @ 25 mls/hr IVPB Q8H [facility] Rx#: [id number] carrier 120 120 10 Intake, IV Titration 213.132 69.92 22.686 Amount ACETAMINOPHEN IV (For NPO 100 ) 1,000 mg In Empty Bag 1 bag @ 400 mls/hr IVPB ONCE [facility] Rx#:[id number] Dexmedetomidine/0.9% NaCl 69.92 22.686 (Pmx) 400 mcg In Empty Bag 1 bag @ 0.2 MCG/KG/HR 4.56 mls/hr IV .[id number] [facility] Rx#:[id number] propofoL 1,000 mg In 113.132 Empty Bag 1 bag @ 15 MCG/ KG/MIN 9.27 mls/hr IV . [id number] [facility] Rx#:[id number] Output: Urine 1205 715 770 Other: Voiding Method Indwelling Catheter Indwelling Catheter Indwelling Catheter ABP, PAP, CO, CI - Last Documented Arterial Blood Pressure 169/169 - Labs CBC & Chem 7: 05/28/23 05:53 05/28/23 05:53 Labs: Abnormal Lab Results - Last 24 Hours (Table) 05/27/23 05/27/23 05/28/23 Range/Units 05:23 18:17 05:53 WBC 14.0 H (3.8-10.6) k/uL RBC 2.49 L (3.80-5.40) m/uL Hgb 7.4 L (11.4-16.0) gm/dL Hct 22.8 L (34.0-46.0) % Neutrophils # 11.1 H (1.3-7.7) k/uL Chloride (98-107) mmol/L Carbon Dioxide (22-30) mmol/L Creatinine (0.52-1.04) mg/dL POC Glucose (mg/dL) 114 H (70-110) mg/dL Calcium (8.4-10.2) mg/dL AST (14-36) U/L ALT (4-34) U/L Total Protein (6.3-8.2) g/dL Albumin (3.5-5.0) g/dL TSH 26.900 H (0.465-4.680) mIU/L 05/28/23 Range/Units 05:53 WBC (3.8-10.6) k/uL RBC (3.80-5.40) m/uL Hgb (11.4-16.0) gm/dL Hct (34.0-46.0) % Neutrophils # (1.3-7.7) k/uL Chloride 110 H (98-107) mmol/L Carbon Dioxide 19 L (22-30) mmol/L Creatinine 1.07 H (0.52-1.04) mg/dL POC Glucose (mg/dL) (70-110) mg/dL Calcium 8.2 L (8.4-10.2) mg/dL AST 78 H (14-36) U/L ALT 47 H (4-34) U/L Total Protein 5.8 L (6.3-8.2) g/dL Albumin 3.2 L (3.5-5.0) g/dL TSH (0.465-4.680) mIU/L Microbiology - Last 24 Hours (Table) 05/25/23 07:16 Blood Culture - Preliminary Blood 05/25/23 11:28 Blood Culture - Preliminary Blood
[2023-05-29] MEDS: INSULIN ASPART (NovoLOG) 100 UNIT/ML VIAL SQ SCH ×4 (00:35→18:18)
[2023-05-29 00:36] LABS: Glucose,Whole Blood 101 mg/dL (70-110)
[2023-05-29] MEDS: PIPERACILLIN-TAZOBACTAM 3.375 GM in SODIUM CHLORIDE 0.9% 100 ML IVPB SCH ×4 (00:37→23:54)
[2023-05-29] MEDS: HYDROcodone/APAP 5-325MG 1 EACH TAB PO PRN ×4 (03:19→19:52)
[2023-05-29] MEDS: ONDANSETRON 4 MG/2 ML VIAL IVP PRN ×3 (04:06→14:47)
[2023-05-29 05:21] LABS: HCT 24.4 % (34.0-46.0); HGB 7.9 gm/dL (11.4-16.0); MCH 29.1 pg (25.0-35.0); MCHC 32.2 g/dL (31.0-37.0); MCV 90.2 fL (80.0-100.0); Mean Platelet Volume 8.7; Platelet Count 269 k/uL (150-450); RBC 2.71 m/uL (3.80-5.40); RDW 14.7 % (11.5-15.5); WBC 14.4 k/uL (3.8-10.6)
[2023-05-29 05:32] LABS: African American GFR (CKD) 87 (>60 ml/min/1.73 sqM); Blood Urea Nitrogen 13 mg/dL (7-17); Carbon Dioxide 20 mmol/L (22-30); Chloride 105 mmol/L (98-107); Non-African American GFR(CKD) 76 (>60 ml/min/1.73 sqM)
[2023-05-29 05:33] LABS: Anion Gap 10 mmol/L; Calcium 8.5 mg/dL (8.4-10.2); Glucose 91 mg/dL (74-99); Potassium 3.9 mmol/L (3.5-5.1); Sodium 135 mmol/L (137-145)
[2023-05-29 05:50] LABS: Glucose,Whole Blood 97 mg/dL (70-110)
[2023-05-29] MEDS: HYDROmorphone 0.5 MG/0.5 ML SYRINGE IVP PRN ×7 (05:50→23:54)
[2023-05-29] MEDS: LEVOTHYROXINE 100 MCG TAB PO SCH (06:08)
[2023-05-29] MEDS ORDERED: POTASSIUM CHLORIDE ER 20 MEQ TAB.ER PO SCH (07:00)
--- NOTE | 2023-05-29 09:06 | P.PN ---
Subjective Progress Note Date: 05/29/23 I am seeing this patient in new consultation today 05/25/2023 in the intensive care unit following an out of hospital cardiac arrest. Patient is a 43-year-old white female with no known cardiac history. She is on multiple psychiatric medications at home. Patient is currently intubated on mechanical ventilator and unable to provide any information. Apparently, the patient was complaining of epigastric pain and nausea throughout the day yesterday. Earlier this morning the patient's significant other woke up to her shaking in bed and unresponsive. CPR was initiated by a neighbor who is apparently a inspector balance bridge, and patient was defibrillated once EMS arrived. On arrival to emergency room, patient was intubated by the ER physician. She was unresponsive, she had copious emesis, and likely aspirated. ECG showed ST elevation and Q waves in the anterior-septal leads, and a code STEMI was initiated. 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 Patient subsequently had an Impella catheter placed. She was transferred to the intensive care unit in critical condition. Chest CTA done in the emergency room showed a small 10-15% left sided pneumotho rax. No large central pulmonary embolism was visualized. The ET tube was within the right mainstem bronchus. There was scattered patchy airspace opacities in the posterior upper lobes and more prominently in the lower lobes with air bronchograms. Likely consistent with aspiration/aspiration pneumonia. Patient currently intubated on mechanical ventilator. Current ventilator settings are assist control, respiratory rate 20, tidal volume 450, FiO2 100%, and PEEP of 8. ABGs done on the settings show a pH of 7.32, pCO2 of 31, pO2 of 79. Repeat chest x-ray does not show any enlargement of the left sided pneumothorax. The endotracheal tube is now approximately 3-4 cm above the alisha. There are diffuse bilateral multifocal infiltrates. CBC demonstrates leukocytosis with a WBC count of 22.6, hemoglobin 12.2, hematocrit 38.9, platelets 395. BMP a sodium of 137, potassium 3.5, chloride 109, serum bicarb 10, BUN 15, creatinine 1.35, glucose 315. Troponins 0.145. NT proBNP 315. Patient is sedated and unresponsive on the mechanical ventilator. She is breathing above set rate. Does not follow commands. She is sedated on propofol at 30 mcg/kg/m. Brain CT on arrival did not show any acute intracranial hemorrhage or mass effect. Blood pressure is stable. Not requiring vasopres sors. She is tachycardic. Urine output is anuric. Impella is inserted through the right groin, set at P9. 3.9 L of flow. Baseline coags are unremarkable. Patient will be started on IV heparin per protocol. Patient's prognosis is guarded, and she is currently in critical condition. There was a concern for an underlying pneumothorax. I reviewed the chest x-ray the chest x-ray showing diffuse but the pulmonary infiltrates. This is consistent with acute cardiogenic pulmonary edema it underlying aspiration cannot be completely excluded. I reviewed the CAT scan of the chest, there may be a very tiny left anterior pneumothorax not clearly seen on today's chest x- ray. This will be monitored very closely. The patient is currently intubated on a mechanical ventilator. The patient is on propofol which is running at 35 mcg/kg/m. She is adequately sedated and suggest a mechanical ventilator. She is covered with antibiotics and she is currently on IV Zosyn. She is on no pressors at this point in time. Cardiac rhythm is sinus tachycardia. On today's evaluation of 05/26/2023, the patient is being seen for a follow-up. The patient remains intubated on a mechanical ventilator. This morning, she is on propofol running at 35 mcg/kg/m and she is calm and comfortable. She response to stimulation. She was also painful stimulation in all 4 extremities. At the same time, the patient remains on a mechanical ventilator on assist control mode at the rate of 20, tidal volume of 450, FiO2 of 50% and a PEEP of 5. The chest x-ray from this morning is showing evidence of diffuse bilateral pulmonary infiltrates consistent with pulmonary edema. The ET tube is in a good location. The patient also has a left sided subclavian triple-lumen catheter in place. No evidence of any significant pneumothorax. There is interval improvement in the pulmonary edema on today's chest x-ray compared to yesterday. The blood gas showed a pH of 7.48 with a pCO2 of 35 and pO2 of 90. In terms of hemodynamics, the patient is on no pressors. ImPela supports is still ongoing although she has been switched from P9 to PT for and currently she is on P2 support. The flow is at 1.8 L/m. The Augmentin blood pressure is 91/58. She is producing urine output and the fluid balance over the past 24 hours has been +3.4 L. Nevertheless, the patient is producing 100 mL an hour of urine output and she produced approximately 1.2 L of urine output for yesterday. Pulses are present lower extremities bilaterally. The patient is currently on a combination of aspirin and Effient. Aldactone was also added. The patient is receiving and panic antibiotic coverage with IV Zosyn. IV fluids are in the form of bicarb infusion at the rate of 100 mL an hour. This will be discontinued. BUN is at 80 with a creatinine of 1.1. Sodiums of 135, serum bicarb is at 24, the white cell count is 22.9 with a hemoglobin of 9.1 and a platelet count of 224. A limited echocardiogram was done yesterday and the patient was told to have a LV ejection fraction severely impaired estimated to be at around 25. She is also off the insulin drip. Blood sugars under better control for now. On today's evaluation of 05/27/2023 pounds in the patient for a follow-up. The patient is doing well. The Impella was removed yesterday without any major difficulties. No evidence of any bleeding at the insertion site. The patient has such is hemodynamically stable. No pressors at this point in time. She is producing adequate amount of urine output. This morning, she is on propofol running at 30 microvascular kilogram per minute. She is on assist-control mode at a rate of 20, tidal volume of 450, FiO2 of 50% with a PEEP of 8. Blood gas show a pH of 7.5 with a pCO2 of 32 and pO2 of 116. The chest x-ray shows improvement of the previously described pulmonary edema. ET tube is in a good location. The patient is producing adequate amount of urine output. Her urine output was up to 100 mL an hour. The fluid Balance over the past 24 hours is - 1.1 L. The patient's echoes at 16.3, hemoglobin is at 7.7 which is essentially dropped since admission. No evidence of any acute bleeding at this point in time. BUN is at 15 with a creatinine of 1.1 and a sodium level is at 138. The patient is currently receiving a sedation holiday. Propofol discontinued and her readiness to wean will be evaluated. She remains on IV Zosyn. She remains on a combination of aspirin and Effient. She was also started on metoprolol 25 mg by mouth twice a day. She is not receiving any enteral feeding at this point in time. On 05/28/2023, the patient is extubated. Note that the patient was able to wean off the mechanical ventilator and the patient was extubated to nasal cannula initially. Subsequently, she started having hypoxemia and she had to be placed on BiPAP throughout the day and she was also kept on BiPAP overnight. Also, we added Precedex to improve her anxiety level of agitation and Precedex is still running at 0.2 mcg/kg/h. This morning, she is calm and comfortable. She is communicating. She is alert and oriented 3. She has profound weakness in all 4 extremities. She is complaining of soreness in her chest which is probably related to CPR. No signs of any bleeding. Hemoglobin is at 7.4 and it has drifted slowly during the current hospitalization. The patient is currently on oxygen at 3 L. The chest x-ray showing some mild pulmonary congestion. She remains on IV Zosyn as a broad-spectrum antibiotic coverage for any potential aspiration pneumonia. Nevertheless, her acute pulmonary edema has improved considerably. Cardiac rhythm is sinus. She is on metoprolol 25 mg twice a day. She is also on aspirin. She is on Effient. She is also on Farxiga The puncture site in her right groin shows no evidence of any bleeding. She was also started on Aldactone at a dose of 25 mg by mouth daily. She is on high- dose statins. She is on thyroid hormone replacement. On 05/29/2023, the patient remains extubated and she is currently on oxygen at 8 liters and the patient's pulse ox is currently at 96%. She encountered a coughing fit overnight and this was associated with some oxygen desaturation and for that reason she was recently placed on a BiPAP that was subsequently taken off. The patient is off Precedex and she is, comfortable and communicating. She continues to have soreness across her anterior chest related to CPR and the patient is receiving Hughes 5 every 4 hours and Dilaudid 0.5 every 3. Clinically stable. Hemodynamically stable. No pressors for now. Cardiac rhythm is sinus. The chest x-ray from today showing recurrent pulmonary edema with interval worsening and this goes along with her worsening in her oxygenation. Note that the patient has not been receiving any diuretics for the time being. She does have cardiomyopathy postcardiac arrest and post acute myocardial infarction. Meanwhile, she is producing urine output which is adequate and the patient has produced approximately 1.5 L for yesterday and overall fluid balance is -1.3 L over the past 24 hours. Her hemoglobin stable at 7.9. The white cycles of 14.4, BUN is at 30 with a creatinine of 0.9 and his sodium level is at 135. Her blood pressure was soft and this is improved and the most recent BP is 121/87. In terms of her cardiomyopathy, the patient is on metoprolol 25 mg twice a day, Farxiga 10 mg by mouth daily, Aldactone 25 mg by mouth daily. IV fluids are currently at KVO. She is on aspirin and Effient. Objective - Vital Signs Vital signs: Vital Signs Temp 98.6 F 05/29/23 04:00 Pulse 89 05/29/23 08:00 Resp 16 05/29/23 08:00 BP 121/87 05/29/23 08:00 Pulse Ox 98 05/29/23 08:15 FiO2 50 05/29/23 08:15 Intake & Output 05/28/23 05/29/23 05/29/23 18:59 06:59 18:59 Intake Total 132.686 110 10 Output Total 935 680 75 Balance -802.314 -570 -65 Weight 90.6 kg Intake: IV 110 110 10 Piperacillin-Tazobactam 3 100 .375 gm In Sodium Chloride 0.9% 100 ml @ 25 mls/hr IVPB Q8H [facility] Rx#: [id number] carrier 10 110 10 Intake, IV Titration 22.686 Amount Dexmedetomidine/0.9% NaCl 22.686 (Pmx) 400 mcg In Empty Bag 1 bag @ 0.2 MCG/KG/HR 4.56 mls/hr IV .[id number] [facility] Rx#:[id number] Output: Urine 935 680 75 Other: Voiding Method Indwelling Catheter Indwelling Catheter ABP, PAP, CO, CI - Last Documented Arterial Blood Pressure 169/169 - Exam GENERAL EXAM: The patient is currently on oxygen at 8 L nasal cannula. Awake and alert and communicating, , currently off Precedex HEAD: Normocephalic and atraumatic EYES: Normal reaction of pupils, equal size. NOSE: Clear with pink turbinates. THROAT: No erythema or exudates. NECK: No masses, no JVD. The patient has a left subclavian triple-lumen catheter in place CHEST: No chest wall deformity. LUNGS: Lungs were clear to auscultation and percussion, and with normal diaphragmatic excursion. No wheezes or rales were noted. CVS: S1 and S2 normal with no audible murmur, regular rhythm. No extra heart sounds ABDOMEN: No hepatosplenomegaly, active bowel sounds, no guarding or rigidity. SPINE: No scoliosis or deformity SKIN: No rashes CENTRAL NERVOUS SYSTEM: Profound motor weakness, alert and awake, no focal neurological deficits. EXTREMITIES: There is no peripheral edema, clubbing, or cyanosis. Peripheral pulses are weak but intact. Pulses are diminished - Labs CBC & Chem 7: 05/29/23 04:38 05/29/23 04:38 Labs: Abnormal Lab Results - Last 24 Hours (Table) 05/29/23 05/29/23 Range/Units 04:38 04:38 WBC 14.4 H (3.8-10.6) k/uL RBC 2.71 L (3.80-5.40) m/uL Hgb 7.9 L (11.4-16.0) gm/dL Hct 24.4 L (34.0-46.0) % Sodium 135 L (137-145) mmol/L Carbon Dioxide 20 L (22-30) mmol/L Microbiology - Last 24 Hours (Table) 05/25/23 07:16 Blood Culture - Preliminary Blood 05/25/23 11:28 Blood Culture - Preliminary Blood Assessment and Plan Plan: Out of hospital cardiac arrest, downtime is unknown. The patient had a likely metastatic atrial fibrillation/tachycardia the patient was defibrillated on the scene, CPR was continued and the patient was intubated in the emergency department. Cardiac arrest secondary to acute ST segment elevation myocardial infarction. The patient underwent emergent cardiac catheterization stenting complicated by a dissection of the left main. And the patient underwent further stenting of the left main and left circumflex secondary to this dissection. Impella was also inserted and was subsequently removed on 05/26/2023 without any complication and the patient remains hemodynamically stable. The patient is awake and alert and communicating and she is having generalized motor weakness in all 4 extremities. Nevertheless, and neurologic exam is nonfocal Acute ST elevation [place], patient did receive successful stenting of the proximal LAD with stenting of the left main and left circumflex secondary to dissection of the left main. The Impella was removed without any complications Severe cardiomyopathy, likely ischemic with an ejection fraction of 20-25% Acute pulmonary edema with development of recurrent pulmonary infiltrates and the patient is currently on 8 L of oxygen by nasal cannula and there is interval worsening of the respiratory status and oxygenation. Acute hypoxic respiratory failure, extubated to a BiPAP and currently she is on 8 L of oxygen by nasal cannula. Small left-sided pneumothorax estimated at 10-15%, likely secondary to CPR, no need for chest tube at this time, this is likely related to CPR. No evidence of any tension or hemodynamic compromise related to the pneumothorax. Metabolic anion gap acidosis, recovered Acute anemia, likely blood loss anemia and this could be also related to intravascular hemolysis due to Impella. No evidence of any bleed in her right groin area. Hemoglobin today is at 7.9 Acute kidney injury, secondary to hypoperfusion and acute tubular necrosis, recovered and the patient is producing adequate amount of urine output. Creatinine is improved Mild transaminitis, secondary to hypoperfusion Leukocytosis, improved Hypothyroidism History of depression/anxiety/PTSD Plan: Start The patient on Lasix 40 mg IV every 12 hours May need to utilize BiPAP on and off during the day based on oxygenation rest or status Keep the IV fluids at KVO Continue empiric antibiotic coverage with IV Zosyn Monitor the hemoglobin knowing that there was a hemoglobin drop down to 7.9. No evidence of any bleeding Monitor renal function. The renal function is improving Continue aspirin Continue Effient Continue metoprolol, and Farxiga Continue Aldactone Increase mobility Provide diet Incentive spirometer Physical therapy Continue Dilaudid and Hughes for pain control Condition is critical and we'll continue to follow make further recommendations based on her progress, and is a critical care evaluation that was done in more than 30 minutes
[2023-05-29] MEDS: ASPIRIN 81 MG PO SCH (09:23)
[2023-05-29] MEDS: SPIRONOLACTONE 25 MG TAB PO SCH (09:24)
[2023-05-29] MEDS: DAPAGLIFLOZIN PROPANEDIOL 10 MG TABLET PO SCH (09:24)
[2023-05-29] MEDS: SENNOSIDES 8.6 MG TAB PO SCH (09:24)
[2023-05-29] MEDS: DULoxetine HCL 60 MG CAPSULE.DR PO SCH ×2 (09:24→20:01)
[2023-05-29] MEDS: METOPROLOL TARTRATE 25 MG TAB PO SCH ×3 (09:24→20:01)
[2023-05-29] MEDS: PRASUGREL 10 MG TAB PO SCH (09:25)
[2023-05-29] MEDS: LIOTHYRONINE SODIUM 5 MCG TAB PO SCH (09:25)
[2023-05-29] MEDS: LIDOCAINE 4% PATCH TOPICAL SCH (09:26)
[2023-05-29] MEDS: FUROSEMIDE 10 MG/ML 4 ML VIAL IV SCH ×2 (09:50→20:01)
--- NOTE | 2023-05-29 10:10 | XR ---
EXAM: XR chest 1V portable CLINICAL INDICATION:Female, 43 years old with history of pneumonia; [facility] COMPARISON: 05/28/2023 and before TECHNIQUE: Chest single view. FINDINGS: Lines/tubes/devices: Stable left subclavian central venous line with tip over the upper right atrium. EKG leads and other extrinsic densities over the chest. Radiodense BB-like structure again projects over the right mediastinum, changes in position between studies and must be in the soft tissues. Cardiomediastinum: CM silhouette appears now mostly obscured by the lung opacities. Cardiac silhouette likely normal in size. Vasculature: Increased central vascular congestion. Lungs/pleura: Development of extensive patchy opacities suggesting airspace disease throughout the bilateral lungs, greatest in the mid to lower aspects. Costophrenic angles are partially obscured, there may be small pleural effusions. No visualized pneumothorax. Bones/soft tissues: Bony thorax appears grossly unchanged as seen. Regional soft tissues appear unremarkable. IMPRESSION: 1. Interval development of extensive patchy airspace opacities bilaterally, most likely related to p ulmonary edema with infectious/inflammatory process also possible in the proper setting. 2. Left subclavian central venous line in place.
[2023-05-29] MEDS: DEXMEDETOMIDINE/0.9% NACL(PMX) 400 MCG in EMPTY BAG 1 BAG IV SCH (10:47)
[2023-05-29] MEDS: LITHIUM CARBONATE 300 MG CAP PO SCH ×2 (10:47→21:08)
[2023-05-29 11:47] LABS: Glucose,Whole Blood 120 mg/dL (70-110)
--- NOTE | 2023-05-29 14:50 | P.PN ---
Subjective Progress Note Date: 05/29/23 Principal diagnosis: Reason for follow-up is aspiration pneumonia Patient is a 43-year-old female with a past medical history Significant for anxiety depression current everyday smoker patient was brought into the ER via EMS, patient did have a cardiac arrest requiring resuscitation patient did have a evidence of [place] s/p cardiac cath and four stent placement. Patient was extubated on 05/27/2023. On today's evaluation that is 05/29/2023 the patient remains to be afebrile, the patient noticed to have slight worsening of her respiratory status requiring more supplemental oxygen has received a dose of Lasix patient denies having any chest pain or worsening cough some nausea but no vomiting did have some abdominal distention but the nursing staff mention patient is having bowel movements. Patient white count is 14.4 creatinine 0.94 blood culture negative sputum was negative for resistant pathogen Objective - Vital Signs Vital signs: Vital Signs Temp 98.4 F 05/29/23 12:00 Pulse 85 05/29/23 14:00 Resp 15 05/29/23 14:00 BP 117/86 05/29/23 14:00 Pulse Ox 95 05/29/23 14:00 FiO2 50 05/29/23 08:15 Intake & Output 05/28/23 05/29/23 05/29/23 18:59 06:59 18:59 Intake Total 132.686 110 80 Output Total 875 861 5638 Balance -802.314 -570 -1994 Weight 90.6 kg Intake: IV 110 110 80 Piperacillin-Tazobactam 3 100 .375 gm In Sodium Chloride 0.9% 100 ml @ 25 mls/hr IVPB Q8H [facility] Rx#: [id number] carrier 10 110 80 Intake, IV Titration 22.686 Amount Dexmedetomidine/0.9% NaCl 22.686 (Pmx) 400 mcg In Empty Bag 1 bag @ 0.2 MCG/KG/HR 4.56 mls/hr IV .[id number] [facility] Rx#:[id number] Output: Urine 138 179 4131 Other: Voiding Method Indwelling Catheter Indwelling Catheter ABP, PAP, CO, CI - Last Documented Arterial Blood Pressure 169/169 - Exam GENERAL DESCRIPTION: Middle-aged female Lying in bed in no distress RESPIRATORY SYSTEM: Unlabored breathing , decreased breath sounds at bases HEART: S1 S2 regular rate and rhythm , ABDOMEN: Soft did have some distention EXTREMITIES: No edema feet - Labs CBC & Chem 7: 05/29/23 04:38 05/29/23 04:38 Labs: Abnormal Lab Results - Last 24 Hours (Table) 05/29/23 05/29/23 05/29/23 Range/Units 04:38 04:38 11:45 WBC 14.4 H (3.8-10.6) k/uL RBC 2.71 L (3.80-5.40) m/uL Hgb 7.9 L (11.4-16.0) gm/dL Hct 24.4 L (34.0-46.0) % Sodium 135 L (137-145) mmol/L Carbon Dioxide 20 L (22-30) mmol/L POC Glucose (mg/dL) 120 H (70-110) mg/dL Microbiology - Last 24 Hours (Table) 05/25/23 07:16 Blood Culture - Preliminary Blood 05/25/23 11:28 Blood Culture - Preliminary Blood Assessment and Plan (1) Aspiration pneumonia Current Visit: Yes Status: Acute Code(s): J69.0 - PNEUMONITIS DUE TO INHALATION OF FOOD AND VOMIT SNOMED Code(s): 998137478 (2) Leukocytosis Current Visit: Yes Status: Acute Code(s): D72.829 - ELEVATED WHITE BLOOD CELL COUNT, UNSPECIFIED SNOMED Code(s): 631162184 Plan: 1-patient was in the hospital with outside hospital cardiac arrest requiring resuscitation subsequently brought to the hospital noticed to have [place] s/p cardiac cath and for stent placement patient also have left-sided pneumothorax and evidence of pneumonia on the CT, likely secondary to aspiration etiology 2blood and sputum cultures are so far negative 3the patient remains to be afebrile and the patient white count is trending down patient is covered with the Zosyn to continue and monitor clinical course closely Dictation was produced using [employer] dictation software. please excuse any grammatical, word or spelling errors. Time with Patient: Less than 30
--- NOTE | 2023-05-29 15:57 | P.PN ---
Subjective Progress Note Date: 05/29/23 Progress Note 05/29/23 Patient is to compare is a significant chest pain from the chest compression she received during the cardiac arrest. She otherwise has borderline low blood pr essure. Last night she had significant hypoxia which is most likely related to atelectasis from her inability to take deep breaths from chest pains. She was placed on BiPAP last night and received 2 doses of Lasix. 05/28/23 Patient was extubated yesterday and has been doing well since. She compared to significant chest pain from her chest compressions she received prior to coming to the hospital. No swelling in the right femoral groin site. HISTORY OF PRESENTING ILLNESS 43-year-old female with no known past medical history. History is very limited as patient was received in an obtunded state. Apparently patient was having substernal chest heaviness all throughout the day today around 2 AM patient was noticed to have a witnessed cardiac arrest. For this EMS was activated. One of the EMS staff was just a neighbors on the patient and was able to reach the scene in 2 minutes. Patient was immediately started on CPR within 2 minutes and there was a return of spontaneous circulation with about 5 minutes of CPR and ACLS. Patient received 1 round of epi and 1 shock. ECG post shock shows ST elevations in leads V2 to V4 with Q waves in anteroseptal leads. The ECG in the ER shows atrial fibrillation with ST elevations in V2 to V4 with Q waves in anteroseptal leads. A CT head was done which did not show any acute intracranial process or any evidence of ventricular bleeding. A CT chest with contrast was performed there was no evidence of aortic dissection or any evidence of massive/submassive PE. PHYSICAL EXAMINATION Cardiac: S1 and S2 audible, no murmurs appreciated Respiratory: Mild crackles and rhonchi audible in bilateral lower lung cruz GI: Bowel sounds are present Lower extremity no significant swelling ASSESSMENT Acute anterior OH. Complicated cardiac catheterization. Spontaneous dissection involving the left main, requiring stenting on the left main and bifurcation stenting of LAD and LCx. Total stents received 4 Aspiration Pneumonia Cardio pulmonary arrest, suspect due to ventricular fibrillation. Atrial fibrillation post ROSC. 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 Does not appear clinically volume overloaded. May get IV Lasix today. Reevaluate the need for Lasix tomorrow. Continue dual antiplatelet therapy continue statins Continue metoprolol 25 mg twice a day Currently on Jardiance and Aldactone 25 mg daily. Continue for now. Reevaluate the need for Aldactone if kidney function worsens Objective - Vital Signs Vital signs: Vital Signs Temp 98.4 F 05/29/23 12:00 Pulse 93 05/29/23 15:00 Resp 14 05/29/23 15:00 BP 100/79 05/29/23 15:00 Pulse Ox 97 05/29/23 15:08 FiO2 50 05/29/23 08:15 Intake & Output 05/28/23 05/29/23 05/29/23 18:59 06:59 18:59 Intake Total 132.686 110 80 Output Total 010 743 2705 [facility] -[phone] Weight 90.6 kg Intake: IV 110 110 80 Piperacillin-Tazobactam 3 100 .375 gm In Sodium Chloride 0.9% 100 ml @ 25 mls/hr IVPB Q8H [facility] Rx#: [id number] carrier 10 110 80 Intake, IV Titration 22.686 Amount Dexmedetomidine/0.9% NaCl 22.686 (Pmx) 400 mcg In Empty Bag 1 bag @ 0.2 MCG/KG/HR 4.56 mls/hr IV .[id number] [facility] Rx#:[id number] Output: Urine 917 [id number] Other: Voiding Method Indwelling Catheter Indwelling Catheter ABP, PAP, CO, CI - Last Documented Arterial Blood Pressure 169/169 - Labs CBC & Chem 7: 05/29/23 04:38 05/29/23 04:38 Labs: Abnormal Lab Results - Last 24 Hours (Table) 05/29/23 05/29/23 05/29/23 Range/Units 04:38 04:38 11:45 WBC 14.4 H (3.8-10.6) k/uL RBC 2.71 L (3.80-5.40) m/uL Hgb 7.9 L (11.4-16.0) gm/dL Hct 24.4 L (34.0-46.0) % Sodium 135 L (137-145) mmol/L Carbon Dioxide 20 L (22-30) mmol/L POC Glucose (mg/dL) 120 H (70-110) mg/dL Microbiology - Last 24 Hours (Table) 05/25/23 07:16 Blood Culture - Preliminary Blood 05/25/23 11:28 Blood Culture - Preliminary Blood
[2023-05-29] MEDS: PANTOPRAZOLE 40 MG/10 ML VIAL IVP SCH (16:00)
[2023-05-29] MEDS ORDERED: LACTULOSE 20 GM/30 ML CUP PO ONE (16:00)
--- NOTE | 2023-05-29 16:12 | XR ---
EXAMINATION TYPE: XR abdomen 1V DATE OF EXAM: 05/29/2023 4:03 PM CLINICAL INDICATION:Female, 43 years old with history of left sided abd pain; COMPARISON: None. TECHNIQUE: One radiographic view of the abdomen was obtained. FINDINGS: The bowel gas pattern is nonspecific without dilated loops of small or large bowel. There i s no evidence for organomegaly or pneumoperitoneum. The osseous structures are intact. No abnormal calcifications are present. Fecal material and gas are demonstrated throughout the colon and rectum. IMPRESSION: Nonspecific bowel gas pattern without radiographic evidence for acute process.
[2023-05-29 16:33] LABS: Glucose,Whole Blood 115 mg/dL (70-110)
[2023-05-29] MEDS: SODIUM CHLORIDE 0.9% 500 ML 500 ML IV SCH (18:19)
[2023-05-29] MEDS: ATORVASTATIN 80 MG TAB PO SCH (20:00)
[2023-05-29 20:41] LABS: Glucose,Whole Blood 114 mg/dL (70-110)
[2023-05-29] MEDS: MIRTAZAPINE 15 MG TAB PO SCH (21:08)
[2023-05-30 00:07] LABS: Glucose,Whole Blood 113 mg/dL (70-110)
[2023-05-30] MEDS: INSULIN ASPART (NovoLOG) 100 UNIT/ML VIAL SQ SCH ×4 (00:07→17:29)
[2023-05-30] MEDS: HYDROcodone/APAP 5-325MG 1 EACH TAB PO PRN (00:54)
[2023-05-30] MEDS ORDERED: hydrOXYzine HCL 25 MG TAB PO STA (01:23)
[2023-05-30] MEDS: NITROGLYCERIN SL TABS 0.4 MG TAB SUBLINGUAL PRN ×2 (01:28→21:07)
[2023-05-30] MEDS: HYDROmorphone 0.5 MG/0.5 ML SYRINGE IVP PRN ×6 (02:39→22:30)
[2023-05-30] MEDS: LEVOTHYROXINE 100 MCG TAB PO SCH (05:40)
[2023-05-30 05:50] LABS: Glucose,Whole Blood 115 mg/dL (70-110)
[2023-05-30] MEDS: DEXMEDETOMIDINE/0.9% NACL(PMX) 400 MCG in EMPTY BAG 1 BAG IV SCH ×2 (05:51→23:44)
[2023-05-30] MEDS: PIPERACILLIN-TAZOBACTAM 3.375 GM in SODIUM CHLORIDE 0.9% 100 ML IVPB SCH (06:01)
[2023-05-30 06:17] LABS: Basophils % (A) 0 %; Eosinophils # (A) 0.3 k/uL (0-0.7); Eosinophils % (A) 3 %; HCT 26.9 % (34.0-46.0); HGB 8.8 gm/dL (11.4-16.0); Lymphocytes # (A) 1.7 k/uL (1.0-4.8); Lymphocytes % (A) 14 %; MCHC 32.9 g/dL (31.0-37.0); MCV 88.4 fL (80.0-100.0); Mean Platelet Volume 8.3; Monocytes # (A) 0.5 k/uL (0-1.0); Monocytes % (A) 4 %; Neutrophils # (A) 9.3 k/uL (1.3-7.7); Neutrophils % (A) 77 %; Platelet Count 406 k/uL (150-450); RBC 3.04 m/uL (3.80-5.40); RDW 14.3 % (11.5-15.5)
[2023-05-30 06:31] LABS: African American GFR (CKD) 68 (>60 ml/min/1.73 sqM); Anion Gap 14 mmol/L; Blood Urea Nitrogen 17 mg/dL (7-17); Calcium 8.5 mg/dL (8.4-10.2); Carbon Dioxide 27 mmol/L (22-30); Chloride 97 mmol/L (98-107); Glucose 108 mg/dL (74-99); Non-African American GFR(CKD) 59 (>60 ml/min/1.73 sqM); Potassium 3.8 mmol/L (3.5-5.1); Sodium 138 mmol/L (137-145)
[2023-05-30] MEDS ORDERED: POTASSIUM CHLORIDE ER 20 MEQ TAB.ER PO SCH (07:30)
[2023-05-30] MEDS: PANTOPRAZOLE 40 MG/10 ML VIAL IVP SCH (08:45)
[2023-05-30] MEDS: FUROSEMIDE 10 MG/ML 4 ML VIAL IV SCH (08:45)
[2023-05-30] MEDS: ASPIRIN 81 MG PO SCH (08:46)
[2023-05-30] MEDS: SPIRONOLACTONE 25 MG TAB PO SCH (08:46)
[2023-05-30] MEDS: LITHIUM CARBONATE 300 MG CAP PO SCH ×2 (08:46→20:10)
[2023-05-30] MEDS: LIDOCAINE 4% PATCH TOPICAL SCH (08:46)
[2023-05-30] MEDS: METOPROLOL TARTRATE 25 MG TAB PO SCH ×2 (08:46→20:10)
[2023-05-30] MEDS: DULoxetine HCL 60 MG CAPSULE.DR PO SCH ×2 (08:46→20:10)
[2023-05-30] MEDS: SENNOSIDES 8.6 MG TAB PO SCH (08:46)
[2023-05-30] MEDS: DAPAGLIFLOZIN PROPANEDIOL 10 MG TABLET PO SCH (08:47)
[2023-05-30] MEDS: LIOTHYRONINE SODIUM 5 MCG TAB PO SCH (08:47)
[2023-05-30] MEDS: PRASUGREL 10 MG TAB PO SCH (09:17)
--- NOTE | 2023-05-30 10:15 | P.PN ---
Subjective Progress Note Date: 05/30/23 I am seeing this patient in new consultation today 05/25/2023 in the intensive care unit following an out of hospital cardiac arrest. Patient is a 43-year-old white female with no known cardiac history. She is on multiple psychiatric medications at home. Patient is currently intubated on mechanical ventilator and unable to provide any information. Apparently, the patient was complaining of epigastric pain and nausea throughout the day yesterday. Earlier this morning the patient's significant other woke up to her shaking in bed and unresponsive. CPR was initiated by a neighbor who is apparently a analytical lab analyst, and patient was defibrillated once EMS arrived. On arrival to emergency room, patient was intubated by the ER physician. She was unresponsive, she had copious emesis, and likely aspirated. ECG showed ST elevation and Q waves in the anterior-septal leads, and a code STEMI was initiated. Patient was taken to [facility] where she received successful stenting of the proximal LAD, stenting of the left main and left circumflex secondary to dissection in the left main. Patient subsequently had an Impella catheter placed. She was transferred to the intensive care unit in critical condition. Chest CTA done in the emergency room showed a small 10-15% left sided pneumotho rax. No large central pulmonary embolism was visualized. The ET tube was within the right mainstem bronchus. There was scattered patchy airspace opacities in the posterior upper lobes and more prominently in the lower lobes with air bronchograms. Likely consistent with aspiration/aspiration pneumonia. Patient currently intubated on mechanical ventilator. Current ventilator settings are assist control, respiratory rate 20, tidal volume 450, FiO2 100%, and PEEP of 8. ABGs done on the settings show a pH of 7.32, pCO2 of 31, pO2 of 79. Repeat chest x-ray does not show any enlargement of the left sided pneumothorax. The endotracheal tube is now approximately 3-4 cm above the alisha. There are diffuse bilateral multifocal infiltrates. CBC demonstrates leukocytosis with a WBC count of 22.6, hemoglobin 12.2, hematocrit 38.9, platelets 395. BMP a sodium of 137, potassium 3.5, chloride 109, serum bicarb 10, BUN 15, creatinine 1.35, glucose 315. Troponins 0.145. NT proBNP 315. Patient is sedated and unresponsive on the mechanical ventilator. She is breathing above set rate. Does not follow commands. She is sedated on propofol at 30 mcg/kg/m. Brain CT on arrival did not show any acute intracranial hemorrhage or mass effect. Blood pressure is stable. Not requiring vasopres sors. She is tachycardic. Urine output is anuric. Impella is inserted through the right groin, set at P9. 3.9 L of flow. Baseline coags are unremarkable. Patient will be started on IV heparin per protocol. Patient's prognosis is guarded, and she is currently in critical condition. There was a concern for an underlying pneumothorax. I reviewed the chest x-ray the chest x-ray showing diffuse but the pulmonary infiltrates. This is consistent with acute cardiogenic pulmonary edema it underlying aspiration cannot be completely excluded. I reviewed the CAT scan of the chest, there may be a very tiny left anterior pneumothorax not clearly seen on today's chest x- ray. This will be monitored very closely. The patient is currently intubated on a mechanical ventilator. The patient is on propofol which is running at 35 mcg/kg/m. She is adequately sedated and suggest a mechanical ventilator. She is covered with antibiotics and she is currently on IV Zosyn. She is on no pressors at this point in time. Cardiac rhythm is sinus tachycardia. On today's evaluation of 05/26/2023, the patient is being seen for a follow-up. The patient remains intubated on a mechanical ventilator. This morning, she is on propofol running at 35 mcg/kg/m and she is calm and comfortable. She response to stimulation. She was also painful stimulation in all 4 extremities. At the same time, the patient remains on a mechanical ventilator on assist control mode at the rate of 20, tidal volume of 450, FiO2 of 50% and a PEEP of 5. The chest x-ray from this morning is showing evidence of diffuse bilateral pulmonary infiltrates consistent with pulmonary edema. The ET tube is in a good location. The patient also has a left sided subclavian triple-lumen catheter in place. No evidence of any significant pneumothorax. There is interval improvement in the pulmonary edema on today's chest x-ray compared to yesterday. The blood gas showed a pH of 7.48 with a pCO2 of 35 and pO2 of 90. In terms of hemodynamics, the patient is on no pressors. ImPela supports is still ongoing although she has been switched from P9 to PT for and currently she is on P2 support. The flow is at 1.8 L/m. The Augmentin blood pressure is 91/58. She is producing urine output and the fluid balance over the past 24 hours has been +3.4 L. Nevertheless, the patient is producing 100 mL an hour of urine output and she produced approximately 1.2 L of urine output for yesterday. Pulses are present lower extremities bilaterally. The patient is currently on a combination of aspirin and Effient. Aldactone was also added. The patient is receiving and panic antibiotic coverage with IV Zosyn. IV fluids are in the form of bicarb infusion at the rate of 100 mL an hour. This will be discontinued. BUN is at 80 with a creatinine of 1.1. Sodiums of 135, serum bicarb is at 24, the white cell count is 22.9 with a hemoglobin of 9.1 and a platelet count of 224. A limited echocardiogram was done yesterday and the patient was told to have a LV ejection fraction severely impaired estimated to be at around 25. She is also off the insulin drip. Blood sugars under better control for now. On today's evaluation of 05/27/2023 pounds in the patient for a follow-up. The patient is doing well. The Impella was removed yesterday without any major difficulties. No evidence of any bleeding at the insertion site. The patient has such is hemodynamically stable. No pressors at this point in time. She is producing adequate amount of urine output. This morning, she is on propofol running at 30 microvascular kilogram per minute. She is on assist-control mode at a rate of 20, tidal volume of 450, FiO2 of 50% with a PEEP of 8. Blood gas show a pH of 7.5 with a pCO2 of 32 and pO2 of 116. The chest x-ray shows improvement of the previously described pulmonary edema. ET tube is in a good location. The patient is producing adequate amount of urine output. Her urine output was up to 100 mL an hour. The fluid Balance over the past 24 hours is - 1.1 L. The patient's echoes at 16.3, hemoglobin is at 7.7 which is essentially dropped since admission. No evidence of any acute bleeding at this point in time. BUN is at 15 with a creatinine of 1.1 and a sodium level is at 138. The patient is currently receiving a sedation holiday. Propofol discontinued and her readiness to wean will be evaluated. She remains on IV Zosyn. She remains on a combination of aspirin and Effient. She was also started on metoprolol 25 mg by mouth twice a day. She is not receiving any enteral feeding at this point in time. On 05/28/2023, the patient is extubated. Note that the patient was able to wean off the mechanical ventilator and the patient was extubated to nasal cannula initially. Subsequently, she started having hypoxemia and she had to be placed on BiPAP throughout the day and she was also kept on BiPAP overnight. Also, we added Precedex to improve her anxiety level of agitation and Precedex is still running at 0.2 mcg/kg/h. This morning, she is calm and comfortable. She is communicating. She is alert and oriented 3. She has profound weakness in all 4 extremities. She is complaining of soreness in her chest which is probably related to CPR. No signs of any bleeding. Hemoglobin is at 7.4 and it has drifted slowly during the current hospitalization. The patient is currently on oxygen at 3 L. The chest x-ray showing some mild pulmonary congestion. She remains on IV Zosyn as a broad-spectrum antibiotic coverage for any potential aspiration pneumonia. Nevertheless, her acute pulmonary edema has improved considerably. Cardiac rhythm is sinus. She is on metoprolol 25 mg twice a day. She is also on aspirin. She is on Effient. She is also on Farxiga The puncture site in her right groin shows no evidence of any bleeding. She was also started on Aldactone at a dose of 25 mg by mouth daily. She is on high- dose statins. She is on thyroid hormone replacement. On 05/29/2023, the patient remains extubated and she is currently on oxygen at 8 liters and the patient's pulse ox is currently at 96%. She encountered a coughing fit overnight and this was associated with some oxygen desaturation and for that reason she was recently placed on a BiPAP that was subsequently taken off. The patient is off Precedex and she is, comfortable and communicating. She continues to have soreness across her anterior chest related to CPR and the patient is receiving Rapidan 5 every 4 hours and Dilaudid 0.5 every 3. Clinically stable. Hemodynamically stable. No pressors for now. Cardiac rhythm is sinus. The chest x-ray from today showing recurrent pulmonary edema with interval worsening and this goes along with her worsening in her oxygenation. Note that the patient has not been receiving any diuretics for the time being. She does have cardiomyopathy postcardiac arrest and post acute myocardial infarction. Meanwhile, she is producing urine output which is adequate and the patient has produced approximately 1.5 L for yesterday and overall fluid balance is -1.3 L over the past 24 hours. Her hemoglobin stable at 7.9. The white cycles of 14.4, BUN is at 30 with a creatinine of 0.9 and his sodium level is at 135. Her blood pressure was soft and this is improved and the most recent BP is 121/87. In terms of her cardiomyopathy, the patient is on metoprolol 25 mg twice a day, Farxiga 10 mg by mouth daily, Aldactone 25 mg by mouth daily. IV fluids are currently at KVO. She is on aspirin and Effient. On 05/30/2023, the patient is on 6 L of oxygen by nasal cannula. She is post cardiac arrest, shock, emergent cardiac catheterization, stenting, insertion and removal of a impella or cardiac support. She was extubated. Postextubation, she had a component of pulmonary edema and she was restarted back on diuretics yesterday 40 mg every 12 hours. Fluid balance is -1.3 L since yesterday. Oxygen patient is slightly improved. She has had it for another 3 L of negative fluid balance for today. The patient's chest x-ray still showing some residual interstitial/pulmonary edema along with some cardiomegaly. Gastric bubble is slightly dilated. Her main complaint is chest wall pain related to CPR. We are treating this with a combination of Rapidan and Dilaudid. She is trying to use incentive spirometer. She is weak. She is a bit frustrated of her condition. Nevertheless, I tried to convince her that this is something good as she has survived a major cardiac catastrophe. The white cell count is at 12, hemoglobin is at 8.8 and a platelet count is 406. BUN is at 70 with a creatinine of 1.1. Her left TM level came back at 0.2. Her cardiac medications are also noted. The patient is on aspirin and Effient. The patient is on metoprolol 25 mg twice a day. The patient is on Farxiga. She is on high-dose statins. IV Zosyn was also started as a broad-spectrum antibiotic coverage. No clear indication for an aspiration pneumonia. This was started only on an empiric basis. Oral intake is quite diminished. Cardiac rhythm is sinus. She is afebrile. Pulse ox is 98% on 6 L which obviously will be further weaned Objective - Vital Signs Vital signs: Vital Signs Temp 98.2 F 05/30/23 04:00 Pulse 92 05/30/23 07:00 Resp 18 05/30/23 07:00 BP 115/91 05/30/23 07:00 Pulse Ox 96 05/30/23 07:59 FiO2 6 05/29/23 19:00 Intake & Output 05/29/23 05/30/23 05/30/23 18:59 06:59 18:59 Intake Total 175 220 Output Total 2485 1390 Balance -2310 -1170 Weight 88.2 kg Intake: IV 175 220 Piperacillin-Tazobactam 3 75 150 .375 gm In Sodium Chloride 0.9% 100 ml @ 25 mls/hr IVPB Q8H [facility] Rx#: [id number] carrier 100 70 Output: Urine 2485 1390 Other: Voiding Method Indwelling Catheter Indwelling Catheter ABP, PAP, CO, CI - Last Documented Arterial Blood Pressure 169/169 - Exam GENERAL EXAM: The patient is currently on oxygen at 6 L nasal cannula. Awake and alert and communicating, HEAD: Normocephalic and atraumatic EYES: Normal reaction of pupils, equal size. NOSE: Clear with pink turbinates. THROAT: No erythema or exudates. NECK: No masses, no JVD. The patient has a left subclavian triple-lumen catheter in place CHEST: No chest wall deformity. LUNGS: Lungs were clear to auscultation and percussion, and with normal diaphragmatic excursion. No wheezes or rales were noted. CVS: S1 and S2 normal with no audible murmur, regular rhythm. No extra heart sounds ABDOMEN: No hepatosplenomegaly, active bowel sounds, no guarding or rigidity. SPINE: No scoliosis or deformity SKIN: No rashes CENTRAL NERVOUS SYSTEM: Profound motor weakness, alert and awake, no focal neurological deficits. EXTREMITIES: There is no peripheral edema, clubbing, or cyanosis. Peripheral pulses are weak but intact. Pulses are diminished - Labs CBC & Chem 7: 05/30/23 05:48 05/30/23 05:48 Labs: Abnormal Lab Results - Last 24 Hours (Table) 05/29/23 05/29/23 05/29/23 Range/Units 11:45 16:31 20:39 WBC (3.8-10.6) k/uL RBC (3.80-5.40) m/uL Hgb (11.4-16.0) gm/dL Hct (34.0-46.0) % Neutrophils # (1.3-7.7) k/uL Chloride (98-107) mmol/L Creatinine (0.52-1.04) mg/dL Glucose (74-99) mg/dL POC Glucose (mg/dL) 120 H 115 H 114 H (70-110) mg/dL 05/30/23 05/30/23 05/30/23 Range/Units 00:06 05:48 05:48 WBC 12.0 H (3.8-10.6) k/uL RBC 3.04 L (3.80-5.40) m/uL Hgb 8.8 L (11.4-16.0) gm/dL Hct 26.9 L (34.0-46.0) % Neutrophils # 9.3 H (1.3-7.7) k/uL Chloride 97 L (98-107) mmol/L Creatinine 1.15 H (0.52-1.04) mg/dL Glucose 108 H (74-99) mg/dL POC Glucose (mg/dL) 113 H (70-110) mg/dL 05/30/23 Range/Units 05:48 WBC (3.8-10.6) k/uL RBC (3.80-5.40) m/uL Hgb (11.4-16.0) gm/dL Hct (34.0-46.0) % Neutrophils # (1.3-7.7) k/uL Chloride (98-107) mmol/L Creatinine (0.52-1.04) mg/dL Glucose (74-99) mg/dL POC Glucose (mg/dL) 115 H (70-110) mg/dL Assessment and Plan Plan: Out of hospital cardiac arrest, downtime is unknown. The patient had a likely metastatic atrial fibrillation/tachycardia the patient was defibrillated on the scene, CPR was continued and the patient was intubated in the emergency de partment. Cardiac arrest secondary to acute ST segment elevation myocardial infarction. The patient underwent emergent cardiac catheterization stenting complicated by a dissection of the left main. And the patient underwent further stenting of the left main and left circumflex secondary to this dissection. Impella was also inserted and was subsequently removed on 05/26/2023 without any complication and the patient remains hemodynamically stable. The patient is awake and alert and communicating and she is having generalized motor weakness in all 4 extremities. Nevertheless, and neurologic exam is nonfocal Acute ST elevation NC, patient did receive successful stenting of the proximal LAD with stenting of the left main and left circumflex secondary to dissection of the left main. The Impella was removed without any complications Chest pain, essentially skeletal in nature related to CPR Severe cardiomyopathy, likely ischemic with an ejection fraction of 20-25% Acute pulmonary edema with development of recurrent pulmonary infiltrates and the patient is improving and the patient is currently on 6 L of oxygen nasal cannula that can be further weaned down. Excellent urine output since yesterday. Currently on IV Lasix. Acute hypoxic respiratory failure, extubated to a BiPAP and currently she is on 6 L of oxygen by nasal cannula. Small left-sided pneumothorax estimated at 10-15%, likely secondary to CPR, no need for chest tube at this time, this is likely related to CPR. No evidence of any tension or hemodynamic compromise related to the pneumothorax. Metabolic anion gap acidosis, recovered Acute anemia, likely blood loss anemia and this could be also related to intravascular hemolysis due to Impella. No evidence of any bleed in her right groin area. Hemoglobin today is at 7.9 Acute kidney injury, secondary to hypoperfusion and acute tubular necrosis, candido sukhdev and the patient is producing adequate amount of urine output. Creatinine is improved Mild transaminitis, secondary to hypoperfusion Leukocytosis, improved Hypothyroidism History of depression/anxiety/PTSD Plan: Continue Lasix 40 mg IV every 12 hours May need to utilize BiPAP on and off during the day based on oxygenation rest or status Keep the IV fluids at KVO Wean off FiO2 further to maintain a saturation above 90% Stop Zosyn and give the patient Augmentin to complete a total of seven-day course of antibiotics Monitor the hemoglobin knowing that there was a hemoglobin is at 8.8 Monitor renal function. The renal function is improving Continue aspirin Continue Effient Continue metoprolol, and Farxiga Continue Aldactone Increase mobility Provide diet Incentive spirometer Physical therapy Continue Dilaudid and Kaye for pain control Condition is critical and we'll continue to follow make further recommendations based on her progress, and is a critical care evaluation that was done in more than 30 minutes Encourage the use of incentive spirometer. Increase mobility. Will continue to follow.
--- NOTE | 2023-05-30 11:30 | XR ---
EXAMINATION TYPE: XR chest 1V portable DATE OF EXAM: 05/30/2023 COMPARISON: 05/29/2023 INDICATION: Assess lungs, previous abnormal TECHNIQUE: Single frontal view of the chest is obtained. FINDINGS: The heart size is highly prominent. The pulmonary vasculature is prominent. Diffuse increased lung markings are present bilaterally. Findings are improved from comparison. A central venous catheter is present with the tip in the proximal right atrium. IMPRESSION: 1. Clinical correlation recommended for congestive heart failure, improved from comparison
[2023-05-30 12:27] LABS: Glucose,Whole Blood 115 mg/dL (70-110)
--- NOTE | 2023-05-30 13:35 | P.PN ---
Subjective Progress Note Date: 05/30/23 Progress Note 05/30/23 BP 107/73, heart rate 93 beats a minute, Hemoglobin 8.8, creatinine 1.15 Creatinine is slightly trending up. Day before yesterday she was started on IV Lasix. Patient still uncomfortable because of chest pain. She has a lidocaine patch on. She still has shortness of breath. Poor inspiratory effort. 05/29/23 Patient is to compare is a significant chest pain from the chest compression she received during the cardiac arrest. She otherwise has borderline low blood pressure. Last night she had significant hypoxia which is most likely related to atelectasis from her inability to take deep breaths from chest pains. She was placed on BiPAP last night and received 2 doses of Lasix. 05/28/23 Patient was extubated yesterday and has been doing well since. She compared to significant chest pain from her chest compressions she received prior to coming to the hospital. No swelling in the right femoral groin site. HISTORY OF PRESENTING ILLNESS 43-year-old female with no known past medical history. History is very limited as patient was received in an obtunded state. Apparently patient was having substernal chest heaviness all throughout the day today around 2 AM patient was noticed to have a witnessed cardiac arrest. For this EMS was activated. One of the EMS staff was just a neighbors on the patient and was able to reach the scene in 2 minutes. Patient was immediately started on CPR within 2 minutes and there was a return of spontaneous circulation with about 5 minutes of CPR and A CLS. Patient received 1 round of epi and 1 shock. ECG post shock shows ST elevations in leads V2 to V4 with Q waves in anteroseptal leads. The ECG in the ER shows atrial fibrillation with ST elevations in V2 to V4 with Q waves in anteroseptal leads. A CT head was done which did not show any acute intracranial process or any evidence of ventricular bleeding. A CT chest with contrast was performed there was no evidence of aortic dissection or any evidence of massive/submassive PE. PHYSICAL EXAMINATION Cardiac: S1 and S2 audible, no murmurs appreciated Respiratory: Mild crackles and rhonchi audible in bilateral lower lung cruz GI: Bowel sounds are present Lower extremity no significant swelling ASSESSMENT Acute anterior NE. Complicated cardiac catheterization. Spontaneous dissection involving the left main, requiring stenting on the left main and bifurcation stenting of LAD and LCx. Total stents received 4 Aspiration Pneumonia Cardio pulmonary arrest, suspect due to ventricular fibrillation. Atrial fibrillation post ROSC. 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 Stop Lasix Start ferrous sulfate Continue dual antiplatelet therapy continue statins Continue metoprolol 25 mg twice a day Currently on Jardiance and Aldactone 25 mg daily. Continue for now. Reevaluate the need for Aldactone if kidney function worsens Objective - Vital Signs Vital signs: Vital Signs Temp 98.0 F 05/30/23 12:00 Pulse 93 05/30/23 13:00 Resp 25 H 05/30/23 13:00 BP 107/73 05/30/23 13:00 Pulse Ox 95 05/30/23 13:00 FiO2 6 05/29/23 19:00 Intake & Output 05/29/23 05/30/23 05/30/23 18:59 06:59 18:59 Intake Total 175 220 60 Output Total 2485 1390 830 Balance -2310 -1170 -770 Weight 88.2 kg Intake: IV 175 220 60 Piperacillin-Tazobactam 3 75 150 .375 gm In Sodium Chloride 0.9% 100 ml @ 25 mls/hr IVPB Q8H [facility] Rx#: [id number] carrier 100 70 60 Output: Urine 2485 1390 830 Other: Voiding Method Indwelling Catheter Indwelling Catheter Indwelling Catheter ABP, PAP, CO, CI - Last Documented Arterial Blood Pressure 169/169 - Labs CBC & Chem 7: 05/30/23 05:48 05/30/23 05:48 Labs: Abnormal Lab Results - Last 24 Hours (Table) 05/29/23 05/29/23 05/30/23 Range/Units 16:31 20:39 00:06 WBC (3.8-10.6) k/uL RBC (3.80-5.40) m/uL Hgb (11.4-16.0) gm/dL Hct (34.0-46.0) % Neutrophils # (1.3-7.7) k/uL Chloride (98-107) mmol/L Creatinine (0.52-1.04) mg/dL Glucose (74-99) mg/dL POC Glucose (mg/dL) 115 H 114 H 113 H (70-110) mg/dL 05/30/23 05/30/23 05/30/23 Range/Units 05:48 05:48 05:48 WBC 12.0 H (3.8-10.6) k/uL RBC 3.04 L (3.80-5.40) m/uL Hgb 8.8 L (11.4-16.0) gm/dL Hct 26.9 L (34.0-46.0) % Neutrophils # 9.3 H (1.3-7.7) k/uL Chloride 97 L (98-107) mmol/L Creatinine 1.15 H (0.52-1.04) mg/dL Glucose 108 H (74-99) mg/dL POC Glucose (mg/dL) 115 H (70-110) mg/dL 05/30/23 Range/Units 12:25 WBC (3.8-10.6) k/uL RBC (3.80-5.40) m/uL Hgb (11.4-16.0) gm/dL Hct (34.0-46.0) % Neutrophils # (1.3-7.7) k/uL Chloride (98-107) mmol/L Creatinine (0.52-1.04) mg/dL Glucose (74-99) mg/dL POC Glucose (mg/dL) 115 H (70-110) mg/dL
--- NOTE | 2023-05-30 15:16 | P.PN ---
Subjective Progress Note Date: 05/30/23 Principal diagnosis: Reason for follow-up is aspiration pneumonia Patient is a 43-year-old female with a past medical history Significant for anxiety depression current everyday smoker patient was brought into the ER via EMS, patient did have a cardiac arrest requiring resuscitation patient did have a evidence of [place] s/p cardiac cath and four stent placement. Patient was extubated on 05/27/2023. On today's evaluation that is 05/30/2023 the patient continues to be afebrile, the patient is breathing comfortably on 4 L nasal cannula supplemental oxygen patient has been complaining of some chest discomfort but no shortness of breath or cough, the patient denies having any nausea no vomiting no abdominal patricia and no diarrhea Patient white count is 12.0, creatinine is 1.15 blood and sputum culture has been negative Objective - Vital Signs Vital signs: Vital Signs Temp 98.0 F 05/30/23 12:00 Pulse 93 05/30/23 13:00 Resp 25 H 05/30/23 13:00 BP 107/73 05/30/23 13:00 Pulse Ox 95 05/30/23 13:00 FiO2 6 05/29/23 19:00 Intake & Output 05/29/23 05/30/23 05/30/23 18:59 06:59 18:59 Intake Total 175 220 60 Output Total 2485 1390 830 Balance -2310 1170 -770 Weight 88.2 kg Intake: IV 175 220 60 Piperacillin-Tazobactam 3 75 150 .375 gm In Sodium Chloride 0.9% 100 ml @ 25 mls/hr IVPB Q8H [facility] Rx#: [id number] carrier 100 70 60 Output: Urine 2485 1390 830 Other: Voiding Method Indwelling Catheter Indwelling Catheter Indwelling Catheter ABP, PAP, CO, CI - Last Documented Arterial Blood Pressure 169/169 - Exam GENERAL DESCRIPTION: Middle-aged female Lying in bed in no distress RESPIRATORY SYSTEM: Unlabored breathing , decreased breath sounds at bases HEART: S1 S2 regular rate and rhythm , ABDOMEN: Soft did have some distention EXTREMITIES: No edema feet - Labs CBC & Chem 7: 05/30/23 05:48 05/30/23 05:48 Labs: Abnormal Lab Results - Last 24 Hours (Table) 05/29/23 05/29/23 05/30/23 Range/Units 16:31 20:39 00:06 WBC (3.8-10.6) k/uL RBC (3.80-5.40) m/uL Hgb (11.4-16.0) gm/dL Hct (34.0-46.0) % Neutrophils # (1.3-7.7) k/uL Chloride (98-107) mmol/L Creatinine (0.52-1.04) mg/dL Glucose (74-99) mg/dL POC Glucose (mg/dL) 115 H 114 H 113 H (70-110) mg/dL 05/30/23 05/30/23 05/30/23 Range/Units 05:48 05:48 05:48 WBC 12.0 H (3.8-10.6) k/uL RBC 3.04 L (3.80-5.40) m/uL Hgb 8.8 L (11.4-16.0) gm/dL Hct 26.9 L (34.0-46.0) % Neutrophils # 9.3 H (1.3-7.7) k/uL Chloride 97 L (98-107) mmol/L Creatinine 1.15 H (0.52-1.04) mg/dL Glucose 108 H (74-99) mg/dL POC Glucose (mg/dL) 115 H (70-110) mg/dL 05/30/23 Range/Units 12:25 WBC (3.8-10.6) k/uL RBC (3.80-5.40) m/uL Hgb (11.4-16.0) gm/dL Hct (34.0-46.0) % Neutrophils # (1.3-7.7) k/uL Chloride (98-107) mmol/L Creatinine (0.52-1.04) mg/dL Glucose (74-99) mg/dL POC Glucose (mg/dL) 115 H (70-110) mg/dL Assessment and Plan (1) Aspiration pneumonia Current Visit: Yes Status: Acute Code(s): J69.0 - PNEUMONITIS DUE TO INHALATION OF FOOD AND VOMIT SNOMED Code(s): 051862602 (2) Leukocytosis Current Visit: Yes Status: Acute Code(s): D72.829 - ELEVATED WHITE BLOOD CELL COUNT, UNSPECIFIED SNOMED Code(s): 150918724 Plan: 1-patient was in the hospital with outside hospital cardiac arrest requiring resuscitation subsequently brought to the hospital noticed to have OH s/p cardiac cath and for stent placement patient also have left-sided pneumothorax and evidence of pneumonia on the CT, likely secondary to aspiration etiology 2blood and sputum cultures are so far negative 3the patient remains to be afebrile white count is trending down culture was negative for resistant pathogen we will quite discontinue Zosyn and start the patient on Augmentin and monitor clinical course closely. Family at the bedside questions were answered Dictation was produced using [employer] dictation software. please excuse any grammatical, word or spelling errors. Time with Patient: Less than 30
[2023-05-30 16:15] LABS: Glucose,Whole Blood 108 mg/dL (70-110)
[2023-05-30] MEDS: SODIUM CHLORIDE 0.9% 500 ML 500 ML IV SCH (17:29)
[2023-05-30] MEDS: FERROUS SULFATE 325 MG TAB PO SCH (17:36)
[2023-05-30] MEDS: ATORVASTATIN 80 MG TAB PO SCH (20:10)
[2023-05-30] MEDS: AMOXIC-POT CLAV 875-125MG 1 EACH TAB PO SCH (20:10)
[2023-05-30] MEDS: MIRTAZAPINE 15 MG TAB PO SCH (20:10)
[2023-05-30] MEDS: ALBUTEROL NEBULIZED 2.5 MG/3 ML INHALATION PRN (21:29)
[2023-05-30] MEDS ORDERED: ALPRAZolam 0.25 MG TAB PO STA (21:40)
[2023-05-30] MEDS: POTASSIUM CHLORIDE ER 20 MEQ TAB.ER PO SCH ×2 (21:55→22:26)
[2023-05-31] MEDS: POTASSIUM CHLORIDE ER 20 MEQ TAB.ER PO SCH ×2 (02:01→03:20)
[2023-05-31] MEDS: HYDROmorphone 0.5 MG/0.5 ML SYRINGE IVP PRN ×6 (02:01→20:20)
[2023-05-31 05:40] LABS: Basophils # (A) 0.1 k/uL (0-0.2); Basophils % (A) 0 %; Eosinophils # (A) 0.4 k/uL (0-0.7); Eosinophils % (A) 4 %; HCT 25.6 % (34.0-46.0); HGB 8.4 gm/dL (11.4-16.0); Lymphocytes # (A) 2.1 k/uL (1.0-4.8); Lymphocytes % (A) 19 %; MCHC 32.8 g/dL (31.0-37.0); MCV 88.2 fL (80.0-100.0); Mean Platelet Volume 8.1; Monocytes # (A) 0.6 k/uL (0-1.0); Monocytes % (A) 5 %; Neutrophils # (A) 7.9 k/uL (1.3-7.7); Neutrophils % (A) 70 %; Platelet Count 408 k/uL (150-450); RDW 14.2 % (11.5-15.5); WBC 11.3 k/uL (3.8-10.6)
[2023-05-31 05:50] LABS: African American GFR (CKD) >90 (>60 ml/min/1.73 sqM); Anion Gap 13 mmol/L; Blood Urea Nitrogen 19 mg/dL (7-17); Calcium 8.8 mg/dL (8.4-10.2); Carbon Dioxide 26 mmol/L (22-30); Chloride 97 mmol/L (98-107); Glucose 94 mg/dL (74-99); Non-African American GFR(CKD) 80 (>60 ml/min/1.73 sqM); Potassium 3.7 mmol/L (3.5-5.1); Sodium 136 mmol/L (137-145)
[2023-05-31] MEDS: LEVOTHYROXINE 100 MCG TAB PO SCH (06:13)
[2023-05-31] MEDS: FERROUS SULFATE 325 MG TAB PO SCH ×2 (06:13→15:36)
--- NOTE | 2023-05-31 07:55 | XR ---
EXAMINATION TYPE: XR chest 1V portable DATE OF EXAM: 05/31/2023 COMPARISON: 05/30/2023 INDICATION: Diffuse bilateral lung infiltrates TECHNIQUE: Single frontal view of the chest is obtained. FINDINGS: The heart size is normal. The pulmonary vasculature is normal. Infiltrates remain predominantly at the left lung base consolidation with air bronchograms. Some mild linear arrangement filtrates or at the right base may be related atelectasis. The previous upper mid lung field infiltrates have improved. Left central venous catheter is present with the tip in the distal superior vena cava region. IMPRESSION: 1. Left lower lobe consolidation. Correlate for pneumonia. 2. Infiltrate at the right base may be related atelectasis. 3. Upper lobe infiltrates have improved. Continued follow-up is recommended
[2023-05-31] MEDS ORDERED: POTASSIUM CHLORIDE ER 20 MEQ TAB.ER PO SCH (08:00)
[2023-05-31] MEDS: METOPROLOL TARTRATE 25 MG TAB PO SCH ×2 (08:29→20:19)
[2023-05-31] MEDS: SPIRONOLACTONE 25 MG TAB PO SCH (08:29)
[2023-05-31] MEDS: SENNOSIDES 8.6 MG TAB PO SCH (08:29)
[2023-05-31] MEDS: PANTOPRAZOLE 40 MG/10 ML VIAL IVP SCH (08:29)
[2023-05-31] MEDS: DULoxetine HCL 60 MG CAPSULE.DR PO SCH ×2 (08:29→20:19)
[2023-05-31] MEDS: ASPIRIN 81 MG PO SCH (08:29)
[2023-05-31] MEDS: ALBUTEROL NEBULIZED 2.5 MG/3 ML INHALATION PRN ×4 (08:29→23:49)
[2023-05-31] MEDS: AMOXIC-POT CLAV 875-125MG 1 EACH TAB PO SCH ×2 (08:30→20:19)
[2023-05-31] MEDS: LIOTHYRONINE SODIUM 5 MCG TAB PO SCH (08:30)
[2023-05-31] MEDS: LIDOCAINE 4% PATCH TOPICAL SCH (08:30)
[2023-05-31] MEDS: LITHIUM CARBONATE 300 MG CAP PO SCH ×2 (08:30→20:19)
[2023-05-31] MEDS: PRASUGREL 10 MG TAB PO SCH (08:31)
[2023-05-31] MEDS: DAPAGLIFLOZIN PROPANEDIOL 10 MG TABLET PO SCH (08:31)
[2023-05-31] MEDS: ACETAMINOPHEN TAB 325 MG TAB PO PRN ×2 (08:55→17:28)
--- NOTE | 2023-05-31 09:15 | P.PN ---
Subjective Progress Note Date: 05/31/23 The patient is a 43-year-old female who presented to the hospital with V. fib arrest in the anterior wall myocardial infarction. She underwent stenting of the left main, LAD and left circumflex. Initial EF is 25% with reevaluation at 45-50%. The patient was interviewed and examined resting in bed. The patient reports being in a significant amount of discomfort. She states she has sternal pain, likely secondary to CPR. She denies any difficulty breathing. No dizziness when she ambulates to the restroom. GENERAL: Well-appearing, well-nourished and in mild distress. NECK: Supple without JVD or thyromegaly. LUNGS: Breath sounds diminished to auscultation bilaterally. Respiration equal and unlabored. Inspiratory wheezes on the right. HEART: Regular rate and rhythm without murmurs, rubs or gallops. S1 and S2 heard. EXTREMITIES: Normal range of motion, mild edema. No clubbing or cyanosis. Pe ripheral pulses intact and strong. TELEMETRY: Sinus rhythm overnight. Occasional tachycardia with pain. LABS: WBC 11.3, hemoglobin 8.4, hematocrit 25.6, platelet 408, sodium 136, potassium 37, BUN 19, creatinine 0.90 IMPRESSION: Anterior wall myocardial infarction Status post stenting of the left main and bifurcation LAD and circumflex Spontaneous dissection of the left main Aspiration pneumonia Cardiopulmonary arrest, suspected ventricular fibrillation Post-CPR atrial fibrillation Ischemic cardiomyopathy Current smoker PLAN: Continue supportive treatment including pain management Encourage ambulation and pulmonary hygiene Further recommendations to be based on clinical course I am dictating on behalf of Dr Jayesh Norris's history/physical and assessment/plan. Objective - Vital Signs Vital signs: Vital Signs Temp 97.9 F 05/31/23 08:00 Pulse 98 05/31/23 08:58 Resp 27 H 05/31/23 08:00 BP 114/88 05/31/23 08:00 Pulse Ox 90 L 05/31/23 08:00 FiO2 6 05/29/23 19:00 Intake & Output 05/30/23 05/31/23 05/31/23 18:59 06:59 18:59 Intake Total 90 250 50 Output Total 1085 430 75 Balance -995 -180 -25 Weight 89.4 kg Intake: IV 90 carrier 90 Oral 250 50 Output: Urine 1085 430 75 Other: Voiding Method Indwelling Catheter Indwelling Catheter Indwelling Catheter ABP, PAP, CO, CI - Last Documented Arterial Blood Pressure 169/169 - Labs CBC & Chem 7: 05/31/23 04:54 05/31/23 04:54 Labs: Abnormal Lab Results - Last 24 Hours (Table) 05/30/23 05/30/23 05/31/23 Range/Units 12:25 19:43 00:48 WBC (3.8-10.6) k/uL RBC (3.80-5.40) m/uL Hgb (11.4-16.0) gm/dL Hct (34.0-46.0) % Neutrophils # (1.3-7.7) k/uL Sodium (137-145) mmol/L Potassium 3.4 L 3.3 L (3.5-5.1) mmol/L Chloride (98-107) mmol/L BUN (7-17) mg/dL POC Glucose (mg/dL) 115 H (70-110) mg/dL 05/31/23 05/31/23 Range/Units 04:54 04:54 WBC 11.3 H (3.8-10.6) k/uL RBC 2.90 L (3.80-5.40) m/uL Hgb 8.4 L (11.4-16.0) gm/dL Hct 25.6 L (34.0-46.0) % Neutrophils # 7.9 H (1.3-7.7) k/uL Sodium 136 L (137-145) mmol/L Potassium (3.5-5.1) mmol/L Chloride 97 L (98-107) mmol/L BUN 19 H (7-17) mg/dL POC Glucose (mg/dL) (70-110) mg/dL Microbiology - Last 24 Hours (Table) 05/25/23 07:16 Blood Culture - Final Blood 05/25/23 11:28 Blood Culture - Final Blood
[2023-05-31 11:47] VITALS: BMI 32.8
--- NOTE | 2023-05-31 12:40 | P.PN ---
Subjective Progress Note Date: 05/31/23 Principal diagnosis: Reason for follow-up is aspiration pneumonia Patient is a 43-year-old female with a past medical history Significant for anxiety depression current everyday smoker patient was brought into the ER via EMS, patient did have a cardiac arrest requiring resuscitation patient did have a evidence of [place] s/p cardiac cath and four stent placement. Patient was extubated on 05/27/2023. On today's evaluation that is 05/31/2023 patient remains to be afebrile, the patient is breathing comfortably on 2 L nasal cannula oxygen patient has been complaining of chest pain no worsening cough or sputum production no nausea vomiting no abdominal pain no diarrhea. The patient white count of 11.3, creatinine 0.90 bladder sputum culture has been negative chest x-ray from this morning left lower lobe consolidation correlate for pneumonia upper lobe infiltrate have improved Objective - Vital Signs Vital signs: Vital Signs Temp 97.9 F 05/31/23 12:00 Pulse 104 H 05/31/23 12:00 Resp 26 H 05/31/23 12:00 BP 112/78 05/31/23 12:00 Pulse Ox 91 L 05/31/23 12:00 FiO2 6 05/29/23 19:00 Intake & Output 05/30/23 05/31/23 05/31/23 18:59 06:59 18:59 Intake Total 90 250 50 Output Total 1085 430 75 Balance -995 -180 -25 Weight 89.4 kg 89.4 kg Intake: IV 90 carrier 90 Oral 250 50 Output: Urine 1085 430 75 Other: Voiding Method Indwelling Catheter Indwelling Catheter Indwelling Catheter ABP, PAP, CO, CI - Last Documented Arterial Blood Pressure 169/169 - Exam GENERAL DESCRIPTION: Middle-aged female Lying in bed in no distress RESPIRATORY SYSTEM: Unlabored breathing , decreased breath sounds at bases HEART: S1 S2 regular rate and rhythm , ABDOMEN: Soft did have some distention EXTREMITIES: No edema feet - Labs CBC & Chem 7: 05/31/23 04:54 05/31/23 04:54 Labs: Abnormal Lab Results - Last 24 Hours (Table) 05/30/23 05/31/23 05/31/23 Range/Units 19:43 00:48 04:54 WBC 11.3 H (3.8-10.6) k/uL RBC 2.90 L (3.80-5.40) m/uL Hgb 8.4 L (11.4-16.0) gm/dL Hct 25.6 L (34.0-46.0) % Neutrophils # 7.9 H (1.3-7.7) k/uL Sodium (137-145) mmol/L Potassium 3.4 L 3.3 L (3.5-5.1) mmol/L Chloride (98-107) mmol/L BUN (7-17) mg/dL 05/31/23 Range/Units 04:54 WBC (3.8-10.6) k/uL RBC (3.80-5.40) m/uL Hgb (11.4-16.0) gm/dL Hct (34.0-46.0) % Neutrophils # (1.3-7.7) k/uL Sodium 136 L (137-145) mmol/L Potassium (3.5-5.1) mmol/L Chloride 97 L (98-107) mmol/L BUN 19 H (7-17) mg/dL Microbiology - Last 24 Hours (Table) 05/25/23 07:16 Blood Culture - Final Blood 05/25/23 11:28 Blood Culture - Final Blood Assessment and Plan (1) Aspiration pneumonia Current Visit: Yes Status: Acute Code(s): J69.0 - PNEUMONITIS DUE TO INHALATION OF FOOD AND VOMIT SNOMED Code(s): 165717594 (2) Leukocytosis Current Visit: Yes Status: Acute Code(s): D72.829 - ELEVATED WHITE BLOOD CELL COUNT, UNSPECIFIED SNOMED Code(s): 891859549 Plan: 1-patient was in the hospital with outside hospital cardiac arrest requiring resuscitation subsequently brought to the hospital noticed to have [place] s/p cardiac cath and for stent placement patient also have left-sided pneumothorax and evidence of pneumonia on the CT, likely secondary to aspiration etiology 2blood and sputum cultures are so far negative 3patient antibiotic was switched to Augmentin yesterday to continue and will monitor clinical course closely Dictation was produced using [employer] software. please excuse any grammatical, word or spelling errors. Time with Patient: Less than 30
[2023-05-31] MEDS: SODIUM CHLORIDE 0.9% 500 ML 500 ML IV SCH (12:52)
--- NOTE | 2023-05-31 13:23 | P.PN ---
Subjective Progress Note Date: 05/31/23 Principal diagnosis: Out of hospital cardiac arrest I am seeing this patient in new consultation today 05/25/2023 in the intensive care unit following an out of hospital cardiac arrest. Patient is a 43-year-old white female with no known cardiac history. She is on multiple psychiatric medications at home. Patient is currently intubated on mechanical ventilator and unable to provide any information. Apparently, the patient was complaining of epigastric pain and nausea throughout the day yesterday. Earlier this morning the patient's significant other woke up to her shaking in bed and unresponsive. CPR was initiated by a neighbor who is apparently a test kitchen home economist, and patient was defibrillated once EMS arrived. On arrival to emergency room, patient was intubated by the ER physician. She was unresponsive, she had copious emesis, and likely aspirated. ECG showed ST elevation and Q waves in the anterior-septal leads, and a code STEMI was initiated. Patient was taken to [facility] where she received successful stenting of the proximal LAD, stenting of the left main and left circumflex secondary to dissection in the left main. Patient subsequently had an Impella catheter placed. She was transferred to the intensive care unit in critical condition. Chest CTA done in the emergency room showed a small 10-15% left sided pneumothorax. No large central pulmonary embolism was visualized. The ET tube was within the right mainstem bronchus. There was scattered patchy airspace opacities in the posterior upper lobes and more prominently in the lower lobes with air bronchograms. Likely consistent with aspiration/aspiration pneumonia. Patient currently intubated on mechanical ventilator. Current ventilator settings are assist control, respiratory rate 20, tidal volume 450, FiO2 100%, and PEEP of 8. ABGs done on the settings show a pH of 7.32, pCO2 of 31, pO2 of 79. Repeat chest x-ray does not show any enlargement of the left sided pneumoth orax. The endotracheal tube is now approximately 3-4 cm above the alisha. There are diffuse bilateral multifocal infiltrates. CBC demonstrates leukocytosis with a WBC count of 22.6, hemoglobin 12.2, hematocrit 38.9, platelets 395. BMP a sodium of 137, potassium 3.5, chloride 109, serum bicarb 10, BUN 15, creatinine 1.35, glucose 315. Troponins 0.145. NT proBNP 315. Patient is sedated and unresponsive on the mechanical ventilator. She is breathing above set rate. Does not follow commands. She is sedated on propofol at 30 mcg/kg/m. Brain CT on arrival did not show any acute intracranial hemorrhage or mass effect. Blood pressure is stable. Not requiring vasopressors. She is tachycardic. Urine output is anuric. Impella is inserted through the right groin, set at P9. 3.9 L of flow. Baseline coags are unremarkable. Patient will be started on IV heparin per protocol. Patient's prognosis is guarded, and she is currently in critical condition. There was a concern for an underlying pneumothorax. I reviewed the chest x-ray the chest x-ray showing diffuse but the pulmonary infiltrates. This is consistent with acute cardiogenic pulmonary edema it underlying aspiration cannot be completely excluded. I reviewed the CAT scan of the chest, there may be a very tiny left anterior pneumothorax not clearly seen on today's chest x- ray. This will be monitored very closely. The patient is currently intubated on a mechanical ventilator. The patient is on propofol which is running at 35 mcg/kg/m. She is adequately sedated and suggest a mechanical ventilator. She is covered with antibiotics and she is currently on IV Zosyn. She is on no pressors at this point in time. Cardiac rhythm is sinus tachycardia. On today's evaluation of 05/26/2023, the patient is being seen for a follow-up. The patient remains intubated on a mechanical ventilator. This morning, she is on propofol running at 35 mcg/kg/m and she is calm and comfortable. She response to stimulation. She was also painful stimulation in all 4 extremities. At the same time, the patient remains on a mechanical ventilator on assist control mode at the rate of 20, tidal volume of 450, FiO2 of 50% and a PEEP of 5. The chest x-ray from this morning is showing evidence of diffuse bilateral pulmonary infiltrates consistent with pulmonary edema. The ET tube is in a good location. The patient also has a left sided subclavian triple-lumen catheter in place. No evidence of any significant pneumothorax. There is interval improvement in the pulmonary edema on today's chest x-ray compared to yesterday. The blood gas showed a pH of 7.48 with a pCO2 of 35 and pO2 of 90. In terms of hemodynamics, the patient is on no pressors. ImPela supports is still ongoing although she has been switched from P9 to PT for and currently she is on P2 support. The flow is at 1.8 L/m. The Augmentin blood pressure is 91/58. She is producing urine output and the fluid balance over the past 24 hours has been +3.4 L. Nevertheless, the patient is producing 100 mL an hour of urine output and she produced approximately 1.2 L of urine output for yesterday. Pulses are present lower extremities bilaterally. The patient is currently on a combination of aspirin and Effient. Aldactone was also added. The patient is receiving and panic antibiotic coverage with IV Zosyn. IV fluids are in the form of bicarb infusion at the rate of 100 mL an hour. This will be discontinued. BUN is at 80 with a creatinine of 1.1. Sodiums of 135, serum bicarb is at 24, the white cell count is 22.9 with a hemoglobin of 9.1 and a platelet count of 224. A limited echocardiogram was done yesterday and the patient was told to have a LV ejection fraction severely impaired estimated to be at around 25. She is also off the insulin drip. Blood sugars under better control for now. On today's evaluation of 05/27/2023 pounds in the patient for a follow-up. The patient is doing well. The Impella was removed yesterday without any major difficulties. No evidence of any bleeding at the insertion site. The patient has such is hemodynamically stable. No pressors at this point in time. She is producing adequate amount of urine output. This morning, she is on propofol running at 30 microvascular kilogram per minute. She is on assist-control mode at a rate of 20, tidal volume of 450, FiO2 of 50% with a PEEP of 8. Blood gas show a pH of 7.5 with a pCO2 of 32 and pO2 of 116. The chest x-ray shows improvement of the previously described pulmonary edema. ET tube is in a good location. The patient is producing adequate amount of urine output. Her urine output was up to 100 mL an hour. The fluid Balance over the past 24 hours is - 1.1 L. The patient's echoes at 16.3, hemoglobin is at 7.7 which is essentially dropped since admission. No evidence of any acute bleeding at this point in time. BUN is at 15 with a creatinine of 1.1 and a sodium level is at 138. The patient is currently receiving a sedation holiday. Propofol discontinued and her readiness to wean will be evaluated. She remains on IV Zo syn. She remains on a combination of aspirin and Effient. She was also started on metoprolol 25 mg by mouth twice a day. She is not receiving any enteral feeding at this point in time. On 05/28/2023, the patient is extubated. Note that the patient was able to wean off the mechanical ventilator and the patient was extubated to nasal cannula initially. Subsequently, she started having hypoxemia and she had to be placed on BiPAP throughout the day and she was also kept on BiPAP overnight. Also, we added Precedex to improve her anxiety level of agitation and Precedex is still running at 0.2 mcg/kg/h. This morning, she is calm and comfortable. She is communicating. She is alert and oriented 3. She has profound weakness in all 4 extremities. She is complaining of soreness in her chest which is probably related to CPR. No signs of any bleeding. Hemoglobin is at 7.4 and it has dri fted slowly during the current hospitalization. The patient is currently on oxygen at 3 L. The chest x-ray showing some mild pulmonary congestion. She remains on IV Zosyn as a broad-spectrum antibiotic coverage for any potential aspiration pneumonia. Nevertheless, her acute pulmonary edema has improved considerably. Cardiac rhythm is sinus. She is on metoprolol 25 mg twice a day. She is also on aspirin. She is on Effient. She is also on Farxiga The puncture site in her right groin shows no evidence of any bleeding. She was also started on Aldactone at a dose of 25 mg by mouth daily. She is on high- dose statins. She is on thyroid hormone replacement. On 05/29/2023, the patient remains extubated and she is currently on oxygen at 8 liters and the patient's pulse ox is currently at 96%. She encountered a coughing fit overnight and this was associated with some oxygen desaturation and for that reason she was recently placed on a BiPAP that was subsequently taken off. The patient is off Precedex and she is, comfortable and communicating. She continues to have soreness across her anterior chest related to CPR and the patient is receiving [place] 5 every 4 hours and Dilaudid 0.5 every 3. Clinically stable. Hemodynamically stable. No pressors for now. Cardiac rhythm is sinus. The chest x-ray from today showing recurrent pulmonary edema with interval worsening and this goes along with her worsening in her oxygenation. Note that the patient has not been receiving any diuretics for the time being. She does have cardiomyopathy postcardiac arrest and post acute myocardial infarction. Meanwhile, she is producing urine output which is adequate and the patient has produced approximately 1.5 L for yesterday and overall fluid balance is -1.3 L over the past 24 hours. Her hemoglobin stable at 7.9. The white cycles of 14.4, BUN is at 30 with a creatinine of 0.9 and his sodium level is at 135. Her blood pressure was soft and this is improved and the most recent BP is 121/87. In terms of her cardiomyopathy, the patient is on metoprolol 25 mg twice a day, Farxiga 10 mg by mouth daily, Aldactone 25 mg by mouth daily. IV fluids are currently at KVO. She is on aspirin and Effient. On 05/30/2023, the patient is on 6 L of oxygen by nasal cannula. She is post cardiac arrest, shock, emergent cardiac catheterization, stenting, insertion and removal of a impella or cardiac support. She was extubated. Postextubation, she had a component of pulmonary edema and she was restarted back on diuretics yesterday 40 mg every 12 hours. Fluid balance is -1.3 L since yesterday. Oxygen patient is slightly improved. She has had it for another 3 L of negative fluid balance for today. The patient's chest x-ray still showing some residual interstitial/pulmonary edema along with some cardiomegaly. Gastric bubble is slightly dilated. Her main complaint is chest wall pain related to CPR. We are treating this with a combination of [place] and Dilaudid. She is trying to use incentive spirometer. She is weak. She is a bit frustrated of her condition. Nevertheless, I tried to convince her that this is something good as she has survived a major cardiac catastrophe. The white cell count is at 12, hemoglobin is at 8.8 and a platelet count is 406. BUN is at 70 with a creatinine of 1.1. Her left TM level came back at 0.2. Her cardiac medications are also noted. The patient is on aspirin and Effient. The patient is on metoprolol 25 mg twice a day. The patient is on Farxiga. She is on high-dose statins. IV Zosyn was also started as a broad-spectrum antibiotic coverage. No clear indication for an aspiration pneumonia. This was started only on an empiric basis. Oral intake is quite diminished. Cardiac rhythm is sinus. She is afebrile. Pulse ox is 98% on 6 L which obviously will be further weaned Patient was seen and examined today on 05/30/2023, patient remains in the ICU, on 2 L nasal cannula, does not seem to be in any distress, mostly complaining of chest wall pain. Patient is status post cardiac arrest, she is also status post stenting of left main, LAD, and left circumflex with dissection of left main, patient has ischemic cardiomyopathy with ejection fraction of 40-45%, surprisingly patient is doing better than expected considering her clinical course since admission. Patient is doing well with incentive spirometry achiev ing over 1500 MLS. Patient is being considered for possible transfer to a cardiac floor today. Chest x-ray continues to show bibasilar atelectasis and possible consolidation in the left lower lobe she is on Augmentin as per infectious disease on the case. All cultures and sputum cultures have been nondiagnostic WBC count is 11.3 hemoglobin is 8.4 basic metabolic profile is normal and renal profile is normal Objective - Vital Signs Vital signs: Vital Signs Temp 97.9 F 05/31/23 12:00 Pulse 104 H 05/31/23 12:00 Resp 26 H 05/31/23 12:00 BP 112/78 05/31/23 12:00 Pulse Ox 91 L 05/31/23 12:00 FiO2 6 05/29/23 19:00 Intake & Output 05/30/23 05/31/23 05/31/23 18:59 06:59 18:59 Intake Total 90 250 50 Output Total 1085 430 75 Balance -995 -180 -25 Weight 89.4 kg 89.4 kg Intake: IV 90 carrier 90 Oral 250 50 Output: Urine 1085 430 75 Other: Voiding Method Indwelling Catheter Indwelling Catheter Indwelling Catheter ABP, PAP, CO, CI - Last Documented Arterial Blood Pressure 169/169 - Exam Physical Exam: Revealed 43-year-old female in no distress on 2 L nasal cannula Head: Atraumatic, normocephalic. HEENT:[Neck is supple.] [No neck masses.] [No thyromegaly.] [No JVD.] Chest: [Clear throughout, no crackles, no rhonchi, no wheezes.] Chest wall tenderness is noted bilaterally. Cardiac Exam: [Normal S1 and S2, no S3 gallop, no murmur.] Abdomen: [Soft, nontender, no megaly, no rebound, no guarding, normal bowel sounds.] Extremities: [No clubbing, no edema, no cyanosis.] Neurological Exam: [No focal neurologic deficit.] Alert oriented 3. Psychiatric: Normal mood affect and normal mental status examination. Skin: No rashes. - Labs CBC & Chem 7: 05/31/23 04:54 05/31/23 04:54 Labs: Abnormal Lab Results - Last 24 Hours (Table) 05/30/23 05/31/23 05/31/23 Range/Units 19:43 00:48 04:54 WBC 11.3 H (3.8-10.6) k/uL RBC 2.90 L (3.80-5.40) m/uL Hgb 8.4 L (11.4-16.0) gm/dL Hct 25.6 L (34.0-46.0) % Neutrophils # 7.9 H (1.3-7.7) k/uL Sodium (137-145) mmol/L Potassium 3.4 L 3.3 L (3.5-5.1) mmol/L Chloride (98-107) mmol/L BUN (7-17) mg/dL 05/31/23 Range/Units 04:54 WBC (3.8-10.6) k/uL RBC (3.80-5.40) m/uL Hgb (11.4-16.0) gm/dL Hct (34.0-46.0) % Neutrophils # (1.3-7.7) k/uL Sodium 136 L (137-145) mmol/L Potassium (3.5-5.1) mmol/L Chloride 97 L (98-107) mmol/L BUN 19 H (7-17) mg/dL Microbiology - Last 24 Hours (Table) 05/25/23 07:16 Blood Culture - Final Blood 05/25/23 11:28 Blood Culture - Final Blood Assessment and Plan Assessment: Impression: Out of hospital cardiac arrest, downtime is unknown. Patient required defibrillation and intubation in the ER. Acute ST elevation PA, patient did receive successful stenting of the proximal LAD with stenting of the left main and left circumflex secondary to dissection of the left main. Patient also required imPella device placement which has been removed Chest pain, essentially skeletal in nature related to CPR Severe cardiomyopathy, likely ischemic with an ejection fraction of 20-25% Acute pulmonary edema secondary to acute congestive heart failure/systolic in nature. Acute hypoxic respiratory failure, required intubation and eventually the patient was extubated Metabolic anion gap acidosis, resolved Acute kidney injury, secondary to hypoperfusion and acute tubular necrosis, re solved Mild transaminitis, secondary to hypoperfusion Leukocytosis, improved Hypothyroidism History of depression/anxiety/PTSD Aspiration pneumonia is strongly suspected Recommendation: Continue present supportive care measures continue maximal medical therapy for her underlying coronary artery disease Continue diuretics and continue to monitor daily electrolytes and renal profile continue IV fluids at KVO titrate the FiO2 accordingly Continue antibiotics/Augmentin for aspiration pneumonia Increase mobility Incentive spirometry Continue aspirin and Effient Continue Dilaudid and [place] for pain control Patient will be transferred to a cardiac floor and will continue to follow Time with Patient: Less than 30
[2023-05-31] MEDS: KETOROLAC 15 MG/ML 1 ML VIAL IVP PRN ×2 (15:36→23:27)
--- NOTE | 2023-05-31 16:01 | P.PN ---
Subjective Progress Note Date: 05/31/23 Mecca Tam, is a 43-year-old female, who was found unresponsive at home, CPR was initiated by a neighbor who is a dependency counselor, EMS were called and patient was defibrillated and brought into emergency room, she was intubated in the emergency room, EKG revealed ST elevation and Q waves in anterior leads, patient was taken to the kiln labourer, she underwent angioplasty and stenting to the proximal LAD, the left main and the left Sears conflicts, she was transferred to intensive care unit, and is currently intubated sedated maintained on mechanical ventilation, cardiology and pulmonary critical care are following. Patient has a known history of depression with anxiety disorder, history of post traumatic stress disorder, history of hypothyroidism and history of tobacco abuse. 05/26/2023 Picked up coverage today from Dr. Padgett. Patient remains in the intensive care unit. Currently sedated with propofol and on the mechanical ventilator with FiO2 of 50% and PEEP of 5. Status post cardiac catheterization with stent placed to the proximal LAD, left circ, and placement of impella device with plans for removal of the impella today. Chest xray today shows left ventricular assist device in place, with improvement of interstitial pulmonary edema. Some pulmonary vascular congestion remains. Echocardiogram reveals an EF of 25%. Patient remains on dual antiplatelet therapy with aspirin and effient, lipitor, farxiga, lopressor, aldactone. [place] has been removed and lithium level pe nding. Patient on empiric antibiotic coverage with IV zosyn. White blood cell count 22.9. BUN 18, creatinine 1.10. Lactic acid normalized to 2.0. LFTS stable, LDH improving 1820. Procalcitonin level elevated at 0.65. Influenza, covid, RSV are all negative. Has been taken off the insulin gtt with improvement in blood glucose. A1C was normal range of 5.5. 05/27/2023 Patient is evaluated today in the intensive care unit. Patient had impella device removed last night. Has been extubated today and did require increased oxygen support currently evaluated on BiPAP. She is complaining of significant left sided chest pain. Receiving IV tylenol and has prn IV dilaudid. Remains on aspirin effient combination. Has been resumed on cymbalta and mirtazipine. Continues on IV zosyn empirically. Propofol off and patient now on IV precedex. Patients sputum culture is negative and blood culture remains negative at this time. Labs today showing white count 16.3, hemoglobin 7.7., sodium 138, potassium 3.8, BUN 15, creatinine 1.11, LFTs improving. chest xray today showing residual mild pulmonary vascular congestion with some improvement in the previous interstitial edema. Some patchy opacity probably patchy edema remains at the inferior lingular. 05/28/2023 Patient is in the MICU. Awake alert and oriented. On room air saturating 96%. Still complains of chest soreness/pain and pressure likely due to chest compressions prior to coming to the hospital. No complaints of shortness of breath. No nausea vomiting abdominal pain or diarrhea. Laboratory showed WBC 14.0 hemoglobin 7.4 and platelets 194 Sodium 140 potassium 3.8 chloride 110 bicarb is 19 BUN 5 and creatinine 1.07 AST 78 ALT 47 alk phos 90 albumin 3.2. Patient is being continued on aspirin, statin, metoprolol, dapagliflozin, insuli n sliding scale and levothyroxine and antibiotics, Zosyn. Patient is also on Aldactone 25 mg p.o. daily 05/31/2023 Patient seen and evaluated in follow-up continues to be in the ICU early sitting up in the chair having severe pain likely musculoskeletal. Patient is eating and reports tolerating with no reports of nausea or vomiting. Labs reviewed with a white count of 11.3, hemoglobin is 8.4 and platelets are 408, follow-up repeat potassium improved at 3.7 and sodium is 136. Kidney functions reveal a creatinine of 0.9 and will add some Toradol as needed for pain. Patient continues on 2 L via nasal cannula recommend wean FiO2 as tolerated. Chest x- ray today shows left lower lobe consolidation to correlate for pneumonia with infiltrate at the right base may be related to atelectasis and upper lobe infiltrates have improved. Multiple medical consultations including pulmonary as well as cardiology and infectious disease are following. Considering transfer out of the ICU once bed on 3 S. is available. All inpatient medications were reviewed and appropriate changes in these medi cations as dictated in the interval history and assessment and plan. PHYSICAL EXAMINATION: GENERAL: The patient is awake, alert and oriented 3, well-developed, well- nourished, obese. Ill-appearing HEENT: Pupils are round and equally reacting to light. EOMI. No scleral icterus. No conjunctival pallor. Normocephalic, atraumatic. No pharyngeal erythema. No thyromegaly. CARDIOVASCULAR: S1 and S2 present. No murmurs, rubs, or gallops. PULMONARY: Diminished breath sounds bilaterally otherwise Chest is clear to auscultation, no wheezing or crackles. ABDOMEN: Soft, nontender, nondistended, normoactive bowel sounds. No palpable organomegaly. MUSCULOSKELETAL: No joint swelling or deformity. EXTREMITIES: No cyanosis, clubbing, or pedal edema. NEUROLOGICAL: Awake alert no focal neurological deficits. Diffusely weak SKIN: No rashes. Assessment and Plan -Cardiac arrest at home with unkown downtime patient was defibrillated by EMS on scene. Status post extubation successfully on 05/27/2023 and currently on 2 L via nasal cannula -Acute ST elevation myocardial infarction status post stenting to the proximal LAD, left circ with dissection of the left main, stenting of the left main and placement of impella device patient continues on dual antiplatelet therapy at this time with aspirin and effient. IV heparin is discontinued and the impella device has been removed. -Acute hypoxic respiratory failure requiring intubation and mechanical ventilation s/p extubation 05/27/2023 requiring BiPAP. on 2 L via nasal cannula currently. -Left sided pneumothorax likely from CPR which appears resolved on follow up chest xray -Acute metabolic acidosis, improved -Acute kidney injury secondary to ATN/hypotension improved -Hyperglycemia off the insulin gtt with improvement in blood glucose. HgbA1C wnl at 5.5. -Leukocytosis with bilateral pulmonary infiltrates possible aspiration pneumonia remains on empiric antibiotic coverage with oral Augmentin, procalcitonin level elevated at 0.65. ID following. -Underlying history of depression with anxiety disorder resumed on psychiatric medications. -Underlying history of posttraumatic stress disorder -Underlying history of hypothyroidism Resumed on home medications, TSH is 26.9 and free T4 is 0.85 -Underlying history of tobacco abuse GI prophylaxis DVT prophylaxis Full Code Plan: Continue current medication regimen and follow-up on repeat labs. Electrolytes being replaced per protocol PT/OT therapy for evaluation and would recommend daily as patient is significantly weak and has had prolonged hospitalization Patient awaiting a downgrade out of the ICU once bed on 3 S. becomes available Encouraged incentive spirometer use at least 10 times every hour while awake Patient continues with musculoskeletal pain and will add Toradol as needed as kidney functions are within normal limits Encourage increased activity as tolerated Encourage oral intake Dr. Padgett will be resuming services starting on 06/01/2023 The impression and plan of care has been dictated by Dena Dacosta, Nurse Practitioner as directed. Dr. Constantino MD I have performed a history and examination and MDM of this patient, discussed the same with the dictator, and agree with the dictator's assessment and plan as written ,documented as a scribe. Based on total visit time, I have performed more than 50% of the visit. Objective - Vital Signs Vital signs: Vital Signs Temp 97.9 F 05/31/23 08:00 Pulse 98 05/31/23 08:58 Resp 27 H 05/31/23 08:00 BP 114/88 05/31/23 08:00 Pulse Ox 90 L 05/31/23 08:00 FiO2 6 05/29/23 19:00 Intake & Output 05/30/23 05/31/23 05/31/23 18:59 06:59 18:59 Intake Total 90 250 50 Output Total 1085 430 75 Balance -995 -180 -25 Weight 89.4 kg Intake: IV 90 carrier 90 Oral 250 50 Output: Urine 1085 430 75 Other: Voiding Method Indwelling Catheter Indwelling Catheter Indwelling Catheter ABP, PAP, CO, CI - Last Documented Arterial Blood Pressure 169/169 - Labs CBC & Chem 7: 05/31/23 04:54 05/31/23 04:54 Labs: Abnormal Lab Results - Last 24 Hours (Table) 05/30/23 05/30/23 05/31/23 Range/Units 12:25 19:43 00:48 WBC (3.8-10.6) k/uL RBC (3.80-5.40) m/uL Hgb (11.4-16.0) gm/dL Hct (34.0-46.0) % Neutrophils # (1.3-7.7) k/uL Sodium (137-145) mmol/L Potassium 3.4 L 3.3 L (3.5-5.1) mmol/L Chloride (98-107) mmol/L BUN (7-17) mg/dL POC Glucose (mg/dL) 115 H (70-110) mg/dL 05/31/23 05/31/23 Range/Units 04:54 04:54 WBC 11.3 H (3.8-10.6) k/uL RBC 2.90 L (3.80-5.40) m/uL Hgb 8.4 L (11.4-16.0) gm/dL Hct 25.6 L (34.0-46.0) % Neutrophils # 7.9 H (1.3-7.7) k/uL Sodium 136 L (137-145) mmol/L Potassium (3.5-5.1) mmol/L Chloride 97 L (98-107) mmol/L BUN 19 H (7-17) mg/dL POC Glucose (mg/dL) (70-110) mg/dL Microbiology - Last 24 Hours (Table) 05/25/23 07:16 Blood Culture - Final Blood 05/25/23 11:28 Blood Culture - Final Blood
[2023-05-31 19:43] LABS: Glucose,Whole Blood 119 mg/dL (70-110)
[2023-05-31] MEDS: MIRTAZAPINE 15 MG TAB PO SCH (20:19)
[2023-05-31] MEDS: ATORVASTATIN 80 MG TAB PO SCH (20:19)
[2023-06-01] MEDS: HYDROcodone/APAP 5-325MG 1 EACH TAB PO PRN ×4 (02:12→20:27)
[2023-06-01] MEDS: DEXMEDETOMIDINE/0.9% NACL(PMX) 400 MCG in EMPTY BAG 1 BAG IV SCH (04:37)
[2023-06-01] MEDS: LEVOTHYROXINE 100 MCG TAB PO SCH (05:52)
[2023-06-01] MEDS: FERROUS SULFATE 325 MG TAB PO SCH ×2 (06:49→19:03)
[2023-06-01] MEDS: ACETAMINOPHEN TAB 325 MG TAB PO PRN (06:49)
[2023-06-01] MEDS: LIDOCAINE 4% PATCH TOPICAL SCH (08:39)
[2023-06-01] MEDS: SENNOSIDES 8.6 MG TAB PO SCH (08:44)
[2023-06-01] MEDS: LITHIUM CARBONATE 300 MG CAP PO SCH ×2 (08:44→20:44)
[2023-06-01] MEDS: PRASUGREL 10 MG TAB PO SCH (08:44)
[2023-06-01] MEDS: SPIRONOLACTONE 25 MG TAB PO SCH (08:44)
[2023-06-01] MEDS: PANTOPRAZOLE 40 MG/10 ML VIAL IVP SCH (08:45)
[2023-06-01] MEDS: DAPAGLIFLOZIN PROPANEDIOL 10 MG TABLET PO SCH (08:45)
[2023-06-01] MEDS: AMOXIC-POT CLAV 875-125MG 1 EACH TAB PO SCH ×2 (08:45→20:27)
[2023-06-01] MEDS: METOPROLOL TARTRATE 25 MG TAB PO SCH ×2 (08:45→20:28)
[2023-06-01] MEDS: DULoxetine HCL 60 MG CAPSULE.DR PO SCH ×2 (08:45→20:28)
[2023-06-01] MEDS: LIOTHYRONINE SODIUM 5 MCG TAB PO SCH (08:45)
[2023-06-01] MEDS: ASPIRIN 81 MG PO SCH (08:45)
[2023-06-01] MEDS: ALBUTEROL NEBULIZED 2.5 MG/3 ML INHALATION PRN ×3 (08:50→15:10)
--- NOTE | 2023-06-01 09:40 | P.PN ---
Subjective Progress Note Date: 06/01/23 The patient is a 43-year-old female who presented to the hospital with V. fib arrest in the anterior wall myocardial infarction. She underwent stenting of the left main, LAD and left circumflex. Initial EF is 25% with reevaluation at 45-50%. The patient was interviewed and examined resting in bed. The patient states her pain is the same as yesterday, however visibly she is in less distress. She denies any difficulty breathing. No dizziness when she ambulates to the restroom. GENERAL: Well-appearing, well-nourished and in no acute distress NECK: Supple without JVD or thyromegaly. LUNGS: Breath sounds diminished to auscultation bilaterally. Respiration equal and unlabored. No wheezes or rhonchi HEART: Regular rate and rhythm without murmurs, rubs or gallops. S1 and S2 heard. EXTREMITIES: Normal range of motion, no edema. No clubbing or cyanosis. Peripheral pulses intact and strong. TELEMETRY: Sinus rhythm overnight. IMPRESSION: Anterior wall myocardial infarction Status post stenting of the left main and bifurcation LAD and circumflex Spontaneous dissection of the left main Aspiration pneumonia Cardiopulmonary arrest, suspected ventricular fibrillation Post-CPR atrial fibrillation Ischemic cardiomyopathy Current smoker Chest pain, secondary to CPR PLAN: Continue supportive treatment including pain management Encourage ambulation and pulmonary hygiene Further recommendations to be based on clinical course I am dictating on behalf of Dr Jayesh Norris's history/physical and assessment/plan. Objective - Vital Signs Vital signs: Vital Signs Temp 98.3 F 06/01/23 04:00 Pulse 99 06/01/23 09:01 Resp 18 06/01/23 09:01 BP 122/92 06/01/23 09:00 Pulse Ox 100 06/01/23 09:00 FiO2 6 05/29/23 19:00 Intake & Output 05/31/23 06/01/23 06/01/23 18:59 06:59 18:59 Intake Total 530 Output Total 75 Balance 455 Weight 89.4 kg 88.7 kg Intake: Oral 530 Output: Urine 75 Other: Voiding Method Toilet Toilet Toilet # Voids 1 1 ABP, PAP, CO, CI - Last Documented Arterial Blood Pressure 169/169 - Labs CBC & Chem 7: 05/31/23 04:54 05/31/23 04:54 Labs: Abnormal Lab Results - Last 24 Hours (Table) 05/31/23 Range/Units 19:41 POC Glucose (mg/dL) 119 H (70-110) mg/dL
[2023-06-01 10:40] LABS: Basophils # (A) 0.1 k/uL (0-0.2); Basophils % (A) 0 %; Eosinophils # (A) 0.5 k/uL (0-0.7); Eosinophils % (A) 4 %; HCT 27.7 % (34.0-46.0); HGB 9.1 gm/dL (11.4-16.0); Hypochromasia Slight; Lymphocytes # (A) 1.6 k/uL (1.0-4.8); Lymphocytes % (A) 12 %; MCHC 32.8 g/dL (31.0-37.0); MCV 88.3 fL (80.0-100.0); Mean Platelet Volume 7.6; Monocytes # (A) 0.5 k/uL (0-1.0); Monocytes % (A) 3 %; Neutrophils # (A) 10.4 k/uL (1.3-7.7); Neutrophils % (A) 78 %; Platelet Count 493 k/uL (150-450); RBC 3.14 m/uL (3.80-5.40); RDW 14.8 % (11.5-15.5); WBC 13.3 k/uL (3.8-10.6)
--- NOTE | 2023-06-01 11:18 | P.PN ---
Subjective Progress Note Date: 06/01/23 Mecca Tam, is a 43-year-old female, who was found unresponsive at home, CPR was initiated by a neighbor who is a car scrubber, EMS were called and patient was defibrillated and brought into emergency room, she was intubated in the emergency room, EKG revealed ST elevation and Q waves in anterior leads, patient was taken to the specialist employee labor relations, she underwent angioplasty and stenting to the proximal LAD, the left main and the left [place] conflicts, she was transferred to intensive care unit, and is currently intubated sedated maintained on mechanical ventilation, cardiology and pulmonary critical care are following. Patient has a known history of depression with anxiety disorder, history of post traumatic stress disorder, history of hypothyroidism and history of tobacco abuse. Dr. Montelongo's group was covering 05/26/2023 through 06/01/2022 On 06/01/2022we are resuming care patient. Patient remains in the intensive care unit. Patient has been extubated patient was extubated on 05/28/2023. At this time patient is alert and oriented 3. Patient has been having ongoing chest pain but this is likely skeletal in nature cardiology and pulmonary are following. Current vital signs temp 98.3, heart rate 96, respiratory rate 17, blood pressure 122/92 with pulse 100% on 2 L. Cardiology, pulmonary and infectious disease services are following. Patient remains on Augmentin. Patient remains on by mouth Effient. Patient was also started on IV Toradol for her musculoskeletal pain Objective - Vital Signs Vital signs: Vital Signs Temp 98.3 F 06/01/23 04:00 Pulse 99 06/01/23 09:01 Resp 18 06/01/23 09:01 BP 122/92 06/01/23 09:00 Pulse Ox 100 06/01/23 09:00 FiO2 6 05/29/23 19:00 Intake & Output 05/31/23 06/01/23 06/01/23 18:59 06:59 18:59 Intake Total 530 Output Total 75 Balance 455 Weight 89.4 kg 88.7 kg Intake: Oral 530 Output: Urine 75 Other: Voiding Method Toilet Toilet Toilet # Voids 1 1 ABP, PAP, CO, CI - Last Documented Arterial Blood Pressure 169/169 - Exam HEENT head normocephalic and atraumatic Neck is supple no JVD no goiter no lymphadenopathy no carotid bruit Chest examination is clear to auscultation no crackles no wheezing Cardiac exam reveals regular heart sounds S1 and S2 no gallops no murmurs Abdomen is soft nontender no organomegaly with normal bowel sounds Extremity exam reveals no edema no cyanosis or clubbing Neurological examination reveals no gross focal deficits - Labs CBC & Chem 7: 06/01/23 10:22 05/31/23 04:54 Labs: Abnormal Lab Results - Last 24 Hours (Table) 05/31/23 06/01/23 Range/Units 19:41 10:22 WBC 13.3 H (3.8-10.6) k/uL RBC 3.14 L (3.80-5.40) m/uL Hgb 9.1 L (11.4-16.0) gm/dL Hct 27.7 L (34.0-46.0) % Plt Count 493 H (150-450) k/uL Neutrophils # 10.4 H (1.3-7.7) k/uL POC Glucose (mg/dL) 119 H (70-110) mg/dL Assessment and Plan Assessment: Cardiac arrest at home Acute ST elevation myocardial infarction status post stenting to the proximal LAD, left circumflex and requirement of impeller device. Since removed Acute hypoxic respiratory failure requiring intubation and mechanical ventil ation Acute metabolic acidosis Acute kidney injury Leukocytosis with bilateral pulmonary infiltrates possible aspiration pneumonia Underlying history of depression with anxiety disorder Underlying history of posttraumatic stress disorder Underlying history of hypothyroidism Underlying history of tobacco abuse Patient remains in the intensive care unit Cardiology, pulmonary and infectious disease services following Incentive spirometer encouraged Patient remains on by mouth Augmentin Continue PT OT Repeat labs ordered
[2023-06-01 11:19] LABS: African American GFR (CKD) 90 (>60 ml/min/1.73 sqM); Anion Gap 14 mmol/L; Blood Urea Nitrogen 22 mg/dL (7-17); Calcium 9.1 mg/dL (8.4-10.2); Carbon Dioxide 21 mmol/L (22-30); Chloride 102 mmol/L (98-107); Glucose 114 mg/dL (74-99); Magnesium 2.4 mg/dL (1.6-2.3); Non-African American GFR(CKD) 78 (>60 ml/min/1.73 sqM); Potassium 3.9 mmol/L (3.5-5.1); Sodium 137 mmol/L (137-145)
--- NOTE | 2023-06-01 11:59 | P.PN ---
Subjective Progress Note Date: 06/01/23 Principal diagnosis: Out of hospital cardiac arrest I am seeing this patient in new consultation today 05/25/2023 in the intensive care unit following an out of hospital cardiac arrest. Patient is a 43-year-old white female with no known cardiac history. She is on multiple psychiatric medications at home. Patient is currently intubated on mechanical ventilator and unable to provide any information. Apparently, the patient was complaining of epigastric pain and nausea throughout the day yesterday. Earlier this morning the patient's significant other woke up to her shaking in bed and unresponsive. CPR was initiated by a neighbor who is apparently a automatic line set up mechanic, and patient was defibrillated once EMS arrived. On arrival to emergency room, patient was intubated by the ER physician. She was unresponsive, she had copious emesis, and likely aspirated. ECG showed ST elevation and Q waves in the anterior-septal leads, and a code STEMI was initiated. Patient was taken to [facility] where she received successful stenting of the proximal LAD, stenting of the left main and left circumflex secondary to dissection in the left main. Patient subsequently had an Impella catheter placed. She was transferred to the intensive care unit in critical condition. Chest CTA done in the emergency room showed a small 10-15% left sided pneumothorax. No large central pulmonary embolism was visualized. The ET tube was within the right mainstem bronchus. There was scattered patchy airspace opacities in the posterior upper lobes and more prominently in the lower lobes with air bronchograms. Likely consistent with aspiration/aspiration pneumonia. Patient currently intubated on mechanical ventilator. Current ventilator settings are assist control, respiratory rate 20, tidal volume 450, FiO2 100%, and PEEP of 8. ABGs done on the settings show a pH of 7.32, pCO2 of 31, pO2 of 79. Repeat chest x-ray does not show any enlargement of the left sided pneumoth orax. The endotracheal tube is now approximately 3-4 cm above the alisha. There are diffuse bilateral multifocal infiltrates. CBC demonstrates leukocytosis with a WBC count of 22.6, hemoglobin 12.2, hematocrit 38.9, platelets 395. BMP a sodium of 137, potassium 3.5, chloride 109, serum bicarb 10, BUN 15, creatinine 1.35, glucose 315. Troponins 0.145. NT proBNP 315. Patient is sedated and unresponsive on the mechanical ventilator. She is breathing above set rate. Does not follow commands. She is sedated on propofol at 30 mcg/kg/m. Brain CT on arrival did not show any acute intracranial hemorrhage or mass effect. Blood pressure is stable. Not requiring vasopressors. She is tachycardic. Urine output is anuric. Impella is inserted through the right groin, set at P9. 3.9 L of flow. Baseline coags are unremarkable. Patient will be started on IV heparin per protocol. Patient's prognosis is guarded, and she is currently in critical condition. There was a concern for an underlying pneumothorax. I reviewed the chest x-ray the chest x-ray showing diffuse but the pulmonary infiltrates. This is consistent with acute cardiogenic pulmonary edema it underlying aspiration cannot be completely excluded. I reviewed the CAT scan of the chest, there may be a very tiny left anterior pneumothorax not clearly seen on today's chest x- ray. This will be monitored very closely. The patient is currently intubated on a mechanical ventilator. The patient is on propofol which is running at 35 mcg/kg/m. She is adequately sedated and suggest a mechanical ventilator. She is covered with antibiotics and she is currently on IV Zosyn. She is on no pressors at this point in time. Cardiac rhythm is sinus tachycardia. On today's evaluation of 05/26/2023, the patient is being seen for a follow-up. The patient remains intubated on a mechanical ventilator. This morning, she is on propofol running at 35 mcg/kg/m and she is calm and comfortable. She response to stimulation. She was also painful stimulation in all 4 extremities. At the same time, the patient remains on a mechanical ventilator on assist control mode at the rate of 20, tidal volume of 450, FiO2 of 50% and a PEEP of 5. The chest x-ray from this morning is showing evidence of diffuse bilateral pulmonary infiltrates consistent with pulmonary edema. The ET tube is in a good location. The patient also has a left sided subclavian triple-lumen catheter in place. No evidence of any significant pneumothorax. There is interval improvement in the pulmonary edema on today's chest x-ray compared to yesterday. The blood gas showed a pH of 7.48 with a pCO2 of 35 and pO2 of 90. In terms of hemodynamics, the patient is on no pressors. ImPela supports is still ongoing although she has been switched from P9 to PT for and currently she is on P2 support. The flow is at 1.8 L/m. The Augmentin blood pressure is 91/58. She is producing urine output and the fluid balance over the past 24 hours has been +3.4 L. Nevertheless, the patient is producing 100 mL an hour of urine output and she produced approximately 1.2 L of urine output for yesterday. Pulses are present lower extremities bilaterally. The patient is currently on a combination of aspirin and Effient. Aldactone was also added. The patient is receiving and panic antibiotic coverage with IV Zosyn. IV fluids are in the form of bicarb infusion at the rate of 100 mL an hour. This will be discontinued. BUN is at 80 with a creatinine of 1.1. Sodiums of 135, serum bicarb is at 24, the white cell count is 22.9 with a hemoglobin of 9.1 and a platelet count of 224. A limited echocardiogram was done yesterday and the patient was told to have a LV ejection fraction severely impaired estimated to be at around 25. She is also off the insulin drip. Blood sugars under better control for now. On today's evaluation of 05/27/2023 pounds in the patient for a follow-up. The patient is doing well. The Impella was removed yesterday without any major difficulties. No evidence of any bleeding at the insertion site. The patient has such is hemodynamically stable. No pressors at this point in time. She is producing adequate amount of urine output. This morning, she is on propofol running at 30 microvascular kilogram per minute. She is on assist-control mode at a rate of 20, tidal volume of 450, FiO2 of 50% with a PEEP of 8. Blood gas show a pH of 7.5 with a pCO2 of 32 and pO2 of 116. The chest x-ray shows improvement of the previously described pulmonary edema. ET tube is in a good location. The patient is producing adequate amount of urine output. Her urine output was up to 100 mL an hour. The fluid Balance over the past 24 hours is - 1.1 L. The patient's echoes at 16.3, hemoglobin is at 7.7 which is essentially dropped since admission. No evidence of any acute bleeding at this point in time. BUN is at 15 with a creatinine of 1.1 and a sodium level is at 138. The patient is currently receiving a sedation holiday. Propofol discontinued and her readiness to wean will be evaluated. She remains on IV Zo syn. She remains on a combination of aspirin and Effient. She was also started on metoprolol 25 mg by mouth twice a day. She is not receiving any enteral feeding at this point in time. On 05/28/2023, the patient is extubated. Note that the patient was able to wean off the mechanical ventilator and the patient was extubated to nasal cannula initially. Subsequently, she started having hypoxemia and she had to be placed on BiPAP throughout the day and she was also kept on BiPAP overnight. Also, we added Precedex to improve her anxiety level of agitation and Precedex is still running at 0.2 mcg/kg/h. This morning, she is calm and comfortable. She is communicating. She is alert and oriented 3. She has profound weakness in all 4 extremities. She is complaining of soreness in her chest which is probably related to CPR. No signs of any bleeding. Hemoglobin is at 7.4 and it has dri fted slowly during the current hospitalization. The patient is currently on oxygen at 3 L. The chest x-ray showing some mild pulmonary congestion. She remains on IV Zosyn as a broad-spectrum antibiotic coverage for any potential aspiration pneumonia. Nevertheless, her acute pulmonary edema has improved considerably. Cardiac rhythm is sinus. She is on metoprolol 25 mg twice a day. She is also on aspirin. She is on Effient. She is also on Farxiga The puncture site in her right groin shows no evidence of any bleeding. She was also started on Aldactone at a dose of 25 mg by mouth daily. She is on high- dose statins. She is on thyroid hormone replacement. On 05/29/2023, the patient remains extubated and she is currently on oxygen at 8 liters and the patient's pulse ox is currently at 96%. She encountered a coughing fit overnight and this was associated with some oxygen desaturation and for that reason she was recently placed on a BiPAP that was subsequently taken off. The patient is off Precedex and she is, comfortable and communicating. She continues to have soreness across her anterior chest related to CPR and the patient is receiving [place] 5 every 4 hours and Dilaudid 0.5 every 3. Clinically stable. Hemodynamically stable. No pressors for now. Cardiac rhythm is sinus. The chest x-ray from today showing recurrent pulmonary edema with interval worsening and this goes along with her worsening in her oxygenation. Note that the patient has not been receiving any diuretics for the time being. She does have cardiomyopathy postcardiac arrest and post acute myocardial infarction. Meanwhile, she is producing urine output which is adequate and the patient has produced approximately 1.5 L for yesterday and overall fluid balance is -1.3 L over the past 24 hours. Her hemoglobin stable at 7.9. The white cycles of 14.4, BUN is at 30 with a creatinine of 0.9 and his sodium level is at 135. Her blood pressure was soft and this is improved and the most recent BP is 121/87. In terms of her cardiomyopathy, the patient is on metoprolol 25 mg twice a day, Farxiga 10 mg by mouth daily, Aldactone 25 mg by mouth daily. IV fluids are currently at KVO. She is on aspirin and Effient. On 05/30/2023, the patient is on 6 L of oxygen by nasal cannula. She is post cardiac arrest, shock, emergent cardiac catheterization, stenting, insertion and removal of a impella or cardiac support. She was extubated. Postextubation, she had a component of pulmonary edema and she was restarted back on diuretics yesterday 40 mg every 12 hours. Fluid balance is -1.3 L since yesterday. Oxygen patient is slightly improved. She has had it for another 3 L of negative fluid balance for today. The patient's chest x-ray still showing some residual interstitial/pulmonary edema along with some cardiomegaly. Gastric bubble is slightly dilated. Her main complaint is chest wall pain related to CPR. We are treating this with a combination of [place] and Dilaudid. She is trying to use incentive spirometer. She is weak. She is a bit frustrated of her condition. Nevertheless, I tried to convince her that this is something good as she has survived a major cardiac catastrophe. The white cell count is at 12, hemoglobin is at 8.8 and a platelet count is 406. BUN is at 70 with a creatinine of 1.1. Her left TM level came back at 0.2. Her cardiac medications are also noted. The patient is on aspirin and Effient. The patient is on metoprolol 25 mg twice a day. The patient is on Farxiga. She is on high-dose statins. IV Zosyn was also started as a broad-spectrum antibiotic coverage. No clear indication for an aspiration pneumonia. This was started only on an empiric basis. Oral intake is quite diminished. Cardiac rhythm is sinus. She is afebrile. Pulse ox is 98% on 6 L which obviously will be further weaned Patient was seen and examined today on 05/31/2023, patient remains in the ICU, on 2 L nasal cannula, does not seem to be in any distress, mostly complaining of chest wall pain. Patient is status post cardiac arrest, she is also status post stenting of left main, LAD, and left circumflex with dissection of left main, patient has ischemic cardiomyopathy with ejection fraction of 40-45%, surprisingly patient is doing better than expected considering her clinical course since admission. Patient is doing well with incentive spirometry achiev ing over 1500 MLS. Patient is being considered for possible transfer to a cardiac floor today. Chest x-ray continues to show bibasilar atelectasis and possible consolidation in the left lower lobe she is on Augmentin as per infectious disease on the case. All cultures and sputum cultures have been nondiagnostic WBC count is 11.3 hemoglobin is 8.4 basic metabolic profile is normal and renal profile is normal Patient was reevaluated today on 06/01/2023, patient is on 2 L nasal cannula, she is presently an overflow in the ICU, continues to have mostly chest wall pain. Occasional cough no wheezing, no shortness of breath no fever no chills no hemoptysis. He remains on antibiotics in the form of Augmentin for presumptive aspiration pneumonia. WBC count is 13.3 hemoglobin 9.1 basic metabolic profile is normal and renal profile is Objective - Vital Signs Vital signs: Vital Signs Temp 98.3 F 06/01/23 04:00 Pulse 83 06/01/23 11:52 Resp 16 06/01/23 11:52 BP 122/92 06/01/23 09:00 Pulse Ox 100 06/01/23 09:00 FiO2 6 05/29/23 19:00 Intake & Output 05/31/23 06/01/23 06/01/23 18:59 06:59 18:59 Intake Total 530 Output Total 75 Balance 455 Weight 89.4 kg 88.7 kg Intake: Oral 530 Output: Urine 75 Other: Voiding Method Toilet Toilet Toilet # Voids 1 1 ABP, PAP, CO, CI - Last Documented Arterial Blood Pressure 169/169 - Exam Physical Exam: Revealed 43-year-old female in no distress on 2 L nasal cannula Head: Atraumatic, normocephalic. HEENT:[Neck is supple.] [No neck masses.] [No thyromegaly.] [No JVD.] Chest: [Crackles at the bases and tenderness of the chest wall Cardiac Exam: [Normal S1 and S2, no S3 gallop, no murmur.] Abdomen: [Soft, nontender, no megaly, no rebound, no guarding, normal bowel sounds.] Extremities: [No clubbing, no edema, no cyanosis.] Neurological Exam: [No focal neurologic deficit.] Alert oriented 3. Psychiatric: Normal mood affect and normal mental status examination. Skin: No rashes. - Labs CBC & Chem 7: 06/01/23 10:22 06/01/23 10:22 Labs: Abnormal Lab Results - Last 24 Hours (Table) 05/31/23 06/01/23 06/01/23 Range/Units 19:41 10:22 10:22 WBC 13.3 H (3.8-10.6) k/uL RBC 3.14 L (3.80-5.40) m/uL Hgb 9.1 L (11.4-16.0) gm/dL Hct 27.7 L (34.0-46.0) % Plt Count 493 H (150-450) k/uL Neutrophils # 10.4 H (1.3-7.7) k/uL Carbon Dioxide 21 L (22-30) mmol/L BUN 22 H (7-17) mg/dL Glucose 114 H (74-99) mg/dL POC Glucose (mg/dL) 119 H (70-110) mg/dL Magnesium 2.4 H (1.6-2.3) mg/dL Assessment and Plan Assessment: Impression: Out of hospital cardiac arrest, downtime is unknown. Patient required defibrillation and intubation in the ER. Acute ST elevation [place], patient did receive successful stenting of the proximal LAD with stenting of the left main and left circumflex secondary to dissection of the left main. Patient also required imPella device placement which has been removed Chest pain, essentially skeletal in nature related to CPR Severe cardiomyopathy, likely ischemic with an ejection fraction of 20-25% Acute pulmonary edema secondary to acute congestive heart failure/systolic in nature. Acute hypoxic respiratory failure, required intubation and eventually the patient was extubated Metabolic anion gap acidosis, resolved Acute kidney injury, secondary to hypoperfusion and acute tubular necrosis, resolved Mild transaminitis, secondary to hypoperfusion Leukocytosis, improved Hypothyroidism History of depression/anxiety/PTSD Aspiration pneumonia is strongly suspected Recommendation: Continue present supportive care measures Transfer patient out of the ICU once a bed is available on the cardiac floor Continue antibiotics/Augmentin for aspiration pneumonia Ambulate as tolerated Continue Incentive spirometry Continue aspirin and Effient Continue pain management We'll continue to follow Time with Patient: Less than 30
[2023-06-01] MEDS: KETOROLAC 15 MG/ML 1 ML VIAL IVP PRN ×2 (13:45→22:55)
[2023-06-01] MEDS: SODIUM CHLORIDE 0.9% 500 ML 500 ML IV SCH (17:26)
[2023-06-01] MEDS: ATORVASTATIN 80 MG TAB PO SCH (20:27)
[2023-06-01] MEDS: MIRTAZAPINE 15 MG TAB PO SCH (20:28)
[2023-06-01] MEDS: PIPERACILLIN-TAZOBACTAM 3.375 GM in SODIUM CHLORIDE 0.9% 100 ML IVPB SCH (20:35)
[2023-06-02] MEDS: DEXMEDETOMIDINE/0.9% NACL(PMX) 400 MCG in EMPTY BAG 1 BAG IV SCH (02:22)
[2023-06-02] MEDS: HYDROcodone/APAP 5-325MG 1 EACH TAB PO PRN (03:46)
[2023-06-02] MEDS: LEVOTHYROXINE 100 MCG TAB PO SCH (06:49)
[2023-06-02] MEDS: FERROUS SULFATE 325 MG TAB PO SCH ×2 (06:49→17:00)
[2023-06-02] MEDS: KETOROLAC 15 MG/ML 1 ML VIAL IVP PRN (06:51)
[2023-06-02 07:51] LABS: Basophils # (A) 0.1 k/uL (0-0.2); Basophils % (A) 1 %; Eosinophils # (A) 0.5 k/uL (0-0.7); Eosinophils % (A) 5 %; HCT 27.2 % (34.0-46.0); HGB 9.1 gm/dL (11.4-16.0); Hypochromasia Slight; Lymphocytes # (A) 2.5 k/uL (1.0-4.8); Lymphocytes % (A) 24 %; MCHC 33.5 g/dL (31.0-37.0); MCV 89.6 fL (80.0-100.0); Monocytes # (A) 0.5 k/uL (0-1.0); Monocytes % (A) 5 %; Neutrophils # (A) 6.7 k/uL (1.3-7.7); Neutrophils % (A) 63 %; Platelet Count 543 k/uL (150-450); RBC 3.03 m/uL (3.80-5.40); WBC 10.7 k/uL (3.8-10.6)
[2023-06-02 08:24] LABS: ALT 26 U/L (4-34); AST 36 U/L (14-36); African American GFR (CKD) 85 (>60 ml/min/1.73 sqM); Albumin 3.4 g/dL (3.5-5.0); Alkaline Phosphatase 147 U/L (38-126); Anion Gap 11 mmol/L; Blood Urea Nitrogen 17 mg/dL (7-17); Calcium 8.7 mg/dL (8.4-10.2); Carbon Dioxide 22 mmol/L (22-30); Chloride 105 mmol/L (98-107); Glucose 98 mg/dL (74-99); Non-African American GFR(CKD) 74 (>60 ml/min/1.73 sqM); Potassium 4.6 mmol/L (3.5-5.1); Sodium 138 mmol/L (137-145); Total Bilirubin 0.5 mg/dL (0.2-1.3); Total Protein 6.3 g/dL (6.3-8.2)
[2023-06-02] MEDS: DAPAGLIFLOZIN PROPANEDIOL 10 MG TABLET PO SCH (08:35)
[2023-06-02] MEDS: ASPIRIN 81 MG PO SCH (08:35)
[2023-06-02] MEDS: SPIRONOLACTONE 25 MG TAB PO SCH (08:35)
[2023-06-02] MEDS: DULoxetine HCL 60 MG CAPSULE.DR PO SCH ×2 (08:35→20:55)
[2023-06-02] MEDS: LIDOCAINE 4% PATCH TOPICAL SCH (08:35)
[2023-06-02] MEDS: SENNOSIDES 8.6 MG TAB PO SCH (08:35)
[2023-06-02] MEDS: METOPROLOL TARTRATE 25 MG TAB PO SCH ×2 (08:35→20:54)
[2023-06-02] MEDS: AMOXIC-POT CLAV 875-125MG 1 EACH TAB PO SCH ×2 (08:36→20:55)
[2023-06-02] MEDS: LIOTHYRONINE SODIUM 5 MCG TAB PO SCH (08:36)
[2023-06-02] MEDS: LITHIUM CARBONATE 300 MG CAP PO SCH ×2 (08:37→20:54)
[2023-06-02] MEDS: PANTOPRAZOLE 40 MG/10 ML VIAL IVP SCH (08:37)
[2023-06-02] MEDS: PRASUGREL 10 MG TAB PO SCH (08:38)
--- NOTE | 2023-06-02 08:55 | P.PN ---
Subjective Progress Note Date: 06/02/23 Mecca Tam, is a 43-year-old female, who was found unresponsive at home, CPR was initiated by a neighbor who is a insurance special agent, EMS were called and patient was defibrillated and brought into emergency room, she was intubated in the emergency room, EKG revealed ST elevation and Q waves in anterior leads, patient was taken to the photo lab manager, she underwent angioplasty and stenting to the proximal LAD, the left main and the left [place] conflicts, she was transferred to intensive care unit, and is currently intubated sedated maintained on mechanical ventilation, cardiology and pulmonary critical care are following. Patient has a known history of depression with anxiety disorder, history of post traumatic stress disorder, history of hypothyroidism and history of tobacco abuse. Dr. Montelongo's group was covering 05/26/2023 through 06/01/2022 On 06/01/2022we are resuming care patient. Patient remains in the intensive care unit. Patient has been extubated patient was extubated on 05/28/2023. At this time patient is alert and oriented 3. Patient has been having ongoing chest pain but this is likely skeletal in nature cardiology and pulmonary are following. Current vital signs temp 98.3, heart rate 96, respiratory rate 17, blood pressure 122/92 with pulse 100% on 2 L. Cardiology, pulmonary and infectious disease services are following. Patient remains on Augmentin. Patient remains on by mouth Effient. Patient was also started on IV Toradol for her musculoskeletal pain on 06/02/2022 patient is alert and oriented 3. Patient has been moved out of the intensive care unit to the cardiac stepdown. Patient is still complaining of generalized pain. White blood cell improving at 10.7. Current vital signs temp 98.4, coronary a 9, respiratory rate 18, blood pressure 105/55 pulse ox 92% on room air Objective - Vital Signs Vital signs: Vital Signs Temp 98.4 F 06/02/23 08:32 Pulse 85 06/02/23 08:32 Resp 17 06/02/23 08:32 BP 99/57 06/02/23 08:32 Pulse Ox 93 L 06/02/23 08:32 FiO2 6 05/29/23 19:00 Intake & Output 06/01/23 06/02/23 06/02/23 18:59 06:59 18:59 Intake Total 500 10 Balance 500 10 Intake: IV 10 Invasive Line 3 10 Oral 500 Other: Voiding Method Toilet Toilet # Voids 2 1 ABP, PAP, CO, CI - Last Documented Arterial Blood Pressure 169/169 - Exam HEENT head normocephalic and atraumatic Neck is supple no JVD no goiter no lymphadenopathy no carotid bruit Chest examination is clear to auscultation no crackles no wheezing Cardiac exam reveals regular heart sounds S1 and S2 no gallops no murmurs Abdomen is soft nontender no organomegaly with normal bowel sounds Extremity exam reveals no edema no cyanosis or clubbing Neurological examination reveals no gross focal deficits - Labs CBC & Chem 7: 06/02/23 07:06 06/02/23 07:06 Labs: Abnormal Lab Results - Last 24 Hours (Table) 06/01/23 06/01/23 06/02/23 Range/Units 10:22 10:22 07:06 WBC 13.3 H 10.7 H (3.8-10.6) k/uL RBC 3.14 L 3.03 L (3.80-5.40) m/uL Hgb 9.1 L 9.1 L (11.4-16.0) gm/dL Hct 27.7 L 27.2 L (34.0-46.0) % Plt Count 493 H 543 H (150-450) k/uL Neutrophils # 10.4 H (1.3-7.7) k/uL Carbon Dioxide 21 L (22-30) mmol/L BUN 22 H (7-17) mg/dL Glucose 114 H (74-99) mg/dL Magnesium 2.4 H (1.6-2.3) mg/dL Alkaline Phosphatase (38-126) U/L Albumin (3.5-5.0) g/dL 06/02/23 Range/Units 07:06 WBC (3.8-10.6) k/uL RBC (3.80-5.40) m/uL Hgb (11.4-16.0) gm/dL Hct (34.0-46.0) % Plt Count (150-450) k/uL Neutrophils # (1.3-7.7) k/uL Carbon Dioxide (22-30) mmol/L BUN (7-17) mg/dL Glucose (74-99) mg/dL Magnesium (1.6-2.3) mg/dL Alkaline Phosphatase 147 H (38-126) U/L Albumin 3.4 L (3.5-5.0) g/dL Assessment and Plan Assessment: Cardiac arrest at home Acute ST elevation myocardial infarction status post stenting to the proximal LAD, left circumflex and requirement of impeller device. Since removed Acute hypoxic respiratory failure requiring intubation and mechanical ventilation Acute metabolic acidosis Acute kidney injury Leukocytosis with bilateral pulmonary infiltrates possible aspiration pneumonia Underlying history of depression with anxiety disorder Underlying history of posttraumatic stress disorder Underlying history of hypothyroidism Underlying history of tobacco abuse Cardiology, pulmonary and infectious disease services following Incentive spirometer encouraged Patient remains on by mouth Augmentin Continue PT OT Repeat labs ordered
--- NOTE | 2023-06-02 12:41 | P.PN ---
Subjective Progress Note Date: 06/02/23 The patient is a 43-year-old female who presented to the hospital with V. fib arrest in the anterior wall myocardial infarction. She underwent stenting of the left main, LAD and left circumflex. Initial EF is 25% with reevaluation at 45-50%. The patient was interviewed and examined resting in bed. The patient states her pain is the same as yesterday, however visibly she is in less distress. She denies any difficulty breathing. No dizziness when she ambulates to the restroom. TELEMETRY: Sinus rhythm overnight. 06/02 Patient is seen today on the CSD unit. BP 108/63, HR 80s, PO 98 on RA.WBC 10.7, HGB 9.1, PLT 543. Electrolytes and renal function normal. Alk phos 147. Patient is maintained on asa, statin, farxiga, lopressor 25 mg bid, aldactone 25 mg daily. Smoking cessation discussed with the patient. PHYSICAL EXAMINATION GENERAL: Well-appearing, well-nourished and in no acute distress NECK: Supple without JVD or thyromegaly. LUNGS: Breath sounds diminished to auscultation bilaterally. Respiration equal and unlabored. No wheezes or rhonchi HEART: Regular rate and rhythm without murmurs, rubs or gallops. S1 and S2 heard. EXTREMITIES: Normal range of motion, no edema. No clubbing or cyanosis. Peripheral pulses intact and strong. IMPRESSION: Anterior wall myocardial infarction Status post stenting of the left main and bifurcation LAD and circumflex Spontaneous dissection of the left main Aspiration pneumonia Cardiopulmonary arrest, suspected ventricular fibrillation Post-CPR atrial fibrillation Ischemic cardiomyopathy Current smoker Chest pain, secondary to CPR PLAN: Continue current cardiac medications Encourage ambulation and pulmonary hygiene Smoking cessation I am dictating on behalf of Dr Jayesh Norris's history/physical and assessment/plan. Objective - Vital Signs Vital signs: Vital Signs Temp 98.4 F 06/02/23 08:32 Pulse 85 06/02/23 08:32 Resp 17 06/02/23 08:32 BP 99/57 06/02/23 08:32 Pulse Ox 93 L 06/02/23 08:32 FiO2 6 05/29/23 19:00 Intake & Output 06/01/23 06/02/23 06/02/23 18:59 06:59 18:59 Intake Total 500 10 Balance 500 10 Intake: IV 10 Invasive Line 3 10 Oral 500 Other: Voiding Method Toilet Toilet # Voids 2 1 ABP, PAP, CO, CI - Last Documented Arterial Blood Pressure 169/169 - Labs CBC & Chem 7: 06/02/23 07:06 06/02/23 07:06 Labs: Abnormal Lab Results - Last 24 Hours (Table) 06/01/23 06/01/23 06/02/23 Range/Units 10:22 10:22 07:06 WBC 13.3 H 10.7 H (3.8-10.6) k/uL RBC 3.14 L 3.03 L (3.80-5.40) m/uL Hgb 9.1 L 9.1 L (11.4-16.0) gm/dL Hct 27.7 L 27.2 L (34.0-46.0) % Plt Count 493 H 543 H (150-450) k/uL Neutrophils # 10.4 H (1.3-7.7) k/uL Carbon Dioxide 21 L (22-30) mmol/L BUN 22 H (7-17) mg/dL Glucose 114 H (74-99) mg/dL Magnesium 2.4 H (1.6-2.3) mg/dL Alkaline Phosphatase (38-126) U/L Albumin (3.5-5.0) g/dL 06/02/23 Range/Units 07:06 WBC (3.8-10.6) k/uL RBC (3.80-5.40) m/uL Hgb (11.4-16.0) gm/dL Hct (34.0-46.0) % Plt Count (150-450) k/uL Neutrophils # (1.3-7.7) k/uL Carbon Dioxide (22-30) mmol/L BUN (7-17) mg/dL Glucose (74-99) mg/dL Magnesium (1.6-2.3) mg/dL Alkaline Phosphatase 147 H (38-126) U/L Albumin 3.4 L (3.5-5.0) g/dL
--- NOTE | 2023-06-02 14:43 | P.PN ---
Subjective Progress Note Date: 06/02/23 Principal diagnosis: Out of hospital cardiac arrest I am seeing this patient in new consultation today 05/25/2023 in the intensive care unit following an out of hospital cardiac arrest. Patient is a 43-year-old white female with no known cardiac history. She is on multiple psychiatric medications at home. Patient is currently intubated on mechanical ventilator and unable to provide any information. Apparently, the patient was complaining of epigastric pain and nausea throughout the day yesterday. Earlier this morning the patient's significant other woke up to her shaking in bed and unresponsive. CPR was initiated by a neighbor who is apparently a wildland fire fighter, and patient was defibrillated once EMS arrived. On arrival to emergency room, patient was intubated by the ER physician. She was unresponsive, she had copious emesis, and likely aspirated. ECG showed ST elevation and Q waves in the anterior-septal leads, and a code STEMI was initiated. Patient was taken to [facility] where she received successful stenting of the proximal LAD, stenting of the left main and left circumflex secondary to dissection in the left main. Patient subsequently had an Impella catheter placed. She was transferred to the intensive care unit in critical condition. Chest CTA done in the emergency room showed a small 10-15% left sided pneumothorax. No large central pulmonary embolism was visualized. The ET tube was within the right mainstem bronchus. There was scattered patchy airspace opacities in the posterior upper lobes and more prominently in the lower lobes with air bronchograms. Likely consistent with aspiration/aspiration pneumonia. Patient currently intubated on mechanical ventilator. Current ventilator settings are assist control, respiratory rate 20, tidal volume 450, FiO2 100%, and PEEP of 8. ABGs done on the settings show a pH of 7.32, pCO2 of 31, pO2 of 79. Repeat chest x-ray does not show any enlargement of the left sided pneumoth orax. The endotracheal tube is now approximately 3-4 cm above the alisha. There are diffuse bilateral multifocal infiltrates. CBC demonstrates leukocytosis with a WBC count of 22.6, hemoglobin 12.2, hematocrit 38.9, platelets 395. BMP a sodium of 137, potassium 3.5, chloride 109, serum bicarb 10, BUN 15, creatinine 1.35, glucose 315. Troponins 0.145. NT proBNP 315. Patient is sedated and unresponsive on the mechanical ventilator. She is breathing above set rate. Does not follow commands. She is sedated on propofol at 30 mcg/kg/m. Brain CT on arrival did not show any acute intracranial hemorrhage or mass effect. Blood pressure is stable. Not requiring vasopressors. She is tachycardic. Urine output is anuric. Impella is inserted through the right groin, set at P9. 3.9 L of flow. Baseline coags are unremarkable. Patient will be started on IV heparin per protocol. Patient's prognosis is guarded, and she is currently in critical condition. There was a concern for an underlying pneumothorax. I reviewed the chest x-ray the chest x-ray showing diffuse but the pulmonary infiltrates. This is consistent with acute cardiogenic pulmonary edema it underlying aspiration cannot be completely excluded. I reviewed the CAT scan of the chest, there may be a very tiny left anterior pneumothorax not clearly seen on today's chest x- ray. This will be monitored very closely. The patient is currently intubated on a mechanical ventilator. The patient is on propofol which is running at 35 mcg/kg/m. She is adequately sedated and suggest a mechanical ventilator. She is covered with antibiotics and she is currently on IV Zosyn. She is on no pressors at this point in time. Cardiac rhythm is sinus tachycardia. On today's evaluation of 05/26/2023, the patient is being seen for a follow-up. The patient remains intubated on a mechanical ventilator. This morning, she is on propofol running at 35 mcg/kg/m and she is calm and comfortable. She response to stimulation. She was also painful stimulation in all 4 extremities. At the same time, the patient remains on a mechanical ventilator on assist control mode at the rate of 20, tidal volume of 450, FiO2 of 50% and a PEEP of 5. The chest x-ray from this morning is showing evidence of diffuse bilateral pulmonary infiltrates consistent with pulmonary edema. The ET tube is in a good location. The patient also has a left sided subclavian triple-lumen catheter in place. No evidence of any significant pneumothorax. There is interval improvement in the pulmonary edema on today's chest x-ray compared to yesterday. The blood gas showed a pH of 7.48 with a pCO2 of 35 and pO2 of 90. In terms of hemodynamics, the patient is on no pressors. ImPela supports is still ongoing although she has been switched from P9 to PT for and currently she is on P2 support. The flow is at 1.8 L/m. The Augmentin blood pressure is 91/58. She is producing urine output and the fluid balance over the past 24 hours has been +3.4 L. Nevertheless, the patient is producing 100 mL an hour of urine output and she produced approximately 1.2 L of urine output for yesterday. Pulses are present lower extremities bilaterally. The patient is currently on a combination of aspirin and Effient. Aldactone was also added. The patient is receiving and panic antibiotic coverage with IV Zosyn. IV fluids are in the form of bicarb infusion at the rate of 100 mL an hour. This will be discontinued. BUN is at 80 with a creatinine of 1.1. Sodiums of 135, serum bicarb is at 24, the white cell count is 22.9 with a hemoglobin of 9.1 and a platelet count of 224. A limited echocardiogram was done yesterday and the patient was told to have a LV ejection fraction severely impaired estimated to be at around 25. She is also off the insulin drip. Blood sugars under better control for now. On today's evaluation of 05/27/2023 pounds in the patient for a follow-up. The patient is doing well. The Impella was removed yesterday without any major difficulties. No evidence of any bleeding at the insertion site. The patient has such is hemodynamically stable. No pressors at this point in time. She is producing adequate amount of urine output. This morning, she is on propofol running at 30 microvascular kilogram per minute. She is on assist-control mode at a rate of 20, tidal volume of 450, FiO2 of 50% with a PEEP of 8. Blood gas show a pH of 7.5 with a pCO2 of 32 and pO2 of 116. The chest x-ray shows improvement of the previously described pulmonary edema. ET tube is in a good location. The patient is producing adequate amount of urine output. Her urine output was up to 100 mL an hour. The fluid Balance over the past 24 hours is - 1.1 L. The patient's echoes at 16.3, hemoglobin is at 7.7 which is essentially dropped since admission. No evidence of any acute bleeding at this point in time. BUN is at 15 with a creatinine of 1.1 and a sodium level is at 138. The patient is currently receiving a sedation holiday. Propofol discontinued and her readiness to wean will be evaluated. She remains on IV Zo syn. She remains on a combination of aspirin and Effient. She was also started on metoprolol 25 mg by mouth twice a day. She is not receiving any enteral feeding at this point in time. On 05/28/2023, the patient is extubated. Note that the patient was able to wean off the mechanical ventilator and the patient was extubated to nasal cannula initially. Subsequently, she started having hypoxemia and she had to be placed on BiPAP throughout the day and she was also kept on BiPAP overnight. Also, we added Precedex to improve her anxiety level of agitation and Precedex is still running at 0.2 mcg/kg/h. This morning, she is calm and comfortable. She is communicating. She is alert and oriented 3. She has profound weakness in all 4 extremities. She is complaining of soreness in her chest which is probably related to CPR. No signs of any bleeding. Hemoglobin is at 7.4 and it has dri fted slowly during the current hospitalization. The patient is currently on oxygen at 3 L. The chest x-ray showing some mild pulmonary congestion. She remains on IV Zosyn as a broad-spectrum antibiotic coverage for any potential aspiration pneumonia. Nevertheless, her acute pulmonary edema has improved considerably. Cardiac rhythm is sinus. She is on metoprolol 25 mg twice a day. She is also on aspirin. She is on Effient. She is also on Farxiga The puncture site in her right groin shows no evidence of any bleeding. She was also started on Aldactone at a dose of 25 mg by mouth daily. She is on high- dose statins. She is on thyroid hormone replacement. On 05/29/2023, the patient remains extubated and she is currently on oxygen at 8 liters and the patient's pulse ox is currently at 96%. She encountered a coughing fit overnight and this was associated with some oxygen desaturation and for that reason she was recently placed on a BiPAP that was subsequently taken off. The patient is off Precedex and she is, comfortable and communicating. She continues to have soreness across her anterior chest related to CPR and the patient is receiving [place] 5 every 4 hours and Dilaudid 0.5 every 3. Clinically stable. Hemodynamically stable. No pressors for now. Cardiac rhythm is sinus. The chest x-ray from today showing recurrent pulmonary edema with interval worsening and this goes along with her worsening in her oxygenation. Note that the patient has not been receiving any diuretics for the time being. She does have cardiomyopathy postcardiac arrest and post acute myocardial infarction. Meanwhile, she is producing urine output which is adequate and the patient has produced approximately 1.5 L for yesterday and overall fluid balance is -1.3 L over the past 24 hours. Her hemoglobin stable at 7.9. The white cycles of 14.4, BUN is at 30 with a creatinine of 0.9 and his sodium level is at 135. Her blood pressure was soft and this is improved and the most recent BP is 121/87. In terms of her cardiomyopathy, the patient is on metoprolol 25 mg twice a day, Farxiga 10 mg by mouth daily, Aldactone 25 mg by mouth daily. IV fluids are currently at KVO. She is on aspirin and Effient. On 05/30/2023, the patient is on 6 L of oxygen by nasal cannula. She is post cardiac arrest, shock, emergent cardiac catheterization, stenting, insertion and removal of a impella or cardiac support. She was extubated. Postextubation, she had a component of pulmonary edema and she was restarted back on diuretics yesterday 40 mg every 12 hours. Fluid balance is -1.3 L since yesterday. Oxygen patient is slightly improved. She has had it for another 3 L of negative fluid balance for today. The patient's chest x-ray still showing some residual interstitial/pulmonary edema along with some cardiomegaly. Gastric bubble is slightly dilated. Her main complaint is chest wall pain related to CPR. We are treating this with a combination of [place] and Dilaudid. She is trying to use incentive spirometer. She is weak. She is a bit frustrated of her condition. Nevertheless, I tried to convince her that this is something good as she has survived a major cardiac catastrophe. The white cell count is at 12, hemoglobin is at 8.8 and a platelet count is 406. BUN is at 70 with a creatinine of 1.1. Her left TM level came back at 0.2. Her cardiac medications are also noted. The patient is on aspirin and Effient. The patient is on metoprolol 25 mg twice a day. The patient is on Farxiga. She is on high-dose statins. IV Zosyn was also started as a broad-spectrum antibiotic coverage. No clear indication for an aspiration pneumonia. This was started only on an empiric basis. Oral intake is quite diminished. Cardiac rhythm is sinus. She is afebrile. Pulse ox is 98% on 6 L which obviously will be further weaned Patient was seen and examined today on 05/31/2023, patient remains in the ICU, on 2 L nasal cannula, does not seem to be in any distress, mostly complaining of chest wall pain. Patient is status post cardiac arrest, she is also status post stenting of left main, LAD, and left circumflex with dissection of left main, patient has ischemic cardiomyopathy with ejection fraction of 40-45%, surprisingly patient is doing better than expected considering her clinical course since admission. Patient is doing well with incentive spirometry achiev ing over 1500 MLS. Patient is being considered for possible transfer to a cardiac floor today. Chest x-ray continues to show bibasilar atelectasis and possible consolidation in the left lower lobe she is on Augmentin as per infectious disease on the case. All cultures and sputum cultures have been nondiagnostic WBC count is 11.3 hemoglobin is 8.4 basic metabolic profile is normal and renal profile is normal Patient was reevaluated today on 06/01/2023, patient is on 2 L nasal cannula, she is presently an overflow in the ICU, continues to have mostly chest wall pain. Occasional cough no wheezing, no shortness of breath no fever no chills no hemoptysis. He remains on antibiotics in the form of Augmentin for presumptive aspiration pneumonia. WBC count is 13.3 hemoglobin 9.1 basic metabolic profile is normal and renal profile is normal Patient was reevaluated today on 06/02/23, patient is doing great, relatively asymptomatic except for chest wall pain. She is now on the cardiac floor, she is on room air with O2 saturation is 98%, she is hemodynamically stable with blood pressure of 108/63, labs are basically normal hemoglobin is 9.1 basic metabolic profile is normal renal profile is normal, chest x-ray from 2 days ago showed mostly infiltrates at the right base and atelectasis with possible consolidation in the left lower lobe I believe the patient must have had some aspiration pneumonia during her cardiac arrest. Remains on antibiotics. Is actually on Augmentin Objective - Vital Signs Vital signs: Vital Signs Temp 98.0 F 06/02/23 11:40 Pulse 86 06/02/23 11:40 Resp 16 06/02/23 11:40 BP 108/63 06/02/23 11:40 Pulse Ox 98 06/02/23 12:16 FiO2 6 05/29/23 19:00 Intake & Output 06/01/23 06/02/23 06/02/23 18:59 06:59 18:59 Intake Total 500 10 118 Balance 500 10 118 Intake: IV 10 Invasive Line 3 10 Oral 500 118 Other: Voiding Method Toilet Toilet # Voids 2 1 ABP, PAP, CO, CI - Last Documented Arterial Blood Pressure 169/169 - Exam Physical Exam: Revealed 43-year-old female in no distress on room air Head: Atraumatic, normocephalic. HEENT:[Neck is supple.] [No neck masses.] [No thyromegaly.] [No JVD.] Chest: [Minimal crackles at the bases no wheezing tenderness over the chest wall is noted Cardiac Exam: [Normal S1 and S2, no S3 gallop, no murmur.] Abdomen: [Soft, nontender, no megaly, no rebound, no guarding, normal bowel sounds.] Extremities: [No clubbing, no edema, no cyanosis.] Neurological Exam: [No focal neurologic deficit.] Alert oriented 3. Psychiatric: Normal mood affect and normal mental status examination. Skin: No rashes. - Labs CBC & Chem 7: 06/02/23 07:06 06/02/23 07:06 Labs: Abnormal Lab Results - Last 24 Hours (Table) 06/02/23 06/02/23 Range/Units 07:06 07:06 WBC 10.7 H (3.8-10.6) k/uL RBC 3.03 L (3.80-5.40) m/uL Hgb 9.1 L (11.4-16.0) gm/dL Hct 27.2 L (34.0-46.0) % Plt Count 543 H (150-450) k/uL Alkaline Phosphatase 147 H (38-126) U/L Albumin 3.4 L (3.5-5.0) g/dL Assessment and Plan Assessment: Impression: Out of hospital cardiac arrest, downtime is unknown. Patient required defibrillation and intubation in the ER. Acute ST elevation MS, patient did receive successful stenting of the proximal LAD with stenting of the left main and left circumflex secondary to dissection of the left main. Patient also required imPella device placement which has been removed Chest pain, essentially skeletal in nature related to CPR Severe cardiomyopathy, likely ischemic with an ejection fraction of 20-25% Acute pulmonary edema secondary to acute congestive heart failure/systolic in nature. Acute hypoxic respiratory failure, required intubation and eventually the patient was extubated Metabolic anion gap acidosis, resolved Acute kidney injury, secondary to hypoperfusion and acute tubular necrosis, resolved Mild transaminitis, secondary to hypoperfusion Leukocytosis, improved Hypothyroidism History of depression/anxiety/PTSD Aspiration pneumonia is strongly suspected Recommendation: Continue present supportive care measures Cardiac meds as per cardiology Continue Augmentin for aspiration pneumonia Ambulate as tolerated Continue Incentive spirometry Continue aspirin and Effient Patient needs to BE cleared for discharge by cardiology before actually discharging the patient home We'll continue to follow Time with Patient: Less than 30
--- NOTE | 2023-06-02 15:01 | P.PN ---
Subjective Progress Note Date: 06/01/23 Principal diagnosis: Reason for follow-up is aspiration pneumonia Patient is a 43-year-old female with a past medical history Significant for anxiety depression current everyday smoker patient was brought into the ER via EMS, patient did have a cardiac arrest requiring resuscitation patient did have a evidence of [facility] s/p cardiac cath and four stent placement. Patient was extubated on 05/27/2023. On today's evaluation that is06/01/2023, the patient remains to be afebrile, the patient is breathing comfortably on 2 L nasal cannula oxygen, patient has been complaining of central chest pain however denies any worsening cough or sputum production, no nausea vomiting no abdominal pain no diarrhea Patient white count is slightly improved 13.3, creatinine 0.92 Objective - Vital Signs Vital signs: Vital Signs Temp 98.3 F 06/01/23 04:00 Pulse 83 06/01/23 12:00 Resp 19 06/01/23 12:00 BP 104/71 06/01/23 12:00 Pulse Ox 96 06/01/23 12:00 FiO2 6 05/29/23 19:00 Intake & Output 05/31/23 06/01/23 06/01/23 18:59 06:59 18:59 Intake Total 530 Output Total 75 Balance 455 Weight 89.4 kg 88.7 kg Intake: Oral 530 Output: Urine 75 Other: Voiding Method Toilet Toilet Toilet # Voids 1 1 ABP, PAP, CO, CI - Last Documented Arterial Blood Pressure 169/169 - Exam GENERAL DESCRIPTION: Middle-aged female Lying in bed in no distress RESPIRATORY SYSTEM: Unlabored breathing , decreased breath sounds at bases HEART: S1 S2 regular rate and rhythm , ABDOMEN: Soft did have some distention EXTREMITIES: No edema feet - Labs CBC & Chem 7: 06/02/23 07:06 06/02/23 07:06 Labs: Abnormal Lab Results - Last 24 Hours (Table) 05/31/23 06/01/23 06/01/23 Range/Units 19:41 10:22 10:22 WBC 13.3 H (3.8-10.6) k/uL RBC 3.14 L (3.80-5.40) m/uL Hgb 9.1 L (11.4-16.0) gm/dL Hct 27.7 L (34.0-46.0) % Plt Count 493 H (150-450) k/uL Neutrophils # 10.4 H (1.3-7.7) k/uL Carbon Dioxide 21 L (22-30) mmol/L BUN 22 H (7-17) mg/dL Glucose 114 H (74-99) mg/dL POC Glucose (mg/dL) 119 H (70-110) mg/dL Magnesium 2.4 H (1.6-2.3) mg/dL Assessment and Plan (1) Aspiration pneumonia Current Visit: Yes Status: Acute Code(s): J69.0 - PNEUMONITIS DUE TO INHALATION OF FOOD AND VOMIT SNOMED Code(s): 718198718 (2) Leukocytosis Current Visit: Yes Status: Acute Code(s): D72.829 - ELEVATED WHITE BLOOD CELL COUNT, UNSPECIFIED SNOMED Code(s): 379988801 Plan: 1-patient was in the hospital with outside hospital cardiac arrest requiring resuscitation subsequently brought to the hospital noticed to have [facility] s/p cardiac cath and for stent placement patient also have left-sided pneumothorax and evidence of pneumonia on the CT, likely secondary to aspiration etiology 2blood and sputum cultures are so far negative 3patient remains to be afebrile white count slightly up review monitor closely for now continue with Augmentin Dictation was produced using [employer] dictation software. please excuse any gr ammatical, word or spelling errors. Time with Patient: Less than 30
--- NOTE | 2023-06-02 15:03 | P.PN ---
Subjective Progress Note Date: 06/02/23 Principal diagnosis: Reason for follow-up is aspiration pneumonia Patient is a 43-year-old female with a past medical history Significant for anxiety depression current everyday smoker patient was brought into the ER via EMS, patient did have a cardiac arrest requiring resuscitation patient did have a evidence of [facility] s/p cardiac cath and four stent placement. Patient was extubated on 05/27/2023. On today's evaluation that is 06/02/2023, the patient denies any fever or any chills, the patient is breathing comfortably on 2 L nasal cannula oxygen, patient has been complaining of central chest pain however did have some relief with the pain medication, but denies having any worsening cough or sputum production, no nausea vomiting no abdominal pain no diarrhea Patient white count is down to 10.7, creatinine 0.96 Objective - Vital Signs Vital signs: Vital Signs Temp 98.0 F 06/02/23 11:40 Pulse 86 06/02/23 11:40 Resp 16 06/02/23 11:40 BP 108/63 06/02/23 11:40 Pulse Ox 98 06/02/23 12:16 FiO2 6 05/29/23 19:00 Intake & Output 06/01/23 06/02/23 06/02/23 18:59 06:59 18:59 Intake Total 500 10 Balance 500 10 Intake: IV 10 Invasive Line 3 10 Oral 500 Other: Voiding Method Toilet Toilet # Voids 2 1 ABP, PAP, CO, CI - Last Documented Arterial Blood Pressure 169/169 - Exam GENERAL DESCRIPTION: Middle-aged female Lying in bed in no distress RESPIRATORY SYSTEM: Unlabored breathing , decreased breath sounds at bases HEART: S1 S2 regular rate and rhythm , ABDOMEN: Soft did have some distention EXTREMITIES: No edema feet - Labs CBC & Chem 7: 06/02/23 07:06 06/02/23 07:06 Labs: Abnormal Lab Results - Last 24 Hours (Table) 06/02/23 06/02/23 Range/Units 07:06 07:06 WBC 10.7 H (3.8-10.6) k/uL RBC 3.03 L (3.80-5.40) m/uL Hgb 9.1 L (11.4-16.0) gm/dL Hct 27.2 L (34.0-46.0) % Plt Count 543 H (150-450) k/uL Alkaline Phosphatase 147 H (38-126) U/L Albumin 3.4 L (3.5-5.0) g/dL Assessment and Plan (1) Aspiration pneumonia Current Visit: Yes Status: Acute Code(s): J69.0 - PNEUMONITIS DUE TO INHALATION OF FOOD AND VOMIT SNOMED Code(s): 825141790 (2) Leukocytosis Current Visit: Yes Status: Acute Code(s): D72.829 - ELEVATED WHITE BLOOD CELL COUNT, UNSPECIFIED SNOMED Code(s): 257723728 Plan: 1-patient was in the hospital with outside hospital cardiac arrest requiring resuscitation subsequently brought to the hospital noticed to have [facility] s/p cardiac cath and for stent placement patient also have left-sided pneumothorax and evidence of pneumonia on the CT, likely secondary to aspiration etiology 2blood and sputum cultures are so far negative 3patient remains to be afebrile white count is down to 10.7, patient will continue with Augmentin for underlying aspiration pneumonitis Dictation was produced using [employer] dictation software. please excuse any grammatical, word or spelling errors. Time with Patient: Less than 30
[2023-06-02] MEDS: SODIUM CHLORIDE 0.9% 500 ML 500 ML IV SCH (16:47)
[2023-06-02] MEDS: MIRTAZAPINE 15 MG TAB PO SCH (20:54)
[2023-06-02] MEDS: ATORVASTATIN 80 MG TAB PO SCH (20:54)
[2023-06-03] MEDS: FERROUS SULFATE 325 MG TAB PO SCH (06:15)
[2023-06-03] MEDS: LEVOTHYROXINE 100 MCG TAB PO SCH (06:15)
[2023-06-03] MEDS: LIDOCAINE 4% PATCH TOPICAL SCH (08:37)
[2023-06-03] MEDS: SENNOSIDES 8.6 MG TAB PO SCH (08:37)
[2023-06-03] MEDS: PANTOPRAZOLE 40 MG/10 ML VIAL IVP SCH (08:37)
[2023-06-03] MEDS: PRASUGREL 10 MG TAB PO SCH (08:38)
[2023-06-03] MEDS: SPIRONOLACTONE 25 MG TAB PO SCH (08:38)
[2023-06-03] MEDS: DAPAGLIFLOZIN PROPANEDIOL 10 MG TABLET PO SCH (08:38)
[2023-06-03] MEDS: DULoxetine HCL 60 MG CAPSULE.DR PO SCH (08:38)
[2023-06-03] MEDS: LIOTHYRONINE SODIUM 5 MCG TAB PO SCH (08:38)
[2023-06-03] MEDS: LITHIUM CARBONATE 300 MG CAP PO SCH (08:38)
[2023-06-03] MEDS: ASPIRIN 81 MG PO SCH (08:38)
[2023-06-03] MEDS: AMOXIC-POT CLAV 875-125MG 1 EACH TAB PO SCH (08:38)
[2023-06-03] MEDS: METOPROLOL TARTRATE 25 MG TAB PO SCH (08:38)
[2023-06-03] MEDS: SODIUM CHLORIDE 0.9% 500 ML 500 ML IV SCH (08:46)
[2023-06-03] MEDS: HYDROcodone/APAP 5-325MG 1 EACH TAB PO PRN (08:50)
[2023-06-03 09:06] VITALS: RESP 22; TEMP 98.4
--- NOTE | 2023-06-03 10:45 | P.PN ---
Subjective Progress Note Date: 06/03/23 Mecca Tam, is a 43-year-old female, who was found unresponsive at home, CPR was initiated by a neighbor who is a lacquer coater, EMS were called and patient was defibrillated and brought into emergency room, she was intubated in the emergency room, EKG revealed ST elevation and Q waves in anterior leads, patient was taken to the wharf laborer, she underwent angioplasty and stenting to the proximal LAD, the left main and the left Sears conflicts, she was transferred to intensive care unit, and is currently intubated sedated maintained on mechanical ventilation, cardiology and pulmonary critical care are following. Patient has a known history of depression with anxiety disorder, history of post traumatic stress disorder, history of hypothyroidism and history of tobacco abuse. Dr. Montelongo's group was covering 05/26/2023 through 06/01/2022 On 06/01/2022we are resuming care patient. Patient remains in the intensive care unit. Patient has been extubated patient was extubated on 05/28/2023. At this time patient is alert and oriented 3. Patient has been having ongoing chest pain but this is likely skeletal in nature cardiology and pulmonary are following. Current vital signs temp 98.3, heart rate 96, respiratory rate 17, blood pressure 122/92 with pulse 100% on 2 L. Cardiology, pulmonary and infectious disease services are following. Patient remains on Augmentin. Patient remains on by mouth Effient. Patient was also started on IV Toradol for her musculoskeletal pain on 06/02/2022 patient is alert and oriented 3. Patient has been moved out of the intensive care unit to the cardiac stepdown. Patient is still complaining of generalized pain. White blood cell improving at 10.7. Current vital signs temp 98.4, coronary a 9, respiratory rate 18, blood pressure 105/55 pulse ox 92% on room air On 06/03/2022 patient is alert and oriented 3 patient currently sitting up in chair still complaining of generalized chest pain pulmonary and cardiology services are following this likely secondary from CPR and aspiration pneumonia. Patient remains on Augmentin. Current vital signs temp 98.4, heart rate 79, respiratory rate 16, blood pressure 108/70 with a pulse ox of 98% on room air Objective - Vital Signs Vital signs: Vital Signs Temp 98.4 F 06/03/23 08:31 Pulse 106 H 06/03/23 08:31 Resp 22 06/03/23 08:31 BP 108/70 06/03/23 08:31 Pulse Ox 98 06/03/23 08:31 FiO2 6 05/29/23 19:00 Intake & Output 06/02/23 06/03/23 06/03/23 18:59 06:59 18:59 Intake Total 340 225 Balance 340 225 Intake: Oral 340 225 Other: Voiding Method Toilet # Voids 3 1 ABP, PAP, CO, CI - Last Documented Arterial Blood Pressure 169/169 - Exam HEENT head normocephalic and atraumatic Neck is supple no JVD no goiter no lymphadenopathy no carotid bruit Chest examination is clear to auscultation no crackles no wheezing Cardiac exam reveals regular heart sounds S1 and S2 no gallops no murmurs Abdomen is soft nontender no organomegaly with normal bowel sounds Extremity exam reveals no edema no cyanosis or clubbing Neurological examination reveals no gross focal deficits - Labs CBC & Chem 7: 06/02/23 07:06 06/02/23 07:06 Assessment and Plan Plan: Cardiac arrest at home Acute ST elevation myocardial infarction Acute hypoxic respiratory failure requiring intubation and mechanical ventilation Acute metabolic acidosis Acute kidney injury Leukocytosis with bilateral pulmonary infiltrates possible aspiration pneumonia Underlying history of depression with anxiety disorder Underlying history of posttraumatic stress disorder Underlying history of hypothyroidism Underlying history of tobacco abuse At this time patient is admitted to intensive care unit Patient remains on by mouth Augmentin Pulmonary critical care and cardiology consult following Infectious disease consultation requested Will follow closely PT OT services consult
[2023-06-03 11:57] VITALS: BP 103/69; PULSE 81
--- NOTE | 2023-06-03 12:59 | P.PN ---
Progress Note - Text Progress Note Date: 06/03/23 I was contacted on [employer] by nurse Lucila Martell, and she stated that patient was evaluated by cardiology and pulmonary and was cleared for discharge. I came to the floor to see patient, nurse Lucila Martell stated that patient was evaluated by Dr. Dr. Norris today and was cleared for discharge, and patient stated the same thing. There is no note from cardiology today so far. Patient is insisting on going home at this time.
--- NOTE | 2023-06-03 13:15 | P.DS ---
Providers Date of admission: 05/25/23 03:24 Attending physician: Laure Padgett Consults: 05/25/23 03:24 Consult Physician Routine Consulting Provider: Bella Abraham Consult Reason/Comments: Intubation Do you want consulting provider notified?: Already Contacted Consult Physician Stat Consulting Provider: Malcolm Fowler Consult Reason/Comments: STEMI Do you want consulting provider notified?: Already Contacted 05/25/23 05:37 Consult Physician Routine Consulting Provider: [facility] Consult Reason/Comments: Post Interventional Patient Do you want consulting provider notified?: Already Contacted 05/25/23 09:18 Consult Physician Routine Consulting Provider: Kristen Orr Consult Reason/Comments: leukocytosis, aspiration pneumonia Do you want consulting provider notified?: Yes Primary care physician: Valentine Weaver Hospital Course: Diagnosis on discharge: Cardiac arrest at home Acute ST elevation myocardial infarction Acute hypoxic respiratory failure requiring intubation and mechanical ventilation Acute metabolic acidosis Acute kidney injury Leukocytosis with bilateral pulmonary infiltrates possible aspiration pneumonia Underlying history of depression with anxiety disorder Underlying history of posttraumatic stress disorder Underlying history of hypothyroidism Underlying history of tobacco abuse Hospital course: Mecca Tam, is a 43-year-old female, who was found unresponsive at home, CPR was initiated by a neighbor who is a primary special education teacher, EMS were called and patient was defibrillated and brought into emergency room, she was intubated in the emergency room, EKG revealed ST elevation and Q waves in anterior leads, patient was taken to the manager labor delivery, she underwent angioplasty and stenting to the proximal LAD, the left main and the left Sears conflicts, she was transferred to intensive care unit, and is currently intubated sedated maintained on mechanical ventilation, cardiology and pulmonary critical care are following. Patient has a known history of depression with anxiety disorder, history of post traumatic stress disorder, history of hypothyroidism and history of tobacco abuse. 05/26/2023 Picked up coverage today from Dr. Padgett. Patient remains in the intensive care unit. Currently sedated with propofol and on the mechanical ventilator with FiO2 of 50% and PEEP of 5. Status post cardiac catheterization with stent placed to the proximal LAD, left circ, and placement of impella device with plans for removal of the impella today. Chest xray today shows left ventricular assist device in place, with improvement of interstitial pulmonary edema. Some pulmonary vascular congestion remains. Echocardiogram reveals an EF of 25%. Patient remains on dual antiplatelet therapy with aspirin and effient, lipitor, farxiga, lopressor, aldactone. Dime Box has been removed and lithium level pending. Patient on empiric antibiotic coverage with IV zosyn. White blood cell count 22.9. BUN 18, creatinine 1.10. Lactic acid normalized to 2.0. LFTS stable, LDH improving 1820. Procalcitonin level elevated at 0.65. Influenza, covid, RSV are all negative. Has been taken off the insulin gtt with improvement in blood glucose. A1C was normal range of 5.5. 05/27/2023 Patient is evaluated today in the intensive care unit. Patient had impella device removed last night. Has been extubated today and did require increased oxygen support currently evaluated on BiPAP. She is complaining of significant left sided chest pain. Receiving IV tylenol and has prn IV dilaudid. Remains on aspirin effient combination. Has been resumed on cymbalta and mirtazipine. Continues on IV zosyn empirically. Propofol off and patient now on IV precedex. Patients sputum culture is negative and blood culture remains negative at this time. Labs today showing white count 16.3, hemoglobin 7.7., sodium 138, potassium 3.8, BUN 15, creatinine 1.11, LFTs improving. chest xray today showing residual mild pulmonary vascular congestion with some improvement in the previous interstitial edema. Some patchy opacity probably patchy edema remains at the inferior lingular. 05/28/2023 Patient is in the MICU. Awake alert and oriented. On room air saturating 96%. Still complains of chest soreness/pain and pressure likely due to chest compressions prior to coming to the hospital. No complaints of shortness of breath. No nausea vomiting abdominal pain or diarrhea. Laboratory showed WBC 14.0 hemoglobin 7.4 and platelets 194 Sodium 140 potassium 3.8 chloride 110 bicarb is 19 BUN 5 and creatinine 1.07 AST 78 ALT 47 alk phos 90 albumin 3.2. Patient is being continued on aspirin, statin, metoprolol, dapagliflozin, insulin sliding scale and levothyroxine and antibiotics, Zosyn. Patient is also on Aldactone 25 mg p.o. daily 05/31/2023 Patient seen and evaluated in follow-up continues to be in the ICU early sitting up in the chair having severe pain likely musculoskeletal. Patient is eating and reports tolerating with no reports of nausea or vomiting. Labs reviewed with a white count of 11.3, hemoglobin is 8.4 and platelets are 408, follow-up repeat potassium improved at 3.7 and sodium is 136. Kidney functions reveal a creatinine of 0.9 and will add some Toradol as needed for pain. Patient continues on 2 L via nasal cannula recommend wean FiO2 as tolerated. Chest x- ray today shows left lower lobe consolidation to correlate for pneumonia with infiltrate at the right base may be related to atelectasis and upper lobe infiltrates have improved. Multiple medical consultations including pulmonary as well as cardiology and infectious disease are following. Considering transfer out of the ICU once bed on [address] Montelongo's group was covering 05/26/2023 through 06/01/2022 On 06/01/2022we are resuming care patient. Patient remains in the intensive care unit. Patient has been extubated patient was extubated on 05/28/2023. At this time patient is alert and oriented 3. Patient has been having ongoing chest pain but this is likely skeletal in nature cardiology and pulmonary are following. Current vital signs temp 98.3, heart rate 96, respiratory rate 17, blood pressure 122/92 with pulse 100% on 2 L. Cardiology, pulmonary and infectious disease services are following. Patient remains on Augmentin. Patient remains on by mouth Effient. Patient was also started on IV Toradol for her musculoskeletal pain on 06/02/2022 patient is alert and oriented 3. Patient has been moved out of the intensive care unit to the cardiac stepdown. Patient is still complaining of generalized pain. White blood cell improving at 10.7. Current vital signs temp 98.4, coronary a 9, respiratory rate 18, blood pressure 105/55 pulse ox 92% on room air On 06/03/2022 patient is alert and oriented 3 patient currently sitting up in chair still complaining of generalized chest pain pulmonary and cardiology services are following this likely secondary from CPR and aspiration pneumonia. Patient remains on Augmentin. Current vital signs temp 98.4, heart rate 79, respiratory rate 16, blood pressure 108/70 with a pulse ox of 98% on room air. Patient was seen and examined, she was evaluated today by pulmonary and cardiology and was cleared for discharge, [facility], patient is very anxious to go home, she will follow up by her primary care physician Dr. Weaver within 1 week, she will also follow with pulmonary and cardiology as outpatient Patient Condition at Discharge: Critical Plan - Discharge Summary Discharge Rx Participant: No New Discharge Prescriptions: New Dapagliflozin Propanediol [Farxiga] 10 mg PO DAILY 30 Days #30 tab Metoprolol Tartrate [Lopressor] 25 mg PO BID 60 Days #30 tab Nitroglycerin Sl Tabs [Nitrostat] 0.4 mg SUBLINGUAL Q5M PRN 30 Days #25 tab PRN Reason: Chest Pain HYDROcodone/APAP 5-325MG [Creston 5-325] 1 each PO Q4HR PRN 3 Days #18 tab PRN Reason: Pain Albuterol Nebulized [Ventolin Nebulized] 2.5 mg INHALATION RT-QID PRN 30 Days #120 ml PRN Reason: Shortness Of Breath Or Wheezing Spironolactone [Aldactone] 25 mg PO DAILY 30 Days #30 tab Aspirin 81 mg PO DAILY 30 Days #30 tab Amoxic-Pot Clav 875-125Mg [Augmentin 875-125] 1 each PO Q12HR 20 Days #10 tab Prasugrel [Effient] 10 mg PO DAILY 30 Days #30 tab Ferrous Sulfate [Iron (65 MG Elemental)] 325 mg PO BID-W/MEALS 30 Days #30 tab Atorvastatin [Lipitor] 80 mg PO HS 30 Days #30 tab Continue Liothyronine Sodium [Cytomel] 10 mcg PO DAILY DULoxetine HCL [Cymbalta] 60 mg PO BID 15 Days #30 cap Dime Box Carbonate 300 mg PO BID 15 Days #30 cap hydrOXYzine HCL [Atarax] 50 mg PO BID Montelukast [Singulair] 10 mg PO DAILY PRN PRN Reason: Allergy Symptoms Levothyroxine Sodium [Synthroid] 100 mcg PO DAILY Mirtazapine [Remeron] 15 mg PO HS 15 Days #15 tab Discharge Medication List Montelukast [Singulair] 10 mg PO DAILY PRN 05/26/22 [History] Levothyroxine Sodium [Synthroid] 100 mcg PO DAILY 08/06/22 [History] Liothyronine Sodium [Cytomel] 10 mcg PO DAILY 08/06/22 [History] DULoxetine HCL [Cymbalta] 60 mg PO BID 15 Days #30 cap 08/16/22 [Rx] Dime Box Carbonate 300 mg PO BID 15 Days #30 cap 08/16/22 [Rx] Mirtazapine [Remeron] 15 mg PO HS 15 Days #15 tab 08/16/22 [Rx] hydrOXYzine HCL [Atarax] 50 mg PO BID 05/25/23 [History] Albuterol Nebulized [Ventolin Nebulized] 2.5 mg INHALATION RT-QID PRN 30 Days #120 ml 06/03/23 [Rx] Amoxic-Pot Clav 875-125Mg [Augmentin 875-125] 1 each PO Q12HR 20 Days #10 tab 06/03/23 [Rx] Aspirin 81 mg PO DAILY 30 Days #30 tab 06/03/23 [Rx] Atorvastatin [Lipitor] 80 mg PO HS 30 Days #30 tab 06/03/23 [Rx] Dapagliflozin Propanediol [Farxiga] 10 mg PO DAILY 30 Days #30 tab 06/03/23 [Rx] Ferrous Sulfate [Iron (65 MG Elemental)] 325 mg PO BID-W/MEALS 30 Days #30 tab 06/03/23 [Rx] HYDROcodone/APAP 5-325MG [Creston 5-325] 1 each PO Q4HR PRN 3 Days #18 tab 06/03/23 [Rx] Metoprolol Tartrate [Lopressor] 25 mg PO BID 60 Days #30 tab 06/03/23 [Rx] Nitroglycerin Sl Tabs [Nitrostat] 0.4 mg SUBLINGUAL Q5M PRN 30 Days #25 tab 06/03/23 [Rx] Prasugrel [Effient] 10 mg PO DAILY 30 Days #30 tab 06/03/23 [Rx] Spironolactone [Aldactone] 25 mg PO DAILY 30 Days #30 tab 06/03/23 [Rx] Follow up Appointment(s)/Referral(s): Malcolm Fowler MD [Medical Doctor] - 1 Week Valentine Weaver MD [Primary Care Provider] - 1-2 days (Office is closed at this time; please call [facility] on Tuesday to schedule follow up appointment.) [facility], [NON-STAFF] -
--- NOTE | 2023-06-03 14:44 | P.PN ---
Subjective Progress Note Date: 06/03/23 The patient is a 43-year-old female who presented to the hospital with V. fib arrest in the anterior wall myocardial infarction. She underwent stenting of the left main, LAD and left circumflex. Initial EF is 25% with reevaluation at 45-50%. The patient was interviewed and examined resting in bed. The patient states her pain is the same as yesterday, however visibly she is in less distress. She denies any difficulty breathing. No dizziness when she ambulates to the restroom. TELEMETRY: Sinus rhythm overnight. 06/02 Patient is seen today on the CSD unit. BP 108/63, HR 80s, PO 98 on RA.WBC 10.7, HGB 9.1, PLT 543. Electrolytes and renal function normal. Alk phos 147. Patient is maintained on asa, statin, farxiga, lopressor 25 mg bid, aldactone 25 mg daily. Smoking cessation discussed with the patient. 06/03 Heart rate is 77, blood pressure 95/31767/79. Telemetry has been a sinus rhythm. PHYSICAL EXAMINATION GENERAL: Well-appearing, well-nourished and in no acute distress NECK: Supple without JVD or thyromegaly. LUNGS: Breath sounds diminished to auscultation bilaterally. Respiration equal and unlabored. No wheezes or rhonchi HEART: Regular rate and rhythm without murmurs, rubs or gallops. S1 and S2 heard. EXTREMITIES: Normal range of motion, no edema. No clubbing or cyanosis. Pe ripheral pulses intact and strong. IMPRESSION: Anterior wall myocardial infarction Status post stenting of the left main and bifurcation LAD and circumflex Spontaneous dissection of the left main Aspiration pneumonia Cardiopulmonary arrest, suspected ventricular fibrillation Post-CPR atrial fibrillation Ischemic cardiomyopathy Current smoker Chest pain, secondary to CPR PLAN: Continue current cardiac medications Smoking cessation Patient is cleared for discharge from cardiology will follow-up in the office with Dr. Fowler in 1-2 weeks. I am dictating on behalf of Dr Jayesh Norris's history/physical and assessment/plan. Objective - Vital Signs Vital signs: Vital Signs Temp 98.4 F 06/03/23 08:31 Pulse 106 H 06/03/23 08:31 Resp 22 06/03/23 08:31 BP 108/70 06/03/23 08:31 Pulse Ox 98 06/03/23 08:31 FiO2 6 05/29/23 19:00 Intake & Output 06/02/23 06/03/23 06/03/23 18:59 06:59 18:59 Intake Total 340 225 Balance 340 225 Intake: Oral 340 225 Other: Voiding Method Toilet # Voids 3 1 ABP, PAP, CO, CI - Last Documented Arterial Blood Pressure 169/169 - Labs CBC & Chem 7: 06/02/23 07:06 06/02/23 07:06
--- NOTE | 2023-06-03 16:00 | P.PN ---
Subjective Progress Note Date: 06/03/23 Principal diagnosis: Out of hospital cardiac arrest I am seeing this patient in new consultation today 05/25/2023 in the intensive care unit following an out of hospital cardiac arrest. Patient is a 43-year-old white female with no known cardiac history. She is on multiple psychiatric medications at home. Patient is currently intubated on mechanical ventilator and unable to provide any information. Apparently, the patient was complaining of epigastric pain and nausea throughout the day yesterday. Earlier this morning the patient's significant other woke up to her shaking in bed and unresponsive. CPR was initiated by a neighbor who is apparently a wall taper helper, and patient was defibrillated once EMS arrived. On arrival to emergency room, patient was intubated by the ER physician. She was unresponsive, she had copious emesis, and likely aspirated. ECG showed ST elevation and Q waves in the anterior-septal leads, and a code STEMI was initiated. Patient was taken to [facility] where she received successful stenting of the proximal LAD, stenting of the left main and left circumflex secondary to dissection in the left main. Patient subsequently had an Impella catheter placed. She was transferred to the intensive care unit in critical condition. Chest CTA done in the emergency room showed a small 10-15% left sided pneumothorax. No large central pulmonary embolism was visualized. The ET tube was within the right mainstem bronchus. There was scattered patchy airspace opacities in the posterior upper lobes and more prominently in the lower lobes with air bronchograms. Likely consistent with aspiration/aspiration pneumonia. Patient currently intubated on mechanical ventilator. Current ventilator settings are assist control, respiratory rate 20, tidal volume 450, FiO2 100%, and PEEP of 8. ABGs done on the settings show a pH of 7.32, pCO2 of 31, pO2 of 79. Repeat chest x-ray does not show any enlargement of the left sided pneumoth orax. The endotracheal tube is now approximately 3-4 cm above the alisha. There are diffuse bilateral multifocal infiltrates. CBC demonstrates leukocytosis with a WBC count of 22.6, hemoglobin 12.2, hematocrit 38.9, platelets 395. BMP a sodium of 137, potassium 3.5, chloride 109, serum bicarb 10, BUN 15, creatinine 1.35, glucose 315. Troponins 0.145. NT proBNP 315. Patient is sedated and unresponsive on the mechanical ventilator. She is breathing above set rate. Does not follow commands. She is sedated on propofol at 30 mcg/kg/m. Brain CT on arrival did not show any acute intracranial hemorrhage or mass effect. Blood pressure is stable. Not requiring vasopressors. She is tachycardic. Urine output is anuric. Impella is inserted through the right groin, set at P9. 3.9 L of flow. Baseline coags are unremarkable. Patient will be started on IV heparin per protocol. Patient's prognosis is guarded, and she is currently in critical condition. There was a concern for an underlying pneumothorax. I reviewed the chest x-ray the chest x-ray showing diffuse but the pulmonary infiltrates. This is consistent with acute cardiogenic pulmonary edema it underlying aspiration cannot be completely excluded. I reviewed the CAT scan of the chest, there may be a very tiny left anterior pneumothorax not clearly seen on today's chest x- ray. This will be monitored very closely. The patient is currently intubated on a mechanical ventilator. The patient is on propofol which is running at 35 mcg/kg/m. She is adequately sedated and suggest a mechanical ventilator. She is covered with antibiotics and she is currently on IV Zosyn. She is on no pressors at this point in time. Cardiac rhythm is sinus tachycardia. On today's evaluation of 05/26/2023, the patient is being seen for a follow-up. The patient remains intubated on a mechanical ventilator. This morning, she is on propofol running at 35 mcg/kg/m and she is calm and comfortable. She response to stimulation. She was also painful stimulation in all 4 extremities. At the same time, the patient remains on a mechanical ventilator on assist control mode at the rate of 20, tidal volume of 450, FiO2 of 50% and a PEEP of 5. The chest x-ray from this morning is showing evidence of diffuse bilateral pulmonary infiltrates consistent with pulmonary edema. The ET tube is in a good location. The patient also has a left sided subclavian triple-lumen catheter in place. No evidence of any significant pneumothorax. There is interval improvement in the pulmonary edema on today's chest x-ray compared to yesterday. The blood gas showed a pH of 7.48 with a pCO2 of 35 and pO2 of 90. In terms of hemodynamics, the patient is on no pressors. ImPela supports is still ongoing although she has been switched from P9 to PT for and currently she is on P2 support. The flow is at 1.8 L/m. The Augmentin blood pressure is 91/58. She is producing urine output and the fluid balance over the past 24 hours has been +3.4 L. Nevertheless, the patient is producing 100 mL an hour of urine output and she produced approximately 1.2 L of urine output for yesterday. Pulses are present lower extremities bilaterally. The patient is currently on a combination of aspirin and Effient. Aldactone was also added. The patient is receiving and panic antibiotic coverage with IV Zosyn. IV fluids are in the form of bicarb infusion at the rate of 100 mL an hour. This will be discontinued. BUN is at 80 with a creatinine of 1.1. Sodiums of 135, serum bicarb is at 24, the white cell count is 22.9 with a hemoglobin of 9.1 and a platelet count of 224. A limited echocardiogram was done yesterday and the patient was told to have a LV ejection fraction severely impaired estimated to be at around 25. She is also off the insulin drip. Blood sugars under better control for now. On today's evaluation of 05/27/2023 pounds in the patient for a follow-up. The patient is doing well. The Impella was removed yesterday without any major difficulties. No evidence of any bleeding at the insertion site. The patient has such is hemodynamically stable. No pressors at this point in time. She is producing adequate amount of urine output. This morning, she is on propofol running at 30 microvascular kilogram per minute. She is on assist-control mode at a rate of 20, tidal volume of 450, FiO2 of 50% with a PEEP of 8. Blood gas show a pH of 7.5 with a pCO2 of 32 and pO2 of 116. The chest x-ray shows improvement of the previously described pulmonary edema. ET tube is in a good location. The patient is producing adequate amount of urine output. Her urine output was up to 100 mL an hour. The fluid Balance over the past 24 hours is - 1.1 L. The patient's echoes at 16.3, hemoglobin is at 7.7 which is essentially dropped since admission. No evidence of any acute bleeding at this point in time. BUN is at 15 with a creatinine of 1.1 and a sodium level is at 138. The patient is currently receiving a sedation holiday. Propofol discontinued and her readiness to wean will be evaluated. She remains on IV Zo syn. She remains on a combination of aspirin and Effient. She was also started on metoprolol 25 mg by mouth twice a day. She is not receiving any enteral feeding at this point in time. On 05/28/2023, the patient is extubated. Note that the patient was able to wean off the mechanical ventilator and the patient was extubated to nasal cannula initially. Subsequently, she started having hypoxemia and she had to be placed on BiPAP throughout the day and she was also kept on BiPAP overnight. Also, we added Precedex to improve her anxiety level of agitation and Precedex is still running at 0.2 mcg/kg/h. This morning, she is calm and comfortable. She is communicating. She is alert and oriented 3. She has profound weakness in all 4 extremities. She is complaining of soreness in her chest which is probably related to CPR. No signs of any bleeding. Hemoglobin is at 7.4 and it has dri fted slowly during the current hospitalization. The patient is currently on oxygen at 3 L. The chest x-ray showing some mild pulmonary congestion. She remains on IV Zosyn as a broad-spectrum antibiotic coverage for any potential aspiration pneumonia. Nevertheless, her acute pulmonary edema has improved considerably. Cardiac rhythm is sinus. She is on metoprolol 25 mg twice a day. She is also on aspirin. She is on Effient. She is also on Farxiga The puncture site in her right groin shows no evidence of any bleeding. She was also started on Aldactone at a dose of 25 mg by mouth daily. She is on high- dose statins. She is on thyroid hormone replacement. On 05/29/2023, the patient remains extubated and she is currently on oxygen at 8 liters and the patient's pulse ox is currently at 96%. She encountered a coughing fit overnight and this was associated with some oxygen desaturation and for that reason she was recently placed on a BiPAP that was subsequently taken off. The patient is off Precedex and she is, comfortable and communicating. She continues to have soreness across her anterior chest related to CPR and the patient is receiving [place] 5 every 4 hours and Dilaudid 0.5 every 3. Clinically stable. Hemodynamically stable. No pressors for now. Cardiac rhythm is sinus. The chest x-ray from today showing recurrent pulmonary edema with interval worsening and this goes along with her worsening in her oxygenation. Note that the patient has not been receiving any diuretics for the time being. She does have cardiomyopathy postcardiac arrest and post acute myocardial infarction. Meanwhile, she is producing urine output which is adequate and the patient has produced approximately 1.5 L for yesterday and overall fluid balance is -1.3 L over the past 24 hours. Her hemoglobin stable at 7.9. The white cycles of 14.4, BUN is at 30 with a creatinine of 0.9 and his sodium level is at 135. Her blood pressure was soft and this is improved and the most recent BP is 121/87. In terms of her cardiomyopathy, the patient is on metoprolol 25 mg twice a day, Farxiga 10 mg by mouth daily, Aldactone 25 mg by mouth daily. IV fluids are currently at KVO. She is on aspirin and Effient. On 05/30/2023, the patient is on 6 L of oxygen by nasal cannula. She is post cardiac arrest, shock, emergent cardiac catheterization, stenting, insertion and removal of a impella or cardiac support. She was extubated. Postextubation, she had a component of pulmonary edema and she was restarted back on diuretics yesterday 40 mg every 12 hours. Fluid balance is -1.3 L since yesterday. Oxygen patient is slightly improved. She has had it for another 3 L of negative fluid balance for today. The patient's chest x-ray still showing some residual interstitial/pulmonary edema along with some cardiomegaly. Gastric bubble is slightly dilated. Her main complaint is chest wall pain related to CPR. We are treating this with a combination of [place] and Dilaudid. She is trying to use incentive spirometer. She is weak. She is a bit frustrated of her condition. Nevertheless, I tried to convince her that this is something good as she has survived a major cardiac catastrophe. The white cell count is at 12, hemoglobin is at 8.8 and a platelet count is 406. BUN is at 70 with a creatinine of 1.1. Her left TM level came back at 0.2. Her cardiac medications are also noted. The patient is on aspirin and Effient. The patient is on metoprolol 25 mg twice a day. The patient is on Farxiga. She is on high-dose statins. IV Zosyn was also started as a broad-spectrum antibiotic coverage. No clear indication for an aspiration pneumonia. This was started only on an empiric basis. Oral intake is quite diminished. Cardiac rhythm is sinus. She is afebrile. Pulse ox is 98% on 6 L which obviously will be further weaned Patient was seen and examined today on 05/31/2023, patient remains in the ICU, on 2 L nasal cannula, does not seem to be in any distress, mostly complaining of chest wall pain. Patient is status post cardiac arrest, she is also status post stenting of left main, LAD, and left circumflex with dissection of left main, patient has ischemic cardiomyopathy with ejection fraction of 40-45%, surprisingly patient is doing better than expected considering her clinical course since admission. Patient is doing well with incentive spirometry achiev ing over 1500 MLS. Patient is being considered for possible transfer to a cardiac floor today. Chest x-ray continues to show bibasilar atelectasis and possible consolidation in the left lower lobe she is on Augmentin as per infectious disease on the case. All cultures and sputum cultures have been nondiagnostic WBC count is 11.3 hemoglobin is 8.4 basic metabolic profile is normal and renal profile is normal Patient was reevaluated today on 06/01/2023, patient is on 2 L nasal cannula, she is presently an overflow in the ICU, continues to have mostly chest wall pain. Occasional cough no wheezing, no shortness of breath no fever no chills no hemoptysis. He remains on antibiotics in the form of Augmentin for presumptive aspiration pneumonia. WBC count is 13.3 hemoglobin 9.1 basic metabolic profile is normal and renal profile is normal Patient was reevaluated today on 06/02/23, patient is doing great, relatively asymptomatic except for chest wall pain. She is now on the cardiac floor, she is on room air with O2 saturation is 98%, she is hemodynamically stable with blood pressure of 108/63, labs are basically normal hemoglobin is 9.1 basic metabolic profile is normal renal profile is normal, chest x-ray from 2 days ago showed mostly infiltrates at the right base and atelectasis with possible consolidation in the left lower lobe I believe the patient must have had some aspiration pneumonia during her cardiac arrest. Remains on antibiotics. Is actually on Augmentin Patient was reevaluated today on 06/03/23, doing well, relatively asymptomatic, some vague chest discomfort, patient was cleared by different consultants to be discharged home today. I agree with discharge planning. Patient will need to follow-up with cardiology, and follow-up with our office in one week Objective - Vital Signs Vital signs: Vital Signs Temp 98.4 F 06/03/23 08:31 Pulse 81 06/03/23 13:00 Resp 22 06/03/23 11:41 BP 103/69 06/03/23 11:41 Pulse Ox 96 06/03/23 11:41 FiO2 6 05/29/23 19:00 Intake & Output 06/02/23 06/03/23 06/03/23 18:59 06:59 18:59 Intake Total 340 225 Balance 340 225 Intake: Oral 340 225 Other: Voiding Method Toilet # Voids 3 1 ABP, PAP, CO, CI - Last Documented Arterial Blood Pressure 169/169 - Exam Physical Exam: Revealed 43-year-old female in no distress on room air Head: Atraumatic, normocephalic. HEENT:[Neck is supple.] [No neck masses.] [No thyromegaly.] [No JVD.] Chest: [Minimal crackles at the bases no wheezing tenderness over the chest wall is noted Cardiac Exam: [Normal S1 and S2, no S3 gallop, no murmur.] Abdomen: [Soft, nontender, no megaly, no rebound, no guarding, normal bowel sounds.] Extremities: [No clubbing, no edema, no cyanosis.] Neurological Exam: [No focal neurologic deficit.] Alert oriented 3. Psychiatric: Normal mood affect and normal mental status examination. Skin: No rashes. - Labs CBC & Chem 7: 06/02/23 07:06 06/02/23 07:06 Assessment and Plan Assessment: Impression: Out of hospital cardiac arrest, downtime is unknown. Patient required defibrillation and intubation in the ER. Acute ST elevation PA, patient did receive successful stenting of the proximal LAD with stenting of the left main and left circumflex secondary to dissection of the left main. Patient also required imPella device placement which has been removed Chest pain, essentially skeletal in nature related to CPR Severe cardiomyopathy, likely ischemic with an ejection fraction of 20-25% Acute pulmonary edema secondary to acute congestive heart failure/systolic in nature. Acute hypoxic respiratory failure, required intubation and eventually the patient was extubated Metabolic anion gap acidosis, resolved Acute kidney injury, secondary to hypoperfusion and acute tubular necrosis, resolved Mild transaminitis, secondary to hypoperfusion Leukocytosis, improved Hypothyroidism History of depression/anxiety/PTSD Aspiration pneumonia is strongly suspected Recommendation: Agree with discharge planning Patient may need a few more days of Augmentin Follow-up on outpatient basis Time with Patient: Less than 30
== END 2023-06-03 15:35 | disposition home health service (06) | DRG 178 ==
LOC: EC 02:31 → 2SICU 03:24 → 3SCARD 06-01 17:35
PROVIDERS: ADMIT Internal Medicine; ATTEND Internal Medicine
PROC: 6A750Z5 Ultrasound Therapy of Heart, Single (ICD-10-PCS; 2023-05-25)
PROC: 02HV33Z Insertion of Infusion Device into Superior Vena Cava, Percutaneous Approach (ICD-10-PCS; 2023-05-25)
PROC: 03HY32Z Insertion of Monitoring Device into Upper Artery, Percutaneous Approach (ICD-10-PCS; 2023-05-25)
PROC: 4A133B1 Monitoring of Arterial Pressure, Peripheral, Percutaneous Approach (ICD-10-PCS; 2023-05-25)
PROC: 4A133J1 Monitoring of Arterial Pulse, Peripheral, Percutaneous Approach (ICD-10-PCS; 2023-05-25)
PROC: 02HA3RZ Insertion of Short-term External Heart Assist System into Heart, Percutaneous Approach (ICD-10-PCS; principal; 2023-05-25 03:10)
PROC: 0BH18EZ Insertion of Endotracheal Airway into Trachea, Via Natural or Artificial Opening Endoscopic (ICD-10-PCS; 2023-05-25 03:10)
PROC: 5A1945Z Respiratory Ventilation, 24-96 Consecutive Hours (ICD-10-PCS; 2023-05-25 03:10)
PROC: 4A023N7 Measurement of Cardiac Sampling and Pressure, Left Heart, Percutaneous Approach (ICD-10-PCS; 2023-05-25 03:10)
PROC: B2111ZZ Fluoroscopy of Multiple Coronary Arteries using Low Osmolar Contrast (ICD-10-PCS; 2023-05-25 03:10)
PROC: 027136Z Dilation of Coronary Artery, Two Arteries with Three Drug-eluting Intraluminal Devices, Percutaneous Approach (ICD-10-PCS; 2023-05-25 03:10)
PROC: 5A0221D Assistance with Cardiac Output using Impeller Pump, Continuous (ICD-10-PCS; 2023-05-25 03:10)
PROC: 02PA3RZ Removal of Short-term External Heart Assist System from Heart, Percutaneous Approach (ICD-10-PCS; 2023-05-26)
PROC: 5A09357 Assistance with Respiratory Ventilation, Less than 24 Consecutive Hours, Continuous Positive Airway Pressure (ICD-10-PCS; 2023-05-27)
DX: I21.02 ST elevation (STEMI) myocardial infarction involving left anterior descending coronary artery (principal); R57.0 Cardiogenic shock; J96.01 Acute respiratory failure with hypoxia; N17.0 Acute kidney failure with tubular necrosis; J69.0 Pneumonitis due to inhalation of food and vomit; I49.01 Ventricular fibrillation; I50.21 Acute systolic (congestive) heart failure; I11.0 Hypertensive heart disease with heart failure; I48.91 Unspecified atrial fibrillation; E87.21 Acute metabolic acidosis; J93.9 Pneumothorax, unspecified; Z86.74 Personal history of sudden cardiac arrest; F17.210 Nicotine dependence, cigarettes, uncomplicated; F32.A Depression, unspecified; E03.9 Hypothyroidism, unspecified; D50.9 Iron deficiency anemia, unspecified; F41.9 Anxiety disorder, unspecified; F43.10 Post-traumatic stress disorder, unspecified; R73.9 Hyperglycemia, unspecified; I25.5 Ischemic cardiomyopathy; I25.10 Atherosclerotic heart disease of native coronary artery without angina pectoris; R74.01 Elevation of levels of liver transaminase levels; M79.18 Myalgia, other site; Z11.52 Encounter for screening for COVID-19; Z79.890 Hormone replacement therapy; Z79.899 Other long term (current) drug therapy; Z88.8 Allergy status to other drugs, medicaments and biological substances
CPT/HCPCS: 31500; 33990; 36410; 36415; 36600; 70450; 71045; 71275; 74018; 74175; 76937; 80048; 80053; 80061; 80178; 82805; 83036; 83605; 83615; 83735; 83880; 84132; 84145; 84439; 84443; 84484; 85025; 85027; 85384; 85610; 85730; 86140; 87040; 87070; 87205; 87636; 92978; 93005; 93308; 93458; 94002; 94003; 94640; 94660; 94760; 99291

== ENCOUNTER → 2023-06-14 | Outpatient (CLI) | payer OTHER ==
--- NOTE | 2023-06-14 12:52 | XR ---
EXAMINATION TYPE: XR chest 2V DATE OF EXAM: 06/14/2023 12:14 PM CLINICAL INDICATION:Female, 43 years old with history of R06.02,J18.9,R07.89; [facility] COMPARISON: Chest radiographs from 05/31/2023. TECHNIQUE: XR chest 2V Frontal and lateral views of the chest. FINDINGS: Lungs/Pleura: Blunting of the left costophrenic angle. There is no evidence of right pleural effusion , focal consolidation, or pneumothorax. Pulmonary vascularity: Unremarkable. Heart/mediastinum: Cardiomediastinal silhouette is unremarkable. Atherosclerosis of the arterial vasc ulature. Musculoskeletal: No acute osseous pathology. Other findings: None IMPRESSION: Small left pleural effusion remains.
== END | disposition home or self-care (01) ==
LOC: RADXRMAIN 11:59
PROVIDERS: ATTEND Nurse Practitioner Family
DX: J18.9 Pneumonia, unspecified organism (principal); J90 Pleural effusion, not elsewhere classified; R07.89 Other chest pain
CPT/HCPCS: 71046

== ENCOUNTER → 2023-09-05 | Outpatient (CLI) | payer OTHER ==
[2023-09-05 17:06] LABS: HCT 46.5 % (37.2-46.3); HGB 14.3 g/dL (12.0-15.0); MCH 26.8 pg (27.0-32.0); MCHC 30.8 g/dL (32.0-37.0); MCV 87.2 FL (80.0-97.0); Mean Platelet Volume 9.9 FL (9.5-12.2); NRBC Per 100 WBC 0 X 10*3/uL (0.00-0.01); Platelet Count 435 X 10*3/uL (140-440); RBC 5.33 X 10*6/uL (4.10-5.20); RDW 16.2 % (11.5-14.5); WBC 11.66 X 10*3/uL (4.50-10.00)
[2023-09-05 21:23] LABS: ALT 26 U/L (8-44); AST 18 U/L (13-35); Albumin 4.6 g/dL (3.8-4.9); Alkaline Phosphatase 120 U/L (41-126); BUN/Creat Ratio 11.27 Ratio (12.00-20.00); Blood Urea Nitrogen 12.4 mg/dL (9.0-27.0); Carbon Dioxide 22.3 mmol/L (21.6-31.8); Chloride 106 mmol/L (96-109); Chol/HDL Ratio 4.21 Ratio; Globulin 2.7 g/dL (1.6-3.3); Glucose 107 mg/dL (70-110); LDL Cholesterol,Calculated 103.3 mg/dL (0.0-131.0); Potassium 4.8 mmol/L (3.5-5.5); Sodium 140 mmol/L (135-145); Total Bilirubin <0.2 mg/dL (0.3-1.2); Total Protein 7.3 g/dL (6.2-8.2)
[2023-09-05 21:27] LABS: NT-Pro-B-Type Natriuretic Pept 702 pg/mL (0-125)
== END | disposition home or self-care (01) ==
LOC: LABWHC1 11:22
PROVIDERS: ATTEND Student in an Organized Health Care Education/Training Program
DX: E11.22 Type 2 diabetes mellitus with diabetic chronic kidney disease (principal); N18.9 Chronic kidney disease, unspecified; D63.1 Anemia in chronic kidney disease
CPT/HCPCS: 36415; 80053; 80061; 83036; 83880; 85027; 86141

== ENCOUNTER → 2024-11-15 | Day surgery (SDC) | payer OTHER ==
[~2024-11-15] MED LIST: ALPRAZolam 0.25 MG TAB PO PRN; ALPRAZolam 0.5 MG TAB PO PRN; HEPARIN SODIUM,PORCINE (1 ML) 2,500 UNIT in SODIUM CHLORIDE 0.9% 250 ML IRRIGATION PRN; HEPARIN SODIUM,PORCINE 10,000 UNIT in SODIUM CHLORIDE 0.9% 1,000 ML IRRIGATION PRN; NALOXONE 0.4 MG/ML 1 ML VIAL IVP PRN; SODIUM CHLORIDE 0.9% 1,000 ML in EMPTY BAG 1 BAG IV SCH; ZOLPIDEM 5 MG TAB PO PRN
[2024-11-15] MEDS: IV FLUID CONTINUATION 1,000 ML IV ONE (06:45)
[2024-11-15] MEDS: EMPTY BAG 1 BAG with SODIUM CHLORIDE 0.9% 1,000 ML IV SCH (07:00)
[2024-11-15] MEDS: MIDAZOLAM 2 MG/2 ML VIAL IVP ONE ×2 (08:03→08:09)
[2024-11-15] MEDS: fentaNYL (PF) 50 MCG/1 ML VIAL IVP ONE ×2 (08:03→08:13)
[2024-11-15] MEDS: LIDOCAINE 2% (PF) 20 MG/ML 5 ML VIAL SQ ONE (08:03)
[2024-11-15] MEDS: IOPAMIDOL-370 100ML BTL INTRATHECA ONE (08:21)
[2024-11-15] MEDS: HEPARIN SODIUM,PORCINE (1 ML) 2,500 UNIT in SODIUM CHLORIDE 0.9% 250 ML IRRIGATION ONE (08:22)
[2024-11-15] MEDS: HEPARIN SODIUM,PORCINE 10,000 UNIT in SODIUM CHLORIDE 0.9% 1,000 ML IRRIGATION ONE (08:22)
--- NOTE | 2024-11-15 09:10 | IR ---
EXAMINATION TYPE: IR angio abdominal w runoff DATE OF EXAM: 11/15/2024 8:49 AM COMPARISON: Pre Operative Images if available both CT/MRI or plain film CLINICAL INDICATION: Female, 44 years old with history of rt leg pain, fl time 2.0 dap 42.9; TECHNIQUE: IR angio abdominal w runoff, multiple fluoroscopic images provided for procedure. DAP: 42.9 mGym2 Gycm2 uGym2 cGycm2 or equivalent. FINDINGS: IMPRESSION: 1. Report was generated for administrative purposes only. 2. Please see the operative/procedural note for further details. [facility], , 11/15/2024 9:08 AM
[2024-11-15 17:22] VITALS: PULSE 74; TEMP 98.2
[2024-11-15 17:32] VITALS: BP 86/54; RESP 12
--- NOTE | 2024-11-16 09:11 | P.PCN ---
Date of Procedure: 11/16/24 Operative Findings: AN ABDOMINAL AORTOGRAM AND BILATERAL LOWER EXTREMITIES RUNOFF PERFORMING PHYSICIAN: Jesse Galeano MD PROCEDURE PERFORMED: 1. An abdominal aortogram 2. Bilateral lower extremities runoff 3. Ultrasound guided access of the left common femoral artery INDICATION: Right lower extremity intermittent claudication consistent with César class IIa in this 44-year-old female patient with diminished femoral and popliteal and pedal pulse on the right COMPLICATION: None LEVEL OF SEDATION: Moderate was sedation length of minute APPROACH: Left common femoral artery PROCEDURE DESCRIPTION: After obtaining informed consent and explaining the procedure benefits, risks, and complications, the patient was brought to the cardiac senior label specialist. The left groin was prepped and draped in sterile fashion. The left common femoral artery was cannulated using micropuncture technique, under ultrasound guidance. A micropuncture wire was advanced, and the micropuncture sheath was advanced over the wire, then the micropuncture sheath was exchanged over an 0.35 wire into a 5-Armenian sheath dilator assembly then the wire and dilator were removed and sheath was flushed. We did an abdominal aortogram and bilateral lower extremities runoff using 5- Armenian pigtail catheter using a power injection. The catheter was initially placed at the level of the renal arteries, and it was pulled into above the bifurcation of the aorta into right and left common iliac arteries. The procedure was completed and there was no complications. SELECTIVE PERIPHERAL ANGIOGRAM: The abdominal aorta: Angiographically The common iliac arteries: Are angiographically normal The external iliac arteries: Are angiographically The internal iliac arteries: Are patent The common femoral arteries: The right common femoral artery is occluded. The left common femoral artery appears to be angiographically Superficial femoral arteries: Both SFA appeared to be. Popliteal arteries: Post popliteal appears to be. 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 The patient is going to be discharged home and follow-up with Dr. Fowler as an outpatient
== END ==
LOC: CATHCVL 05:34
PROVIDERS: ATTEND Internal Medicine Interventional Cardiology
DX: I70.211 Atherosclerosis of native arteries of extremities with intermittent claudication, right leg (principal); I10 Essential (primary) hypertension; I25.10 Atherosclerotic heart disease of native coronary artery without angina pectoris; I25.2 Old myocardial infarction; Z95.5 Presence of coronary angioplasty implant and graft; I08.0 Rheumatic disorders of both mitral and aortic valves; Z79.01 Long term (current) use of anticoagulants; Z79.82 Long term (current) use of aspirin; Z79.85 Long-term (current) use of injectable non-insulin antidiabetic drugs; Z79.84 Long term (current) use of oral hypoglycemic drugs; Z79.890 Hormone replacement therapy; Z79.899 Other long term (current) drug therapy; Z87.891 Personal history of nicotine dependence; Z86.74 Personal history of sudden cardiac arrest; Z82.49 Family history of ischemic heart disease and other diseases of the circulatory system
CPT/HCPCS: 36200; 75625; 75716; 81025; C1769 ×3; C1894; J2250; J1644 ×2; Q9967; J2003; J3010

== ENCOUNTER 2024-12-14 11:17 | Inpatient (IN) | payer OTHER ==
[~2024-12-14 11:17] MED LIST changes: -ALPRAZolam 0.25 MG TAB PO PRN; -ALPRAZolam 0.5 MG TAB PO PRN; -HEPARIN SODIUM,PORCINE (1 ML) 2,500 UNIT in SODIUM CHLORIDE 0.9% 250 ML IRRIGATION PRN; -HEPARIN SODIUM,PORCINE 10,000 UNIT in SODIUM CHLORIDE 0.9% 1,000 ML IRRIGATION PRN; +LIDOCAINE 1% (10MG/ML) FOR IV START INTRADERMA PRN; -NALOXONE 0.4 MG/ML 1 ML VIAL IVP PRN; -SODIUM CHLORIDE 0.9% 1,000 ML in EMPTY BAG 1 BAG IV SCH; -ZOLPIDEM 5 MG TAB PO PRN
[2024-12-14] MEDS: IV FLUID CONTINUATION 1,000 ML IV ONE ×2 (12:12)
[2024-12-14 12:16] LABS: Basophils # (A) 0.06 10*3/uL (0.00-0.10); Basophils % (A) 0.6 %; Eosinophils # (A) 0.16 10*3/uL (0.04-0.35); Eosinophils % (A) 1.5 %; HCT 41.4 % (37.2-46.3); HGB 13.4 g/dL (12.0-15.0); Lymphocytes # (A) 2.02 10*3/uL (0.90-5.00); Lymphocytes % (A) 19.4 %; MCH 28.9 pg (27.0-32.0); MCHC 32.4 g/dL (32.0-37.0); MCV 89.2 fL (80.0-97.0); Monocytes # (A) 0.61 10*3/uL (0.20-1.00); Monocytes % (A) 5.9 %; Neutrophils # (A) 7.52 10*3/uL (1.80-7.70); Neutrophils % (A) 72.2 %; Platelet Count 371 10*3/uL (140-440); RBC 4.64 10*6/uL (4.10-5.20); RDW 14.8 % (11.5-14.5); WBC 10.41 10*3/uL (4.50-10.00)
[2024-12-14] MEDS: DEXAMETHASONE SOD PHOSPHATE 4 MG/ML 1 ML VIAL IV ONE (12:20)
[2024-12-14] MEDS: ONDANSETRON 4 MG/2 ML VIAL IVP ONE (12:20)
[2024-12-14] MEDS: LACTATED RINGERS 1,000 ML IV SCH (12:21)
[2024-12-14] MEDS: MIDAZOLAM 2 MG/2 ML VIAL IV ONE (12:34)
[2024-12-14] MEDS ORDERED: ROCURONIUM 10 MG/ML (5 ML VIAL) IV ONE (13:30)
[2024-12-14] MEDS ORDERED: LIDOCAINE 1% INJ 10MG/ML (20 ML MDV) ONE (13:30)
[2024-12-14] MEDS ORDERED: PROPOFOL 10 MG/ML 20 ML VIAL IV ONE (13:30)
[2024-12-14] MEDS ORDERED: GLYCOPYRROLATE 0.2 MG/ML 2 ML VIAL ONE (13:30)
[2024-12-14] MEDS ORDERED: HEPARIN SODIUM,PORCINE 10,000 UNIT/ML 1 ML VIAL ONE (13:30)
[2024-12-14] MEDS ORDERED: NEOSTIGMINE 1 MG/ML 10 ML VIAL ONE (13:30)
[2024-12-14] MEDS ORDERED: PHENYLEPHRINE 10 MG/ML VIAL ONE (13:30)
[2024-12-14] MEDS ORDERED: MIDAZOLAM 2 MG/2 ML VIAL ONE (13:30)
[2024-12-14] MEDS ORDERED: fentaNYL (PF) 50 MCG/ML 2 ML AMP ONE (13:30)
[2024-12-14] MEDS ORDERED: SUCCINYLCHOLINE CHLORIDE 200 MG/10 ML VIAL IV ONE (13:30)
[2024-12-14] MEDS ORDERED: HYDROmorphone (PF) 1 MG/ML ONE (13:30)
[2024-12-14] MEDS: THROMBIN (BOVINE) 5,000 UNIT VIAL MISCELLANE ONE ×2 (14:08→15:36)
[2024-12-14] MEDS: HEPARIN SODIUM (1,000 UNIT/ML) 2,000 UNIT in SODIUM CHLORIDE 0.9% 1,000 ML IRRIGATION ONE (14:10)
[2024-12-14] MEDS: ceFAZolin 2 GM in SODIUM CHLORIDE 0.9% 500 ML 500 ML IRRIGATION ONE (14:11)
--- NOTE | 2024-12-14 14:48 | P.ANPRN ---
Procedure Note - Anesthesia - Invasive Line Right Arterial Line Time Out Performed: Yes ([id number]) Date of Procedure: 12/14/24 Time of Procedure: 12:34 Location of Patient: PreOp Preparation: Sterile Prep, Sterile Dressing Arterial Line Location: Radial (right) Ultrasound Used: No Purpose - Visualization and Identification of Vasculature: No Needle Guage: 20g Image Stored and Saved: No Narrative: Invasive line placement per sterile protocol utilized. Lumen bled and flushed Secured and dressed
[2024-12-14] MEDS ORDERED: NITROGLYCERIN SL TABS 0.4 MG TAB SUBLINGUAL PRN (14:55)
--- NOTE | 2024-12-14 16:15 | P.OP ---
Date of Procedure: 12/14/24 Preoperative Diagnosis: Disabling claudication [place] classification 3 Right common femoral artery occlusion Postoperative Diagnosis: Disabling claudication [place] classification 3 Right common femoral artery occlusion Procedure(s) Performed: Right common femoral artery endarterectomy and patch angioplasty Anesthesia: YUDITH Surgeon: Sulaiman Kim Estimated Blood Loss (ml): 50 Pathology: none sent Condition: stable Disposition: PACU Indications for Procedure: 44-year-old female with history of coronary artery disease, previous heart catheterization with coronary artery stenting due to acute PA in April stated that she was having increased pain in her right lower extremity after the procedure and over the last 6 months pain was worsening. She did undergo arterial Doppler as well as angiogram which demonstrated severe occlusive disease of the right lower extremity with complete occlusion of the right common femoral artery. She presents today for elective femoral artery endarterectomy and patch angioplasty. Operative Findings: Occluded right common femoral artery just beneath the Perclose closure device which appeared to be incorporating part of the back wall and lateral wall with dense scarring noted throughout and occlusion. Description of Procedure: After written informed consent was obtained for the patient all risk, benefits and complications were described the patient was brought to the operative suite and laid in the supine position. The area of the right groin and lower extremity was prepped and draped in usual sterile fashion after appropriate anesthetic was performed per the anesthesiologist. Timeout was performed in normal fashion antibiotics were administered prior to incision. An oblique incision was then created with a 10 blade scalpel and dissection was carried down through the subcutaneous tissue and fascia down to the common femoral artery. The femoral artery was then located and meticulous dissection was carried around the common femoral, profundus femoris and superficial femoral artery in a circumferential manner and controlled with Vesseloops. Upon access to the common femoral artery there was the Perclose closure device noted with dense scar tissue around this area. Multiple branches were also located and controlled with Vesseloops. Once controlled patient was administered 5000 units of heparin and followed with serial ACT's and maintained above 220. Proximal distal vascular clamps were then placed and arteriotomy was created with a low blade scalpel and extended with Newell Metzenbaums scissors. This was extended to the common femoral artery just beneath the inguinal ligament and to the bifurcation of the profunda and superficial femoral artery. Once again the Perclose device was located to be on the posterior wall and medial wall with dense scarring and plaque buildup. Endarterectomy was then performed with a [place] and inflow and outflow was assessed. Brisk pulsatile blood flow was noted from the common femoral artery with brisk backbleeding from the profunda and superficial femoral artery. The distal aspect just before the bifurcation of the SFA and profunda was tacked with 7-0 Prolene suture. Patch angioplasty was then performed with 6-0 Prolene suture and a bovine pericardial patch in a running fashion. Once completed control was released revealing good pulsatile blood flow within the patch as well as backbleeding. Final suture was then placed and good pulse was noted throughout the patch and into the SFA and profundus femoris artery. Doppler signal was noted to be multiphasic distal to the patch in the SFA and profunda. The area was then copiously irrigated with antibiotic solution. Hemostasis was assisted with Gelfoam and thrombin. The incision was then closed in a multilayer fashion. The skin was then cleansed and dressed with a Prevena incisional VAC. The patient tolerated procedure well and had a palpable DP and PT pulse at the conclusion of the procedure and was sent to PACU for recovery.
[2024-12-14] MEDS: FERROUS SULFATE 325 MG TAB PO SCH (18:41)
[2024-12-14] MEDS: droPERidol 2.5 MG/ML VIAL IVP ONE (18:41)
[2024-12-14] MEDS: METOPROLOL SUCCINATE (ER) 50 MG TAB.ER.24H PO SCH (21:54)
[2024-12-14] MEDS: DULoxetine HCL 60 MG CAPSULE.DR PO SCH (21:54)
[2024-12-14] MEDS: ATORVASTATIN 80 MG TAB PO SCH (21:54)
[2024-12-14] MEDS: LITHIUM CARBONATE 300 MG CAP PO SCH (21:54)
[2024-12-14] MEDS: MIRTAZAPINE 15 MG TAB PO SCH (21:54)
[2024-12-14] MEDS: HYDROmorphone 0.5 MG/0.5 ML SYRINGE IVP PRN (21:55)
[2024-12-14] MEDS: SACUBITRIL/VALSARTAN 24 MG-26 MG TABLET PO SCH (21:55)
[2024-12-15] MEDS: LEVOTHYROXINE 112 MCG TAB PO SCH (06:11)
[2024-12-15] MEDS: FUROSEMIDE 20 MG TAB PO SCH (07:55)
[2024-12-15] MEDS: DAPAGLIFLOZIN PROPANEDIOL 10 MG TABLET PO SCH (07:55)
[2024-12-15] MEDS: ASPIRIN 81 MG PO SCH (07:55)
[2024-12-15] MEDS: CLOPIDOGREL 75 MG TAB PO SCH (07:55)
[2024-12-15] MEDS: HYDROcodone/APAP 5-325MG 1 EACH TAB PO PRN (08:13)
[2024-12-15] MEDS: SPIRONOLACTONE 25 MG TAB PO SCH (11:10)
[2024-12-15] MEDS: SODIUM CHLORIDE 0.9% 500 ML 500 ML IV ONE (11:30)
[2024-12-15 12:11] LABS: HCT 24.4 % (37.2-46.3); MCH 29.7 pg (27.0-32.0); MCHC 31.1 g/dL (32.0-37.0); Platelet Count 214 10*3/uL (140-440); RBC 2.56 10*6/uL (4.10-5.20); RDW 15.0 % (11.5-14.5); WBC 10.46 10*3/uL (4.50-10.00)
[2024-12-15 12:26] LABS: HGB 7.6 g/dL (12.0-15.0); MCV 95.3 fL (80.0-97.0)
[2024-12-15 12:27] LABS: ALT 8 U/L (4-34); AST 11 U/L (14-36); African American GFR (CKD) >90 (>60 ml/min/1.73 sqM); Albumin 1.7 g/dL (3.5-5.0); Alkaline Phosphatase 46 U/L (38-126); Anion Gap 14 mmol/L; Blood Urea Nitrogen 7 mg/dL (7-17); Calcium 7.8 mg/dL (8.4-10.2); Carbon Dioxide 13 mmol/L (22-30); Chloride 106 mmol/L (98-107); Glucose 64 mg/dL (74-99); Magnesium 1.3 mg/dL (1.6-2.3); Non-African American GFR(CKD) >90 (>60 ml/min/1.73 sqM); Potassium 3.9 mmol/L (3.5-5.1); Sodium 133 mmol/L (137-145); Total Protein 3.3 g/dL (6.3-8.2)
[2024-12-15] MEDS ORDERED: Magnesium Replacement Protocol 1 EACH MISC MISCELLANE PRN (12:45)
[2024-12-15 12:47] LABS: Glucose,Whole Blood 133 mg/dL (70-110)
[2024-12-15 13:03] LABS: HCT 36.4 % (37.2-46.3); MCH 30.1 pg (27.0-32.0); MCHC 32.7 g/dL (32.0-37.0); MCV 91.9 fL (80.0-97.0); Platelet Count 331 10*3/uL (140-440); RBC 3.96 10*6/uL (4.10-5.20); RDW 15.0 % (11.5-14.5); WBC 16.40 10*3/uL (4.50-10.00)
[2024-12-15 13:07] LABS: HGB 11.9 g/dL (12.0-15.0)
[2024-12-15] MEDS: MAGNESIUM SULFATE-D5W PMX 1 GM in DEXTROSE/WATER 1 100ML.BAG IVPB SCH (13:20)
--- NOTE | 2024-12-15 13:43 | P.PN ---
Subjective Progress Note Date: 12/15/24 Patient seen and examined. Overall doing well. After review of labs it was decided that the initial lab drawn with the significantly lower hemoglobin was upstream of a bolus being infused, repeat labs show more expected mild decrease to 11.9. Overall patient appears to be doing well. She is sore but no significant complaints. Her foot feels a little bit warmer Objective - Vital Signs Vital signs: Vital Signs Temp 97.8 F 12/15/24 11:11 Pulse 81 12/15/24 11:11 Resp 16 12/15/24 11:11 BP 96/57 12/15/24 12:04 Pulse Ox 98 12/15/24 11:11 FiO2 Intake & Output 12/14/24 12/15/24 12/15/24 18:59 06:59 18:59 Intake Total 2001 30 Output Total 600 1175 250 Balance 1402 -1145 -30 Weight 87.4 kg 91 kg Intake: IV 1462 30 10 Invasive Line 1 5 10 5 Invasive Line 2 5 20 5 Oral 540 210 Output: Urine 550 1175 250 Estimated Blood Loss 50 Other: Voiding Method Indwelling Catheter Indwelling Catheter Toilet - Exam General is a pleasant operative female in no acute distress. Heart appears regular. Lungs are clear. Abdomen is soft. Right groin incision clean and dry. No significant swelling. Dressing in place. Palpable pedal pulses bilaterally. - Labs CBC & Chem 7: 12/15/24 12:53 12/15/24 11:35 Labs: Abnormal Lab Results - Last 24 Hours (Table) 12/15/24 12/15/24 12/15/24 Range/Units 11:35 11:35 12:45 WBC 10.46 H (4.50-10.00) 10*3/uL RBC 2.56 L (4.10-5.20) 10*6/uL Hgb 7.6 L D (12.0-15.0) g/dL Hct 24.4 L (37.2-46.3) % MCHC 31.1 L (32.0-37.0) g/dL Sodium 133 L (137-145) mmol/L Carbon Dioxide 13 L (22-30) mmol/L Creatinine 0.48 L (0.52-1.04) mg/dL Glucose 64 L (74-99) mg/dL POC Glucose (mg/dL) 133 H (70-110) mg/dL Calcium 7.8 L (8.4-10.2) mg/dL Magnesium 1.3 L (1.6-2.3) mg/dL Total Bilirubin <0.1 L (0.2-1.3) mg/dL AST 11 L (14-36) U/L Total Protein 3.3 L (6.3-8.2) g/dL Albumin 1.7 L (3.5-5.0) g/dL 12/15/24 Range/Units 12:53 WBC 16.40 H (4.50-10.00) 10*3/uL RBC 3.96 L (4.10-5.20) 10*6/uL Hgb 11.9 L D (12.0-15.0) g/dL Hct 36.4 L (37.2-46.3) % MCHC (32.0-37.0) g/dL Sodium (137-145) mmol/L Carbon Dioxide (22-30) mmol/L Creatinine (0.52-1.04) mg/dL Glucose (74-99) mg/dL POC Glucose (mg/dL) (70-110) mg/dL Calcium (8.4-10.2) mg/dL Magnesium (1.6-2.3) mg/dL Total Bilirubin (0.2-1.3) mg/dL AST (14-36) U/L Total Protein (6.3-8.2) g/dL Albumin (3.5-5.0) g/dL Assessment and Plan Assessment: Postoperative day #1 right femoral endarterectomy and patch angioplasty Mild anemia as expected postoperatively Previous cardiac stenting Plan: Overall the patient is doing well. Will increase activity. Up to chair and out of bed. May ambulate with assistance. Will likely discharge within the next 24 hours. Initial discharge instructions were verbalized at this time. She seemingly understands the plan. Discussed with the nurse as well.
--- NOTE | 2024-12-15 15:28 | P.CONS ---
History of Present Illness - Reason for Consult Consult date: 12/14/24 - History of Present Illness Mecca Tam, is a 44-year-old female who was admitted to [facility] by Dr. Kim for planned vascular intervention on the right lower extremity, patient had evidence of disabling claudication and evidence of right common femoral artery occlusion, she was admitted to the hospital on 12/14/2024 and underwent right common femoral artery endarterectomy and patch angioplasty, she was admitted to the telemetry floor postprocedure, medical consultation was requested for management while hospitalized. Her past medical history is significant for history of coronary artery disease with previous history of myocardial infarction, history of cardiac arrest, history of hypothyroidism, history of depression and posttraumatic stress disorder. On review of systems patient is alert and oriented x 3 in no apparent distress there is no fever or chills no headache or dizziness no chest pain she has mild shortness of breath with activity there is no cough no nausea or vomiting no abdominal pain no diarrhea no blood in the stools no burning with urination no frequency or urgency and no hematuria Past Medical History Past Medical History: Coronary Artery Disease (CAD), Heart Failure, Hyperlipidemia, Hypertension, Myocardial Infarction ([place]), Pneumonia, Thyroid Disorder, Vascular Disorder Additional Past Medical History / Comment(s): currently on zepbound for weight loss, seasonal allergies, PAD Rt. LE Last Myocardial Infarction Date:: 05/25/23 History of Any Multi-Drug Resistant Organisms: None Reported Past Surgical History: Heart Catheterization With Stent, Orthopedic Surgery Additional Past Surgical History / Comment(s): 4 bilateral knee surgeries(3 Rt., 1 Lt.), cardiac stents x4, thyroidectomy Past Anesthesia/Blood Transfusion Reactions: Motion Sickness, Postoperative Nausea & Vomiting (PONV) Date of Last Stent Placement:: 05/25/2023 Smoking Status: Former smoker - Past Family History Mother Family Medical History: Congestive Heart Failure (CHF), Hyperlipidemia Additional Family Medical History / Comment(s): 2019 from CHF Medications and Allergies Home Medications Medication Instructions Recorded Confirmed Type DULoxetine HCL [Cymbalta] 60 mg PO BID 15 Days #30 cap 08/16/22 12/14/24 Rx Lyles Carbonate 300 mg PO BID 15 Days #30 cap 08/16/22 12/14/24 Rx Mirtazapine [Remeron] 15 mg PO HS 15 Days #15 tab 08/16/22 12/14/24 Rx Albuterol Nebulized [Ventolin 2.5 mg INHALATION RT-QID PRN 30 06/03/23 12/14/24 Rx Nebulized] Days #120 ml Aspirin 81 mg PO DAILY 30 Days #30 tab 06/03/23 12/14/24 Rx Atorvastatin [Lipitor] 80 mg PO HS 30 Days #30 tab 06/03/23 12/14/24 Rx Dapagliflozin Propanediol [Farxiga] 10 mg PO DAILY 30 Days #30 tab 06/03/23 12/14/24 Rx Ferrous Sulfate [Iron (65 MG 325 mg PO BID-W/MEALS 30 Days #30 06/03/23 12/14/24 Rx Elemental)] tab Nitroglycerin Sl Tabs [Nitrostat] 0.4 mg SUBLINGUAL Q5M PRN 30 Days 06/03/23 12/11/24 Rx #25 tab Spironolactone [Aldactone] 25 mg PO DAILY 30 Days #30 tab 06/03/23 12/14/24 Rx Levothyroxine Sodium [Synthroid] 112 mcg PO DAILY 11/13/24 12/14/24 History Metoprolol Succinate (ER) [Toprol 50 mg PO BID 11/13/24 12/14/24 History XL] Sacubitril/Valsartan [Entresto 24 1 tab PO BID 11/13/24 12/14/24 History mg-26 mg Tablet] Tirzepatide [Zepbound] 10 mg SQ MO 11/13/24 12/14/24 History Torsemide [Demadex] 10 mg PO DAILY 11/13/24 12/14/24 History cilostazoL [Pletal] 100 mg PO BID 11/13/24 12/14/24 History HYDROcodone/APAP 5-325MG [[place] 1 tab PO Q6HR PRN 3 Days #12 tab 12/14/24 Rx 5-325] Allergies Allergy/AdvReac Type Severity Reaction Status Date / Time desvenlafaxine [From Pristiq] Allergy Rash/Hives Verified 12/14/24 11:50 Physical Exam Vitals: Vital Signs Temp Pulse Resp BP Pulse Ox 12/14/24 12:48 80 18 97/62 100 12/14/24 12:38 81 18 96/54 100 12/14/24 12:33 88 16 89/57 100 12/14/24 11:41 97.0 F L 85 16 111/77 97 Intake and Output 12/13/24 12/14/24 12/14/24 22:59 06:59 14:59 Intake Total 52 Balance 52 Intake: IV 52 Other: Weight 87.4 kg Results CBC & Chem 7: 12/15/24 12:53 12/15/24 11:35 Labs: Abnormal Lab Results - Last 24 Hours (Table) 12/14/24 Range/Units 12:00 WBC 10.41 H (4.50-10.00) 10*3/uL Assessment and Plan Plan: Right femoral occlusion status post right femoral endarterectomy and patch angioplasty postoplasty Underlying history of coronary artery disease with previous history of myocardial infarction with angioplasty and stent placement Underlying history of depression and posttraumatic stress disorder Underlying history of congestive heart failure At this time patient was seen and examined Home medications reviewed and reordered Blood pressure is on the low side we are monitoring and adjusting fluid intake and cardiac medications Will check labs and follow closely
--- NOTE | 2024-12-15 15:30 | P.PN ---
Subjective Progress Note Date: 12/15/24 Mecca Tam, is a 44-year-old female who was admitted to [facility] by Dr. Kim for planned vascular intervention on the right lower extremity, patient had evidence of disabling claudication and evidence of right common femoral artery occlusion, she was admitted to the hospital on 12/14/2024 and underwent right common femoral artery endarterectomy and patch angioplasty, she was admitted to the telemetry floor postprocedure, medical consultation was requested for management while hospitalized. Her past medical history is significant for history of coronary artery disease w ith previous history of myocardial infarction, history of cardiac arrest, history of hypothyroidism, history of depression and posttraumatic stress disorder. On review of systems patient is alert and oriented x 3 in no apparent distress there is no fever or chills no headache or dizziness no chest pain she has mild shortness of breath with activity there is no cough no nausea or vomiting no abdominal pain no diarrhea no blood in the stools no burning with urination no frequency or urgency and no hematuria On 12/15/2024 patient was seen and examined on the telemetry floor she is alert and oriented x 3 in no apparent distress she is complaining of mild shortness of breath blood pressure remains low and patient received IV fluid bolus this morning otherwise she denies any complaints there is no fever or chills no headache or dizziness no chest pain no shortness of breath no cough no nausea or vomiting no abdominal pain no diarrhea and no urinary symptoms. Due to patient extensive cardiac history, and hypotension requiring holding multiple cardiac medication and giving IV fluid boluses, will add cardiology consult and continue to monitor closely. Objective - Vital Signs Vital signs: Vital Signs Temp 97.8 F 12/15/24 11:11 Pulse 81 12/15/24 11:11 Resp 16 12/15/24 11:11 BP 96/57 12/15/24 12:04 Pulse Ox 98 12/15/24 11:11 FiO2 Intake & Output 12/14/24 12/15/24 12/15/24 18:59 06:59 18:59 Intake Total 2001 30 220 Output Total 600 1175 250 Balance 1402 -1145 -30 Weight 87.4 kg 91 kg Intake: IV 1462 30 10 Invasive Line 1 5 10 5 Invasive Line 2 5 20 5 Oral 540 210 Output: Urine 550 1175 250 Estimated Blood Loss 50 Other: Voiding Method Indwelling Catheter Indwelling Catheter Toilet - Exam In general patient is alert and oriented x 3 in no distress HEENT head normocephalic and atraumatic Neck is supple no JVD no goiter no lymphadenopathy no carotid bruit Chest examination is clear to auscultation no crackles no wheezing Cardiac exam reveals regular heart sounds S1 and S2 no gallops no murmurs Abdomen is soft nontender no organomegaly with normal bowel sounds Extremity exam reveals no edema no cyanosis or clubbing Neurological examination reveals no gross focal deficits - Labs CBC & Chem 7: 12/15/24 12:53 12/15/24 11:35 Labs: Abnormal Lab Results - Last 24 Hours (Table) 12/15/24 12/15/24 12/15/24 Range/Units 11:35 11:35 12:45 WBC 10.46 H (4.50-10.00) 10*3/uL RBC 2.56 L (4.10-5.20) 10*6/uL Hgb 7.6 L D (12.0-15.0) g/dL Hct 24.4 L (37.2-46.3) % MCHC 31.1 L (32.0-37.0) g/dL Sodium 133 L (137-145) mmol/L Carbon Dioxide 13 L (22-30) mmol/L Creatinine 0.48 L (0.52-1.04) mg/dL Glucose 64 L (74-99) mg/dL POC Glucose (mg/dL) 133 H (70-110) mg/dL Calcium 7.8 L (8.4-10.2) mg/dL Magnesium 1.3 L (1.6-2.3) mg/dL Total Bilirubin <0.1 L (0.2-1.3) mg/dL AST 11 L (14-36) U/L Total Protein 3.3 L (6.3-8.2) g/dL Albumin 1.7 L (3.5-5.0) g/dL 12/15/24 Range/Units 12:53 WBC 16.40 H (4.50-10.00) 10*3/uL RBC 3.96 L (4.10-5.20) 10*6/uL Hgb 11.9 L D (12.0-15.0) g/dL Hct 36.4 L (37.2-46.3) % MCHC (32.0-37.0) g/dL Sodium (137-145) mmol/L Carbon Dioxide (22-30) mmol/L Creatinine (0.52-1.04) mg/dL Glucose (74-99) mg/dL POC Glucose (mg/dL) (70-110) mg/dL Calcium (8.4-10.2) mg/dL Magnesium (1.6-2.3) mg/dL Total Bilirubin (0.2-1.3) mg/dL AST (14-36) U/L Total Protein (6.3-8.2) g/dL Albumin (3.5-5.0) g/dL Assessment and Plan Plan: Right femoral occlusion status post right femoral endarterectomy and patch angioplasty postoplasty Underlying history of coronary artery disease with previous history of myocardial infarction with angioplasty and stent placement Underlying history of depression and posttraumatic stress disorder Underlying history of congestive heart failure At this time patient was seen and examined Home medications reviewed and reordered Blood pressure is on the low side we are monitoring and adjusting fluid intake and cardiac medications Will check labs and follow closely
[2024-12-16] MEDS: ALBUTEROL NEBULIZED 2.5 MG/3 ML INHALATION PRN (08:04)
--- NOTE | 2024-12-16 10:07 | P.PN ---
Subjective Progress Note Date: 12/16/24 Mecca Tam, is a 44-year-old female who was admitted to [facility] by Dr. Kim for planned vascular intervention on the right lower extremity, patient had evidence of disabling claudication and evidence of right common femoral artery occlusion, she was admitted to the hospital on 12/14/2024 and underwent right common femoral artery endarterectomy and patch angioplasty, she was admitted to the telemetry floor postprocedure, medical consultation was requested for management while hospitalized. Her past medical history is significant for history of coronary artery disease with previous history of myocardial infarction, history of cardiac arrest, history of hypothyroidism, history of depression and posttraumatic stress disorder. On review of systems patient is alert and oriented x 3 in no apparent distress there is no fever or chills no headache or dizziness no chest pain she has mild shortness of breath with activity there is no cough no nausea or vomiting no abdominal pain no diarrhea no blood in the stools no burning with urination no frequency or urgency and no hematuria On 12/15/2024 patient was seen and examined on the telemetry floor she is alert and oriented x 3 in no apparent distress she is complaining of mild shortness of breath blood pressure remains low and patient received IV fluid bolus this morning otherwise she denies any complaints there is no fever or chills no headache or dizziness no chest pain no shortness of breath no cough no nausea or vomiting no abdominal pain no diarrhea and no urinary symptoms. Due to patient extensive cardiac history, and hypotension requiring holding multiple cardiac medication and giving IV fluid boluses, will add cardiology consult and continue to monitor closely. On 12/16/2024 patient is alert and oriented x 3. Cardiology services have been consulted. Patient denies chest pain or shortness of breath. Patient denies nausea vomiting or diarrhea. Patient denies any urinary burning or frequency. Current vital signs temp 98.2, rate 90, respiratory rate 16, blood pressure 96/63 with pulse ox of 95% on room air Objective - Vital Signs Vital signs: Vital Signs Temp 98.2 F 12/16/24 04:00 Pulse 96 12/16/24 09:29 Resp 16 12/16/24 09:29 BP 90/56 12/16/24 09:29 Pulse Ox 95 12/16/24 09:29 FiO2 Intake & Output 12/15/24 12/16/24 12/16/24 18:59 06:59 18:59 Intake Total 1020 360 Output Total 525 470 Balance 495 -470 360 Weight 91 kg Intake: IV 20 10 Invasive Line 1 10 5 Invasive Line 2 10 5 Intake, IV Titration 550 Amount Sodium Chloride 0.9% 500 500 ml 500 ml @ 999 mls/hr IV .Q31M ONE Rx#:[id number] ceFAZolin 2 gm In Sodium 50 Chloride 0.9% 50 ml @ 100 mls/hr IVPB Q8HR [facility] Rx# :[id number] Oral 450 350 Output: Urine 525 470 Post Void Residual 0 Other: Voiding Method Toilet Toilet Toilet # Voids 1 2 - Exam In general patient is alert and oriented x 3 in no distress HEENT head normocephalic and atraumatic Neck is supple no JVD no goiter no lymphadenopathy no carotid bruit Chest examination is clear to auscultation no crackles no wheezing Cardiac exam reveals regular heart sounds S1 and S2 no gallops no murmurs Abdomen is soft nontender no organomegaly with normal bowel sounds Extremity exam reveals no edema no cyanosis or clubbing Neurological examination reveals no gross focal deficits - Labs CBC & Chem 7: 12/15/24 12:53 12/15/24 11:35 Labs: Abnormal Lab Results - Last 24 Hours (Table) 12/15/24 12/15/24 12/15/24 Range/Units 11:35 11:35 12:45 WBC 10.46 H (4.50-10.00) 10*3/uL RBC 2.56 L (4.10-5.20) 10*6/uL Hgb 7.6 L D (12.0-15.0) g/dL Hct 24.4 L (37.2-46.3) % MCHC 31.1 L (32.0-37.0) g/dL Sodium 133 L (137-145) mmol/L Carbon Dioxide 13 L (22-30) mmol/L Creatinine 0.48 L (0.52-1.04) mg/dL Glucose 64 L (74-99) mg/dL POC Glucose (mg/dL) 133 H (70-110) mg/dL Calcium 7.8 L (8.4-10.2) mg/dL Magnesium 1.3 L (1.6-2.3) mg/dL Total Bilirubin <0.1 L (0.2-1.3) mg/dL AST 11 L (14-36) U/L Total Protein 3.3 L (6.3-8.2) g/dL Albumin 1.7 L (3.5-5.0) g/dL 12/15/24 Range/Units 12:53 WBC 16.40 H (4.50-10.00) 10*3/uL RBC 3.96 L (4.10-5.20) 10*6/uL Hgb 11.9 L D (12.0-15.0) g/dL Hct 36.4 L (37.2-46.3) % MCHC (32.0-37.0) g/dL Sodium (137-145) mmol/L Carbon Dioxide (22-30) mmol/L Creatinine (0.52-1.04) mg/dL Glucose (74-99) mg/dL POC Glucose (mg/dL) (70-110) mg/dL Calcium (8.4-10.2) mg/dL Magnesium (1.6-2.3) mg/dL Total Bilirubin (0.2-1.3) mg/dL AST (14-36) U/L Total Protein (6.3-8.2) g/dL Albumin (3.5-5.0) g/dL Assessment and Plan Assessment: Right femoral occlusion status post right femoral endarterectomy and patch angioplasty postoplasty Underlying history of coronary artery disease with previous history of myocardial infarction with angioplasty and stent placement Underlying history of depression and posttraumatic stress disorder Underlying history of congestive heart failure At this time patient was seen and examined Home medications reviewed and reordered Blood pressure is on the low side we are monitoring and adjusting fluid intake and cardiac medications Will check labs and follow closely
[2024-12-16 10:25] LABS: Basophils # (A) 0.08 10*3/uL (0.00-0.10); Basophils % (A) 0.6 %; Eosinophils # (A) 0.24 10*3/uL (0.04-0.35); Eosinophils % (A) 1.7 %; HCT 37.0 % (37.2-46.3); HGB 11.7 g/dL (12.0-15.0); Lymphocytes # (A) 2.55 10*3/uL (0.90-5.00); Lymphocytes % (A) 17.7 %; MCH 29.5 pg (27.0-32.0); MCHC 31.6 g/dL (32.0-37.0); MCV 93.2 fL (80.0-97.0); Monocytes # (A) 1.03 10*3/uL (0.20-1.00); Monocytes % (A) 7.1 %; Neutrophils # (A) 10.45 10*3/uL (1.80-7.70); Neutrophils % (A) 72.3 %; Platelet Count 312 10*3/uL (140-440); RBC 3.97 10*6/uL (4.10-5.20); RDW 15.6 % (11.5-14.5); WBC 14.43 10*3/uL (4.50-10.00)
[2024-12-16 10:36] LABS: ALT 14 U/L (4-34); AST 16 U/L (14-36); African American GFR (CKD) 80 (>60 ml/min/1.73 sqM); Albumin 3.4 g/dL (3.5-5.0); Alkaline Phosphatase 91 U/L (38-126); Anion Gap 9 mmol/L; Blood Urea Nitrogen 11 mg/dL (7-17); Calcium 8.6 mg/dL (8.4-10.2); Carbon Dioxide 24 mmol/L (22-30); Chloride 106 mmol/L (98-107); Glucose 93 mg/dL (74-99); Non-African American GFR(CKD) 69 (>60 ml/min/1.73 sqM); Potassium 3.8 mmol/L (3.5-5.1); Sodium 139 mmol/L (137-145); Total Protein 5.8 g/dL (6.3-8.2)
--- NOTE | 2024-12-16 10:56 | P.CRDCN ---
History of Present Illness History of present illness: HISTORY OF PRESENT ILLNESS: This is a 44-year-old female with a past medical history significant for coronary artery disease with previous stenting, ischemic cardiomyopathy, moderate MR and AI, peripheral arterial disease, and former nicotine dependence. Patient follows in the office with Dr. Fowler. We have been asked to see the patient in consultation for history of CAD and hypotension. Patient examined at the bedside. Patient is status post right common femoral artery endarterectomy and patch angioplasty on 12/14/[address] Kim. Patient did have some low blood pressures on December 15, 2024 with systolics in the 70s. Her blood pressure medications were held and she did receive IV fluid bolus. Blood pressures this morning are in the 90s. The patient states her blood pressure usually runs between [id number]. She denies any dizziness or lightheadedness. No syncopal episodes. She currently denies any shortness of breath. She does report mild chest heaviness this morning. She states that she feels like she " got ran over by a truck". DIAGNOSTICS: - No EKG available at the time of this dictation - Laboratory data: WBC 16.4. Hemoglobin 11.9. Platelet count 331. Sodium 133. Potassium 3.9. BUN 7. Creatinine 0.48. - Current home cardiac medications include Pletal 100 mg twice a day, Demadex 10 mg daily, Aldactone 25 mg daily, Entresto 24-26 mg twice a day, metoprolol succinate 50 mg twice a day, Farxiga 10 mg daily, atorvastatin 80 mg at night, aspirin 81 mg daily. - Most recent echocardiogram obtained in August 2024 revealing ejection fraction 45%, apex akinetic, apical and periapical hypokinesia, moderate aortic regurgitation, moderate mitral regurgitation, mild to moderate tricuspid regurgitation. - Patient underwent stress testing in May 2023 with no arrhythmias noted. Stress test nondiagnostic secondary to baseline EKG abnormalities. - Patient underwent cardiac catheterization in April 2023 with stenting of the proximal LAD with stenting into the left main and circumflex secondary to dissection into the left main with IVUS imaging and placement of Impella catheter. REVIEW OF SYSTEMS: At the time of my exam: CONSTITUTIONAL: Denies fever or chills. HEENT: Denies blurred vision, vision changes, or eye pain. Denies hemoptysis CARDIOVASCULAR: Denies chest pain. Denies orthopnea. Denies PND. Denies palpitations RESPIRATORY: Denies shortness of breath. GASTROINTESTINAL: Denies abdominal pain. Denies nausea or vomiting. HEMATOLOGIC: Denies bleeding disorders. GENITOURINARY: Denies any blood in urine. SKIN: Denies pruitis. Denies rash. PHYSICAL EXAM: VITAL SIGNS: Reviewed. GENERAL: Well-developed in no acute distress. HEENT: Head is normocephalic. Pupils are equal, round. Sclerae anicteric. Mucous membranes of the mouth are moist. Neck supple. No JVD or thyromegaly LUNGS: Respirations even and unlabored. Lungs essentially clear to auscultation bilaterally. HEART: Regular rate and rhythm. S1 and S2 heard. Systolic murmur noted ABDOMEN: Soft. Nondistended. Nontender. EXTREMITIES: Normal range of motion. No clubbing or cyanosis. Peripheral pulses intact. No lower extremity edema NEUROLOGIC: Awake and alert. Oriented x 3. ASSESSMENT: Peripheral arterial disease, status post right common femoral artery endarterectomy and patch angioplasty on 12/14/2024 Postoperative hypotension, resolved History of V-fib arrest secondary to anterior STEMI, status post PCI of circumflex and left main into LAD, April 2023 Moderate mitral regurgitation Moderate aortic regurgitation Former nicotine dependence PLAN: No need to repeat echocardiogram as this was performed in the office in August 2024 Patient's blood pressure has improved after receiving IV fluid bolus yesterday Discontinue Lasix Discontinue Pletal Defer decision of resuming low dose Xarelto to vascular surgery Continue additional cardiac medications Continue to monitor blood pressure Further recommendations pending patient course Patient may follow-up postdischarge in the office with Dr. Fowler Nurse practitioner note has been reviewed by physician. Signing provider agrees with the documented findings, assessment, and plan of care documented by [facility] as a scribe. Past Medical History Past Medical History: Coronary Artery Disease (CAD), Heart Failure, Hyperlipidemia, Hypertension, Myocardial Infarction ([place]), Pneumonia, Thyroid Disorder, Vascular Disorder Additional Past Medical History / Comment(s): currently on zepbound for weight loss, seasonal allergies, PAD Rt. LE Last Myocardial Infarction Date:: 05/25/23 History of Any Multi-Drug Resistant Organisms: None Reported Past Surgical History: Heart Catheterization With Stent, Orthopedic Surgery Additional Past Surgical History / Comment(s): 4 bilateral knee surgeries(3 Rt., 1 Lt.), cardiac stents x4, thyroidectomy Past Anesthesia/Blood Transfusion Reactions: Motion Sickness, Postoperative Nausea & Vomiting (PONV) Date of Last Stent Placement:: 05/25/2023 Smoking Status: Former smoker - Past Family History Mother Family Medical History: Congestive Heart Failure (CHF), Hyperlipidemia Additional Family Medical History / Comment(s): 2019 from CHF Medications and Allergies Home Medications Medication Instructions Recorded Confirmed Type DULoxetine HCL [Cymbalta] 60 mg PO BID 15 Days #30 cap 08/16/22 12/14/24 Rx [place] Carbonate 300 mg PO BID 15 Days #30 cap 08/16/22 12/14/24 Rx Mirtazapine [Remeron] 15 mg PO HS 15 Days #15 tab 08/16/22 12/14/24 Rx Albuterol Nebulized [Ventolin 2.5 mg INHALATION RT-QID PRN 30 06/03/23 12/14/24 Rx Nebulized] Days #120 ml Aspirin 81 mg PO DAILY 30 Days #30 tab 06/03/23 12/14/24 Rx Atorvastatin [Lipitor] 80 mg PO HS 30 Days #30 tab 06/03/23 12/14/24 Rx Dapagliflozin Propanediol [Farxiga] 10 mg PO DAILY 30 Days #30 tab 06/03/23 12/14/24 Rx Ferrous Sulfate [Iron (65 MG 325 mg PO BID-W/MEALS 30 Days #30 06/03/23 12/14/24 Rx Elemental)] tab Nitroglycerin Sl Tabs [Nitrostat] 0.4 mg SUBLINGUAL Q5M PRN 30 Days 06/03/23 12/11/24 Rx #25 tab Spironolactone [Aldactone] 25 mg PO DAILY 30 Days #30 tab 06/03/23 12/14/24 Rx Levothyroxine Sodium [Synthroid] 112 mcg PO DAILY 11/13/24 12/14/24 History Metoprolol Succinate (ER) [Toprol 50 mg PO BID 11/13/24 12/14/24 History XL] Sacubitril/Valsartan [Entresto 24 1 tab PO BID 11/13/24 12/14/24 History mg-26 mg Tablet] Tirzepatide [Zepbound] 10 mg SQ MO 11/13/24 12/14/24 History Torsemide [Demadex] 10 mg PO DAILY 11/13/24 12/14/24 History cilostazoL [Pletal] 100 mg PO BID 11/13/24 12/14/24 History HYDROcodone/APAP 5-325MG [[place] 1 tab PO Q6HR PRN 3 Days #12 tab 12/14/24 Rx 5-325] Allergies Allergy/AdvReac Type Severity Reaction Status Date / Time desvenlafaxine [From Pristiq] Allergy Rash/Hives Verified 12/14/24 11:50 Physical Exam Vitals: Vital Signs Temp Pulse Pulse Resp BP BP Pulse Ox 12/16/24 08:20 80 12/16/24 08:07 78 12/16/24 04:00 98.2 F 90 16 96/63 95 12/16/24 00:00 98.0 F 83 18 92/57 94 L 12/15/24 22:36 98/62 12/15/24 21:20 85 102/66 12/15/24 19:48 97.9 F 84 18 103/67 97 12/15/24 16:33 92/55 12/15/24 15:56 77 16 89/53 98 12/15/24 12:04 96/57 12/15/24 11:11 97.8 F 81 16 75/40 75/36 98 Intake and Output 12/15/24 12/16/24 12/16/24 22:59 06:59 14:59 Intake Total 800 350 Output Total 745 Balance 55 350 Intake: IV 10 Invasive Line 1 5 Invasive Line 2 5 Intake, IV Titration 550 Amount Sodium Chloride 0.9% 500 500 ml 500 ml @ 999 mls/hr IV .Q31M ONE Rx#:[id number] ceFAZolin 2 gm In Sodium 50 Chloride 0.9% 50 ml @ 100 mls/hr IVPB Q8HR [facility] Rx# :[id number] Oral 240 350 Output: Urine 745 Other: Voiding Method Toilet Toilet # Voids 1 2 Weight 91 kg Results 12/16/24 06:11 12/16/24 06:11 Cardiac Enzymes 12/15/24 Range/Units 11:35 AST 11 L (14-36) U/L CBC 12/15/24 12/15/24 Range/Units 11:35 12:53 WBC 10.46 H 16.40 H (4.50-10.00) 10*3/uL RBC 2.56 L 3.96 L (4.10-5.20) 10*6/uL Hgb 7.6 L D 11.9 L D (12.0-15.0) g/dL Hct 24.4 L 36.4 L (37.2-46.3) % Plt Count 214 331 (140-440) 10*3/uL Comprehensive Metabolic Panel 12/15/24 Range/Units 11:35 Sodium 133 L (137-145) mmol/L Potassium 3.9 (3.5-5.1) mmol/L Chloride 106 (98-107) mmol/L Carbon Dioxide 13 L (22-30) mmol/L BUN 7 (7-17) mg/dL Creatinine 0.48 L (0.52-1.04) mg/dL Glucose 64 L (74-99) mg/dL Calcium 7.8 L (8.4-10.2) mg/dL AST 11 L (14-36) U/L ALT 8 (4-34) U/L Alkaline Phosphatase 46 (38-126) U/L Total Protein 3.3 L (6.3-8.2) g/dL Albumin 1.7 L (3.5-5.0) g/dL Current Medications Generic Name Dose Route Start Last Admin Trade Name Freq PRN Reason Stop Dose Admin Hydrocodone Bitart/Acetaminophen 2 each 12/15/24 08:08 12/16/24 06:58 Hydrocodone/Apap 5-325mg 1 Each Tab PO 2 each Q6HR PRN Administration Pain Albuterol Sulfate 2.5 mg 12/14/24 14:55 12/16/24 08:04 Albuterol Nebulized 2.5 Mg/3 Ml INHALATION 2.5 mg RT-QID PRN Administration Shortness Of Breath Or Wheezing Aspirin 81 mg 12/15/24 09:00 12/15/24 07:55 Aspirin 81 Mg PO 81 mg DAILY CONCEPCION Administration Atorvastatin Calcium 80 mg 12/14/24 21:00 12/15/24 21:27 Atorvastatin 80 Mg Tab PO 80 mg HS CONCEPCION Administration Cilostazol 100 mg 12/14/24 21:00 12/15/24 21:28 Cilostazol 100 Mg Tab PO 100 mg BID CONCEPCION Administration Clopidogrel Bisulfate 75 mg 12/15/24 09:00 12/15/24 07:55 Clopidogrel 75 Mg Tab PO 75 mg DAILY CONCEPCION Administration Dapagliflozin 10 mg 12/15/24 09:00 12/15/24 07:55 Dapagliflozin Propanediol 10 Mg Tablet PO 10 mg DAILY CONCEPCION Administration Duloxetine HCl 60 mg 12/14/24 21:00 12/15/24 21:27 Duloxetine Hcl 60 Mg Capsule.Dr PO 60 mg BID CONCEPCION Administration Ferrous Sulfate 325 mg 12/14/24 17:30 12/16/24 06:25 Ferrous Sulfate 325 Mg Tab PO 325 mg BID-W/MEALS CONCEPCION Administration Furosemide 20 mg 12/15/24 09:00 12/15/24 07:55 Furosemide 20 Mg Tab PO 20 mg DAILY CONCEPCION Administration Levothyroxine Sodium 112 mcg 12/15/24 06:30 12/16/24 06:25 Levothyroxine 112 Mcg Tab PO 112 mcg DAILY@0630 CONCEPCION Administration Lidocaine HCl 0.1 ml 12/14/24 05:57 Lidocaine 1% (10mg/Ml) For Iv Start INTRADERMA PER PROTOCOL PRN IV Start [place] Carbonate 300 mg 12/14/24 21:00 12/15/24 21:27 [place] Carbonate 300 Mg Cap PO 300 mg BID CONCEPCION Administration Metoprolol Succinate 50 mg 12/14/24 21:00 12/15/24 21:27 Metoprolol Succinate (Er) 50 Mg Tab.Er.24h PO 50 mg BID CONCEPCION Administration Mirtazapine 15 mg 12/14/24 21:00 12/15/24 21:27 Mirtazapine 15 Mg Tab PO 15 mg HS CONCEPCION Administration Miscellaneous Information 1 each 12/15/24 12:45 Magnesium Replacement Protocol 1 Each Misc MISCELLANE DAILY PRN Per Protocol Protocol Nitroglycerin 0.4 mg 12/14/24 14:55 Nitroglycerin Sl Tabs 0.4 Mg Tab SUBLINGUAL Q5M PRN Chest Pain Sacubitril/Valsartan 1 each 12/14/24 21:00 12/15/24 21:27 Sacubitril/Valsartan 24 Mg-26 Mg Tablet PO 1 each BID CONCEPCION Administration Spironolactone 25 mg 12/15/24 09:00 12/15/24 11:10 Spironolactone 25 Mg Tab PO Not Given DAILY CONCEPCION Intake and Output 12/15/24 12/16/24 12/16/24 22:59 06:59 14:59 Intake Total 800 350 Output Total 745 Balance 55 350 Intake: IV 10 Invasive Line 1 5 Invasive Line 2 5 Intake, IV Titration 550 Amount Sodium Chloride 0.9% 500 500 ml 500 ml @ 999 mls/hr IV .Q31M ONE Rx#:[id number] ceFAZolin 2 gm In Sodium 50 Chloride 0.9% 50 ml @ 100 mls/hr IVPB Q8HR [facility] Rx# :[id number] Oral 240 350 Output: Urine 745 Other: Voiding Method Toilet Toilet # Voids 1 2 Weight 91 kg 12/15/24 12:53 12/15/24 11:35
--- NOTE | 2024-12-16 19:57 | P.PN ---
Progress Note - Text Progress Note Date: 12/16/24 Discussed with nursing patients blood pressure slightly improved. Cardiology evaluation reviewed and appreciate recommendations. From a vascular standpoint she is doing well. Plan for discharge once cleared per medicine and cardiology hopefully within 24 hours.
[2024-12-17 05:20] LABS: Basophils # (A) 0.07 10*3/uL (0.00-0.10); Basophils % (A) 0.7 %; Eosinophils # (A) 0.33 10*3/uL (0.04-0.35); Eosinophils % (A) 3.4 %; HCT 32.3 % (37.2-46.3); HGB 10.4 g/dL (12.0-15.0); Lymphocytes # (A) 3.24 10*3/uL (0.90-5.00); Lymphocytes % (A) 33.0 %; MCH 29.2 pg (27.0-32.0); MCHC 32.2 g/dL (32.0-37.0); MCV 90.7 fL (80.0-97.0); Monocytes # (A) 0.73 10*3/uL (0.20-1.00); Monocytes % (A) 7.4 %; Neutrophils # (A) 5.44 10*3/uL (1.80-7.70); Neutrophils % (A) 55.3 %; Platelet Count 289 10*3/uL (140-440); RBC 3.56 10*6/uL (4.10-5.20); RDW 15.4 % (11.5-14.5); WBC 9.83 10*3/uL (4.50-10.00)
[2024-12-17 05:44] LABS: ALT 19 U/L (4-34); AST 25 U/L (14-36); African American GFR (CKD) >90 (>60 ml/min/1.73 sqM); Albumin 3.0 g/dL (3.5-5.0); Alkaline Phosphatase 86 U/L (38-126); Anion Gap 8 mmol/L; Blood Urea Nitrogen 10 mg/dL (7-17); Calcium 8.7 mg/dL (8.4-10.2); Carbon Dioxide 23 mmol/L (22-30); Chloride 106 mmol/L (98-107); Glucose 88 mg/dL (74-99); Non-African American GFR(CKD) 86 (>60 ml/min/1.73 sqM); Potassium 3.8 mmol/L (3.5-5.1); Sodium 137 mmol/L (137-145); Total Protein 5.3 g/dL (6.3-8.2)
--- NOTE | 2024-12-17 07:37 | P.PN ---
Subjective HISTORY OF PRESENT ILLNESS: This is a 44-year-old female with a past medical history significant for coronary artery disease with previous stenting, ischemic cardiomyopathy, moderate MR and AI, peripheral arterial disease, and former nicotine dependence. Patient follows in the office with Dr. Fowler. We have been asked to see the patient in consultation for history of CAD and hypotension. Patient examined at the bedside. Patient is status post right common femoral artery endarterectomy and patch angioplasty on 12/14/[address] Kim. Patient did have some low blood pressures on December 15, 2024 with systolics in the 70s. Her blood pressure medications were held and she did receive IV fluid bolus. Blood pressures this morning are in the 90s. The patient states her blood pressure usually runs between 820803. She denies any dizziness or lightheadedness. No syncopal episodes. She currently denies any shortness of breath. She does report mild chest heaviness this morning. She states that she feels like she " got ran over by a truck". DIAGNOSTICS: - No EKG available at the time of this dictation - Laboratory data: WBC 16.4. Hemoglobin 11.9. Platelet count 331. Sodium 133. Potassium 3.9. BUN 7. Creatinine 0.48. - Current home cardiac medications include Pletal 100 mg twice a day, Demadex 10 mg daily, Aldactone 25 mg daily, Entresto 24-26 mg twice a day, metoprolol succinate 50 mg twice a day, Farxiga 10 mg daily, atorvastatin 80 mg at night, aspirin 81 mg daily. - Most recent echocardiogram obtained in August 2024 revealing ejection fraction 45%, apex akinetic, apical and periapical hypokinesia, moderate aortic regurgitation, moderate mitral regurgitation, mild to moderate tricuspid regurgitation. - Patient underwent stress testing in May 2023 with no arrhythmias noted. Stress test nondiagnostic secondary to baseline EKG abnormalities. - Patient underwent cardiac catheterization in April 2023 with stenting of the proximal LAD with stenting into the left main and circumflex secondary to dissection into the left main with IVUS imaging and placement of Impella catheter. 12/17 Patient seen and examined. Patient states overall she is feeling okay. No significant lower extremity pain or weakness. She has mild lightheadedness when she stands up. She believes her hands and joints are somewhat swollen. Denies any fevers or chills. No chest pain or pressure. She is still on the Entresto, Aldactone and metoprolol however metoprolol and Entresto have been held last night secondary to borderline blood pressures. Blood pressures in the 90s over 50s. Her hemoglobin is in the 10 range previously more in the 13-14 range. Her Lasix has been on hold. PHYSICAL EXAM: VITAL SIGNS: Reviewed. GENERAL: Well-developed in no acute distress. HEENT: Head is normocephalic. Pupils are equal, round. Sclerae anicteric. Mucous membranes of the mouth are moist. Neck supple. No JVD or thyromegaly LUNGS: Respirations even and unlabored. Lungs essentially clear to auscultation bilaterally. HEART: Regular rate and rhythm. S1 and S2 heard. Systolic murmur noted ABDOMEN: Soft. Nondistended. Nontender. EXTREMITIES: Normal range of motion. No clubbing or cyanosis. Peripheral pulses intact. No lower extremity edema NEUROLOGIC: Awake and alert. Oriented x 3. ASSESSMENT: Peripheral arterial disease, status post right common femoral artery endarterectomy and patch angioplasty on 12/14/2024 Postoperative hypotension, resolved History of V-fib arrest secondary to anterior STEMI, status post PCI of circumflex and left main into LAD, April 2023 Moderate mitral regurgitation Moderate aortic regurgitation Former nicotine dependence PLAN: No need to repeat echocardiogram as this was performed in the office in August 2024 Patient's blood pressure has improved after receiving IV fluid bolus 12/15 Continue to hold Lasix Blood pressures still somewhat borderline. Stop Aldactone at least for now and attempt to give Entresto and metoprolol this morning. If blood pressure decreasing significantly may need to half or hold the medications. If blood pressure and symptoms stable will likely discharge home later today or tomorrow on Entresto, metoprolol with holding Lasix and Aldactone. Hypotension likely in part related to anemia. Objective - Vital Signs Vital signs: Vital Signs Temp 98.6 F 12/17/24 04:00 Pulse 87 12/17/24 04:00 Resp 17 12/17/24 04:00 BP 97/62 12/17/24 04:00 Pulse Ox 94 L 12/17/24 04:00 FiO2 Intake & Output 12/16/24 12/17/24 12/17/24 18:59 06:59 18:59 Intake Total 825 400 Output Total 1350 Balance -525 400 Weight 91.2 kg Intake: IV 10 40 Invasive Line 1 5 20 Invasive Line 2 5 20 Oral 815 360 Output: Urine 1350 Other: Voiding Method Toilet Toilet # Voids 1 - Labs CBC & Chem 7: 12/17/24 04:19 12/17/24 04:19 Labs: Abnormal Lab Results - Last 24 Hours (Table) 12/16/24 12/16/24 12/17/24 Range/Units 06:11 06:11 04:19 WBC 14.43 H (4.50-10.00) 10*3/uL RBC 3.97 L 3.56 L (4.10-5.20) 10*6/uL Hgb 11.7 L 10.4 L (12.0-15.0) g/dL Hct 37.0 L 32.3 L (37.2-46.3) % MCHC 31.6 L (32.0-37.0) g/dL Immature Gran # 0.08 H (0.00-0.04) 10*3/uL Neutrophils # 10.45 H (1.80-7.70) 10*3/uL Monocytes # 1.03 H (0.20-1.00) 10*3/uL Total Protein 5.8 L (6.3-8.2) g/dL Albumin 3.4 L (3.5-5.0) g/dL 12/17/24 Range/Units 04:19 WBC (4.50-10.00) 10*3/uL RBC (4.10-5.20) 10*6/uL Hgb (12.0-15.0) g/dL Hct (37.2-46.3) % MCHC (32.0-37.0) g/dL Immature Gran # (0.00-0.04) 10*3/uL Neutrophils # (1.80-7.70) 10*3/uL Monocytes # (0.20-1.00) 10*3/uL Total Protein 5.3 L (6.3-8.2) g/dL Albumin 3.0 L (3.5-5.0) g/dL
--- NOTE | 2024-12-17 10:42 | P.PN ---
Subjective Progress Note Date: 12/17/24 Principal diagnosis: Right femoral occlusion Patient is seen and examined today as a follow-up. She is postop day #3 for right common femoral artery endarterectomy and patch angioplasty Objective - Vital Signs Vital signs: Vital Signs Temp 97.9 F 12/17/24 08:29 Pulse 83 12/17/24 08:29 Resp 16 12/17/24 08:29 BP 95/60 12/17/24 08:34 Pulse Ox 97 12/17/24 08:29 FiO2 Intake & Output 12/16/24 12/17/24 12/17/24 18:59 06:59 18:59 Intake Total 825 400 240 Output Total 1350 Balance -525 400 240 Weight 91.2 kg Intake: IV 10 40 Invasive Line 1 5 20 Invasive Line 2 5 20 Oral 815 360 240 Output: Urine 1350 Other: Voiding Method Toilet Toilet # Voids 1 - Exam General appearance: The patient is alert, oriented, appears in no acute distress. HET: Head is normocephalic and atraumatic. Pupils are equal and reactive. Neck: Supple. Heart: Regular. Lungs: Equal expansion, normal respiratory effort. Abdomen: Soft, nontender, nondistended. Extremities: Normal skin color and turgor. Right groin with Prevena wound VAC in place with good suction. No surrounding hematoma or ecchymosis noted. Right lower extremity warm to the touch, good capillary refill. Palpable DP and PT pulse. Neurological: No focal deficits. Strength and sensation are grossly intact. - Labs CBC & Chem 7: 12/17/24 04:19 12/17/24 04:19 Labs: Abnormal Lab Results - Last 24 Hours (Table) 12/16/24 12/17/24 12/17/24 Range/Units 06:11 04:19 04:19 RBC 3.56 L (4.10-5.20) 10*6/uL Hgb 10.4 L (12.0-15.0) g/dL Hct 32.3 L (37.2-46.3) % Total Protein 5.8 L 5.3 L (6.3-8.2) g/dL Albumin 3.4 L 3.0 L (3.5-5.0) g/dL Assessment and Plan Assessment: 1. 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 Postoperative hypotension, resolved 3. History of coronary artery disease and NE status post stenting 4. Former nicotine dependence Plan: 1. Encourage ambulation 2. Continue with recommendations from cardiology and medical team 3. From a vascular surgical standpoint patient is doing well. She is cleared for discharge awaiting further recs from cardiology and medical team The impression and plan of care has been dictated as directed. Dr. Kim I performed a history and examination of this patient, discussed the same with the dictator. I agree with the dictator's note ,documented as a scribe. Any additional findings or plans will be noted.
[2024-12-17] MEDS: ACETAMINOPHEN TAB 325 MG TAB PO PRN (16:11)
--- NOTE | 2024-12-17 17:13 | P.PN ---
Subjective Progress Note Date: 12/17/24 Mecca Tam, is a 44-year-old female who was admitted to [facility] by Dr. Kim for planned vascular intervention on the right lower extremity, patient had evidence of disabling claudication and evidence of right common femoral artery occlusion, she was admitted to the hospital on 12/14/2024 and underwent right common femoral artery endarterectomy and patch angioplasty, she was admitted to the telemetry floor postprocedure, medical consultation was requested for management while hospitalized. Her past medical history is significant for history of coronary artery disease w ith previous history of myocardial infarction, history of cardiac arrest, history of hypothyroidism, history of depression and posttraumatic stress disorder. On review of systems patient is alert and oriented x 3 in no apparent distress there is no fever or chills no headache or dizziness no chest pain she has mild shortness of breath with activity there is no cough no nausea or vomiting no abdominal pain no diarrhea no blood in the stools no burning with urination no frequency or urgency and no hematuria On 12/15/2024 patient was seen and examined on the telemetry floor she is alert and oriented x 3 in no apparent distress she is complaining of mild shortness of breath blood pressure remains low and patient received IV fluid bolus this morning otherwise she denies any complaints there is no fever or chills no headache or dizziness no chest pain no shortness of breath no cough no nausea or vomiting no abdominal pain no diarrhea and no urinary symptoms. Due to patient extensive cardiac history, and hypotension requiring holding multiple cardiac medication and giving IV fluid boluses, will add cardiology consult and continue to monitor closely. On 12/16/2024 patient is alert and oriented x 3. Cardiology services have been consulted. Patient denies chest pain or shortness of breath. Patient denies nausea vomiting or diarrhea. Patient denies any urinary burning or frequency. Current vital signs temp 98.2, rate 90, respiratory rate 16, blood pressure 96/63 with pulse ox of 95% on room air On 12/17/2024 patient was seen and examined on the medical floor, she is alert and oriented x 3 in no apparent distress, she is complaining of dizziness when standing up otherwise she denies any complaints there is no fever or chills no headache no chest pain no shortness of breath no cough no nausea or vomiting no abdominal pain no diarrhea and no urinary symptoms. Vital examination reveals a temperature of 97.9 pulse 83 respiration 16 blood pressure 90/55 pulse ox 97% on room air. At this time we are waiting for cardiology evaluation to assess cardiac medications. Objective - Vital Signs Vital signs: Vital Signs Temp 98.1 F 12/17/24 11:50 Pulse 82 12/17/24 11:50 Resp 16 12/17/24 11:50 BP 116/70 12/17/24 11:50 Pulse Ox 97 12/17/24 11:50 FiO2 Intake & Output 12/16/24 12/17/24 12/17/24 18:59 06:59 18:59 Intake Total 825 400 240 Output Total 1350 Balance -525 400 240 Weight 91.2 kg Intake: IV 10 40 Invasive Line 1 5 20 Invasive Line 2 5 20 Oral 815 360 240 Output: Urine 1350 Other: Voiding Method Toilet Toilet # Voids 1 - Exam In general patient is alert and oriented x 3 in no distress HEENT head normocephalic and atraumatic Neck is supple no JVD no goiter no lymphadenopathy no carotid bruit Chest examination is clear to auscultation no crackles no wheezing Cardiac exam reveals regular heart sounds S1 and S2 no gallops no murmurs Abdomen is soft nontender no organomegaly with normal bowel sounds Extremity exam reveals no edema no cyanosis or clubbing Neurological examination reveals no gross focal deficits - Labs CBC & Chem 7: 12/17/24 04:19 12/17/24 04:19 Labs: Abnormal Lab Results - Last 24 Hours (Table) 12/17/24 12/17/24 Range/Units 04:19 04:19 RBC 3.56 L (4.10-5.20) 10*6/uL Hgb 10.4 L (12.0-15.0) g/dL Hct 32.3 L (37.2-46.3) % Total Protein 5.3 L (6.3-8.2) g/dL Albumin 3.0 L (3.5-5.0) g/dL Assessment and Plan Plan: Right femoral occlusion status post right femoral endarterectomy and patch angioplasty postoplasty Underlying history of coronary artery disease with previous history of m yocardial infarction with angioplasty and stent placement Underlying history of depression and posttraumatic stress disorder Underlying history of congestive heart failure At this time patient was seen and examined Home medications reviewed and reordered Blood pressure is on the low side we are monitoring and adjusting fluid intake and cardiac medications Will check labs and follow closely
--- NOTE | 2024-12-18 07:35 | P.PN ---
Subjective HISTORY OF PRESENT ILLNESS: This is a 44-year-old female with a past medical history significant for coronary artery disease with previous stenting, ischemic cardiomyopathy, moderate MR and AI, peripheral arterial disease, and former nicotine dependence. Patient follows in the office with Dr. Fowler. We have been asked to see the patient in consultation for history of CAD and hypotension. Patient examined at the bedside. Patient is status post right common femoral artery endarterectomy and patch angioplasty on 12/14/[address] Kim. Patient did have some low blood pressures on December 15, 2024 with systolics in the 70s. Her blood pressure medications were held and she did receive IV fluid bolus. Blood pressures this morning are in the 90s. The patient states her blood pressure usually runs between [id number]. She denies any dizziness or lightheadedness. No syncopal episodes. She currently denies any shortness of breath. She does report mild chest heaviness this morning. She states that she feels like she " got ran over by a truck". DIAGNOSTICS: - No EKG available at the time of this dictation - Laboratory data: WBC 16.4. Hemoglobin 11.9. Platelet count 331. Sodium 133. Potassium 3.9. BUN 7. Creatinine 0.48. - Current home cardiac medications include Pletal 100 mg twice a day, Demadex 10 mg daily, Aldactone 25 mg daily, Entresto 24-26 mg twice a day, metoprolol succinate 50 mg twice a day, Farxiga 10 mg daily, atorvastatin 80 mg at night, aspirin 81 mg daily. - Most recent echocardiogram obtained in August 2024 revealing ejection fraction 45%, apex akinetic, apical and periapical hypokinesia, moderate aortic regurgitation, moderate mitral regurgitation, mild to moderate tricuspid regurgitation. - Patient underwent stress testing in May 2023 with no arrhythmias noted. Stress test nondiagnostic secondary to baseline EKG abnormalities. - Patient underwent cardiac catheterization in April 2023 with stenting of the proximal LAD with stenting into the left main and circumflex secondary to dissection into the left main with IVUS imaging and placement of Impella catheter. 12/17 Patient seen and examined. Patient states overall she is feeling okay. No significant lower extremity pain or weakness. She has mild lightheadedness when she stands up. She believes her hands and joints are somewhat swollen. Denies any fevers or chills. No chest pain or pressure. She is still on the Entresto, Aldactone and metoprolol however metoprolol and Entresto have been held last night secondary to borderline blood pressures. Blood pressures in the 90s over 50s. Her hemoglobin is in the 10 range previously more in the 13-14 range. Her Lasix has been on hold. 12/18 Patient seen and examined. Patient denies any chest pain or pressure. Still with some lightheadedness. She did get her doses of metoprolol and Entresto yesterday with blood pressures in the 90s to 100s systolic however states she felt somewhat worse in terms of her lightheadedness. She is complaining of mild swelling in her hands and feet however no significant edema and Lasix has been on hold. PHYSICAL EXAM: VITAL SIGNS: Reviewed. GENERAL: Well-developed in no acute distress. HEENT: Head is normocephalic. Pupils are equal, round. Sclerae anicteric. Mucous membranes of the mouth are moist. Neck supple. No JVD or thyromegaly LUNGS: Respirations even and unlabored. Lungs essentially clear to auscultation bilaterally. HEART: Regular rate and rhythm. S1 and S2 heard. Systolic murmur noted ABDOMEN: Soft. Nondistended. Nontender. EXTREMITIES: Normal range of motion. No clubbing or cyanosis. Peripheral pulses intact. No lower extremity edema NEUROLOGIC: Awake and alert. Oriented x 3. ASSESSMENT: Peripheral arterial disease, status post right common femoral artery endarterectomy and patch angioplasty on 12/14/2024 Postoperative hypotension, resolved History of V-fib arrest secondary to anterior STEMI, status post PCI of circumflex and left main into LAD, April 2023 Moderate mitral regurgitation Moderate aortic regurgitation Former nicotine dependence PLAN: No need to repeat echocardiogram as this was performed in the office in August 2024 Patient's blood pressure has improved after receiving IV fluid bolus 12/15 Continue to hold Lasix Hold all of the patient's heart failure regimen other than metoprolol. Blood pressure fairly stable however patient does feel somewhat lightheaded and there fore continue to hold this and patient will be discharged home on metoprolol 12.5 mg daily and holding Lasix, Entresto, Aldactone. Discussed checking blood pressure at home and following up in the office in approximately a week. Objective - Vital Signs Vital signs: Vital Signs Temp 98.2 F 12/18/24 04:00 Pulse 79 07/22/25 04:00 Resp 17 12/18/24 04:00 BP 94/62 12/18/24 04:00 Pulse Ox 97 12/18/24 04:00 FiO2 Intake & Output 12/17/24 12/18/24 12/18/24 18:59 06:59 18:59 Intake Total 1020 160 Balance 1020 160 Weight 91.1 kg Intake: IV 40 Invasive Line 1 20 Invasive Line 2 20 Oral 1020 120 Other: Voiding Method Toilet # Voids 1 1 # Bowel Movements 0 - Labs CBC & Chem 7: 12/17/24 04:19 12/17/24 04:19
[2024-12-18 08:04] VITALS: BP 107/72; PULSE 82; RESP 14; TEMP 98.3
[2024-12-18] MEDS: METOPROLOL SUCCINATE (ER) 25 MG TAB.ER.24H PO SCH (08:07)
--- NOTE | 2024-12-18 10:04 | P.DS ---
Providers Date of admission: 12/14/24 11:17 Attending physician: Sulaiman Kim DO Consults: 12/14/24 12:48 Consult Physician Routine Consulting Provider: Laure Padgett Consult Reason/Comments: Medical management Do you want consulting provider notified?: Yes 12/15/24 15:30 Consult Physician Routine Consulting Provider: Jesse Galeano Consult Reason/Comments: CAD, hypotension Do you want consulting provider notified?: Yes Primary care physician: Valentine Weaver [place] [facility] Course: This is a 44-year-old female with a history of coronary artery disease, previous heart catheterization with coronary artery stenting due to acute NE and in April who was having increased pain in her right lower extremity after the procedure and over the past 6 months with worsening pain and difficulty with ambulating. Patient had undergone angiogram that demonstrated severe occlusive disease of the right lower extremity with complete occlusion of the right common femoral artery she had underwent elective right common femoral artery endarterectomy and patch angioplasty on 12/14/2024 and is postop day #4. Upon access of the common femoral artery there was Perclose closure device noted with dense scar tissue around the area and was located in the posterior wall and medial wall with dense scarring and plaque buildup. Internal medicine was consulted for medical management and had consulted cardiology for postoperative hypotension which was improved with IV fluid bolus. Patient had remained with some dizziness, cardiology had seen patient and made multiple medication changes. Blood pressures are improved and patient's symptoms have resolved. She has been up and ambulating. Has some discomfort in the right groin where her incision is which has a Prevena wound VAC. Right lower extremity pain impr [place]. Good capillary refill in foot and leg is warm to touch. Patient has been afebrile. Vital signs have been stable. Exam General appearance: The patient is alert, oriented, appears in no acute distress. HET: Head is normocephalic and atraumatic. Pupils are equal and reactive. Neck: Supple. Heart: Regular. Lungs: Equal expansion, normal respiratory effort. Abdomen: Soft, nontender, nondistended. Extremities: Normal skin color and turgor. Right groin with Prevena wound VAC intact with good suction. Right lower extremity warm to the touch, good capillary refill and palpable DP and PT pulse. Neurological: No focal deficits. Strength and sensation are grossly intact. Assessment 1. Right common femoral artery occlusion status post right common femoral artery endarterectomy and patch angioplasty 2. Disabling claudication Bells classification 3 3. Postoperative hypotension, resolved 4. Coronary artery disease with with history of acute NE and coronary artery stenting 5. Former nicotine dependence Plan 1. Will continue with recommendations from cardiology on holding home medications from cardiology on holding home medications including Lasix, Entresto and Aldactone. 2. Will be discharged home on metoprolol 12.5 mg daily per recommendations from cardiology 3. Continue Prevena wound VAC to right groin incision until 12/21/2024. Then may remove and discard. 4. Sponge bathe until Prevena wound VAC removed 5. Discharge instructions reviewed with patient including restrictions as listed in discharge plan 6. Follow-up with vascular surgery in 2 weeks. Recommend following up with electric golf cart repairer within 1 week. The impression and plan of care has been dictated as directed. Dr. Kim I performed a history and examination of this patient, discussed the same with the dictator. I agree with the dictator's note ,documented as a scribe. Any additional findings or plans will be noted. Procedures: Right common femoral artery endarterectomy and patch angioplasty Patient Condition at Discharge: Stable Plan - Discharge Summary Discharge Rx Participant: Yes New Discharge Prescriptions: New HYDROcodone/APAP 5-325MG [[place] 5-325] 1 tab PO Q6HR PRN 3 Days #12 tab PRN Reason: Pain Scale 6 To 7 Clopidogrel [Plavix] 75 mg PO DAILY #30 tab No Action DULoxetine HCL [Cymbalta] 60 mg PO BID 15 Days #30 cap [place] Carbonate 300 mg PO BID 15 Days #30 cap Dapagliflozin Propanediol [Farxiga] 10 mg PO DAILY 30 Days #30 tab Nitroglycerin Sl Tabs [Nitrostat] 0.4 mg SUBLINGUAL Q5M PRN 30 Days #25 tab PRN Reason: Chest Pain Albuterol Nebulized [Ventolin Nebulized] 2.5 mg INHALATION RT-QID PRN 30 Days #120 ml PRN Reason: Shortness Of Breath Or Wheezing Torsemide [Demadex] 10 mg PO DAILY Levothyroxine Sodium [Synthroid] 112 mcg PO DAILY Mirtazapine [Remeron] 15 mg PO HS 15 Days #15 tab Spironolactone [Aldactone] 25 mg PO DAILY 30 Days #30 tab Aspirin 81 mg PO DAILY 30 Days #30 tab Ferrous Sulfate [Iron (65 MG Elemental)] 325 mg PO BID-W/MEALS 30 Days #30 t ab Atorvastatin [Lipitor] 80 mg PO HS 30 Days #30 tab cilostazoL [Pletal] 100 mg PO BID Sacubitril/Valsartan [Entresto 24 mg-26 mg Tablet] 1 tab PO BID Metoprolol Succinate (ER) [Toprol XL] 50 mg PO BID Tirzepatide [Zepbound] 10 mg SQ MO Discharge Medication List DULoxetine HCL [Cymbalta] 60 mg PO BID 15 Days #30 cap 08/16/22 [Rx] [place] Carbonate 300 mg PO BID 15 Days #30 cap 08/16/22 [Rx] Mirtazapine [Remeron] 15 mg PO HS 15 Days #15 tab 08/16/22 [Rx] Albuterol Nebulized [Ventolin Nebulized] 2.5 mg INHALATION RT-QID PRN 30 Days #120 ml 06/03/23 [Rx] Aspirin 81 mg PO DAILY 30 Days #30 tab 06/03/23 [Rx] Atorvastatin [Lipitor] 80 mg PO HS 30 Days #30 tab 06/03/23 [Rx] Dapagliflozin Propanediol [Farxiga] 10 mg PO DAILY 30 Days #30 tab 06/03/23 [Rx] Ferrous Sulfate [Iron (65 MG Elemental)] 325 mg PO BID-W/MEALS 30 Days #30 tab 06/03/23 [Rx] Nitroglycerin Sl Tabs [Nitrostat] 0.4 mg SUBLINGUAL Q5M PRN 30 Days #25 tab 06/03/23 [Rx] Spironolactone [Aldactone] 25 mg PO DAILY 30 Days #30 tab 06/03/23 [Rx] Levothyroxine Sodium [Synthroid] 112 mcg PO DAILY 11/13/24 [History] Metoprolol Succinate (ER) [Toprol XL] 50 mg PO BID 11/13/24 [History] Sacubitril/Valsartan [Entresto 24 mg-26 mg Tablet] 1 tab PO BID 11/13/24 [History] Tirzepatide [Zepbound] 10 mg SQ MO 11/13/24 [History] Torsemide [Demadex] 10 mg PO DAILY 11/13/24 [History] cilostazoL [Pletal] 100 mg PO BID 11/13/24 [History] HYDROcodone/APAP 5-325MG [[place] 5-325] 1 tab PO Q6HR PRN 3 Days #12 tab 12/14/24 [Rx] Clopidogrel [Plavix] 75 mg PO DAILY #30 tab 12/17/24 [Rx] Follow up Appointment(s)/Referral(s): Sulaiman Kim DO [STAFF PHYSICIAN] - 2 Weeks Patient Instructions/Handouts: Remote Superficial Femoral Artery Endarterectomy (DC) Activity/Diet/Wound Care/Special Instructions: No driving until cleared by surgeon Avoid heavy lifting greater than 10 lbs , pushing, pulling, straining, flights of stairs for 2 weeks Sponge bath only until left groin dressing discontinued then may shower but no tub baths or soaking until cleared by surgeon signs of infection ie: fever, rash, drainage from puncture site, swelling contact doctor or return to ER immediately. Heavy bleeding from surgical site apply firm direct pressure and return to ER.Do not attempt to drive self. ow sodium/low fat diet Keep Prevena dressing in place for 6 days.May shut off, remove and discard on 12/21/24 Discharge Disposition: HOME SELF-CARE
--- NOTE | 2024-12-18 12:18 | P.PN ---
Subjective Progress Note Date: 12/18/24 Mecca Tam, is a 44-year-old female who was admitted to [facility] by Dr. Kim for planned vascular intervention on the right lower extremity, patient had evidence of disabling claudication and evidence of right common femoral artery occlusion, she was admitted to the hospital on 12/14/2024 and underwent right common femoral artery endarterectomy and patch angioplasty, she was admitted to the telemetry floor postprocedure, medical consultation was requested for management while hospitalized. Her past medical history is significant for history of coronary artery disease with previous history of myocardial infarction, history of cardiac arrest, history of hypothyroidism, history of depression and posttraumatic stress disorder. On review of systems patient is alert and oriented x 3 in no apparent distress there is no fever or chills no headache or dizziness no chest pain she has mild shortness of breath with activity there is no cough no nausea or vomiting no abdominal pain no diarrhea no blood in the stools no burning with urination no frequency or urgency and no hematuria On 12/15/2024 patient was seen and examined on the telemetry floor she is alert and oriented x 3 in no apparent distress she is complaining of mild shortness of breath blood pressure remains low and patient received IV fluid bolus this morning otherwise she denies any complaints there is no fever or chills no headache or dizziness no chest pain no shortness of breath no cough no nausea or vomiting no abdominal pain no diarrhea and no urinary symptoms. Due to patient extensive cardiac history, and hypotension requiring holding multiple cardiac medication and giving IV fluid boluses, will add cardiology consult and continue to monitor closely. On 12/16/2024 patient is alert and oriented x 3. Cardiology services have been consulted. Patient denies chest pain or shortness of breath. Patient denies nausea vomiting or diarrhea. Patient denies any urinary burning or frequency. Current vital signs temp 98.2, rate 90, respiratory rate 16, blood pressure 96/63 with pulse ox of 95% on room air On 12/17/2024 patient was seen and examined on the medical floor, she is alert and oriented x 3 in no apparent distress, she is complaining of dizziness when standing up otherwise she denies any complaints there is no fever or chills no headache no chest pain no shortness of breath no cough no nausea or vomiting no abdominal pain no diarrhea and no urinary symptoms. Vital examination reveals a temperature of 97.9 pulse 83 respiration 16 blood pressure 90/55 pulse ox 97% on room air. At this time we are waiting for cardiology evaluation to assess cardiac medications. On 12/18/2024 patient is alert and oriented x 3. Patient being DC'd home per vascular surgery. Patient was evaluated by cardiology services and cardiac meds reflected in discharge summary Per vascular surgery patient verbalized understanding of monitoring blood pressure medication and blood pressure results and following up with cardiology and PCP for further management. At this time patient denies chest pain or shortness of breath. Patient denies nausea vomiting or diarrhea. Patient denies any urinary burning or frequency. Current vital signs temp 98.3, heart rate 82, respiratory rate 14, blood pressure 107/72 with pulse ox of 97% on room air Objective - Vital Signs Vital signs: Vital Signs Temp 98.3 F 12/18/24 08:02 Pulse 82 12/18/24 08:02 Resp 14 12/18/24 08:02 BP 107/72 12/18/24 08:02 Pulse Ox 97 12/18/24 08:02 FiO2 Intake & Output 12/17/24 12/18/24 12/18/24 18:59 06:59 18:59 Intake Total 1020 160 240 Balance 1020 160 240 Weight 91.1 kg Intake: IV 40 Invasive Line 1 20 Invasive Line 2 20 Oral 1020 120 240 Other: Voiding Method Toilet # Voids 1 1 # Bowel Movements 0 - Exam In general patient is alert and oriented x 3 in no distress HEENT head normocephalic and atraumatic Neck is supple no JVD no goiter no lymphadenopathy no carotid bruit Chest examination is clear to auscultation no crackles no wheezing Cardiac exam reveals regular heart sounds S1 and S2 no gallops no murmurs Abdomen is soft nontender no organomegaly with normal bowel sounds Extremity exam reveals no edema no cyanosis or clubbing Neurological examination reveals no gross focal deficits - Labs CBC & Chem 7: 12/17/24 04:19 12/17/24 04:19 Assessment and Plan Assessment: Right femoral occlusion status post right femoral endarterectomy and patch angioplasty postoplasty Underlying history of coronary artery disease with previous history of myocardial infarction with angioplasty and stent placement Underlying history of depression and posttraumatic stress disorder Underlying history of congestive heart failure At this time patient was seen and examined Home medications reviewed and reordered Blood pressure is on the low side we are monitoring and adjusting fluid intake and cardiac medications Will check labs and follow closely
--- NOTE | 2024-12-20 07:59 | CDI ---
Documentation Clarification Form Date: 12/20/2024 07:45:39 AM From: Sherri Malloy Admit Date: 12/14/2024 11:17:00 AM Patient Name: Mecca Tam Visit Number: [id number] Discharge Date: 12/18/2024 12:14:00 PM ATTENTION: The Clinical Documentation Specialists (CDI) and [facility] Coding Staff appreciate your assistance in clarifying documentation. Please respond to the clarification below the line at the bottom and electronically sign. The CDI & [facility] Coding staff will review the response and follow-up if needed. Please note: Queries are made part of the Legal Health Record. If you have any questions, please contact the author of this message via ITS. Doctor/Provider: Sulaiman Kim Postoperative hypotension is documented in DCS, progress notes and consult. Please clarify if the postoperative hypotension was Expected" or a complication of surgery. . Additional clarification is requested. History/Risk Factors: PAD common femoral arterectomy with patch graft. Clinical Indicators: Blood pressure 89/57 Treatment: IV fluids Can you please clarify if the postprocedural hypotension was Expected or was a complication of the surgery. [ x ] Post procedural hypotension was an expected outcome after surgery [ ] Post procedural hypotension is a complication of the surgery [ ] Other, please specify [ ] Unable to determine MTDD
== END 2024-12-18 12:14 | disposition home or self-care (01) | DRG 181 ==
LOC: 2ORMAIN 11:17 → 3SCARD 17:32
PROVIDERS: ADMIT Surgery; ATTEND Surgery
PROC: 04UK0KZ Supplement Right Femoral Artery with Nonautologous Tissue Substitute, Open Approach (ICD-10-PCS; 2024-12-14)
PROC: 04CK0ZZ Extirpation of Matter from Right Femoral Artery, Open Approach (ICD-10-PCS; principal; 2024-12-14 13:15)
DX: I70.211 Atherosclerosis of native arteries of extremities with intermittent claudication, right leg (principal); I70.92 Chronic total occlusion of artery of the extremities; I08.3 Combined rheumatic disorders of mitral, aortic and tricuspid valves; F32.A Depression, unspecified; I50.9 Heart failure, unspecified; D64.9 Anemia, unspecified; I11.0 Hypertensive heart disease with heart failure; E78.5 Hyperlipidemia, unspecified; E89.0 Postprocedural hypothyroidism; I95.9 Hypotension, unspecified; F43.10 Post-traumatic stress disorder, unspecified; I25.10 Atherosclerotic heart disease of native coronary artery without angina pectoris; I25.2 Old myocardial infarction; I25.5 Ischemic cardiomyopathy; Z79.82 Long term (current) use of aspirin; Z87.891 Personal history of nicotine dependence; Z79.02 Long term (current) use of antithrombotics/antiplatelets; Z79.84 Long term (current) use of oral hypoglycemic drugs; Z79.890 Hormone replacement therapy; Z79.899 Other long term (current) drug therapy; Z86.74 Personal history of sudden cardiac arrest; Z95.5 Presence of coronary angioplasty implant and graft
CPT/HCPCS: 80053; 81025; 83735; 85025; 85027; 86850; 86900; 86901; 88304; 94640